=== PATIENT | male | born 1950 | race Caucasian/White ===

== ENCOUNTER 2020-11-26 08:07 | Emergency (ER) | payer MEDICARE ==
[2020-11-26 08:30] VITALS: BP 180/98; PULSE 86
--- NOTE | 2020-11-26 08:54 | EDM.PDOC ---
ED HPI GENERAL MEDICAL PROBLEM - General Chief Complaint: Lower Extremity Injury/Pain Stated Complaint: L CALF HURTING AND NUMB Time Seen by Provider: 11/26/20 08:35 Source of Information: Reports: Patient, Family History Limitations: Reports: No Limitations - History of Present Illness INITIAL COMMENTS - FREE TEXT/NARRATIVE: 70-year-old male arrives with left lower leg pain. He slipped in the bucket of his steer freezer unloader 5 days ago and injured his lower leg and pulled his back. 3 days ago he went to the chiropractor to have his back and hip work done but now is having more intense lower leg pain and having difficulty bearing weight. It never did bruise or really swell, there is no deformity. His back is still bothering him. He is having difficulty pinpointing where it hurts the most but it is below the knee on the left side. Onset: Sudden (His injury was sudden 5 days ago, the pain has slowly worsened especially over the past 48 hours) Location: Reports: Lower Extremity, Left Associated Symptoms: Reports: No Other Symptoms Left Lower Leg Pain Score (Numeric/FACES): 0 - Related Data Allergies Allergy/AdvReac Type Severity Reaction Status Date / Time No Known Allergies Allergy Verified 05/20/14 07:52 Home Meds: Home Meds NK [No Known Home Meds] 05/19/14 [History] Social & Family History - Tobacco Use Tobacco Use Status *Q: Never Tobacco User Review of Systems - Review of Systems Review Of Systems: See Below Constitutional: Denies: Fever Eyes: Denies: Tunnel Vision Ears: Denies: Dizziness Respiratory: Denies: Shortness of Breath, Cough Cardiovascular: Denies: Chest Pain, Palpitations Genitourinary: Reports: No Symptoms Musculoskeletal: Reports: Back Pain, Leg Pain Skin: Denies: Bruising Neurological: Denies: Headache ED EXAM, GENERAL - Physical Exam Exam: See Below Exam Limited By: No Limitations General Appearance: Alert, Moderate Distress Head: Atraumatic Neck: Non-Tender Respiratory/Chest: Lungs Clear Cardiovascular: Regular Rate, Rhythm GI/Abdominal: Soft, Non-Tender Back Exam: No: CVA Tenderness (R), CVA Tenderness (L), Vertebral Tenderness Extremities: Other (Patient reacts with tenderness to palpation of the arch of the left foot, and the anterior aspect of the fibula and tibia but there is no swelling or bruising. No pain with plantar flexion of the foot against resistance). No: Limited Range of Motion (Patient has full passive range of motion of both hips without pain, no tenderness with palpation of the lateral left hip) Neurological: Alert, Oriented, No Motor/Sensory Deficits Psychiatric: Normal Affect, Normal Mood Skin Exam: Warm, Dry Course - Vital Signs Last Recorded V/S: Last Vital Signs Temp 97.2 F 11/26/20 08:36 Pulse 86 11/26/20 08:36 Resp 20 11/26/20 08:36 BP 180/98 H 11/26/20 08:36 Pulse Ox 96 11/26/20 08:36 - Orders/Labs/Meds Orders: Active Orders 24 hr Category Date Time Status Foot Comp Min 3V Lt [CR] Stat Exams 11/26/20 08:43 Taken Tibia Fibula Lt [CR] Stat Exams 11/26/20 08:43 Taken - Re-Assessments/Exams Free Text/Narrative Re-Assessment/Exam: 11/26/20 09:03 Patient's blood pressure is noted to be elevated but he does not want to talk about this, does not want to see a doctor for regular problems. He is only concerned about his musculoskeletal symptoms. An x-ray of the left foot and left tib-fib were obtained. 11/26/20 09:32 X-rays of both tib-fib and foot were negative for fracture or acute findings. Patient was encouraged to continue with 600 mg of ibuprofen 3 times a day for the next 2 to 3 days and increase activity as tolerated. If not improving satisfactorily he will recheck on Saturday. Departure - Departure Time of Disposition: 09:50 Disposition: Home, Self-Care 01 Clinical Impression: High ankle sprain of left lower extremity Qualifiers: Encounter type: initial encounter Qualified Code(s): S93.492A - Sprain of other ligament of left ankle, initial encounter Contusion, lower leg Qualifiers: Encounter type: initial encounter Laterality: left Qualified Code(s): S80.12XA - Contusion of left lower leg, initial encounter - Discharge Information Instructions: Muscle Strain, [id number] Referrals: PCP,None [Primary Care Provider] - Forms: ED Department Discharge Care Plan Goals: Take 600 mg of ibuprofen 3 times a day for the next 3 days. Elevate leg when not active, and increase activity as tolerated. You may also use Tylenol at full doses, Tylenol and ibuprofen work well together. Consider rechecking next week if not improving satisfactorily. Sepsis Event Note (ED) - Evaluation Sepsis Screening Result: No Definite Risk - Focused Exam Vital Signs: Vital Signs Temp Pulse Resp BP Pulse Ox 11/26/20 08:36 97.2 F 86 20 180/98 H 96 11/26/20 08:29 97.2 F 86 20 180/98 H 96 - My Orders Last 24 Hours: My Active Orders 11/26/20 08:43 Foot Comp Min 3V Lt [CR] Stat Tibia Fibula Lt [CR] Stat - Assessment/Plan Last 24 Hours: My Active Orders 11/26/20 08:43 Foot Comp Min 3V Lt [CR] Stat Tibia Fibula Lt [CR] Stat
--- NOTE | 2020-11-28 09:12 | CR ---
Foot Comp Min 3V Lt, CLINICAL HISTORY: Injury FINDINGS: There is no acute fracture or dislocation within the foot. No destructive changes are present. There are some hammertoe deformities IMPRESSION: No acute bony process. Foot Comp Min 3V Lt, Tibia Fibula Lt CLINICAL HISTORY: Injury FINDINGS: Two views show no evidence of fracture or bone destruction. No soft tissue abnormality is seen. Impression: Negative
== END 2020-11-26 10:03 | disposition home or self-care (01) ==
LOC: JP.ED 08:07
DX: S93.492A Sprain of other ligament of left ankle, initial encounter (principal); S80.12XA Contusion of left lower leg, initial encounter; W22.09XA Striking against other stationary object, initial encounter
CPT/HCPCS: 73590-26-LT; 73590-LT; 73630-26-LT; 73630-LT; 99283-25

== ENCOUNTER 2020-11-30 19:35 | Inpatient (IN) | payer MEDICARE ==
[2020-11-30] MEDS ORDERED: Sodium Chloride 0.9% 1,000 ML IV SCH (19:45)
[2020-11-30] MEDS ORDERED: Sodium Chloride 0.9% 10 ML Syringe FLUSH PRN ×2 (19:45→21:57)
[2020-11-30] MEDS ORDERED: REMDESIVIR 200 MG in Sodium Chloride 0.9% 250 ML IV ONE (20:18)
[2020-11-30] MEDS ORDERED: Dexamethasone 4 MG/ML SDV IVPUSH SCH (20:30)
--- NOTE | 2020-11-30 21:10 | EDM.PDOC ---
ED HPI GENERAL MEDICAL PROBLEM - General Chief Complaint: Fever Stated Complaint: FEVER, FATIGUE, CONFUSION, FALL Time Seen by Provider: 11/30/20 19:37 Source of Information: Reports: Patient, Other (Neighbor who is a nurse at [facility]) History Limitations: Reports: No Limitations - History of Present Illness INITIAL COMMENTS - FREE TEXT/NARRATIVE: Kevin is a 70-year-old male presenting to the ED with increased fever, chills, vomiting, lethargy, generalized weakness and shortness of breath. Patient was in his usual state of health until about a week ago when he fell out of his skid furnace unloader causing injury to his left lower leg, left upper extremity, and low back. He was seen in the emergency room and evaluated where he also underwent x-rays on Saturday. The patient was seen in the clinic on Saturday by his primary doctor Dr. Mckenzie and was seen in physical therapy several times this week for evaluation and treatment of his injuries. The neighbors have been checking in on him every day but one of the neighbors noted today that he was not making much sense and was very weak and short of breath and called the other neighbor who is a nurse here at [facility] to come over and take a look at him. She felt that he looked like he was a little worse as well. He has been having some chills and fever. She brought him in for evaluation and upon arrival to the ED was found to have an SPO2 of 81% on room air. He is mildly tachypneic and tachycardic. He has not been able to keep any food or fluids down because of vomiting. He was placed on oxygen 4 L nasal cannula bringing his SPO2 up to 93% and placed in isolation with the concern that he may have COVID-19. The patient has not had previous exposure to Covid nor is he vaccinated for it. He has no real significant past medical history. When the patient was seen at his primary care provider's office on Saturday the nurse noted that his vitals were normal including his oxygenation. His fever did not start until yesterday. - Related Data Allergies Allergy/AdvReac Type Severity Reaction Status Date / Time No Known Allergies Allergy Verified 05/20/14 07:52 Home Meds: Home Meds Acetaminophen/HYDROcodone [HYDROcodone-Acetaminophen 5-325 MG *] 1 tab PO ASDIRECTED 08/18/21 [History] Past Medical History HEENT History: Reports: Impaired Vision Neurological History: Reports: CVA - Infectious Disease History Infectious Disease History: Reports: Chicken Pox, Measles, Mumps Social & Family History - Tobacco Use Tobacco Use Status *Q: Never Tobacco User ED ROS GENERAL - Review of Systems Review Of Systems: See Below Constitutional: Reports: Fever, Chills, Malaise, Weakness (Generalized), Decreased Appetite HEENT: Reports: No Symptoms Respiratory: Reports: Shortness of Breath Cardiovascular: Reports: No Symptoms Endocrine: Reports: Fatigue GI/Abdominal: Reports: Decreased Appetite, Vomiting : Reports: No Symptoms Musculoskeletal: Reports: Back Pain (From recent injury), Joint Swelling (Left leg pain below the knee and left upper extremity pain in the forearm.) Skin: Reports: No Symptoms Neurological: Reports: Confusion (Neighbors noted that at times the patient was not making sense) Psychiatric: Reports: No Symptoms Hematologic/Lymphatic: Reports: No Symptoms Immunologic: Reports: No Symptoms ED EXAM, GENERAL - Physical Exam Exam: See Below Exam Limited By: No Limitations General Appearance: Alert, No Apparent Distress Eye Exam: Bilateral Eye: EOMI, PERRL Throat/Mouth: Normal Inspection, Normal Lips, Normal Oropharynx, Normal Voice, No Airway Compromise Head: Atraumatic, Normocephalic Neck: Normal Inspection, Supple. No: Lymphadenopathy (R), Lymphadenopathy (L) Respiratory/Chest: No Respiratory Distress, No Accessory Muscle Use, Rhonchi (Bilateral basilar rhonchi) Cardiovascular: Normal Peripheral Pulses, Regular Rate, Rhythm, No Murmur, Tachycardia Peripheral Pulses: 2+: Radial (L), Radial (R), Posterior Tibial (L), Posterior Tibial (R) GI/Abdominal: Soft, Non-Tender, Abnormal Bowel Sounds (Increased bowel sounds) Extremities: Other (There is sizable swelling of the proximal left tibia. This is previously been evaluated and no fracture was found.) Neurological: Alert, Oriented, Normal Cognition, No Motor/Sensory Deficits Psychiatric: Normal Affect, Normal Mood Skin Exam: Warm, Dry, Intact, Normal Color Lymphatic: No Adenopathy Course - Vital Signs Last Recorded V/S: Last Vital Signs Temp 36.4 C 11/30/20 20:19 Pulse 77 11/30/20 20:42 Resp 20 11/30/20 20:42 BP 105/77 11/30/20 20:42 Pulse Ox 92 L 11/30/20 20:42 - Orders/Labs/Meds Orders: Active Orders 24 hr Category Date Time Status Chest 1V Frontal [CR] Stat Exams 11/30/20 19:37 Taken Acetaminophen [TylenoL] Med 11/30/20 20:18 Active 650 mg PO Q4H PRN Sodium Chloride 0.9% [Normal Saline] 1,000 ml Med 11/30/20 19:45 Active IV ASDIRECTED Sodium Chloride 0.9% [Saline Flush] Med 11/30/20 19:45 Active 10 ml FLUSH ASDIRECTED PRN dexAMETHasone [Decadron] Med 11/30/20 20:30 Active 6 mg IVPUSH DAILY Isolation [COMM] Stat Oth 11/30/20 20:18 Ordered Saline Lock Insert [OM.PC] Routine Oth 11/30/20 19:45 Ordered Medication Orders Acetaminophen (Acetaminophen 325 Mg Tab) 650 mg PO Q4H PRN PRN Reason: Fever Greater Than 101 Dexamethasone (Dexamethasone 4 Mg/Ml Sdv) 6 mg IVPUSH DAILY VEE Stop: 12/09/20 09:01 Sodium Chloride (Normal Saline) 1,000 mls @ 150 mls/hr IV ASDIRECTED VEE Last Admin: 11/30/20 19:58 Dose: 150 mls/hr Documented by: DAISY Sodium Chloride (Sodium Chloride 0.9% 10 Ml Syringe) 10 ml FLUSH ASDIRECTED PRN PRN Reason: Keep Vein Open Last Admin: 11/30/20 19:58 Dose: 10 ml Documented by: DAISY Labs: Laboratory Tests 11/30/20 11/30/20 11/30/20 Range/Units 19:45 20:04 20:04 WBC 4.7 (4.5-11.0) K/uL RBC 4.42 (4.30-5.90) M/uL Hgb 13.7 (12.0-15.0) g/dL Hct 40.2 (40.0-54.0) % MCV 91 (80-98) fL MCH 31 (27-31) pg MCHC 34 (32-36) % Plt Count 152 (150-400) K/uL Neut % (Auto) 66.1 H (36-66) % Lymph % (Auto) 23.9 L (24-44) % [place] % (Auto) 9.8 H (2-6) % Eos % (Auto) 0.0 L (2-4) % Baso % (Auto) 0.2 (0-1) % D-Dimer, Quantitative 1104.14 H (0.0-500.0) ng/mL Puncture Site ABG pH (7.350-7.450) ABG pCO2 (35.0-42.0) mmHg ABG pO2 (75.0-100.0) mmHg ABG HCO3 (22.0-26.0) mmol/L ABG Total CO2 (23.0-27.0) mmol/L ABG O2 Saturation (95.0-98.0) % ABG O2 Content (15.0-23.0) %vol ABG Base Excess mm/L ABG Hemoglobin (13.5-18.0) g/dL ABG Oxyhemoglobin % ABG Carboxyhemoglobin (0.0-1.6) % ABG Methemoglobin % Quinn Test O2 Delivery Device Oxygen Flow Rate L Sodium (140-148) mmol/L Potassium (3.6-5.2) mmol/L Chloride (100-108) mmol/L Carbon Dioxide (21-32) mmol/L Anion Gap (5.0-14.0) mmol/L BUN (7-18) mg/dL Creatinine (0.8-1.3) mg/dL Est Cr Clr Drug Dosing mL/min Estimated GFR (MDRD) (>60) Glucose (74-106) mg/dL Lactic Acid (0.4-2.0) mmol/L Calcium (8.5-10.1) mg/dL Ferritin (8-388) ng/ml Total Bilirubin (0.2-1.0) mg/dL AST (15-37) U/L ALT (12-78) U/L Alkaline Phosphatase (46-116) U/L Lactate Dehydrogenase (85-227) U/L C-Reactive Protein (0.0-0.3) mg/dL Total Protein (6.4-8.2) g/dL Albumin (3.4-5.0) g/dL Globulin (2.3-3.5) g/dL Albumin/Globulin Ratio (1.2-2.2) Procalcitonin ng/mL SARS CoV-2 RNA Rapid RYAN Positive H 0811/30/20 11/30/20 Range/Units 20:04 20:04 20:04 WBC (4.5-11.0) K/uL RBC (4.30-5.90) M/uL Hgb (12.0-15.0) g/dL Hct (40.0-54.0) % MCV (80-98) fL MCH (27-31) pg MCHC (32-36) % Plt Count (150-400) K/uL Neut % (Auto) (36-66) % Lymph % (Auto) (24-44) % [place] % (Auto) (2-6) % Eos % (Auto) (2-4) % Baso % (Auto) (0-1) % D-Dimer, Quantitative (0.0-500.0) ng/mL Puncture Site ABG pH (7.350-7.450) ABG pCO2 (35.0-42.0) mmHg ABG pO2 (75.0-100.0) mmHg ABG HCO3 (22.0-26.0) mmol/L ABG Total CO2 (23.0-27.0) mmol/L ABG O2 Saturation (95.0-98.0) % ABG O2 Content (15.0-23.0) %vol ABG Base Excess mm/L ABG Hemoglobin (13.5-18.0) g/dL ABG Oxyhemoglobin % ABG Carboxyhemoglobin (0.0-1.6) % ABG Methemoglobin % Quinn Test O2 Delivery Device Oxygen Flow Rate L Sodium 136 L (140-148) mmol/L Potassium 3.9 (3.6-5.2) mmol/L Chloride 100 (100-108) mmol/L Carbon Dioxide 26 (21-32) mmol/L Anion Gap 13.9 (5.0-14.0) mmol/L BUN 24 H (7-18) mg/dL Creatinine 1.2 (0.8-1.3) mg/dL Est Cr Clr Drug Dosing 57.45 mL/min Estimated GFR (MDRD) 60 (>60) Glucose 104 (74-106) mg/dL Lactic Acid 0.8 (0.4-2.0) mmol/L Calcium 8.2 L (8.5-10.1) mg/dL Ferritin 1500 H (8-388) ng/ml Total Bilirubin 0.3 (0.2-1.0) mg/dL AST 44 H (15-37) U/L ALT 22 (12-78) U/L Alkaline Phosphatase 60 (46-116) U/L Lactate Dehydrogenase (85-227) U/L C-Reactive Protein 8.86 H (0.0-0.3) mg/dL Total Protein 6.9 (6.4-8.2) g/dL Albumin 3.1 L (3.4-5.0) g/dL Globulin 3.8 H (2.3-3.5) g/dL Albumin/Globulin Ratio 0.8 L (1.2-2.2) Procalcitonin < 0.05 ng/mL SARS CoV-2 RNA Rapid RYAN 11/30/20 11/30/20 Range/Units 20:18 20:35 WBC (4.5-11.0) K/uL RBC (4.30-5.90) M/uL Hgb (12.0-15.0) g/dL Hct (40.0-54.0) % MCV (80-98) fL MCH (27-31) pg MCHC (32-36) % Plt Count (150-400) K/uL Neut % (Auto) (36-66) % Lymph % (Auto) (24-44) % [place] % (Auto) (2-6) % Eos % (Auto) (2-4) % Baso % (Auto) (0-1) % D-Dimer, Quantitative (0.0-500.0) ng/mL Puncture Site Lt radial ABG pH 7.412 (7.350-7.450) ABG pCO2 37.7 (35.0-42.0) mmHg ABG pO2 64.2 L (75.0-100.0) mmHg ABG HCO3 23.5 (22.0-26.0) mmol/L ABG Total CO2 20.7 L (23.0-27.0) mmol/L ABG O2 Saturation 92.3 L (95.0-98.0) % ABG O2 Content 17.9 (15.0-23.0) %vol ABG Base Excess -0.3 mm/L ABG Hemoglobin 14.1 (13.5-18.0) g/dL ABG Oxyhemoglobin 90.5 % ABG Carboxyhemoglobin 1.0 (0.0-1.6) % ABG Methemoglobin 0.9 % Quinn Test Pass O2 Delivery Device Nasal cannula Oxygen Flow Rate 4.0 L Sodium (140-148) mmol/L Potassium (3.6-5.2) mmol/L Chloride (100-108) mmol/L Carbon Dioxide (21-32) mmol/L Anion Gap (5.0-14.0) mmol/L BUN (7-18) mg/dL Creatinine (0.8-1.3) mg/dL Est Cr Clr Drug Dosing mL/min Estimated GFR (MDRD) (>60) Glucose (74-106) mg/dL Lactic Acid (0.4-2.0) mmol/L Calcium (8.5-10.1) mg/dL Ferritin (8-388) ng/ml Total Bilirubin (0.2-1.0) mg/dL AST (15-37) U/L ALT (12-78) U/L Alkaline Phosphatase (46-116) U/L Lactate Dehydrogenase 374 H (85-227) U/L C-Reactive Protein (0.0-0.3) mg/dL Total Protein (6.4-8.2) g/dL Albumin (3.4-5.0) g/dL Globulin (2.3-3.5) g/dL Albumin/Globulin Ratio (1.2-2.2) Procalcitonin ng/mL SARS CoV-2 RNA Rapid RYAN Meds: Medications Generic Name Dose Route Start Last Admin Trade Name Freq PRN Reason Stop Dose Admin Acetaminophen 650 mg 11/30/20 20:18 Acetaminophen 325 Mg Tab PO Q4H PRN Fever Greater Than 101 Dexamethasone 6 mg 11/30/20 20:30 Dexamethasone 4 Mg/Ml Sdv IVPUSH 12/09/20 09:01 DAILY VEE Sodium Chloride 1,000 mls @ 150 mls/hr 11/30/20 19:45 11/30/20 19:58 Normal Saline IV 150 mls/hr ASDIRECTED VEE Administration Sodium Chloride 10 ml 11/30/20 19:45 11/30/20 19:58 Sodium Chloride 0.9% 10 Ml Syringe FLUSH 10 ml ASDIRECTED PRN Administration Keep Vein Open Discontinued Medications Generic Name Dose Route Start Last Admin Trade Name Freq PRN Reason Stop Dose Admin Remdesivir 200 mg/ Sodium 250 mls @ 250 mls/hr 11/30/20 20:18 Chloride IV 11/30/20 20:19 ONETIME ONE - Radiology Interpretation Free Text/Narrative:: I reviewed the 1 view chest x-ray showing scattered infiltrates in both bases consistent with Covid lung. - Re-Assessments/Exams Free Text/Narrative Re-Assessment/Exam: 11/30/20 21:12 Kevin is a 70-year-old male with presenting symptoms of some confusion, difficulty breathing, generalized weakness, fever and chills, vomiting who upon work-up was found to have COVID-19. He has not previously had this or been vaccinated for it. His only significant past medical history is a stroke 5 years ago. He is on no medications and has no allergies. Labs were obtained showing a CBC with a leukocyte count of 4.7, hemoglobin of 13.7 with a hematocrit of 40.2 and a platelet count of 152,000. Comprehensive metabolic panel shows a sodium of 136, potassium 3.9, chloride of 100, bicarbonate of 26, BUN of 24 with a creatinine of 1.2 and a calculated GFR of 60. Arterial blood gas on 4 L nasal cannula shows a pH of 7.41, PCO2 of 37.3, PO2 of 64.2, and a bicarbonate of 23.5. The patient's calcium is 8.2 with an albumin of 3.1 with a corrected calcium of 8.5. Lactate dehydrogenase is 374, lactic acid is 0.8, pro calcitonin is less than 0.05, D-dimer is 1104, ferritin is 1500, and C- reactive protein is 8.86. Review of the patient's 1 view chest x-ray shows scattered infiltrates in both lungs predominantly in the bases consistent with Covid lung. Based on the presenting complaint, hypoxia on admission ER, and positive Covid test, we are recommending admission of the patient. We initiated therapy with dexamethasone 6 mg IV and remdesivir 200 mg IV. I discussed the case with Kerry Sauceda CNP who has agreed to arrange for admission of the patient. Departure - Departure Time of Disposition: 21:16 Disposition: Admitted As Inpatient 64 Clinical Impression: COVID-19, Hypoxia Altered mental status Qualifiers: Altered mental status type: disorientation Qualified Code(s): R41.0 - D isorientation, unspecified - Discharge Information Referrals: Mayito Mckenzie MD [Primary Care Provider] - Sepsis Event Note (ED) - Evaluation Sepsis Screening Result: No Definite Risk - Focused Exam Vital Signs: Vital Signs Temp Pulse Resp BP Pulse Ox 11/30/20 20:42 77 20 105/77 92 L 11/30/20 20:20 92 L 11/30/20 20:19 36.4 C 70 20 126/63 92 L - Problem List & Annotations (1) Altered mental status SNOMED Code(s): 795715327 Code(s): R41.82 - ALTERED MENTAL STATUS, UNSPECIFIED Status: Acute Priority: High Current Visit: Yes Qualifiers: Altered mental status type: disorientation Qualified Code(s): R41.0 - Disorientation, unspecified (2) COVID-19 SNOMED Code(s): 689822896 Code(s): U07.1 - COVID-19 Status: Acute Priority: High Current Visit: Yes (3) Hypoxia SNOMED Code(s): 832976837 Code(s): R09.02 - HYPOXEMIA Status: Acute Priority: High Current Visit: Yes - Problem List Review Problem List Initiated/Reviewed/Updated: Yes - My Orders Last 24 Hours: My Active Orders 11/30/20 19:37 Chest 1V Frontal [CR] Stat 11/30/20 19:45 Sodium Chloride 0.9% [Normal Saline] 1,000 ml IV ASDIRECTED Sodium Chloride 0.9% [Saline Flush] 10 ml FLUSH ASDIRECTED PRN Saline Lock Insert [OM.PC] Routine 11/30/20 20:18 Acetaminophen [TylenoL] 650 mg PO Q4H PRN Isolation [COMM] Stat 11/30/20 20:30 dexAMETHasone [Decadron] 6 mg IVPUSH DAILY - Assessment/Plan Last 24 Hours: My Active Orders 11/30/20 19:37 Chest 1V Frontal [CR] Stat 11/30/20 19:45 Sodium Chloride 0.9% [Normal Saline] 1,000 ml IV ASDIRECTED Sodium Chloride 0.9% [Saline Flush] 10 ml FLUSH ASDIRECTED PRN Saline Lock Insert [OM.PC] Routine 11/30/20 20:18 Acetaminophen [TylenoL] 650 mg PO Q4H PRN Isolation [COMM] Stat 11/30/20 20:30 dexAMETHasone [Decadron] 6 mg IVPUSH DAILY
--- NOTE | 2020-11-30 21:30 | PCM.HP.2 ---
H&P History of Present Illness - General Date of Service: 11/30/20 Admit Problem/Dx: Admission Diagnosis/Problem Admission Diagnosis/Problem Hypoxia Source of Information: Patient, Family (Family Friend who is Nurse with [facility]), Provider, RN History Limitations: Reports: No Limitations - History of Present Illness Initial Comments - Free Text/Narative: chief complaint: fever, chills, not feeling well for 2 days. This is a 70 year old male presents to the ER via POV with neighbor, who is also a Nurse at [facility]. She gives report of present illness. Mr. Blanco lives alone in [place], [place]. last week he fell from a Skidsteer (logging big equipment) and had injury to left buttocks, lower back and left knee- muscle soft tissue injury-no fractures. He was seen in ER at [facility] on Saturday, then Dr. Mckenzie, Primary Care on Saturday, then Physical Therapy . Yesterday he began to have fever, chills, body aches and decreased appetite. His Neighbor Jessica ARTIS, ACU at [facility], went to check on him, noted him to be short of breath, confused and weak. She brought him to the ER for evaluation. Upon arrival his oxygen saturation was 81% on room air and he tested positive for Covid-19. He is not vaccinated for Covid-19. Onset of Symptoms: Reports: Gradual Symptom Onset Date: 11/29/20 Duration of Symptoms: Reports: Day(s):, Getting Worse Location: Reports: Generalized Severity: Severe Improves with: Reports: Medication Worsens with: Reports: None Context: Reports: Sick Contact (multi contacts- [facility], Dr. Mckenzie, [facility], Physical Therapy ) Associated Symptoms: Reports: Fever/Chills, Loss of Appetite, Nausea/Vomiting, Shortness of Breath, Weakness - Related Data Allergies/Adverse Reactions: Allergies Allergy/AdvReac Type Severity Reaction Status Date / Time No Known Allergies Allergy Verified 05/20/14 07:52 Home Medications: Home Meds Acetaminophen/HYDROcodone [HYDROcodone-Acetaminophen 5-325 MG *] 1 tab PO ASDIRECTED 11/30/20 [History] Past Medical History HEENT History: Reports: Impaired Vision Neurological History: Reports: CVA - Infectious Disease History Infectious Disease History: Reports: Chicken Pox, Measles, Mumps Social & Family History - Tobacco Use Tobacco Use Status *Q: Never Tobacco User - Living Situation & Occupation Living situation: Reports: Single, Alone Occupation: Employed (lives alone in [place], [place]. Self-employed) H&P Review of Systems - Review of Systems: Review Of Systems: See Below General: Reports: Fever (temp >101 f.), Chills, Malaise, Weakness, Fatigue, Decreased Appetite HEENT: Reports: Glasses, Other (natural teeth) Pulmonary: Reports: Shortness of Breath Cardiovascular: Reports: No Symptoms Gastrointestinal: Reports: No Symptoms Genitourinary: Reports: No Symptoms Musculoskeletal: Reports: Back Pain (injuried on Saturday- low back, left buttocks, left knee), Muscle Pain (low back, left buttocks, left knee from Lo gging injury fall from equipment-11/26/2020), Muscle Stiffness (injury 11/26/2020- negative X-rays - low back, left buttocks and left knee) Skin: Reports: Bruising Psychiatric: Reports: Confusion Neurological: Reports: Confusion Hematologic/Lymphatic: Reports: No Symptoms Immunologic: Reports: No Symptoms Exam - Exam Exam: See Below - Vital Signs Vital Signs: Last Vital Signs Temp 97.6 F 11/30/20 20:19 Pulse 77 11/30/20 20:42 Resp 20 11/30/20 20:42 BP 105/77 11/30/20 20:42 Pulse Ox 92 L 11/30/20 20:42 Weight: 215 lb - Exam Quality Assessment: Supplemental Oxygen, DVT Prophylaxis General: Alert, Cooperative, Mild Distress HEENT: PERRLA, Conjunctiva Clear, EACs Clear, EOMI, Hearing Intact, Nares Patent, Glasses Neck: Supple, Trachea Midline, Full Range of Motion Lungs: Normal Respiratory Effort, Decreased Breath Sounds (bilateral) Cardiovascular: Regular Rate, Regular Rhythm, Normal S1, Normal S2 GI/Abdominal Exam: Normal Bowel Sounds, Soft, Non-Tender, No Organomegaly, No Distention (Male) Exam: Deferred Rectal (Males) Exam: Deferred Back Exam: Normal Inspection, Full Range of Motion, Muscle Spasm (low back pain, lidocaine patch noted to left buttocks) Extremities: Normal Inspection, Normal Range of Motion, Non-Tender, No Pedal Edema, Normal Capillary Refill Peripheral Pulses: 2+: Radial (L), Radial (R), Dorsalis Pedis (L), Dorsalis Pedis (R) Skin: Warm, Dry, Intact Neurological: Cranial Nerves Intact, Reflexes Equal Bilateral, Strength Equal Bilateral, Normal Speech, Normal Tone, Sensation Intact Neuro Extensive - Mental Status: Alert, Normal Mood/Affect Neuro Extensive - Motor, Sensory, Reflexes: CN II-XII Intact Psychiatric: Alert, Normal Affect, Normal Mood - Patient Data Lab Results Last 24 hrs: Laboratory Results - last 24 hr 11/30/20 11/30/20 11/30/20 Range/Units 19:45 20:04 20:04 WBC 4.7 (4.5-11.0) K/uL RBC 4.42 (4.30-5.90) M/uL Hgb 13.7 (12.0-15.0) g/dL Hct 40.2 (40.0-54.0) % MCV 91 (80-98) fL MCH 31 (27-31) pg MCHC 34 (32-36) % Plt Count 152 (150-400) K/uL Neut % (Auto) 66.1 H (36-66) % Lymph % (Auto) 23.9 L (24-44) % [place] % (Auto) 9.8 H (2-6) % Eos % (Auto) 0.0 L (2-4) % Baso % (Auto) 0.2 (0-1) % D-Dimer, Quantitative 1104.14 H (0.0-500.0) ng/mL Puncture Site ABG pH (7.350-7.450) ABG pCO2 (35.0-42.0) mmHg ABG pO2 (75.0-100.0) mmHg ABG HCO3 (22.0-26.0) mmol/L ABG Total CO2 (23.0-27.0) mmol/L ABG O2 Saturation (95.0-98.0) % ABG O2 Content (15.0-23.0) %vol ABG Base Excess mm/L ABG Hemoglobin (13.5-18.0) g/dL ABG Oxyhemoglobin % ABG Carboxyhemoglobin (0.0-1.6) % ABG Methemoglobin % Quinn Test O2 Delivery Device Oxygen Flow Rate L Sodium (140-148) mmol/L Potassium (3.6-5.2) mmol/L Chloride (100-108) mmol/L Carbon Dioxide (21-32) mmol/L Anion Gap (5.0-14.0) mmol/L BUN (7-18) mg/dL Creatinine (0.8-1.3) mg/dL Est Cr Clr Drug Dosing mL/min Estimated GFR (MDRD) (>60) Glucose (74-106) mg/dL Lactic Acid (0.4-2.0) mmol/L Calcium (8.5-10.1) mg/dL Ferritin (8-388) ng/ml Total Bilirubin (0.2-1.0) mg/dL AST (15-37) U/L ALT (12-78) U/L Alkaline Phosphatase (46-116) U/L Lactate Dehydrogenase (85-227) U/L C-Reactive Protein (0.0-0.3) mg/dL Total Protein (6.4-8.2) g/dL Albumin (3.4-5.0) g/dL Globulin (2.3-3.5) g/dL Albumin/Globulin Ratio (1.2-2.2) Procalcitonin ng/mL SARS CoV-2 RNA Rapid RYAN Positive H 11/30/20 11/30/20 11/30/20 Range/Units 20:04 20:04 20:04 WBC (4.5-11.0) K/uL RBC (4.30-5.90) M/uL Hgb (12.0-15.0) g/dL Hct (40.0-54.0) % MCV (80-98) fL MCH (27-31) pg MCHC (32-36) % Plt Count (150-400) K/uL Neut % (Auto) (36-66) % Lymph % (Auto) (24-44) % [place] % (Auto) (2-6) % Eos % (Auto) (2-4) % Baso % (Auto) (0-1) % D-Dimer, Quantitative (0.0-500.0) ng/mL Puncture Site ABG pH (7.350-7.450) ABG pCO2 (35.0-42.0) mmHg ABG pO2 (75.0-100.0) mmHg ABG HCO3 (22.0-26.0) mmol/L ABG Total CO2 (23.0-27.0) mmol/L ABG O2 Saturation (95.0-98.0) % ABG O2 Content (15.0-23.0) %vol ABG Base Excess mm/L ABG Hemoglobin (13.5-18.0) g/dL ABG Oxyhemoglobin % ABG Carboxyhemoglobin (0.0-1.6) % ABG Methemoglobin % Quinn Test O2 Delivery Device Oxygen Flow Rate L Sodium 136 L (140-148) mmol/L Potassium 3.9 (3.6-5.2) mmol/L Chloride 100 (100-108) mmol/L Carbon Dioxide 26 (21-32) mmol/L Anion Gap 13.9 (5.0-14.0) mmol/L BUN 24 H (7-18) mg/dL Creatinine 1.2 (0.8-1.3) mg/dL Est Cr Clr Drug Dosing 57.45 mL/min Estimated GFR (MDRD) 60 (>60) Glucose 104 (74-106) mg/dL Lactic Acid 0.8 (0.4-2.0) mmol/L Calcium 8.2 L (8.5-10.1) mg/dL Ferritin 1500 H (8-388) ng/ml Total Bilirubin 0.3 (0.2-1.0) mg/dL AST 44 H (15-37) U/L ALT 22 (12-78) U/L Alkaline Phosphatase 60 (46-116) U/L Lactate Dehydrogenase (85-227) U/L C-Reactive Protein 8.86 H (0.0-0.3) mg/dL Total Protein 6.9 (6.4-8.2) g/dL Albumin 3.1 L (3.4-5.0) g/dL Globulin 3.8 H (2.3-3.5) g/dL Albumin/Globulin Ratio 0.8 L (1.2-2.2) Procalcitonin < 0.05 ng/mL SARS CoV-2 RNA Rapid RYAN 11/30/20 11/30/20 Range/Units 20:18 20:35 WBC (4.5-11.0) K/uL RBC (4.30-5.90) M/uL Hgb (12.0-15.0) g/dL Hct (40.0-54.0) % MCV (80-98) fL MCH (27-31) pg MCHC (32-36) % Plt Count (150-400) K/uL Neut % (Auto) (36-66) % Lymph % (Auto) (24-44) % [place] % (Auto) (2-6) % Eos % (Auto) (2-4) % Baso % (Auto) (0-1) % D-Dimer, Quantitative (0.0-500.0) ng/mL Puncture Site Lt radial ABG pH 7.412 (7.350-7.450) ABG pCO2 37.7 (35.0-42.0) mmHg ABG pO2 64.2 L (75.0-100.0) mmHg ABG HCO3 23.5 (22.0-26.0) mmol/L ABG Total CO2 20.7 L (23.0-27.0) mmol/L ABG O2 Saturation 92.3 L (95.0-98.0) % ABG O2 Content 17.9 (15.0-23.0) %vol ABG Base Excess -0.3 mm/L ABG Hemoglobin 14.1 (13.5-18.0) g/dL ABG Oxyhemoglobin 90.5 % ABG Carboxyhemoglobin 1.0 (0.0-1.6) % ABG Methemoglobin 0.9 % Quinn Test Pass O2 Delivery Device Nasal cannula Oxygen Flow Rate 4.0 L Sodium (140-148) mmol/L Potassium (3.6-5.2) mmol/L Chloride (100-108) mmol/L Carbon Dioxide (21-32) mmol/L Anion Gap (5.0-14.0) mmol/L BUN (7-18) mg/dL Creatinine (0.8-1.3) mg/dL Est Cr Clr Drug Dosing mL/min Estimated GFR (MDRD) (>60) Glucose (74-106) mg/dL Lactic Acid (0.4-2.0) mmol/L Calcium (8.5-10.1) mg/dL Ferritin (8-388) ng/ml Total Bilirubin (0.2-1.0) mg/dL AST (15-37) U/L ALT (12-78) U/L Alkaline Phosphatase (46-116) U/L Lactate Dehydrogenase 374 H (85-227) U/L C-Reactive Protein (0.0-0.3) mg/dL Total Protein (6.4-8.2) g/dL Albumin (3.4-5.0) g/dL Globulin (2.3-3.5) g/dL Albumin/Globulin Ratio (1.2-2.2) Procalcitonin ng/mL SARS CoV-2 RNA Rapid RYAN Result Diagrams: 11/30/20 20:04 11/30/20 20:04 Sepsis Event Note - Evaluation Sepsis Screening Result: No Definite Risk - Focused Exam Vital Signs: Vital Signs Temp Pulse Resp BP Pulse Ox 11/30/20 20:42 77 20 105/77 92 L 11/30/20 20:20 92 L 11/30/20 20:19 97.6 F 70 20 126/63 92 L - Problem List (1) COVID-19 SNOMED Code(s): 540675234 ICD Code: U07.1 - COVID-19 Status: Acute Priority: High Current Visit: Yes (2) Hypoxia SNOMED Code(s): 433155174 ICD Code: R09.02 - HYPOXEMIA Status: Acute Priority: High Current Visit: Yes (3) Back pain due to injury SNOMED Code(s): 484064857, 994428933 ICD Code: M54.9 - DORSALGIA, UNSPECIFIED Status: Acute Priority: High Current Visit: Yes Problem List Initiated/Reviewed/Updated: Yes Orders Last 24hrs: Active Orders 24 hr Category Date Time Status Patient Status Manage Transfer [TRANSFER] Routine ADT 11/30/20 20:58 Ordered Chest 1V Frontal [CR] Stat Exams 11/30/20 19:37 Taken Acetaminophen [TylenoL] Med 11/30/20 20:18 Active 650 mg PO Q4H PRN Sodium Chloride 0.9% [Normal Saline] 1,000 ml Med 11/30/20 19:45 Active IV ASDIRECTED Sodium Chloride 0.9% [Saline Flush] Med 11/30/20 19:45 Active 10 ml FLUSH ASDIRECTED PRN dexAMETHasone [Decadron] Med 11/30/20 20:30 Active 6 mg IVPUSH DAILY Isolation [COMM] Stat Oth 11/30/20 20:18 Ordered Saline Lock Insert [OM.PC] Routine Oth 11/30/20 19:45 Ordered Resuscitation Status Routine Resus Stat 11/30/20 21:00 Ordered Medication Orders Acetaminophen (Acetaminophen 325 Mg Tab) 650 mg PO Q4H PRN PRN Reason: Fever Greater Than 101 Dexamethasone (Dexamethasone 4 Mg/Ml Sdv) 6 mg IVPUSH DAILY VEE Stop: 12/09/20 09:01 Sodium Chloride (Normal Saline) 1,000 mls @ 150 mls/hr IV ASDIRECTED VEE Last Admin: 11/30/20 19:58 Dose: 150 mls/hr Documented by: DAISY Sodium Chloride (Sodium Chloride 0.9% 10 Ml Syringe) 10 ml FLUSH ASDIRECTED PRN PRN Reason: Keep Vein Open Last Admin: 11/30/20 19:58 Dose: 10 ml Documented by: DAISY Assessment/Plan Comment:: Assessment/Plan Comment:: ASSESSMENT AND PLAN OF CARE This is a 70 year old male presents to the ER via POV with neighbor, who is also a Nurse at [facility]. She gives report of present illness. Mr. Blanco lives alone in [place], [place]. last week he fell from a Skidsteer (logging big equipment) and had injury to left buttocks, lower back and left knee- muscle soft tissue injury-no fractures. He was seen in ER at [facility] on Saturday, then Dr. Mckenzie, Primary Care on Saturday, then Physical Therapy . Yesterday he began to have fever, chills, body aches and decreased appetite. His Neighbor STEFF Lopez, ACU at [facility], went to check on him, noted him to be short of breath, confused and weak. She brought him to the ER for evaluation. Upon arrival his oxygen saturation was 81% on room air and he tested positive for Covid-19. He is not vaccinated for Covid-19. ER workup shows WBC 4.7, hgb 13.7, hct 40.2, platelets 152, Ferritin >1500, D Dimer >1104.14 Chemistry Na+ 136, K+ 3.9, cl 100, anion gap 13.9, BUN 24, Cr 1.2, glucose 104, CRP 8.86, positive Covid-19, Lactic acid 0.8, procalcitonin <0.05. ABGspH 7.41, pC02 37.7, pO2 64.2, HCO3 23.5, total Co2 20.7, O2 sat 92.3, X-ray chest Radiology report bilateral patchy infiltrates- consistent with covid lung. Medication given IV fluids, Tylenol in ER. Plan to hospital for further care and treatment. agree with plan of care. Covid-[address] Haq, Hospitalist. -Admit to [address] [place] [address] for further monitoring COVID-19 INFECTION WITH HYPOXIA-onset of symptoms one days ago. Hypoxic on initial presentation Oxygen sat 81% on room air, chest x-ray shows evidence of bilateral infiltrates. -Limit IV fluids- given one liter in ER due to dehydration -IV Remdesivir 200 mg IV given in the emergency department, 100 mg IV daily for 4 days starting tomorrow -Decadron 6 mg IV daily -Lovenox 40 mg subcut every 12 hours -oxygen to keep sats greater than 93%, currently nasal cannula at 4 liter with oxygen sat at 93% -Albuterol inhaler 2 puffs every 2 hours as needed for shortness of breath -Advise to notify nurses of any chest pain or other symptoms -And a.m. labs: CBC, BMP, D-dimer Back Pain- due to fall from Logging equipment, seen in ER on 11/26/2020- no fractures. -Hydrocodone 5-325 mg one to two every 4 hours as needed for pain -Lidocaine patch daily Maintenance issues -Orders home medications: no chronic medication -Nutrition: regular diet. -Broderick catheter -not indicated at this time -DVT: Lovenox 40 mg subcut every 12 hours -PPI; IV Protonix 40mg at bedtime CODE STATUS: FULL Admission status: Admit to [address] [place] [address] Admission justification. This patient will be admitted for inpatient services and is medically appropriate meeting medical necessity for inpatient admission as outlined in my documentation. I reasonably expect the patient will require inpatient services that span. Time over 2 midnights. I reasonably expect this patient to be discharged or transferred within 96 hours after admission to the critical access hospital. Disposition: home Primary care provider: Dr. Mckenzie, [facility] Hospitalist: Dr. Haq - Mortality Measure Prognosis:: Good
[2020-11-30] MEDS ORDERED: Morphine 2 MG/ML SYRINGE IVPUSH PRN (21:57)
[2020-11-30] MEDS ORDERED: Docusate Sodium 100 MG Cap PO PRN (21:57)
[2020-11-30] MEDS ORDERED: Lidocaine 5% 700 MG Patch TRDERM SCH (21:57)
[2020-11-30] MEDS ORDERED: Enoxaparin 40 MG/0.4 ML Syringe SUBCUT SCH (21:57)
[2020-11-30] MEDS ORDERED: Albuterol 8 GM Inhaler INH PRN (21:57)
[2020-11-30] MEDS ORDERED: Ondansetron 4 MG Tab.DIS PO PRN (21:57)
[2020-11-30] MEDS ORDERED: LORazepam 2 MG/ML SDV IV PRN (21:57)
[2020-11-30] MEDS ORDERED: Pantoprazole 40 MG Vial IV SCH (21:57)
--- NOTE | 2020-12-01 08:51 | CR ---
CHEST: Portable 11/30/2020 at 8:11 PM CLINICAL HISTORY:Covid Positive, lethargy, hypoxia COMPARISON:None FINDINGS: There is ill-defined infiltrate in the left mid and lower lung field and the right lower lung. No effusion is seen. Heart and pulmonary vascular are normal. Impression: Faint bilateral pulmonary infiltrates suggest pneumonitis
[2020-12-01] MEDS: Enoxaparin 40 MG/0.4 ML Syringe SUBCUT SCH ×2 (09:44→22:26)
[2020-12-01] MEDS: REMDESIVIR 100 MG in Sodium Chloride 0.9% 100 ML IV SCH (20:14)
--- NOTE | 2020-12-01 21:08 | PCM.PN ---
- General Info Date of Service: 12/01/20 Admission Dx/Problem (Free Text): Admission Diagnosis/Problem Admission Diagnosis/Problem Hypoxia secondary to COVID-19 Functional Status: Reports: Tolerating Diet, Incentive Spirometry - Review of Systems General: Reports: Appetite. Denies: Fever, Chills HEENT: Denies: Headaches, Visual Changes Pulmonary: Reports: Cough. Denies: Shortness of Breath, Pleuritic Chest Pain, Wheezing Cardiovascular: Denies: Chest Pain, Palpitations Gastrointestinal: Denies: Abdominal Pain, Constipation, Diarrhea, Nausea, Vomiting Genitourinary: Denies: Dysuria, Frequency, Urgency Musculoskeletal: Reports: No Symptoms Skin: Reports: No Symptoms Neurological: Reports: No Symptoms Psychiatric: Reports: No Symptoms - Patient Data Vitals - Most Recent: Last Vital Signs Temp 98.5 F 12/01/20 20:00 Pulse 71 12/01/20 20:00 Resp 18 12/01/20 20:00 BP 135/74 12/01/20 20:00 Pulse Ox 91 L 12/01/20 20:00 Weight - Most Recent: 209 lb I&O - Last 24 Hours: Intake & Output 12/01/20 12/01/20 12/01/20 06:59 14:59 22:59 Intake Total 200 220 100 Output Total 500 600 Balance -300 220 -500 Lab Results Last 24 Hours: Laboratory Results - last 24 hr 11/30/20 11/30/20 12/01/20 Range/Units 20:04 20:18 06:00 WBC (4.5-11.0) K/uL RBC (4.30-5.90) M/uL Hgb (12.0-15.0) g/dL Hct (40.0-54.0) % MCV (80-98) fL MCH (27-31) pg MCHC (32-36) % Plt Count (150-400) K/uL Neut % (Auto) (36-66) % Lymph % (Auto) (24-44) % [place] % (Auto) (2-6) % Eos % (Auto) (2-4) % Baso % (Auto) (0-1) % Sodium 136 L (140-148) mmol/L Potassium 3.9 (3.6-5.2) mmol/L Chloride 100 (100-108) mmol/L Carbon Dioxide 26 (21-32) mmol/L Anion Gap 13.9 (5.0-14.0) mmol/L BUN 24 H (7-18) mg/dL Creatinine 1.2 (0.8-1.3) mg/dL Est Cr Clr Drug Dosing 57.45 mL/min Estimated GFR (MDRD) 60 (>60) Glucose 104 (74-106) mg/dL Calcium 8.2 L (8.5-10.1) mg/dL Ferritin 1500 H (8-388) ng/ml Total Bilirubin 0.3 0.3 (0.2-1.0) mg/dL Direct Bilirubin 0.09 (0.0-0.2) mg/dL Indirect Bilirubin TNP AST 44 H 45 H (15-37) U/L ALT 22 21 (12-78) U/L Alkaline Phosphatase 60 57 (46-116) U/L Lactate Dehydrogenase 374 H (85-227) U/L C-Reactive Protein 8.86 H (0.0-0.3) mg/dL Total Protein 6.9 6.4 (6.4-8.2) g/dL Albumin 3.1 L 2.7 L (3.4-5.0) g/dL Globulin 3.8 H 3.7 H (2.3-3.5) g/dL Albumin/Globulin Ratio 0.8 L 0.7 L (1.2-2.2) 12/01/20 12/01/20 Range/Units 06:17 06:17 WBC 3.7 L (4.5-11.0) K/uL RBC 4.30 (4.30-5.90) M/uL Hgb 13.7 (12.0-15.0) g/dL Hct 39.2 L (40.0-54.0) % MCV 91 (80-98) fL MCH 32 H (27-31) pg MCHC 35 (32-36) % Plt Count 144 L (150-400) K/uL Neut % (Auto) 67.9 H (36-66) % Lymph % (Auto) 25.6 (24-44) % [place] % (Auto) 6.5 H (2-6) % Eos % (Auto) 0.0 L (2-4) % Baso % (Auto) 0.0 (0-1) % Sodium 137 L (140-148) mmol/L Potassium 4.2 (3.6-5.2) mmol/L Chloride 101 (100-108) mmol/L Carbon Dioxide 25 (21-32) mmol/L Anion Gap 15.2 H (5.0-14.0) mmol/L BUN 22 H (7-18) mg/dL Creatinine 1.0 (0.8-1.3) mg/dL Est Cr Clr Drug Dosing 68.94 mL/min Estimated GFR (MDRD) > 60 (>60) Glucose 123 H (74-106) mg/dL Calcium 8.2 L (8.5-10.1) mg/dL Ferritin (8-388) ng/ml Total Bilirubin (0.2-1.0) mg/dL Direct Bilirubin (0.0-0.2) mg/dL Indirect Bilirubin AST (15-37) U/L ALT (12-78) U/L Alkaline Phosphatase (46-116) U/L Lactate Dehydrogenase (85-227) U/L C-Reactive Protein (0.0-0.3) mg/dL Total Protein (6.4-8.2) g/dL Albumin (3.4-5.0) g/dL Globulin (2.3-3.5) g/dL Albumin/Globulin Ratio (1.2-2.2) Med Orders - Current: Current Medications Acetaminophen (Acetaminophen 325 Mg Tab) 650 mg PO Q4H PRN PRN Reason: Fever Greater Than 101 Hydrocodone Bitart/Acetaminophen (Acetaminophen/Hydrocodone 325-5 Mg Tab) 1 tab PO Q4H PRN PRN Reason: Pain (moderate 4-6) Albuterol (Albuterol 8 Gm Inhaler) 0 gm INH Q2H PRN PRN Reason: Shortness of Breath Dexamethasone (Dexamethasone 4 Mg/Ml Sdv) 6 mg IVPUSH BEDTIME [facility] Stop: 12/09/20 21:01 Docusate Sodium (Docusate Sodium 100 Mg Cap) 100 mg PO BID PRN PRN Reason: Constipation Enoxaparin Sodium (Enoxaparin 40 Mg/0.4 Ml Syringe) 40 mg SUBCUT BID [facility] Last Admin: 12/01/20 09:44 Dose: 40 mg Documented by: Remdesivir 100 mg/ Sodium (Chloride) 100 mls @ 100 mls/hr IV Q24H [facility] Stop: 12/04/20 18:59 Last Admin: 12/01/20 20:14 Dose: 100 mls/hr Documented by: Lidocaine (Lidocaine 5% 700 Mg Patch) 700 mg TRDERM Q24H [facility] Lorazepam (Lorazepam 2 Mg/Ml Sdv) 1 mg IV Q6H PRN PRN Reason: Nausea/Vomiting Miscellaneous Information (Remove Lidocaine Patch) 1 ea TRDERM DAILY [facility] Last Admin: 12/01/20 09:45 Dose: Not Given Documented by: Morphine Sulfate (Morphine 2 Mg/Ml Syringe) 2 mg IVPUSH Q2H PRN PRN Reason: Pain (severe 7-10) Ondansetron HCl (Ondansetron 4 Mg Tab.Dis) 4 mg PO Q6H PRN PRN Reason: Nausea able to take PO Pantoprazole Sodium (Pantoprazole 40 Mg Tab.Cr) 40 mg PO BEDTIME [facility] Sodium Chloride (Sodium Chloride 0.9% 10 Ml Syringe) 10 ml FLUSH ASDIRECTED PRN PRN Reason: Keep Vein Open Discontinued Medications Dexamethasone (Dexamethasone 4 Mg/Ml Sdv) 6 mg IVPUSH DAILY [facility] Stop: 12/09/20 09:01 Last Admin: 11/30/20 22:47 Dose: 6 mg Documented by: Enoxaparin Sodium (Enoxaparin 40 Mg/0.4 Ml Syringe) 40 mg SUBCUT Q12H [facility] Last Admin: 11/30/20 22:58 Dose: 40 mg Documented by: Sodium Chloride (Normal Saline) 1,000 mls @ 150 mls/hr IV ASDIRECTED [facility] Last Admin: 11/30/20 19:58 Dose: 150 mls/hr Documented by: Remdesivir 200 mg/ Sodium (Chloride) 250 mls @ 250 mls/hr IV ONETIME ONE Stop: 11/30/20 20:19 Last Admin: 11/30/20 22:53 Dose: 250 mls/hr Documented by: Lidocaine (Lidocaine 5% 700 Mg Patch) 700 mg TRDERM Q24H [facility] Last Admin: 11/30/20 22:58 Dose: 700 mg Documented by: Pantoprazole Sodium (Pantoprazole 40 Mg Vial) 40 mg IV BEDTIME [facility] Last Admin: 11/30/20 22:51 Dose: 40 mg Documented by: Sodium Chloride (Sodium Chloride 0.9% 10 Ml Syringe) 10 ml FLUSH ASDIRECTED PRN PRN Reason: Keep Vein Open Last Admin: 11/30/20 19:58 Dose: 10 ml Documented by: - Exam Quality Assessment: Supplemental Oxygen General: Alert, Oriented, No Acute Distress HEENT: Pupils Equal, EOMI, Mucous Membr. Moist/[place] Neck: Supple, Trachea Midline Lungs: Clear to Auscultation, Normal Respiratory Effort Cardiovascular: Regular Rate, Regular Rhythm GI/Abdominal Exam: Normal Bowel Sounds, Soft, Non-Tender Extremities: Normal Inspection, Non-Tender, No Pedal Edema Skin: Warm, Dry, Intact Neurological: No New Focal Deficit Psy/Mental Status: Alert, Normal Affect, Normal Mood - Patient Data Lab Results Last 24 hrs: Laboratory Results - last 24 hr 11/30/20 11/30/20 12/01/20 Range/Units 20:04 20:18 06:00 WBC (4.5-11.0) K/uL RBC (4.30-5.90) M/uL Hgb (12.0-15.0) g/dL Hct (40.0-54.0) % MCV (80-98) fL MCH (27-31) pg MCHC (32-36) % Plt Count (150-400) K/uL Neut % (Auto) (36-66) % Lymph % (Auto) (24-44) % [place] % (Auto) (2-6) % Eos % (Auto) (2-4) % Baso % (Auto) (0-1) % Sodium 136 L (140-148) mmol/L Potassium 3.9 (3.6-5.2) mmol/L Chloride 100 (100-108) mmol/L Carbon Dioxide 26 (21-32) mmol/L Anion Gap 13.9 (5.0-14.0) mmol/L BUN 24 H (7-18) mg/dL Creatinine 1.2 (0.8-1.3) mg/dL Est Cr Clr Drug Dosing 57.45 mL/min Estimated GFR (MDRD) 60 (>60) Glucose 104 (74-106) mg/dL Calcium 8.2 L (8.5-10.1) mg/dL Ferritin 1500 H (8-388) ng/ml Total Bilirubin 0.3 0.3 (0.2-1.0) mg/dL Direct Bilirubin 0.09 (0.0-0.2) mg/dL Indirect Bilirubin TNP AST 44 H 45 H (15-37) U/L ALT 22 21 (12-78) U/L Alkaline Phosphatase 60 57 (46-116) U/L Lactate Dehydrogenase 374 H (85-227) U/L C-Reactive Protein 8.86 H (0.0-0.3) mg/dL Total Protein 6.9 6.4 (6.4-8.2) g/dL Albumin 3.1 L 2.7 L (3.4-5.0) g/dL Globulin 3.8 H 3.7 H (2.3-3.5) g/dL Albumin/Globulin Ratio 0.8 L 0.7 L (1.2-2.2) 12/01/20 12/01/20 Range/Units 06:17 06:17 WBC 3.7 L (4.5-11.0) K/uL RBC 4.30 (4.30-5.90) M/uL Hgb 13.7 (12.0-15.0) g/dL Hct 39.2 L (40.0-54.0) % MCV 91 (80-98) fL MCH 32 H (27-31) pg MCHC 35 (32-36) % Plt Count 144 L (150-400) K/uL Neut % (Auto) 67.9 H (36-66) % Lymph % (Auto) 25.6 (24-44) % [place] % (Auto) 6.5 H (2-6) % Eos % (Auto) 0.0 L (2-4) % Baso % (Auto) 0.0 (0-1) % Sodium 137 L (140-148) mmol/L Potassium 4.2 (3.6-5.2) mmol/L Chloride 101 (100-108) mmol/L Carbon Dioxide 25 (21-32) mmol/L Anion Gap 15.2 H (5.0-14.0) mmol/L BUN 22 H (7-18) mg/dL Creatinine 1.0 (0.8-1.3) mg/dL Est Cr Clr Drug Dosing 68.94 mL/min Estimated GFR (MDRD) > 60 (>60) Glucose 123 H (74-106) mg/dL Calcium 8.2 L (8.5-10.1) mg/dL Ferritin (8-388) ng/ml Total Bilirubin (0.2-1.0) mg/dL Direct Bilirubin (0.0-0.2) mg/dL Indirect Bilirubin AST (15-37) U/L ALT (12-78) U/L Alkaline Phosphatase (46-116) U/L Lactate Dehydrogenase (85-227) U/L C-Reactive Protein (0.0-0.3) mg/dL Total Protein (6.4-8.2) g/dL Albumin (3.4-5.0) g/dL Globulin (2.3-3.5) g/dL Albumin/Globulin Ratio (1.2-2.2) Result Diagrams: 12/01/20 06:17 12/01/20 06:17 Sepsis Event Note - Evaluation Sepsis Screening Result: Possible Sepsis Risk - Focused Exam Vital Signs: Vital Signs Temp Pulse Resp BP Pulse Ox 12/01/20 20:00 98.5 F 71 18 135/74 91 L 12/01/20 16:45 96.8 F L 75 16 131/88 94 L 12/01/20 13:15 90 L 12/01/20 11:45 97.1 F 71 18 124/71 90 L - Problem List & Annotations (1) COVID-19 SNOMED Code(s): 185445018 Code(s): U07.1 - COVID-19 Status: Acute Priority: High Current Visit: Yes (2) Hypoxia SNOMED Code(s): 604232818 Code(s): R09.02 - HYPOXEMIA Status: Acute Priority: High Current Visit: Yes - Problem List Review Problem List Initiated/Reviewed/Updated: Yes - My Orders Last 24 Hours: My Active Orders 12/01/20 18:00 Remdesivir 100 mg Sodium Chloride 0.9% [Normal Saline] 100 ml IV Q24H 12/02/20 17:45 HEPATIC FUNCTION PANEL,HFP [CHEM] DAILY 12/03/20 17:45 HEPATIC FUNCTION PANEL,HFP [CHEM] DAILY 12/04/20 17:45 HEPATIC FUNCTION PANEL,HFP [CHEM] DAILY 12/05/20 17:45 HEPATIC FUNCTION PANEL,HFP [CHEM] DAILY - Plan Plan:: COVID-19 INFECTION WITH HYPOXIA-onset of symptoms one days ago. Hypoxic on initial presentation Oxygen sat 81% on room air, chest x-ray shows evidence of bilateral infiltrates. -Limit IV fluids- given one liter in ER due to dehydration -IV Remdesivir 200 mg IV given in the emergency department, 100 mg IV daily started -Decadron 6 mg IV daily -Lovenox 40 mg subcut every 12 hours -oxygen to keep sats greater than 88%, currently nasal cannula at 4 liter with oxygen sat at 88% -Albuterol inhaler 2 puffs every 2 hours as needed for shortness of breath -Advise to notify nurses of any chest pain or other symptoms -Was encouraged to use incentive spirometry and to prone as often as comfortable for him Back Pain- due to fall from Logging equipment, seen in ER on 11/26/2020- no fractures. -Hydrocodone 5-325 mg one to two every 4 hours as needed for pain -Lidocaine patch daily Maintenance issues -Orders home medications: no chronic medication -Nutrition: regular diet. -Broderick catheter -not indicated at this time -DVT: Lovenox 40 mg subcut every 12 hours -PPI; IV Protonix 40mg at bedtime CODE STATUS: FULL Plan: We will continue to monitor for his need for nasal cannula which he is currently using 10 L high flow with moisture. I did explain to him that we usually see within the first couple of days how well the patient is going to do. I explained to him I would not be able to let him go home unless he had an o xygen saturation above 90 and only requiring less than or equal to 5 L nasal cannula. Disposition: home Primary care provider: Dr. Mckenzie, [facility] Ann Marie Luque DO
[2020-12-01] MEDS: Dexamethasone 4 MG/ML SDV IVPUSH SCH (22:24)
[2020-12-01] MEDS: Pantoprazole 40 MG Tab.CR PO SCH (22:24)
[2020-12-01] MEDS: Lidocaine 5% 700 MG Patch TRDERM SCH (22:26)
[2020-12-02] MEDS: Enoxaparin 40 MG/0.4 ML Syringe SUBCUT SCH ×2 (07:59→21:47)
[2020-12-02] MEDS: REMDESIVIR 100 MG in Sodium Chloride 0.9% 100 ML IV SCH (17:19)
--- NOTE | 2020-12-02 20:08 | PCM.PN ---
- General Info Date of Service: 12/02/20 Admission Dx/Problem (Free Text): Admission Diagnosis/Problem Admission Diagnosis/Problem Hypoxia secondary to COVID-19 Subjective Update: Mr. Lopez is doing well today. He has no new complaints. He is feeling fine despite needing the oxygen. He states the oxygen does not bother him. He states that he has been proning as much as he can. Functional Status: Reports: Tolerating Diet, Incentive Spirometry - Review of Systems General: Reports: No Symptoms HEENT: Reports: No Symptoms Pulmonary: Reports: No Symptoms, Other (Requiring oxygen oxygen but not having increased work of breathing or cough) Cardiovascular: Reports: No Symptoms Gastrointestinal: Reports: No Symptoms Genitourinary: Reports: No Symptoms Musculoskeletal: Reports: No Symptoms Skin: Reports: No Symptoms Neurological: Reports: No Symptoms Psychiatric: Reports: No Symptoms - Patient Data Vitals - Most Recent: Last Vital Signs Temp 97.9 F 12/02/20 19:20 Pulse 74 12/02/20 19:20 Resp 24 H 12/02/20 19:20 BP 132/76 12/02/20 19:20 Pulse Ox 87 L 12/02/20 19:20 Weight - Most Recent: 209 lb I&O - Last 24 Hours: Intake & Output 12/02/20 12/02/20 12/02/20 06:59 14:59 22:59 Intake Total 700 Output Total 400 Balance -400 700 Lab Results Last 24 Hours: Laboratory Results - last 24 hr 12/02/20 12/02/20 12/02/20 Range/Units 06:29 06:29 06:29 WBC 7.6 (4.5-11.0) K/uL RBC 4.48 (4.30-5.90) M/uL Hgb 13.9 (12.0-15.0) g/dL Hct 40.4 (40.0-54.0) % MCV 90 (80-98) fL MCH 31 (27-31) pg MCHC 34 (32-36) % Plt Count 158 (150-400) K/uL D-Dimer, Quantitative 976.63 H (0.0-500.0) ng/mL Sodium (140-148) mmol/L Potassium (3.6-5.2) mmol/L Chloride (100-108) mmol/L Carbon Dioxide (21-32) mmol/L Anion Gap (5.0-14.0) mmol/L BUN (7-18) mg/dL Creatinine (0.8-1.3) mg/dL Est Cr Clr Drug Dosing mL/min Estimated GFR (MDRD) (>60) Glucose (74-106) mg/dL Calcium (8.5-10.1) mg/dL Total Bilirubin 0.3 (0.2-1.0) mg/dL Direct Bilirubin 0.10 (0.0-0.2) mg/dL Indirect Bilirubin 0.20 AST 44 H (15-37) U/L ALT 21 (12-78) U/L Alkaline Phosphatase 57 (46-116) U/L Total Protein 6.6 (6.4-8.2) g/dL Albumin 2.8 L (3.4-5.0) g/dL Globulin 3.8 H (2.3-3.5) g/dL Albumin/Globulin Ratio 0.7 L (1.2-2.2) 12/02/20 Range/Units 06:29 WBC (4.5-11.0) K/uL RBC (4.30-5.90) M/uL Hgb (12.0-15.0) g/dL Hct (40.0-54.0) % MCV (80-98) fL MCH (27-31) pg MCHC (32-36) % Plt Count (150-400) K/uL D-Dimer, Quantitative (0.0-500.0) ng/mL Sodium 138 L (140-148) mmol/L Potassium 4.4 (3.6-5.2) mmol/L Chloride 103 (100-108) mmol/L Carbon Dioxide 26 (21-32) mmol/L Anion Gap 13.4 (5.0-14.0) mmol/L BUN 28 H (7-18) mg/dL Creatinine 1.0 (0.8-1.3) mg/dL Est Cr Clr Drug Dosing 69.11 mL/min Estimated GFR (MDRD) > 60 (>60) Glucose 144 H (74-106) mg/dL Calcium 8.7 (8.5-10.1) mg/dL Total Bilirubin (0.2-1.0) mg/dL Direct Bilirubin (0.0-0.2) mg/dL Indirect Bilirubin AST (15-37) U/L ALT (12-78) U/L Alkaline Phosphatase (46-116) U/L Total Protein (6.4-8.2) g/dL Albumin (3.4-5.0) g/dL Globulin (2.3-3.5) g/dL Albumin/Globulin Ratio (1.2-2.2) Med Orders - Current: Current Medications Acetaminophen (Acetaminophen 325 Mg Tab) 650 mg PO Q4H PRN PRN Reason: Fever Greater Than 101 Hydrocodone Bitart/Acetaminophen (Acetaminophen/Hydrocodone 325-5 Mg Tab) 1 tab PO Q4H PRN PRN Reason: Pain (moderate 4-6) Albuterol (Albuterol 8 Gm Inhaler) 0 gm INH Q2H PRN PRN Reason: Shortness of Breath Dexamethasone (Dexamethasone 4 Mg/Ml Sdv) 6 mg IVPUSH BEDTIME [facility] Stop: 12/09/20 21:01 Last Admin: 12/01/20 22:24 Dose: 6 mg Documented by: Docusate Sodium (Docusate Sodium 100 Mg Cap) 100 mg PO BID PRN PRN Reason: Constipation Enoxaparin Sodium (Enoxaparin 40 Mg/0.4 Ml Syringe) 40 mg SUBCUT BID [facility] Last Admin: 12/02/20 07:59 Dose: 40 mg Documented by: Remdesivir 100 mg/ Sodium (Chloride) 100 mls @ 100 mls/hr IV Q24H [facility] Stop: 12/04/20 18:59 Last Admin: 12/02/20 17:19 Dose: 100 mls/hr Documented by: Lidocaine (Lidocaine 5% 700 Mg Patch) 700 mg TRDERM Q24H [facility] Last Admin: 12/01/20 22:26 Dose: 700 mg Documented by: Lorazepam (Lorazepam 2 Mg/Ml Sdv) 1 mg IV Q6H PRN PRN Reason: Nausea/Vomiting Miscellaneous Information (Remove Lidocaine Patch) 1 ea TRDERM DAILY [facility] Last Admin: 12/02/20 07:59 Dose: Not Given Documented by: Morphine Sulfate (Morphine 2 Mg/Ml Syringe) 2 mg IVPUSH Q2H PRN PRN Reason: Pain (severe 7-10) Ondansetron HCl (Ondansetron 4 Mg Tab.Dis) 4 mg PO Q6H PRN PRN Reason: Nausea able to take PO Pantoprazole Sodium (Pantoprazole 40 Mg Tab.Cr) 40 mg PO BEDTIME [facility] Last Admin: 12/01/20 22:24 Dose: 40 mg Documented by: Sodium Chloride (Sodium Chloride 0.9% 10 Ml Syringe) 10 ml FLUSH ASDIRECTED PRN PRN Reason: Keep Vein Open Discontinued Medications Dexamethasone (Dexamethasone 4 Mg/Ml Sdv) 6 mg IVPUSH DAILY [facility] Stop: 12/09/20 09:01 Last Admin: 11/30/20 22:47 Dose: 6 mg Documented by: Enoxaparin Sodium (Enoxaparin 40 Mg/0.4 Ml Syringe) 40 mg SUBCUT Q12H [facility] Last Admin: 11/30/20 22:58 Dose: 40 mg Documented by: Sodium Chloride (Normal Saline) 1,000 mls @ 150 mls/hr IV ASDIRECTED [facility] Last Admin: 11/30/20 19:58 Dose: 150 mls/hr Documented by: Remdesivir 200 mg/ Sodium (Chloride) 250 mls @ 250 mls/hr IV ONETIME ONE Stop: 11/30/20 20:19 Last Admin: 11/30/20 22:53 Dose: 250 mls/hr Documented by: Lidocaine (Lidocaine 5% 700 Mg Patch) 700 mg TRDERM Q24H [facility] Last Admin: 11/30/20 22:58 Dose: 700 mg Documented by: Pantoprazole Sodium (Pantoprazole 40 Mg Vial) 40 mg IV BEDTIME [facility] Last Admin: 11/30/20 22:51 Dose: 40 mg Documented by: Sodium Chloride (Sodium Chloride 0.9% 10 Ml Syringe) 10 ml FLUSH ASDIRECTED PRN PRN Reason: Keep Vein Open Last Admin: 11/30/20 19:58 Dose: 10 ml Documented by: - Exam Quality Assessment: Supplemental Oxygen General: Alert, Oriented, Cooperative, No Acute Distress HEENT: Pupils Equal, EOMI, Mucous Membr. Moist/[place] Neck: Supple, Trachea Midline Lungs: Clear to Auscultation, Normal Respiratory Effort Cardiovascular: Regular Rate, Regular Rhythm GI/Abdominal Exam: Normal Bowel Sounds, Soft, Non-Tender, No Distention Extremities: Normal Inspection, No Pedal Edema Skin: Warm, Dry, Intact Neurological: No New Focal Deficit Psy/Mental Status: Alert, Normal Affect, Normal Mood - Patient Data Lab Results Last 24 hrs: Laboratory Results - last 24 hr 12/02/20 12/02/20 12/02/20 Range/Units 06:29 06:29 06:29 WBC 7.6 (4.5-11.0) K/uL RBC 4.48 (4.30-5.90) M/uL Hgb 13.9 (12.0-15.0) g/dL Hct 40.4 (40.0-54.0) % MCV 90 (80-98) fL MCH 31 (27-31) pg MCHC 34 (32-36) % Plt Count 158 (150-400) K/uL D-Dimer, Quantitative 976.63 H (0.0-500.0) ng/mL Sodium (140-148) mmol/L Potassium (3.6-5.2) mmol/L Chloride (100-108) mmol/L Carbon Dioxide (21-32) mmol/L Anion Gap (5.0-14.0) mmol/L BUN (7-18) mg/dL Creatinine (0.8-1.3) mg/dL Est Cr Clr Drug Dosing mL/min Estimated GFR (MDRD) (>60) Glucose (74-106) mg/dL Calcium (8.5-10.1) mg/dL Total Bilirubin 0.3 (0.2-1.0) mg/dL Direct Bilirubin 0.10 (0.0-0.2) mg/dL Indirect Bilirubin 0.20 AST 44 H (15-37) U/L ALT 21 (12-78) U/L Alkaline Phosphatase 57 (46-116) U/L Total Protein 6.6 (6.4-8.2) g/dL Albumin 2.8 L (3.4-5.0) g/dL Globulin 3.8 H (2.3-3.5) g/dL Albumin/Globulin Ratio 0.7 L (1.2-2.2) 12/02/20 Range/Units 06:29 WBC (4.5-11.0) K/uL RBC (4.30-5.90) M/uL Hgb (12.0-15.0) g/dL Hct (40.0-54.0) % MCV (80-98) fL MCH (27-31) pg MCHC (32-36) % Plt Count (150-400) K/uL D-Dimer, Quantitative (0.0-500.0) ng/mL Sodium 138 L (140-148) mmol/L Potassium 4.4 (3.6-5.2) mmol/L Chloride 103 (100-108) mmol/L Carbon Dioxide 26 (21-32) mmol/L Anion Gap 13.4 (5.0-14.0) mmol/L BUN 28 H (7-18) mg/dL Creatinine 1.0 (0.8-1.3) mg/dL Est Cr Clr Drug Dosing 69.11 mL/min Estimated GFR (MDRD) > 60 (>60) Glucose 144 H (74-106) mg/dL Calcium 8.7 (8.5-10.1) mg/dL Total Bilirubin (0.2-1.0) mg/dL Direct Bilirubin (0.0-0.2) mg/dL Indirect Bilirubin AST (15-37) U/L ALT (12-78) U/L Alkaline Phosphatase (46-116) U/L Total Protein (6.4-8.2) g/dL Albumin (3.4-5.0) g/dL Globulin (2.3-3.5) g/dL Albumin/Globulin Ratio (1.2-2.2) Result Diagrams: 12/02/20 06:29 12/02/20 06:29 Sepsis Event Note - Evaluation Sepsis Screening Result: Possible Sepsis Risk - Focused Exam Vital Signs: Vital Signs Temp Pulse Resp BP Pulse Ox 12/02/20 19:20 97.9 F 74 24 H 132/76 87 L 12/02/20 19:12 90 L 12/02/20 14:22 96.4 F L 71 16 137/75 89 L 12/02/20 13:04 91 L 12/02/20 11:00 95.5 F L 71 16 125/80 87 L - Problem List & Annotations (1) COVID-19 SNOMED Code(s): 190680004 Code(s): U07.1 - COVID-19 Status: Acute Priority: High Current Visit: Yes (2) Hypoxia SNOMED Code(s): 135164114 Code(s): R09.02 - HYPOXEMIA Status: Acute Priority: High Current Visit: Yes - Problem List Review Problem List Initiated/Reviewed/Updated: Yes - My Orders Last 24 Hours: My Active Orders 12/03/20 17:45 HEPATIC FUNCTION PANEL,HFP [CHEM] DAILY 12/04/20 17:45 HEPATIC FUNCTION PANEL,HFP [CHEM] DAILY 12/05/20 17:45 HEPATIC FUNCTION PANEL,HFP [CHEM] DAILY - Plan Plan:: COVID-19 INFECTION WITH HYPOXIA-onset of symptoms one days ago. Hypoxic on initial presentation Oxygen sat 81% on room air, chest x-ray shows evidence of bilateral infiltrates. -Limit IV fluids- given one liter in ER due to dehydration -IV Remdesivir 200 mg IV given in the emergency department, 100 mg IV daily star claribel -Decadron 6 mg IV daily -Lovenox 40 mg subcut every 12 hours -oxygen to keep sats greater than 88%, currently nasal cannula at 4 liter with oxygen sat at 88% -Albuterol inhaler 2 puffs every 2 hours as needed for shortness of breath -Advise to notify nurses of any chest pain or other symptoms -Was encouraged to use incentive spirometry and to prone as often as comfortable for him Back Pain- due to fall from Logging equipment, seen in ER on 11/26/2020- no fractures. -Hydrocodone 5-325 mg one to two every 4 hours as needed for pain -Lidocaine patch daily Maintenance issues -Orders home medications: no chronic medication -Nutrition: regular diet. -Broderick catheter -not indicated at this time -DVT: Lovenox 40 mg subcut every 12 hours -PPI; IV Protonix 40mg at bedtime CODE STATUS: FULL Plan: He had some dips into the lower 80s today but overall has been doing fine. He has been tolerating nasal cannula 10 L. The goal is to get him down to 5 L or less before going home. Disposition: home Primary care provider: Dr. Mckenzie, [facility] Ann Marie Luque DO
[2020-12-02] MEDS: Lidocaine 5% 700 MG Patch TRDERM SCH (21:44)
[2020-12-02] MEDS: Pantoprazole 40 MG Tab.CR PO SCH (21:45)
[2020-12-02] MEDS: Dexamethasone 4 MG/ML SDV IVPUSH SCH (21:46)
[2020-12-03] MEDS: Enoxaparin 40 MG/0.4 ML Syringe SUBCUT SCH ×2 (09:34→20:13)
[2020-12-03] MEDS: Acetaminophen 325 MG Tab PO PRN ×2 (16:06→23:10)
[2020-12-03] MEDS: REMDESIVIR 100 MG in Sodium Chloride 0.9% 100 ML IV SCH (17:59)
[2020-12-03] MEDS: Dexamethasone 4 MG/ML SDV IVPUSH SCH (20:11)
[2020-12-03] MEDS: Pantoprazole 40 MG Tab.CR PO SCH (20:13)
[2020-12-03] MEDS: Lidocaine 5% 700 MG Patch TRDERM SCH (20:14)
--- NOTE | 2020-12-03 20:41 | PCM.PN ---
- General Info Date of Service: 12/03/20 Admission Dx/Problem (Free Text): Admission Diagnosis/Problem Admission Diagnosis/Problem Hypoxia secondary to COVID-19 Subjective Update: Mr. Blanco is doing well today. I did have a long conversation with his POA Johanna who is his niece about his treatment goals. All 3 of us agree that he needs to have his oxygenation with 5 L or less. He has no complaints today. Functional Status: Reports: Tolerating Diet, Incentive Spirometry. Denies: New Symptoms - Review of Systems General: Reports: No Symptoms HEENT: Reports: No Symptoms Pulmonary: Reports: Cough Cardiovascular: Reports: No Symptoms Gastrointestinal: Reports: No Symptoms Genitourinary: Reports: No Symptoms Musculoskeletal: Reports: No Symptoms Skin: Reports: No Symptoms Neurological: Reports: No Symptoms Psychiatric: Reports: No Symptoms - Patient Data Vitals - Most Recent: Last Vital Signs Temp 96.5 F L 12/03/20 20:09 Pulse 77 12/03/20 20:09 Resp 18 12/03/20 20:09 BP 148/76 H 12/03/20 20:09 Pulse Ox 88 L 12/03/20 20:25 Weight - Most Recent: 209 lb I&O - Last 24 Hours: Intake & Output 12/03/20 12/03/20 12/03/20 06:59 14:59 22:59 Intake Total 940 120 Output Total 600 600 Balance 340 -480 Lab Results Last 24 Hours: Laboratory Results - last 24 hr 12/03/20 12/03/20 12/03/20 Range/Units 06:04 06:04 06:04 WBC 10.8 (4.5-11.0) K/uL RBC 4.56 (4.30-5.90) M/uL Hgb 13.9 (12.0-15.0) g/dL Hct 41.5 (40.0-54.0) % MCV 91 (80-98) fL MCH 31 (27-31) pg MCHC 34 (32-36) % Plt Count 169 (150-400) K/uL Sodium 140 (140-148) mmol/L Potassium 4.5 (3.6-5.2) mmol/L Chloride 104 (100-108) mmol/L Carbon Dioxide 27 (21-32) mmol/L Anion Gap 8.9 (5.0-14.0) mmol/L BUN 30 H (7-18) mg/dL Creatinine 1.1 (0.8-1.3) mg/dL Est Cr Clr Drug Dosing 62.83 mL/min Estimated GFR (MDRD) > 60 (>60) Glucose 137 H (74-106) mg/dL Calcium 8.6 (8.5-10.1) mg/dL Total Bilirubin 0.4 (0.2-1.0) mg/dL Direct Bilirubin 0.12 (0.0-0.2) mg/dL Indirect Bilirubin 0.28 AST 41 H (15-37) U/L ALT 21 (12-78) U/L Alkaline Phosphatase 59 (46-116) U/L Total Protein 6.4 (6.4-8.2) g/dL Albumin 2.7 L (3.4-5.0) g/dL Globulin 3.7 H (2.3-3.5) g/dL Albumin/Globulin Ratio 0.7 L (1.2-2.2) Med Orders - Current: Current Medications Acetaminophen (Acetaminophen 325 Mg Tab) 650 mg PO Q4H PRN PRN Reason: Fever Greater Than 101 Last Admin: 12/03/20 16:06 Dose: 650 mg Documented by: Hydrocodone Bitart/Acetaminophen (Acetaminophen/Hydrocodone 325-5 Mg Tab) 1 tab PO Q4H PRN PRN Reason: Pain (moderate 4-6) Albuterol (Albuterol 8 Gm Inhaler) 0 gm INH Q2H PRN PRN Reason: Shortness of Breath Dexamethasone (Dexamethasone 4 Mg/Ml Sdv) 6 mg IVPUSH BEDTIME [facility] Stop: 12/09/20 21:01 Last Admin: 12/03/20 20:11 Dose: 6 mg Documented by: Docusate Sodium (Docusate Sodium 100 Mg Cap) 100 mg PO BID PRN PRN Reason: Constipation Enoxaparin Sodium (Enoxaparin 40 Mg/0.4 Ml Syringe) 40 mg SUBCUT BID [facility] Last Admin: 12/03/20 20:13 Dose: 40 mg Documented by: Remdesivir 100 mg/ Sodium (Chloride) 100 mls @ 100 mls/hr IV Q24H [facility] Stop: 12/04/20 18:59 Last Admin: 12/03/20 17:59 Dose: 100 mls/hr Documented by: Lidocaine (Lidocaine 5% 700 Mg Patch) 700 mg TRDERM Q24H [facility] Last Admin: 12/03/20 20:14 Dose: 700 mg Documented by: Lorazepam (Lorazepam 2 Mg/Ml Sdv) 1 mg IV Q6H PRN PRN Reason: Nausea/Vomiting Miscellaneous Information (Remove Lidocaine Patch) 1 ea TRDERM DAILY [facility] Last Admin: 12/03/20 09:35 Dose: 1 ea Documented by: Morphine Sulfate (Morphine 2 Mg/Ml Syringe) 2 mg IVPUSH Q2H PRN PRN Reason: Pain (severe 7-10) Ondansetron HCl (Ondansetron 4 Mg Tab.Dis) 4 mg PO Q6H PRN PRN Reason: Nausea able to take PO Pantoprazole Sodium (Pantoprazole 40 Mg Tab.Cr) 40 mg PO BEDTIME [facility] Last Admin: 12/03/20 20:13 Dose: 40 mg Documented by: Sodium Chloride (Sodium Chloride 0.9% 10 Ml Syringe) 10 ml FLUSH ASDIRECTED PRN PRN Reason: Keep Vein Open Discontinued Medications Dexamethasone (Dexamethasone 4 Mg/Ml Sdv) 6 mg IVPUSH DAILY [facility] Stop: 12/09/20 09:01 Last Admin: 11/30/20 22:47 Dose: 6 mg Documented by: Enoxaparin Sodium (Enoxaparin 40 Mg/0.4 Ml Syringe) 40 mg SUBCUT Q12H [facility] Last Admin: 11/30/20 22:58 Dose: 40 mg Documented by: Sodium Chloride (Normal Saline) 1,000 mls @ 150 mls/hr IV ASDIRECTED [facility] Last Admin: 11/30/20 19:58 Dose: 150 mls/hr Documented by: Remdesivir 200 mg/ Sodium (Chloride) 250 mls @ 250 mls/hr IV ONETIME ONE Stop: 11/30/20 20:19 Last Admin: 11/30/20 22:53 Dose: 250 mls/hr Documented by: Lidocaine (Lidocaine 5% 700 Mg Patch) 700 mg TRDERM Q24H [facility] Last Admin: 11/30/20 22:58 Dose: 700 mg Documented by: Pantoprazole Sodium (Pantoprazole 40 Mg Vial) 40 mg IV BEDTIME [facility] Last Admin: 11/30/20 22:51 Dose: 40 mg Documented by: Sodium Chloride (Sodium Chloride 0.9% 10 Ml Syringe) 10 ml FLUSH ASDIRECTED PRN PRN Reason: Keep Vein Open Last Admin: 11/30/20 19:58 Dose: 10 ml Documented by: - Exam Quality Assessment: Supplemental Oxygen General: Alert, Oriented, Cooperative, No Acute Distress HEENT: Pupils Equal, EOMI, Mucous Membr. Moist/[place] Neck: Supple, Trachea Midline Lungs: Clear to Auscultation, Normal Respiratory Effort Cardiovascular: Regular Rate, Regular Rhythm GI/Abdominal Exam: Normal Bowel Sounds, Soft, Non-Tender Extremities: Non-Tender, No Pedal Edema Skin: Warm, Dry, Intact Neurological: No New Focal Deficit Psy/Mental Status: Alert, Normal Affect, Normal Mood - Patient Data Lab Results Last 24 hrs: Laboratory Results - last 24 hr 12/03/20 12/03/20 12/03/20 Range/Units 06:04 06:04 06:04 WBC 10.8 (4.5-11.0) K/uL RBC 4.56 (4.30-5.90) M/uL Hgb 13.9 (12.0-15.0) g/dL Hct 41.5 (40.0-54.0) % MCV 91 (80-98) fL MCH 31 (27-31) pg MCHC 34 (32-36) % Plt Count 169 (150-400) K/uL Sodium 140 (140-148) mmol/L Potassium 4.5 (3.6-5.2) mmol/L Chloride 104 (100-108) mmol/L Carbon Dioxide 27 (21-32) mmol/L Anion Gap 8.9 (5.0-14.0) mmol/L BUN 30 H (7-18) mg/dL Creatinine 1.1 (0.8-1.3) mg/dL Est Cr Clr Drug Dosing 62.83 mL/min Estimated GFR (MDRD) > 60 (>60) Glucose 137 H (74-106) mg/dL Calcium 8.6 (8.5-10.1) mg/dL Total Bilirubin 0.4 (0.2-1.0) mg/dL Direct Bilirubin 0.12 (0.0-0.2) mg/dL Indirect Bilirubin 0.28 AST 41 H (15-37) U/L ALT 21 (12-78) U/L Alkaline Phosphatase 59 (46-116) U/L Total Protein 6.4 (6.4-8.2) g/dL Albumin 2.7 L (3.4-5.0) g/dL Globulin 3.7 H (2.3-3.5) g/dL Albumin/Globulin Ratio 0.7 L (1.2-2.2) Result Diagrams: 12/03/20 06:04 12/03/20 06:04 Sepsis Event Note - Evaluation Sepsis Screening Result: Possible Sepsis Risk - Focused Exam Vital Signs: Vital Signs Temp Pulse Resp BP Pulse Ox 12/03/20 20:25 88 L 12/03/20 20:20 85 L 12/03/20 20:09 96.5 F L 77 18 148/76 H 88 L 12/03/20 19:30 91 L 12/03/20 18:07 95.9 F L 75 18 132/69 89 L 12/03/20 16:00 97.6 F 78 18 129/70 89 L 12/03/20 12:32 92 L 12/03/20 11:57 95.9 F L 72 22 H 131/72 90 L - Problem List & Annotations (1) COVID-19 SNOMED Code(s): 286226970 Code(s): U07.1 - COVID-19 Status: Acute Priority: High Current Visit: Yes (2) Hypoxia SNOMED Code(s): 440458576 Code(s): R09.02 - HYPOXEMIA Status: Acute Priority: High Current Visit: Yes - Problem List Review Problem List Initiated/Reviewed/Updated: Yes - Plan Plan:: COVID-19 INFECTION WITH HYPOXIA -Limit IV fluids- given one liter in ER due to dehydration -IV Remdesivir 200 mg IV given in the emergency department, 100 mg IV daily started -Decadron 6 mg IV daily -Lovenox 40 mg subcut every 12 hours -oxygen to keep sats greater than 88% -Albuterol inhaler 2 puffs every 2 hours as needed for shortness of breath -Advise to notify nurses of any chest pain or other symptoms -Was encouraged to use incentive spirometry and to prone as often as comfortable for him Back Pain- due to fall from Logging equipment, seen in ER on 11/26/2020- no fractures. -Hydrocodone 5-325 mg one to two every 4 hours as needed for pain -Lidocaine patch daily Maintenance issues -Orders home medications: no chronic medication -Nutrition: regular diet. -Broderick catheter -not indicated at this time -DVT: Lovenox 40 mg subcut every 12 hours -PPI; IV Protonix 40mg at bedtime CODE STATUS: FULL Plan: He will complete his course of remdesivir tomorrow therefore after tomorrow he will be able to go home if his supplementary oxygen needs are less than 5 L. Disposition: home Primary care provider: Dr. Mckenzie, [facility] Ann Marie Luque DO
[2020-12-04] MEDS: Enoxaparin 40 MG/0.4 ML Syringe SUBCUT SCH ×2 (08:38→20:41)
[2020-12-04] MEDS: Acetaminophen/HYDROcodone 325-5 MG Tab PO PRN ×2 (10:53→14:01)
[2020-12-04] MEDS: Acetaminophen 325 MG Tab PO PRN (16:34)
[2020-12-04] MEDS: REMDESIVIR 100 MG in Sodium Chloride 0.9% 100 ML IV SCH (18:07)
[2020-12-04] MEDS: Pantoprazole 40 MG Tab.CR PO SCH (20:40)
[2020-12-04] MEDS: Dexamethasone 4 MG/ML SDV IVPUSH SCH (20:41)
[2020-12-04] MEDS: Lidocaine 5% 700 MG Patch TRDERM SCH (20:41)
--- NOTE | 2020-12-04 21:05 | PCM.PN ---
- General Info Date of Service: 12/04/20 Admission Dx/Problem (Free Text): Admission Diagnosis/Problem Admission Diagnosis/Problem Hypoxia secondary to COVID-19 Subjective Update: Mr. Blanco is doing well today and has no complaints. He does occasionally still have pain in the left buttock. 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 I did do a hip exam and he has surprising range of motion for a gentleman his age. He had no limitations in flexion, internal rotation, and external rotation. I was unable to test for extension as he was in bed at the time. I did order pelvic and left hip x-rays that are pending. Functional Status: Reports: Tolerating Diet, Ambulating, Urinating. Denies: New Symptoms - Review of Systems General: Reports: No Symptoms HEENT: Reports: No Symptoms Pulmonary: Reports: No Symptoms Cardiovascular: Reports: No Symptoms Gastrointestinal: Reports: No Symptoms Genitourinary: Reports: No Symptoms Musculoskeletal: Reports: Back Pain (Left buttock with radiation to the hip) Skin: Reports: No Symptoms Neurological: Reports: No Symptoms Psychiatric: Reports: No Symptoms - Patient Data Vitals - Most Recent: Last Vital Signs Temp 96 F L 12/04/20 18:12 Pulse 64 12/04/20 18:12 Resp 18 12/04/20 18:12 BP 137/76 12/04/20 18:12 Pulse Ox 94 L 12/04/20 19:14 Weight - Most Recent: 209 lb I&O - Last 24 Hours: Intake & Output 12/04/20 12/04/20 12/04/20 06:59 14:59 22:59 Intake Total 600 480 Output Total 650 Balance -50 480 Lab Results Last 24 Hours: Laboratory Results - last 24 hr 12/04/20 12/04/20 12/04/20 Range/Units 06:24 06:24 06:24 WBC 10.0 (4.5-11.0) K/uL RBC 4.46 (4.30-5.90) M/uL Hgb 14.0 (12.0-15.0) g/dL Hct 40.8 (40.0-54.0) % MCV 92 (80-98) fL MCH 31 (27-31) pg MCHC 34 (32-36) % Plt Count 169 (150-400) K/uL Sodium 141 (140-148) mmol/L Potassium 4.5 (3.6-5.2) mmol/L Chloride 104 (100-108) mmol/L Carbon Dioxide 29 (21-32) mmol/L Anion Gap 7.9 (5.0-14.0) mmol/L BUN 30 H (7-18) mg/dL Creatinine 1.0 (0.8-1.3) mg/dL Est Cr Clr Drug Dosing 69.11 mL/min Estimated GFR (MDRD) > 60 (>60) Glucose 140 H (74-106) mg/dL Calcium 8.6 (8.5-10.1) mg/dL Total Bilirubin 0.5 (0.2-1.0) mg/dL Direct Bilirubin 0.15 (0.0-0.2) mg/dL Indirect Bilirubin 0.35 AST 44 H (15-37) U/L ALT 33 (12-78) U/L Alkaline Phosphatase 61 (46-116) U/L Total Protein 6.4 (6.4-8.2) g/dL Albumin 2.7 L (3.4-5.0) g/dL Globulin 3.7 H (2.3-3.5) g/dL Albumin/Globulin Ratio 0.7 L (1.2-2.2) Med Orders - Current: Current Medications Acetaminophen (Acetaminophen 325 Mg Tab) 650 mg PO Q4H PRN PRN Reason: Fever Greater Than 101 Last Admin: 12/04/20 16:34 Dose: 650 mg Documented by: Hydrocodone Bitart/Acetaminophen (Acetaminophen/Hydrocodone 325-5 Mg Tab) 1 tab PO Q4H PRN PRN Reason: Pain (moderate 4-6) Last Admin: 12/04/20 14:01 Dose: 1 tab Documented by: Albuterol (Albuterol 8 Gm Inhaler) 0 gm INH Q2H PRN PRN Reason: Shortness of Breath Dexamethasone (Dexamethasone 4 Mg/Ml Sdv) 6 mg IVPUSH BEDTIME [facility] Stop: 12/09/20 21:01 Last Admin: 12/04/20 20:41 Dose: 6 mg Documented by: Docusate Sodium (Docusate Sodium 100 Mg Cap) 100 mg PO BID PRN PRN Reason: Constipation Enoxaparin Sodium (Enoxaparin 40 Mg/0.4 Ml Syringe) 40 mg SUBCUT BID [facility] Last Admin: 12/04/20 20:41 Dose: 40 mg Documented by: Lidocaine (Lidocaine 5% 700 Mg Patch) 700 mg TRDERM Q24H [facility] Last Admin: 12/04/20 20:41 Dose: Not Given Documented by: Lorazepam (Lorazepam 2 Mg/Ml Sdv) 1 mg IV Q6H PRN PRN Reason: Nausea/Vomiting Miscellaneous Information (Remove Lidocaine Patch) 1 ea TRDERM DAILY [facility] Last Admin: 12/04/20 08:38 Dose: 1 ea Documented by: Morphine Sulfate (Morphine 2 Mg/Ml Syringe) 2 mg IVPUSH Q2H PRN PRN Reason: Pain (severe 7-10) Ondansetron HCl (Ondansetron 4 Mg Tab.Dis) 4 mg PO Q6H PRN PRN Reason: Nausea able to take PO Pantoprazole Sodium (Pantoprazole 40 Mg Tab.Cr) 40 mg PO BEDTIME [facility] Last Admin: 12/04/20 20:40 Dose: 40 mg Documented by: Sodium Chloride (Sodium Chloride 0.9% 10 Ml Syringe) 10 ml FLUSH ASDIRECTED PRN PRN Reason: Keep Vein Open Discontinued Medications Dexamethasone (Dexamethasone 4 Mg/Ml Sdv) 6 mg IVPUSH DAILY [facility] Stop: 12/09/20 09:01 Last Admin: 11/30/20 22:47 Dose: 6 mg Documented by: Enoxaparin Sodium (Enoxaparin 40 Mg/0.4 Ml Syringe) 40 mg SUBCUT Q12H [facility] Last Admin: 11/30/20 22:58 Dose: 40 mg Documented by: Sodium Chloride (Normal Saline) 1,000 mls @ 150 mls/hr IV ASDIRECTED [facility] Last Admin: 11/30/20 19:58 Dose: 150 mls/hr Documented by: Remdesivir 200 mg/ Sodium (Chloride) 250 mls @ 250 mls/hr IV ONETIME ONE Stop: 11/30/20 20:19 Last Admin: 11/30/20 22:53 Dose: 250 mls/hr Documented by: Remdesivir 100 mg/ Sodium (Chloride) 100 mls @ 100 mls/hr IV Q24H [facility] Stop: 12/04/20 18:59 Last Admin: 12/04/20 18:07 Dose: 100 mls/hr Documented by: Lidocaine (Lidocaine 5% 700 Mg Patch) 700 mg TRDERM Q24H [facility] Last Admin: 11/30/20 22:58 Dose: 700 mg Documented by: Pantoprazole Sodium (Pantoprazole 40 Mg Vial) 40 mg IV BEDTIME [facility] Last Admin: 11/30/20 22:51 Dose: 40 mg Documented by: Sodium Chloride (Sodium Chloride 0.9% 10 Ml Syringe) 10 ml FLUSH ASDIRECTED PRN PRN Reason: Keep Vein Open Last Admin: 11/30/20 19:58 Dose: 10 ml Documented by: - Exam Quality Assessment: Supplemental Oxygen General: Alert, Oriented, Cooperative, No Acute Distress HEENT: Pupils Equal, EOMI, Mucous Membr. Moist/[place] Neck: Supple, Trachea Midline Lungs: Clear to Auscultation, Normal Respiratory Effort Cardiovascular: Regular Rate, Regular Rhythm GI/Abdominal Exam: Normal Bowel Sounds, Soft, Non-Tender, No Distention Extremities: Normal Inspection, Normal Range of Motion, Non-Tender, No Pedal Edema Skin: Warm, Dry, Intact Neurological: No New Focal Deficit Psy/Mental Status: Alert, Normal Affect, Normal Mood - Patient Data Lab Results Last 24 hrs: Laboratory Results - last 24 hr 12/04/20 12/04/20 12/04/20 Range/Units 06:24 06:24 06:24 WBC 10.0 (4.5-11.0) K/uL RBC 4.46 (4.30-5.90) M/uL Hgb 14.0 (12.0-15.0) g/dL Hct 40.8 (40.0-54.0) % MCV 92 (80-98) fL MCH 31 (27-31) pg MCHC 34 (32-36) % Plt Count 169 (150-400) K/uL Sodium 141 (140-148) mmol/L Potassium 4.5 (3.6-5.2) mmol/L Chloride 104 (100-108) mmol/L Carbon Dioxide 29 (21-32) mmol/L Anion Gap 7.9 (5.0-14.0) mmol/L BUN 30 H (7-18) mg/dL Creatinine 1.0 (0.8-1.3) mg/dL Est Cr Clr Drug Dosing 69.11 mL/min Estimated GFR (MDRD) > 60 (>60) Glucose 140 H (74-106) mg/dL Calcium 8.6 (8.5-10.1) mg/dL Total Bilirubin 0.5 (0.2-1.0) mg/dL Direct Bilirubin 0.15 (0.0-0.2) mg/dL Indirect Bilirubin 0.35 AST 44 H (15-37) U/L ALT 33 (12-78) U/L Alkaline Phosphatase 61 (46-116) U/L Total Protein 6.4 (6.4-8.2) g/dL Albumin 2.7 L (3.4-5.0) g/dL Globulin 3.7 H (2.3-3.5) g/dL Albumin/Globulin Ratio 0.7 L (1.2-2.2) Result Diagrams: 12/04/20 06:24 12/04/20 06:24 Sepsis Event Note - Evaluation Sepsis Screening Result: Possible Sepsis Risk - Focused Exam Vital Signs: Vital Signs Temp Pulse Resp BP Pulse Ox 12/04/20 19:14 94 L 12/04/20 18:12 96 F L 64 18 137/76 91 L 12/04/20 15:11 96.5 F L 68 16 132/80 94 L 12/04/20 12:32 96 12/04/20 10:55 97.8 F 71 22 H 128/78 92 L - Problem List & Annotations (1) COVID-19 SNOMED Code(s): 984114738 Code(s): U07.1 - COVID-19 Status: Acute Priority: High Current Visit: Yes (2) Hypoxia SNOMED Code(s): 065394213 Code(s): R09.02 - HYPOXEMIA Status: Acute Priority: High Current Visit: Yes - Problem List Review Problem List Initiated/Reviewed/Updated: Yes - My Orders Last 24 Hours: My Active Orders 12/04/20 15:00 Hip Min 2V or 3V w Pelvis Lt [CR] Routine - Plan Plan:: COVID-19 INFECTION WITH HYPOXIA -Limit IV fluids- given one liter in ER due to dehydration -IV Remdesivir 200 mg IV given in the emergency department, 100 mg IV daily started-completed regimen today -Decadron 6 mg IV daily -Lovenox 40 mg subcut every 12 hours -oxygen to keep sats greater than 88% -Was encouraged to use incentive spirometry and to prone as often as comfortable for him Back Pain- due to fall from Logging equipment, seen in ER on 11/26/2020- no fractures. -Hydrocodone 5-325 mg one to two every 4 hours as needed for pain -Lidocaine patch daily -Has been having pain in the buttock that, radiates to the left hip. His POA Johanna wanted us to get x-rays to confirm that there is no fracture of this. Those were ordered and are pending read. VTE prophylaxis: Lovenox 40 mg subcut every 12 hours GI prophylaxis: IV Protonix 40mg at bedtime Diet: Regular diet CODE STATUS: FULL Plan: Pending read of pelvic and left hip x-ray. Now that he has completed his remdesivir regimen he has agreed that our goal should be getting him to an oxygen saturation maintained with 5 L or less oxygen. Once he makes his goal he will be able to go home. Disposition: home Primary care provider: Dr. Mckenzie, [facility] Ann Marie Luuqe DO
[2020-12-05] MEDS: Enoxaparin 40 MG/0.4 ML Syringe SUBCUT SCH ×2 (10:37→21:04)
[2020-12-05] MEDS: Acetaminophen 325 MG Tab PO PRN (10:37)
--- NOTE | 2020-12-05 10:54 | CR ---
Hip Min 2V or 3V w Pelvis Lt CLINICAL HISTORY: Pain, recent fall FINDINGS: No fracture is seen. There is narrowing of the left hip joint space. There is acetabular spurring. 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
--- NOTE | 2020-12-05 15:21 | PCM.PN ---
- General Info Date of Service: 12/05/20 Subjective Update: No acute events overnight. Patient reports that he feels well. He does not report feeling short of breath. No chest pain. No significant cough. No abdominal pain or nausea. Appetite has been good. He does continue to require high flow oxygen and is currently at 15 L/min. He has completed his remdesivir. He is frustrated and bored and wants to go home. - Patient Data Vitals - Most Recent: Last Vital Signs Temp 35.7 C L 12/05/20 07:00 Pulse 78 12/05/20 10:38 Resp 18 12/05/20 10:38 BP 138/65 12/05/20 10:38 Pulse Ox 89 L 12/05/20 12:58 Weight - Most Recent: 94.801 kg I&O - Last 24 Hours: Intake & Output 12/05/20 12/05/20 12/05/20 06:59 14:59 22:59 Intake Total 240 Output Total 400 350 Balance -160 -350 Lab Results Last 24 Hours: Laboratory Results - last 24 hr 12/05/20 12/05/20 12/05/20 Range/Units 04:15 04:15 04:15 WBC 9.6 (4.5-11.0) K/uL RBC 4.45 (4.30-5.90) M/uL Hgb 13.8 (12.0-15.0) g/dL Hct 40.5 (40.0-54.0) % MCV 91 (80-98) fL MCH 31 (27-31) pg MCHC 34 (32-36) % Plt Count 183 (150-400) K/uL Sodium 140 (140-148) mmol/L Potassium 4.2 (3.6-5.2) mmol/L Chloride 104 (100-108) mmol/L Carbon Dioxide 28 (21-32) mmol/L Anion Gap 8.3 (5.0-14.0) mmol/L BUN 29 H (7-18) mg/dL Creatinine 0.9 (0.8-1.3) mg/dL Est Cr Clr Drug Dosing 76.79 mL/min Estimated GFR (MDRD) > 60 (>60) Glucose 144 H (74-106) mg/dL Calcium 8.5 (8.5-10.1) mg/dL Total Bilirubin 0.5 (0.2-1.0) mg/dL Direct Bilirubin 0.13 (0.0-0.2) mg/dL Indirect Bilirubin 0.37 AST 37 (15-37) U/L ALT 33 (12-78) U/L Alkaline Phosphatase 64 (46-116) U/L Total Protein 6.2 L (6.4-8.2) g/dL Albumin 2.6 L (3.4-5.0) g/dL Globulin 3.6 H (2.3-3.5) g/dL Albumin/Globulin Ratio 0.7 L (1.2-2.2) Med Orders - Current: Current Medications Acetaminophen (Acetaminophen 325 Mg Tab) 650 mg PO Q4H PRN PRN Reason: Fever Greater Than 101 Last Admin: 12/05/20 10:37 Dose: 650 mg Documented by: Hydrocodone Bitart/Acetaminophen (Acetaminophen/Hydrocodone 325-5 Mg Tab) 1 tab PO Q4H PRN PRN Reason: Pain (moderate 4-6) Last Admin: 12/04/20 14:01 Dose: 1 tab Documented by: Dexamethasone (Dexamethasone 4 Mg/Ml Sdv) 6 mg IVPUSH BEDTIME [facility] Stop: 12/09/20 21:01 Last Admin: 12/04/20 20:41 Dose: 6 mg Documented by: Docusate Sodium (Docusate Sodium 100 Mg Cap) 100 mg PO BID PRN PRN Reason: Constipation Enoxaparin Sodium (Enoxaparin 40 Mg/0.4 Ml Syringe) 40 mg SUBCUT BID [facility] Last Admin: 12/05/20 10:37 Dose: 40 mg Documented by: Lidocaine (Lidocaine 5% 700 Mg Patch) 700 mg TRDERM Q24H [facility] Last Admin: 12/04/20 20:41 Dose: Not Given Documented by: Lorazepam (Lorazepam 2 Mg/Ml Sdv) 1 mg IV Q6H PRN PRN Reason: Nausea/Vomiting Miscellaneous Information (Remove Lidocaine Patch) 1 ea TRDERM DAILY [facility] Last Admin: 12/05/20 10:37 Dose: Not Given Documented by: Morphine Sulfate (Morphine 2 Mg/Ml Syringe) 2 mg IVPUSH Q2H PRN PRN Reason: Pain (severe 7-10) Ondansetron HCl (Ondansetron 4 Mg Tab.Dis) 4 mg PO Q6H PRN PRN Reason: Nausea able to take PO Pantoprazole Sodium (Pantoprazole 40 Mg Tab.Cr) 40 mg PO BEDTIME [facility] Last Admin: 12/04/20 20:40 Dose: 40 mg Documented by: Sodium Chloride (Sodium Chloride 0.9% 10 Ml Syringe) 10 ml FLUSH ASDIRECTED PRN PRN Reason: Keep Vein Open Discontinued Medications Albuterol (Albuterol 8 Gm Inhaler) 0 gm INH Q2H PRN PRN Reason: Shortness of Breath Dexamethasone (Dexamethasone 4 Mg/Ml Sdv) 6 mg IVPUSH DAILY [facility] Stop: 12/09/20 09:01 Last Admin: 11/30/20 22:47 Dose: 6 mg Documented by: Enoxaparin Sodium (Enoxaparin 40 Mg/0.4 Ml Syringe) 40 mg SUBCUT Q12H [facility] Last Admin: 11/30/20 22:58 Dose: 40 mg Documented by: Sodium Chloride (Normal Saline) 1,000 mls @ 150 mls/hr IV ASDIRECTED [facility] Last Admin: 11/30/20 19:58 Dose: 150 mls/hr Documented by: Remdesivir 200 mg/ Sodium (Chloride) 250 mls @ 250 mls/hr IV ONETIME ONE Stop: 11/30/20 20:19 Last Admin: 11/30/20 22:53 Dose: 250 mls/hr Documented by: Remdesivir 100 mg/ Sodium (Chloride) 100 mls @ 100 mls/hr IV Q24H [facility] Stop: 12/04/20 18:59 Last Admin: 12/04/20 18:07 Dose: 100 mls/hr Documented by: Lidocaine (Lidocaine 5% 700 Mg Patch) 700 mg TRDERM Q24H [facility] Last Admin: 11/30/20 22:58 Dose: 700 mg Documented by: Pantoprazole Sodium (Pantoprazole 40 Mg Vial) 40 mg IV BEDTIME [facility] Last Admin: 11/30/20 22:51 Dose: 40 mg Documented by: Sodium Chloride (Sodium Chloride 0.9% 10 Ml Syringe) 10 ml FLUSH ASDIRECTED PRN PRN Reason: Keep Vein Open Last Admin: 11/30/20 19:58 Dose: 10 ml Documented by: - Exam Quality Assessment: Supplemental Oxygen General: Alert, Oriented, Cooperative, No Acute Distress Lungs: Normal Respiratory Effort, Crackles (Few left anterior chest) Cardiovascular: Regular Rate, Regular Rhythm GI/Abdominal Exam: Soft, No Distention Extremities: No Pedal Edema. No: Increased Warmth Skin: Warm, Dry Psy/Mental Status: Alert, Normal Affect - Patient Data Lab Results Last 24 hrs: Laboratory Results - last 24 hr 12/05/20 12/05/20 12/05/20 Range/Units 04:15 04:15 04:15 WBC 9.6 (4.5-11.0) K/uL RBC 4.45 (4.30-5.90) M/uL Hgb 13.8 (12.0-15.0) g/dL Hct 40.5 (40.0-54.0) % MCV 91 (80-98) fL MCH 31 (27-31) pg MCHC 34 (32-36) % Plt Count 183 (150-400) K/uL Sodium 140 (140-148) mmol/L Potassium 4.2 (3.6-5.2) mmol/L Chloride 104 (100-108) mmol/L Carbon Dioxide 28 (21-32) mmol/L Anion Gap 8.3 (5.0-14.0) mmol/L BUN 29 H (7-18) mg/dL Creatinine 0.9 (0.8-1.3) mg/dL Est Cr Clr Drug Dosing 76.79 mL/min Estimated GFR (MDRD) > 60 (>60) Glucose 144 H (74-106) mg/dL Calcium 8.5 (8.5-10.1) mg/dL Total Bilirubin 0.5 (0.2-1.0) mg/dL Direct Bilirubin 0.13 (0.0-0.2) mg/dL Indirect Bilirubin 0.37 AST 37 (15-37) U/L ALT 33 (12-78) U/L Alkaline Phosphatase 64 (46-116) U/L Total Protein 6.2 L (6.4-8.2) g/dL Albumin 2.6 L (3.4-5.0) g/dL Globulin 3.6 H (2.3-3.5) g/dL Albumin/Globulin Ratio 0.7 L (1.2-2.2) Result Diagrams: 12/05/20 04:15 12/05/20 04:15 Sepsis Event Note - Evaluation Sepsis Screening Result: Possible Sepsis Risk - Focused Exam Vital Signs: Vital Signs Temp Pulse Resp BP Pulse Ox 12/05/20 12:58 89 L 12/05/20 10:38 78 18 138/65 87 L 12/05/20 07:10 88 L 12/05/20 07:00 35.7 C L 18 140/95 H 86 L 12/05/20 03:56 87 L 12/05/20 03:45 36.5 C 66 18 141/74 H 93 L - Problem List Review Problem List Initiated/Reviewed/Updated: Yes - My Orders Last 24 Hours: My Active Orders 12/06/20 05:11 CRP [C-REACTIVE PROTEIN] [CHEM] AM D-DIMER QUANTITATIVE [COAG] AM - Plan Plan:: ASSESSMENT AND PLAN - COVID-19 PNEUMONIA-complicated by acute respiratory failure with hypoxia. Symptomatically doing well but still requiring high flow nasal cannula to supplement oxygen. -Limit IV fluids -5 days of remdesivir complete -Decadron 6 mg IV daily (day 6) -Lovenox 40 mg subcut every 12 hours -oxygen to keep sats greater than 88% -Was encouraged to use incentive spirometry and to prone as often as comfortable for him -Prone position if able Back Pain-stable. No evidence for fracture on the x-rays. -Hydrocodone 5-325 mg one to two every 4 hours as needed for pain -Lidocaine patch daily VTE prophylaxis: Lovenox 40 mg subcut every 12 hours GI prophylaxis: PPI Diet: Regular diet Disposition: Anticipate discharge home after the hospital stay aDvi Dockery MD
[2020-12-05] MEDS: Pantoprazole 40 MG Tab.CR PO SCH (21:02)
[2020-12-05] MEDS: Lidocaine 5% 700 MG Patch TRDERM SCH (21:03)
[2020-12-05] MEDS: Dexamethasone 4 MG/ML SDV IVPUSH SCH (21:04)
[2020-12-06] MEDS: Acetaminophen 325 MG Tab PO PRN ×3 (05:07→21:10)
[2020-12-06] MEDS: Enoxaparin 40 MG/0.4 ML Syringe SUBCUT SCH ×2 (08:32→21:03)
--- NOTE | 2020-12-06 14:07 | PCM.PN ---
- General Info Date of Service: 12/06/20 Subjective Update: No acute events overnight. Patient reports he slept well. He does not report any shortness of breath while he was at rest but does get dyspneic with activity. Still on 15 L of high flow nasal cannula and oxygenates well at rest. Less desaturation with activity today. Appetite not great but slowly improving. No fevers, myalgias or diarrhea. Inflammatory markers have improved. Functional Status: Reports: Pain Controlled, Tolerating Diet - Review of Systems General: Reports: Weakness Pulmonary: Denies: Shortness of Breath - Patient Data Vitals - Most Recent: Last Vital Signs Temp 35.8 C L 12/06/20 08:00 Pulse 84 12/06/20 11:02 Resp 16 12/06/20 11:02 BP 132/70 12/06/20 11:02 Pulse Ox 92 L 12/06/20 13:00 Weight - Most Recent: 94.801 kg I&O - Last 24 Hours: Intake & Output 12/05/20 12/06/20 12/06/20 22:59 06:59 14:59 Intake Total 540 400 240 Output Total 850 800 Balance -310 -400 240 Lab Results Last 24 Hours: Laboratory Results - last 24 hr 12/06/20 12/06/20 Range/Units 04:20 04:20 D-Dimer, Quantitative 721.25 H (0.0-500.0) ng/mL C-Reactive Protein 2.17 H (0.0-0.3) mg/dL Med Orders - Current: Current Medications Acetaminophen (Acetaminophen 325 Mg Tab) 650 mg PO Q4H PRN PRN Reason: Fever Greater Than 101 Last Admin: 12/06/20 05:07 Dose: 650 mg Documented by: Hydrocodone Bitart/Acetaminophen (Acetaminophen/Hydrocodone 325-5 Mg Tab) 1 tab PO Q4H PRN PRN Reason: Pain (moderate 4-6) Last Admin: 12/04/20 14:01 Dose: 1 tab Documented by: Dexamethasone (Dexamethasone 4 Mg/Ml Sdv) 6 mg IVPUSH BEDTIME [facility] Stop: 12/09/20 21:01 Last Admin: 12/05/20 21:04 Dose: 6 mg Documented by: Docusate Sodium (Docusate Sodium 100 Mg Cap) 100 mg PO BID PRN PRN Reason: Constipation Enoxaparin Sodium (Enoxaparin 40 Mg/0.4 Ml Syringe) 40 mg SUBCUT BID [facility] Last Admin: 12/06/20 08:32 Dose: 40 mg Documented by: Lidocaine (Lidocaine 5% 700 Mg Patch) 700 mg TRDERM Q24H [facility] Last Admin: 12/05/20 21:03 Dose: Not Given Documented by: Lorazepam (Lorazepam 2 Mg/Ml Sdv) 1 mg IV Q6H PRN PRN Reason: Nausea/Vomiting Miscellaneous Information (Remove Lidocaine Patch) 1 ea TRDERM DAILY [facility] Last Admin: 12/06/20 11:07 Dose: Not Given Documented by: Morphine Sulfate (Morphine 2 Mg/Ml Syringe) 2 mg IVPUSH Q2H PRN PRN Reason: Pain (severe 7-10) Ondansetron HCl (Ondansetron 4 Mg Tab.Dis) 4 mg PO Q6H PRN PRN Reason: Nausea able to take PO Pantoprazole Sodium (Pantoprazole 40 Mg Tab.Cr) 40 mg PO BEDTIME [facility] Last Admin: 12/05/20 21:02 Dose: 40 mg Documented by: Sodium Chloride (Sodium Chloride 0.9% 10 Ml Syringe) 10 ml FLUSH ASDIRECTED PRN PRN Reason: Keep Vein Open Discontinued Medications Albuterol (Albuterol 8 Gm Inhaler) 0 gm INH Q2H PRN PRN Reason: Shortness of Breath Dexamethasone (Dexamethasone 4 Mg/Ml Sdv) 6 mg IVPUSH DAILY [facility] Stop: 12/09/20 09:01 Last Admin: 11/30/20 22:47 Dose: 6 mg Documented by: Enoxaparin Sodium (Enoxaparin 40 Mg/0.4 Ml Syringe) 40 mg SUBCUT Q12H [facility] Last Admin: 11/30/20 22:58 Dose: 40 mg Documented by: Sodium Chloride (Normal Saline) 1,000 mls @ 150 mls/hr IV ASDIRECTED [facility] Last Admin: 11/30/20 19:58 Dose: 150 mls/hr Documented by: Remdesivir 200 mg/ Sodium (Chloride) 250 mls @ 250 mls/hr IV ONETIME ONE Stop: 11/30/20 20:19 Last Admin: 11/30/20 22:53 Dose: 250 mls/hr Documented by: Remdesivir 100 mg/ Sodium (Chloride) 100 mls @ 100 mls/hr IV Q24H [facility] Stop: 12/04/20 18:59 Last Admin: 12/04/20 18:07 Dose: 100 mls/hr Documented by: Lidocaine (Lidocaine 5% 700 Mg Patch) 700 mg TRDERM Q24H [facility] Last Admin: 11/30/20 22:58 Dose: 700 mg Documented by: Pantoprazole Sodium (Pantoprazole 40 Mg Vial) 40 mg IV BEDTIME [facility] Last Admin: 11/30/20 22:51 Dose: 40 mg Documented by: Sodium Chloride (Sodium Chloride 0.9% 10 Ml Syringe) 10 ml FLUSH ASDIRECTED PRN PRN Reason: Keep Vein Open Last Admin: 11/30/20 19:58 Dose: 10 ml Documented by: - Exam Quality Assessment: Supplemental Oxygen General: Alert, Oriented, Cooperative, No Acute Distress Lungs: Normal Respiratory Effort. No: Wheezing GI/Abdominal Exam: Soft, No Distention Extremities: No Pedal Edema. No: Increased Warmth Psy/Mental Status: Alert, Normal Affect - Patient Data Lab Results Last 24 hrs: Laboratory Results - last 24 hr 12/06/20 12/06/20 Range/Units 04:20 04:20 D-Dimer, Quantitative 721.25 H (0.0-500.0) ng/mL C-Reactive Protein 2.17 H (0.0-0.3) mg/dL Result Diagrams: 12/05/20 04:15 12/05/20 04:15 Sepsis Event Note - Evaluation Sepsis Screening Result: Possible Sepsis Risk - Focused Exam Vital Signs: Vital Signs Temp Pulse Resp BP Pulse Ox 12/06/20 13:00 92 L 12/06/20 12:56 83 L 12/06/20 11:02 84 16 132/70 86 L 12/06/20 08:00 35.8 C L 68 16 134/70 89 L 12/06/20 06:48 97 12/06/20 05:00 35.3 C L 70 18 128/68 90 L - Problem List Review Problem List Initiated/Reviewed/Updated: Yes - Plan Plan:: ASSESSMENT AND PLAN - COVID-19 PNEUMONIA-complicated by acute respiratory failure with hypoxia. Symptomatically doing well and vitals have been stable. Still on high flow nasal cannula at 15 L/min. Inflammatory markers improving. -Limit IV fluids -5 days of remdesivir complete -Decadron 6 mg IV daily (day 7) -Lovenox 40 mg subcut every 12 hours -oxygen to keep sats greater than 88% -Was encouraged to use incentive spirometry and to prone as often as comfortable for him -Prone position if able Back Pain-stable. No evidence for fracture on the x-rays. -Hydrocodone 5-325 mg one to two every 4 hours as needed for pain -Lidocaine patch daily VTE prophylaxis: Lovenox 40 mg subcut every 12 hours GI prophylaxis: PPI Diet: Regular diet Disposition: Anticipate discharge home after the hospital stay Davi Dockery MD
[2020-12-06] MEDS: Lidocaine 5% 700 MG Patch TRDERM SCH (20:58)
[2020-12-06] MEDS: Pantoprazole 40 MG Tab.CR PO SCH (21:02)
[2020-12-06] MEDS: Dexamethasone 4 MG/ML SDV IVPUSH SCH (21:03)
[2020-12-07] MEDS: Enoxaparin 40 MG/0.4 ML Syringe SUBCUT SCH ×2 (07:59→20:58)
[2020-12-07] MEDS: Acetaminophen 325 MG Tab PO PRN ×3 (08:01→16:17)
--- NOTE | 2020-12-07 11:01 | PCM.PN ---
- General Info Date of Service: 12/07/20 Subjective Update: No acute events overnight. Still on 15 L of high flow supplemental oxygen. Patient does not report any shortness of breath. No diarrhea. Appetite stable. No myalgias or arthralgias. Patient is bored. He does drop down to the 70s very quickly without his supplemental oxygen. Functional Status: Reports: Tolerating Diet - Review of Systems General: Reports: Weakness Pulmonary: Denies: Shortness of Breath - Patient Data Vitals - Most Recent: Last Vital Signs Temp 36.1 C 12/07/20 07:51 Pulse 86 12/07/20 07:51 Resp 18 12/07/20 07:51 BP 130/58 L 12/07/20 07:51 Pulse Ox 90 L 12/07/20 07:51 Weight - Most Recent: 94.801 kg I&O - Last 24 Hours: Intake & Output 12/06/20 12/07/20 12/07/20 22:59 06:59 14:59 Intake Total 480 550 Output Total 400 Balance 80 550 Med Orders - Current: Current Medications Acetaminophen (Acetaminophen 325 Mg Tab) 650 mg PO Q4H PRN PRN Reason: Fever Greater Than 101 Last Admin: 12/07/20 08:01 Dose: 650 mg Documented by: Hydrocodone Bitart/Acetaminophen (Acetaminophen/Hydrocodone 325-5 Mg Tab) 1 tab PO Q4H PRN PRN Reason: Pain (moderate 4-6) Last Admin: 12/04/20 14:01 Dose: 1 tab Documented by: Dexamethasone (Dexamethasone 4 Mg/Ml Sdv) 6 mg IVPUSH BEDTIME [facility] Stop: 12/09/20 21:01 Last Admin: 12/06/20 21:03 Dose: 6 mg Documented by: Docusate Sodium (Docusate Sodium 100 Mg Cap) 100 mg PO BID PRN PRN Reason: Constipation Enoxaparin Sodium (Enoxaparin 40 Mg/0.4 Ml Syringe) 40 mg SUBCUT BID [facility] Last Admin: 12/07/20 07:59 Dose: 40 mg Documented by: Lidocaine (Lidocaine 5% 700 Mg Patch) 700 mg TRDERM Q24H [facility] Last Admin: 12/06/20 20:58 Dose: Not Given Documented by: Lorazepam (Lorazepam 2 Mg/Ml Sdv) 1 mg IV Q6H PRN PRN Reason: Nausea/Vomiting Miscellaneous Information (Remove Lidocaine Patch) 1 ea TRDERM DAILY [facility] Last Admin: 12/07/20 07:59 Dose: Not Given Documented by: Morphine Sulfate (Morphine 2 Mg/Ml Syringe) 2 mg IVPUSH Q2H PRN PRN Reason: Pain (severe 7-10) Ondansetron HCl (Ondansetron 4 Mg Tab.Dis) 4 mg PO Q6H PRN PRN Reason: Nausea able to take PO Pantoprazole Sodium (Pantoprazole 40 Mg Tab.Cr) 40 mg PO BEDTIME [facility] Last Admin: 12/06/20 21:02 Dose: 40 mg Documented by: Sodium Chloride (Sodium Chloride 0.9% 10 Ml Syringe) 10 ml FLUSH ASDIRECTED PRN PRN Reason: Keep Vein Open Discontinued Medications Albuterol (Albuterol 8 Gm Inhaler) 0 gm INH Q2H PRN PRN Reason: Shortness of Breath Dexamethasone (Dexamethasone 4 Mg/Ml Sdv) 6 mg IVPUSH DAILY [facility] Stop: 12/09/20 09:01 Last Admin: 11/30/20 22:47 Dose: 6 mg Documented by: Enoxaparin Sodium (Enoxaparin 40 Mg/0.4 Ml Syringe) 40 mg SUBCUT Q12H [facility] Last Admin: 11/30/20 22:58 Dose: 40 mg Documented by: Sodium Chloride (Normal Saline) 1,000 mls @ 150 mls/hr IV ASDIRECTED [facility] Last Admin: 11/30/20 19:58 Dose: 150 mls/hr Documented by: Remdesivir 200 mg/ Sodium (Chloride) 250 mls @ 250 mls/hr IV ONETIME ONE Stop: 11/30/20 20:19 Last Admin: 11/30/20 22:53 Dose: 250 mls/hr Documented by: Remdesivir 100 mg/ Sodium (Chloride) 100 mls @ 100 mls/hr IV Q24H [facility] Stop: 12/04/20 18:59 Last Admin: 12/04/20 18:07 Dose: 100 mls/hr Documented by: Lidocaine (Lidocaine 5% 700 Mg Patch) 700 mg TRDERM Q24H [facility] Last Admin: 11/30/20 22:58 Dose: 700 mg Documented by: Pantoprazole Sodium (Pantoprazole 40 Mg Vial) 40 mg IV BEDTIME [facility] Last Admin: 11/30/20 22:51 Dose: 40 mg Documented by: Sodium Chloride (Sodium Chloride 0.9% 10 Ml Syringe) 10 ml FLUSH ASDIRECTED PRN PRN Reason: Keep Vein Open Last Admin: 11/30/20 19:58 Dose: 10 ml Documented by: - Exam Quality Assessment: Supplemental Oxygen General: Alert, Oriented, Cooperative, No Acute Distress Lungs: Normal Respiratory Effort, Crackles (few right anterior chest ) Cardiovascular: Regular Rate, Regular Rhythm GI/Abdominal Exam: Soft, No Distention Extremities: No Pedal Edema. No: Increased Warmth Skin: Warm, Dry Psy/Mental Status: Alert, Normal Affect - Patient Data Result Diagrams: 12/05/20 04:15 12/05/20 04:15 Sepsis Event Note - Evaluation Sepsis Screening Result: No Definite Risk - Focused Exam Vital Signs: Vital Signs Temp Pulse Resp BP Pulse Ox 12/07/20 07:51 36.1 C 86 18 130/58 L 90 L 12/07/20 07:23 91 L 12/07/20 07:04 87 L 12/07/20 02:49 35.6 C L 86 18 129/70 86 L 12/07/20 00:51 88 L - Problem List Review Problem List Initiated/Reviewed/Updated: Yes - Plan Plan:: ASSESSMENT AND PLAN - COVID-19 PNEUMONIA-complicated by acute respiratory failure with hypoxia. Date of sx on set 11/29. Symptomatically doing well and vitals have been stable. Stable but still requiring large quantities of supplemental oxygen. -Limit IV fluids -5 days of remdesivir complete -Decadron 6 mg IV daily (day 8) -Lovenox 40 mg subcut every 12 hours -oxygen to keep sats greater than 88% -Prone position if able Back Pain-stable. No evidence for fracture on the x-rays. -Hydrocodone 5-325 mg one to two every 4 hours as needed for pain -Lidocaine patch daily VTE prophylaxis: Lovenox 40 mg subcut every 12 hours GI prophylaxis: PPI Diet: Regular diet Disposition: Anticipate discharge home after the hospital stay Davi Dockery MD
[2020-12-07] MEDS: Acetaminophen/HYDROcodone 325-5 MG Tab PO PRN ×2 (12:12→16:17)
[2020-12-07] MEDS: Pantoprazole 40 MG Tab.CR PO SCH (20:58)
[2020-12-07] MEDS: Lidocaine 5% 700 MG Patch TRDERM SCH (20:59)
[2020-12-07] MEDS: Dexamethasone 4 MG/ML SDV IVPUSH SCH (20:59)
[2020-12-07] MEDS ORDERED: Furosemide 20 MG/2 ML VIAL IVPUSH ONE (22:45)
--- NOTE | 2020-12-08 03:46 | PCM.SN.2 ---
- Free Text/Narrative Note: time 033 call from 2 [facility]- Mr. Blanco for the past hour oxygen sats have been from 70% to 74% on high flow nasal cannula 15l & face mask 15 liter. vital signs are p 77 rr 18 B/P 104/61 O2 sat 70% to 74%. no complaints of shortness of breath, is talking with Nursing staff, laying on left side to prone position. A: Covid with hypoxia P: consult with Medical Doctor for further direction orders-imaging Chest X-ray, Labs-CBC, BMP, TROPONIN, CRP, ABG, D-DIMER, PROCALCITONIN call RT to set up high flow oxygen management continue placement in current room if Mr. Blanco does not response may need to consider Bi-pap or intubation.
[2020-12-08] MEDS: Acetaminophen 325 MG Tab PO PRN (04:01)
[2020-12-08] MEDS: Azithromycin 500 MG in Sodium Chloride 0.9% 250 ML IV SCH (05:17)
[2020-12-08] MEDS: cefTRIAXone 2 GM in Sodium Chloride 0.9% 50 ML IV SCH (05:24)
[2020-12-08] MEDS: Albuterol 8 GM Inhaler INH SCH ×5 (05:45→20:41)
[2020-12-08] MEDS: Enoxaparin 40 MG/0.4 ML Syringe SUBCUT SCH ×2 (09:07→20:40)
[2020-12-08] MEDS ORDERED: Codeine/guaiFENesin 10-100 MG/5 ML Syrup 5 ML Cup PO PRN (10:42)
--- NOTE | 2020-12-08 10:45 | PCM.PN ---
- General Info Date of Service: 12/08/20 Subjective Update: Kevin unfortunately had a decline in his respiratory status overnight. He was hypoxic despite 15 L and even 25 L of high flow nasal cannula plus a mask. He was started on he did and humidified high flow oxygen and did have improvement in his oxygen saturations. Chest x-ray last night showed some peripheral infiltrates with potentially a pneumonia developing on the left side. White count was normal. Procalcitonin was in the range that could raise suspicion for respiratory infection so antibiotics were initiated. He reports that he feels fine this morning and is not sure what all the fuss is about. He does not feel short of breath but does desaturate with any activity even in bed. He has not had any fevers. He is coughing some without much sputum production. Functional Status: Reports: Pain Controlled, Tolerating Diet - Review of Systems General: Reports: Weakness Pulmonary: Reports: Cough. Denies: Shortness of Breath - Patient Data Vitals - Most Recent: Last Vital Signs Temp 35.9 C L 12/08/20 08:00 Pulse 80 12/08/20 08:00 Resp 22 H 12/08/20 08:00 BP 121/72 12/08/20 08:00 Pulse Ox 86 L 12/08/20 08:00 Weight - Most Recent: 94.801 kg I&O - Last 24 Hours: Intake & Output 12/07/20 12/08/20 12/08/20 22:59 06:59 14:59 Intake Total 240 300 Output Total 400 550 600 Balance -160 -250 -600 Lab Results Last 24 Hours: Laboratory Results - last 24 hr 12/08/20 12/08/20 12/08/20 Range/Units 03:50 03:50 03:50 WBC 5.8 (4.5-11.0) K/uL RBC 4.47 (4.30-5.90) M/uL Hgb 14.1 (12.0-15.0) g/dL Hct 41.7 (40.0-54.0) % MCV 93 (80-98) fL MCH 32 H (27-31) pg MCHC 34 (32-36) % Plt Count 203 (150-400) K/uL Neut % (Auto) 87.8 H (36-66) % Lymph % (Auto) 9.1 L (24-44) % Ralls % (Auto) 2.9 (2-6) % Eos % (Auto) 0.0 L (2-4) % Baso % (Auto) 0.2 (0-1) % D-Dimer, Quantitative 1550.46 H (0.0-500.0) ng/mL Puncture Site ABG pH (7.350-7.450) ABG pCO2 (35.0-42.0) mmHg ABG pO2 (75.0-100.0) mmHg ABG HCO3 (22.0-26.0) mmol/L ABG Total CO2 (23.0-27.0) mmol/L ABG O2 Saturation (95.0-98.0) % ABG O2 Content (15.0-23.0) %vol ABG Base Excess mm/L ABG Hemoglobin (13.5-18.0) g/dL ABG Oxyhemoglobin % ABG Carboxyhemoglobin (0.0-1.6) % ABG Methemoglobin % Quinn Test O2 Delivery Device Oxygen Flow Rate L Sodium 135 L (140-148) mmol/L Potassium 4.6 (3.6-5.2) mmol/L Chloride 97 L (100-108) mmol/L Carbon Dioxide 30 (21-32) mmol/L Anion Gap 12.6 (5.0-14.0) mmol/L BUN 24 H (7-18) mg/dL Creatinine 1.1 (0.8-1.3) mg/dL Est Cr Clr Drug Dosing 62.83 mL/min Estimated GFR (MDRD) > 60 (>60) Glucose 144 H (74-106) mg/dL Calcium 8.5 (8.5-10.1) mg/dL Troponin I < 0.017 (0.000-0.056) ng/mL C-Reactive Protein (0.0-0.3) mg/dL Procalcitonin ng/mL 12/08/20 12/08/20 12/08/20 Range/Units 03:50 03:50 03:53 WBC (4.5-11.0) K/uL RBC (4.30-5.90) M/uL Hgb (12.0-15.0) g/dL Hct (40.0-54.0) % MCV (80-98) fL MCH (27-31) pg MCHC (32-36) % Plt Count (150-400) K/uL Neut % (Auto) (36-66) % Lymph % (Auto) (24-44) % Ralls % (Auto) (2-6) % Eos % (Auto) (2-4) % Baso % (Auto) (0-1) % D-Dimer, Quantitative (0.0-500.0) ng/mL Puncture Site Lt radial ABG pH 7.461 H (7.350-7.450) ABG pCO2 40.5 (35.0-42.0) mmHg ABG pO2 37.4 L* (75.0-100.0) mmHg ABG HCO3 28.5 H (22.0-26.0) mmol/L ABG Total CO2 24.8 (23.0-27.0) mmol/L ABG O2 Saturation 70.9 L (95.0-98.0) % ABG O2 Content 14.2 L (15.0-23.0) %vol ABG Base Excess 4.7 mm/L ABG Hemoglobin 14.6 (13.5-18.0) g/dL ABG Oxyhemoglobin 69.6 % ABG Carboxyhemoglobin 0.7 (0.0-1.6) % ABG Methemoglobin 1.1 % Quinn Test Pass O2 Delivery Device Hi flow nasal cannu Oxygen Flow Rate 15.0 L Sodium (140-148) mmol/L Potassium (3.6-5.2) mmol/L Chloride (100-108) mmol/L Carbon Dioxide (21-32) mmol/L Anion Gap (5.0-14.0) mmol/L BUN (7-18) mg/dL Creatinine (0.8-1.3) mg/dL Est Cr Clr Drug Dosing mL/min Estimated GFR (MDRD) (>60) Glucose (74-106) mg/dL Calcium (8.5-10.1) mg/dL Troponin I (0.000-0.056) ng/mL C-Reactive Protein 24.18 H (0.0-0.3) mg/dL Procalcitonin 0.36 ng/mL Med Orders - Current: Current Medications Acetaminophen (Acetaminophen 325 Mg Tab) 650 mg PO Q4H PRN PRN Reason: Fever Greater Than 101 Last Admin: 12/08/20 04:01 Dose: 650 mg Documented by: Hydrocodone Bitart/Acetaminophen (Acetaminophen/Hydrocodone 325-5 Mg Tab) 1 tab PO Q4H PRN PRN Reason: Pain (moderate 4-6) Last Admin: 12/07/20 16:17 Dose: 1 tab Documented by: Albuterol (Albuterol 8 Gm Inhaler) 0 gm INH Q4H [facility] Last Admin: 12/08/20 09:01 Dose: 2 puff Documented by: Dexamethasone (Dexamethasone 4 Mg/Ml Sdv) 6 mg IVPUSH BEDTIME [facility] Stop: 12/09/20 21:01 Last Admin: 12/07/20 20:59 Dose: 6 mg Documented by: Docusate Sodium (Docusate Sodium 100 Mg Cap) 100 mg PO BID PRN PRN Reason: Constipation Enoxaparin Sodium (Enoxaparin 40 Mg/0.4 Ml Syringe) 40 mg SUBCUT BID [facility] Last Admin: 12/08/20 09:07 Dose: 40 mg Documented by: Azithromycin 500 mg/ Sodium (Chloride) 250 mls @ 250 mls/hr IV Q24H [facility] Last Admin: 12/08/20 05:17 Dose: 250 mls/hr Documented by: Ceftriaxone Sodium 2 gm/ (Sodium Chloride) 50 mls @ 100 mls/hr IV Q24H [facility] Last Admin: 12/08/20 05:24 Dose: 100 mls/hr Documented by: Lidocaine (Lidocaine 5% 700 Mg Patch) 700 mg TRDERM Q24H [facility] Last Admin: 12/07/20 20:59 Dose: Not Given Documented by: Lorazepam (Lorazepam 2 Mg/Ml Sdv) 1 mg IV Q6H PRN PRN Reason: Nausea/Vomiting Miscellaneous Information (Remove Lidocaine Patch) 1 ea TRDERM DAILY [facility] Last Admin: 12/08/20 09:09 Dose: Not Given Documented by: Morphine Sulfate (Morphine 2 Mg/Ml Syringe) 2 mg IVPUSH Q2H PRN PRN Reason: Pain (severe 7-10) Ondansetron HCl (Ondansetron 4 Mg Tab.Dis) 4 mg PO Q6H PRN PRN Reason: Nausea able to take PO Pantoprazole Sodium (Pantoprazole 40 Mg Tab.Cr) 40 mg PO BEDTIME [facility] Last Admin: 12/07/20 20:58 Dose: 40 mg Documented by: Sodium Chloride (Sodium Chloride 0.9% 10 Ml Syringe) 10 ml FLUSH ASDIRECTED PRN PRN Reason: Keep Vein Open Discontinued Medications Albuterol (Albuterol 8 Gm Inhaler) 0 gm INH Q2H PRN PRN Reason: Shortness of Breath Dexamethasone (Dexamethasone 4 Mg/Ml Sdv) 6 mg IVPUSH DAILY [facility] Stop: 12/09/20 09:01 Last Admin: 11/30/20 22:47 Dose: 6 mg Documented by: Enoxaparin Sodium (Enoxaparin 40 Mg/0.4 Ml Syringe) 40 mg SUBCUT Q12H [facility] Last Admin: 11/30/20 22:58 Dose: 40 mg Documented by: Furosemide (Furosemide 20 Mg/2 Ml Vial) 20 mg IVPUSH NOW ONE Stop: 12/07/20 22:46 Last Admin: 12/07/20 22:42 Dose: 20 mg Documented by: Sodium Chloride (Normal Saline) 1,000 mls @ 150 mls/hr IV ASDIRECTED [facility] Last Admin: 11/30/20 19:58 Dose: 150 mls/hr Documented by: Remdesivir 200 mg/ Sodium (Chloride) 250 mls @ 250 mls/hr IV ONETIME ONE Stop: 11/30/20 20:19 Last Admin: 11/30/20 22:53 Dose: 250 mls/hr Documented by: Remdesivir 100 mg/ Sodium (Chloride) 100 mls @ 100 mls/hr IV Q24H [facility] Stop: 12/04/20 18:59 Last Admin: 12/04/20 18:07 Dose: 100 mls/hr Documented by: Lidocaine (Lidocaine 5% 700 Mg Patch) 700 mg TRDERM Q24H [facility] Last Admin: 11/30/20 22:58 Dose: 700 mg Documented by: Pantoprazole Sodium (Pantoprazole 40 Mg Vial) 40 mg IV BEDTIME [facility] Last Admin: 11/30/20 22:51 Dose: 40 mg Documented by: Sodium Chloride (Sodium Chloride 0.9% 10 Ml Syringe) 10 ml FLUSH ASDIRECTED PRN PRN Reason: Keep Vein Open Last Admin: 11/30/20 19:58 Dose: 10 ml Documented by: - Exam Quality Assessment: Supplemental Oxygen General: Alert, Oriented, Cooperative, No Acute Distress Lungs: Normal Respiratory Effort, Crackles (few both upper lungs ). No: Wheezing Cardiovascular: Regular Rate, Regular Rhythm GI/Abdominal Exam: Soft, No Distention Extremities: No Pedal Edema. No: Increased Warmth Skin: Warm, Dry Psy/Mental Status: Alert, Normal Affect - Patient Data Lab Results Last 24 hrs: Laboratory Results - last 24 hr 12/08/20 12/08/20 12/08/20 Range/Units 03:50 03:50 03:50 WBC 5.8 (4.5-11.0) K/uL RBC 4.47 (4.30-5.90) M/uL Hgb 14.1 (12.0-15.0) g/dL Hct 41.7 (40.0-54.0) % MCV 93 (80-98) fL MCH 32 H (27-31) pg MCHC 34 (32-36) % Plt Count 203 (150-400) K/uL Neut % (Auto) 87.8 H (36-66) % Lymph % (Auto) 9.1 L (24-44) % Ralls % (Auto) 2.9 (2-6) % Eos % (Auto) 0.0 L (2-4) % Baso % (Auto) 0.2 (0-1) % D-Dimer, Quantitative 1550.46 H (0.0-500.0) ng/mL Puncture Site ABG pH (7.350-7.450) ABG pCO2 (35.0-42.0) mmHg ABG pO2 (75.0-100.0) mmHg ABG HCO3 (22.0-26.0) mmol/L ABG Total CO2 (23.0-27.0) mmol/L ABG O2 Saturation (95.0-98.0) % ABG O2 Content (15.0-23.0) %vol ABG Base Excess mm/L ABG Hemoglobin (13.5-18.0) g/dL ABG Oxyhemoglobin % ABG Carboxyhemoglobin (0.0-1.6) % ABG Methemoglobin % Quinn Test O2 Delivery Device Oxygen Flow Rate L Sodium 135 L (140-148) mmol/L Potassium 4.6 (3.6-5.2) mmol/L Chloride 97 L (100-108) mmol/L Carbon Dioxide 30 (21-32) mmol/L Anion Gap 12.6 (5.0-14.0) mmol/L BUN 24 H (7-18) mg/dL Creatinine 1.1 (0.8-1.3) mg/dL Est Cr Clr Drug Dosing 62.83 mL/min Estimated GFR (MDRD) > 60 (>60) Glucose 144 H (74-106) mg/dL Calcium 8.5 (8.5-10.1) mg/dL Troponin I < 0.017 (0.000-0.056) ng/mL C-Reactive Protein (0.0-0.3) mg/dL Procalcitonin ng/mL 12/08/20 12/08/20 12/08/20 Range/Units 03:50 03:50 03:53 WBC (4.5-11.0) K/uL RBC (4.30-5.90) M/uL Hgb (12.0-15.0) g/dL Hct (40.0-54.0) % MCV (80-98) fL MCH (27-31) pg MCHC (32-36) % Plt Count (150-400) K/uL Neut % (Auto) (36-66) % Lymph % (Auto) (24-44) % Ralls % (Auto) (2-6) % Eos % (Auto) (2-4) % Baso % (Auto) (0-1) % D-Dimer, Quantitative (0.0-500.0) ng/mL Puncture Site Lt radial ABG pH 7.461 H (7.350-7.450) ABG pCO2 40.5 (35.0-42.0) mmHg ABG pO2 37.4 L* (75.0-100.0) mmHg ABG HCO3 28.5 H (22.0-26.0) mmol/L ABG Total CO2 24.8 (23.0-27.0) mmol/L ABG O2 Saturation 70.9 L (95.0-98.0) % ABG O2 Content 14.2 L (15.0-23.0) %vol ABG Base Excess 4.7 mm/L ABG Hemoglobin 14.6 (13.5-18.0) g/dL ABG Oxyhemoglobin 69.6 % ABG Carboxyhemoglobin 0.7 (0.0-1.6) % ABG Methemoglobin 1.1 % Quinn Test Pass O2 Delivery Device Hi flow nasal cannu Oxygen Flow Rate 15.0 L Sodium (140-148) mmol/L Potassium (3.6-5.2) mmol/L Chloride (100-108) mmol/L Carbon Dioxide (21-32) mmol/L Anion Gap (5.0-14.0) mmol/L BUN (7-18) mg/dL Creatinine (0.8-1.3) mg/dL Est Cr Clr Drug Dosing mL/min Estimated GFR (MDRD) (>60) Glucose (74-106) mg/dL Calcium (8.5-10.1) mg/dL Troponin I (0.000-0.056) ng/mL C-Reactive Protein 24.18 H (0.0-0.3) mg/dL Procalcitonin 0.36 ng/mL Result Diagrams: 12/08/20 03:50 12/08/20 03:50 Sepsis Event Note - Evaluation Sepsis Screening Result: No Definite Risk - Focused Exam Vital Signs: Vital Signs Temp Temp Pulse Resp BP Pulse Ox Pulse Ox 12/08/20 08:00 35.9 C L 80 22 H 121/72 86 L 12/08/20 04:40 36.7 C 81 76 H 121/63 93 L 12/08/20 04:35 90 L 12/08/20 02:00 36.1 C 77 18 104/61 87 L 12/08/20 00:35 90 L 12/07/20 22:46 36.5 C 86 18 128/72 91 L - Problem List Review Problem List Initiated/Reviewed/Updated: Yes - My Orders Last 24 Hours: My Active Orders 12/08/20 10:42 Codeine/guaiFENesin [Robitussin AC] 10 ml PO Q6H PRN 12/08/20 10:43 Ang Chest [CT] Routine 12/09/20 05:00 BASIC METABOLIC PANEL,BMP [CHEM] Timed CBC W/O DIFF,HEMOGRAM [HEME] Timed (1) - Plan Plan:: ASSESSMENT AND PLAN - COVID-19 PNEUMONIA-complicated by acute respiratory failure with hypoxia. Date of sx on set 11/29. Clinically he says he feels fine but objectively he has declined in the past 24 hours. Now requiring high flow nasal cannula at 50 L/min with 92 to 93% oxygen. There is possibly a bacterial superinfection. I think given the significant decline after a period of stability he would benefit from imaging. Volume status is appropriate. Inflammatory markers have jumped since yesterday. -CT of the chest looking for PE or pneumonia -Empiric antibiotic coverage -Limit IV fluids -5 days of remdesivir complete -Decadron 6 mg IV daily (day 9) -Lovenox 40 mg subcut every 12 hours -oxygen to keep sats greater than 88% -Prone position if able Back Pain-stable. No evidence for fracture on the x-rays. -Hydrocodone 5-325 mg one to two every 4 hours as needed for pain -Lidocaine patch daily Maintenance issues- VTE prophylaxis: Lovenox 40 mg subcut every 12 hours GI prophylaxis: PPI Diet: Regular diet Disposition: Anticipate discharge home after the hospital stay if he survives the hospital stay, patient may require transfer to higher level of care Davi Dockery MD
[2020-12-08] MEDS ORDERED: Sodium Chloride 0.9% 10 ML Syringe FLUSH ONE (12:53)
[2020-12-08] MEDS ORDERED: Iopamidol 755 Mg/ML 100 ML Bottle IV SCH (13:00)
[2020-12-08] MEDS ORDERED: Sodium Chloride 0.9% 100 ML IV SCH (13:00)
--- NOTE | 2020-12-08 13:43 | CRLCR ---
For Patients: As a result of the Century Cures Act, medical imaging exams and procedure reports are released immediately into your electronic medical record. You may view this report before your referring provider. If you have questions, please contact your health care provider. INDICATION: Hypoxia, COVID-19 TECHNIQUE: Chest radiograph 1 view COMPARISON: 11/30/2020 FINDINGS: Mediastinum: The mediastinum is normal in appearance. The heart silhouette is normal in size and morphology. Lung: Increasing moderate subpleural ground-glass opacities are present in the upper mid lung zones bilaterally, consistent with COVID-19 progression. No sign of pleural effusion seen. No pneumothorax is identified. Bone and Soft tissue: Unremarkable for age. IMPRESSION: 1. Increasing moderate subpleural ground-glass opacities are present in the upper mid lung zones bilaterally, consistent with COVID-19 progression. Dictated by Tobi Moses MD @ 12/08/2020 1:41:36 PM Dictated by: Tobi Moses MD @ 12/08/2020 13:41:42 (Electronically Signed)
--- NOTE | 2020-12-08 13:55 | CRLCT ---
For Patients: As a result of the Century Cures Act, medical imaging exams and procedure reports are released immediately into your electronic medical record. You may view this report before your referring provider. If you have questions, please contact your health care provider. INDICATION: COVID-19 pneumonia. Worsening hypoxia. TECHNIQUE: CT chest PE was acquired with 100 cc Isovue 370 IV contrast. COMPARISON: Chest x-ray December 08, 2020. FINDINGS: Heart and vasculature: Contrast opacification of the pulmonary arterial tree is adequate. No sign of pulmonary embolism. Heart size is normal. Thoracic aorta and pulmonary artery are normal in caliber.Coronary artery atherosclerosis is present. Lungs and pleural: There are diffuse bilateral severe ground-glass infiltrates with small areas of consolidation in the upper lobes. No pleural effusions, pleural thickening, or pneumothorax. Lymph nodes/mediastinum: No mediastinal, hilar, or axillary adenopathy. Chest wall: No masses. Upper abdomen: Normal. Bones: Unremarkable for age. IMPRESSION: 1. No pulmonary embolism. 2. Severe COVID-19 pneumonitis. Please note that all CT scans at this facility use dose modulation, iterative reconstruction, and/or weight-based dosing when appropriate to reduce radiation dose to as low as reasonably achievable. Dictated by Monty Noble MD @ 12/08/2020 1:54:[address] Monty Noble @ Dec 08 2020 1:54PM
[2020-12-08] MEDS: Pantoprazole 40 MG Tab.CR PO SCH (20:37)
[2020-12-08] MEDS: Acetaminophen/HYDROcodone 325-5 MG Tab PO PRN (20:37)
[2020-12-08] MEDS: Dexamethasone 4 MG/ML SDV IVPUSH SCH (20:39)
[2020-12-08] MEDS: Lidocaine 5% 700 MG Patch TRDERM SCH (20:40)
[2020-12-09] MEDS: Acetaminophen/HYDROcodone 325-5 MG Tab PO PRN ×2 (01:03→06:42)
[2020-12-09] MEDS: Albuterol 8 GM Inhaler INH SCH ×6 (01:04→21:22)
[2020-12-09] MEDS: Azithromycin 500 MG in Sodium Chloride 0.9% 250 ML IV SCH (04:17)
[2020-12-09] MEDS: cefTRIAXone 2 GM in Sodium Chloride 0.9% 50 ML IV SCH (05:51)
[2020-12-09] MEDS: Enoxaparin 40 MG/0.4 ML Syringe SUBCUT SCH ×2 (08:37→21:19)
--- NOTE | 2020-12-09 09:28 | PCM.PN ---
- General Info Date of Service: 12/09/20 Subjective Update: There were no acute events overnight. Patient reports that he feels better today. He does not report any shortness of breath. Cough is better today. He does remain on the heated and humidified high flow at 50 L with 80% FiO2. Laboratory studies are unremarkable today. Heart rate has been stable. No fevers. Appetite acceptable. Functional Status: Reports: Tolerating Diet - Review of Systems General: Denies: Fever Pulmonary: Denies: Shortness of Breath - Patient Data Vitals - Most Recent: Last Vital Signs Temp 36.6 C 12/09/20 08:00 Pulse 60 12/09/20 08:00 Resp 16 12/09/20 08:00 BP 118/57 L 12/09/20 08:00 Pulse Ox 92 L 12/09/20 08:00 Weight - Most Recent: 94.801 kg I&O - Last 24 Hours: Intake & Output 12/08/20 12/09/20 12/09/20 22:59 06:59 14:59 Intake Total 1100 340 Output Total 1100 350 Balance 0 -10 Lab Results Last 24 Hours: Laboratory Results - last 24 hr 12/09/20 12/09/20 Range/Units 05:15 05:15 WBC 4.1 L (4.5-11.0) K/uL RBC 4.16 L (4.30-5.90) M/uL Hgb 12.7 (12.0-15.0) g/dL Hct 38.4 L (40.0-54.0) % MCV 92 (80-98) fL MCH 31 (27-31) pg MCHC 33 (32-36) % Plt Count 188 (150-400) K/uL Sodium 136 L (140-148) mmol/L Potassium 4.7 (3.6-5.2) mmol/L Chloride 101 (100-108) mmol/L Carbon Dioxide 28 (21-32) mmol/L Anion Gap 11.7 (5.0-14.0) mmol/L BUN 26 H (7-18) mg/dL Creatinine 1.1 (0.8-1.3) mg/dL Est Cr Clr Drug Dosing 62.83 mL/min Estimated GFR (MDRD) > 60 (>60) Glucose 241 H (74-106) mg/dL Calcium 8.3 L (8.5-10.1) mg/dL Med Orders - Current: Current Medications Acetaminophen (Acetaminophen 325 Mg Tab) 650 mg PO Q4H PRN PRN Reason: Fever Greater Than 101 Last Admin: 12/08/20 04:01 Dose: 650 mg Documented by: Hydrocodone Bitart/Acetaminophen (Acetaminophen/Hydrocodone 325-5 Mg Tab) 1 tab PO Q4H PRN PRN Reason: Pain (moderate 4-6) Last Admin: 12/09/20 06:42 Dose: 1 tab Documented by: Albuterol (Albuterol 8 Gm Inhaler) 0 gm INH Q4H [facility] Last Admin: 12/09/20 08:37 Dose: 2 puff Documented by: Dexamethasone (Dexamethasone 4 Mg/Ml Sdv) 6 mg IVPUSH BEDTIME [facility] Stop: 12/09/20 21:01 Last Admin: 12/08/20 20:39 Dose: 6 mg Documented by: Docusate Sodium (Docusate Sodium 100 Mg Cap) 100 mg PO BID PRN PRN Reason: Constipation Enoxaparin Sodium (Enoxaparin 40 Mg/0.4 Ml Syringe) 40 mg SUBCUT BID [facility] Last Admin: 12/09/20 08:37 Dose: 40 mg Documented by: Guaifenesin/Codeine Phosphate (Codeine/Guaifenesin 10-100 Mg/5 Ml Syrup 5 Ml Cup) 10 ml PO Q6H PRN PRN Reason: Cough Azithromycin 500 mg/ Sodium (Chloride) 250 mls @ 250 mls/hr IV Q24H [facility] Last Admin: 12/09/20 04:17 Dose: 250 mls/hr Documented by: Ceftriaxone Sodium 2 gm/ (Sodium Chloride) 50 mls @ 100 mls/hr IV Q24H [facility] Last Admin: 12/09/20 05:51 Dose: 100 mls/hr Documented by: Lidocaine (Lidocaine 5% 700 Mg Patch) 700 mg TRDERM Q24H [facility] Last Admin: 12/08/20 20:40 Dose: Not Given Documented by: Lorazepam (Lorazepam 2 Mg/Ml Sdv) 1 mg IV Q6H PRN PRN Reason: Nausea/Vomiting Miscellaneous Information (Remove Lidocaine Patch) 1 ea TRDERM DAILY [facility] Last Admin: 12/09/20 08:41 Dose: Not Given Documented by: Morphine Sulfate (Morphine 2 Mg/Ml Syringe) 2 mg IVPUSH Q2H PRN PRN Reason: Pain (severe 7-10) Ondansetron HCl (Ondansetron 4 Mg Tab.Dis) 4 mg PO Q6H PRN PRN Reason: Nausea able to take PO Pantoprazole Sodium (Pantoprazole 40 Mg Tab.Cr) 40 mg PO BEDTIME [facility] Last Admin: 12/08/20 20:37 Dose: 40 mg Documented by: Sodium Chloride (Sodium Chloride 0.9% 10 Ml Syringe) 10 ml FLUSH ASDIRECTED PRN PRN Reason: Keep Vein Open Discontinued Medications Albuterol (Albuterol 8 Gm Inhaler) 0 gm INH Q2H PRN PRN Reason: Shortness of Breath Dexamethasone (Dexamethasone 4 Mg/Ml Sdv) 6 mg IVPUSH DAILY [facility] Stop: 12/09/20 09:01 Last Admin: 11/30/20 22:47 Dose: 6 mg Documented by: Enoxaparin Sodium (Enoxaparin 40 Mg/0.4 Ml Syringe) 40 mg SUBCUT Q12H [facility] Last Admin: 11/30/20 22:58 Dose: 40 mg Documented by: Furosemide (Furosemide 20 Mg/2 Ml Vial) 20 mg IVPUSH NOW ONE Stop: 12/07/20 22:46 Last Admin: 12/07/20 22:42 Dose: 20 mg Documented by: Sodium Chloride (Normal Saline) 1,000 mls @ 150 mls/hr IV ASDIRECTED [facility] Last Admin: 11/30/20 19:58 Dose: 150 mls/hr Documented by: Remdesivir 200 mg/ Sodium (Chloride) 250 mls @ 250 mls/hr IV ONETIME ONE Stop: 11/30/20 20:19 Last Admin: 11/30/20 22:53 Dose: 250 mls/hr Documented by: Remdesivir 100 mg/ Sodium (Chloride) 100 mls @ 100 mls/hr IV Q24H [facility] Stop: 12/04/20 18:59 Last Admin: 12/04/20 18:07 Dose: 100 mls/hr Documented by: Sodium Chloride (Normal Saline) 100 mls @ 3.5 mls/sec IV ASDIRECTED [facility] Stop: 12/08/20 15:00 Last Admin: 12/08/20 14:53 Dose: 4 mls/sec Documented by: Iopamidol (Iopamidol 755 Mg/Ml 100 Ml Bottle) 100 ml IV . DIRECTED [facility] Stop: 12/08/20 18:00 Last Admin: 12/08/20 14:53 Dose: 100 ml Documented by: Lidocaine (Lidocaine 5% 700 Mg Patch) 700 mg TRDERM Q24H [facility] Last Admin: 11/30/20 22:58 Dose: 700 mg Documented by: Pantoprazole Sodium (Pantoprazole 40 Mg Vial) 40 mg IV BEDTIME [facility] Last Admin: 11/30/20 22:51 Dose: 40 mg Documented by: Sodium Chloride (Sodium Chloride 0.9% 10 Ml Syringe) 10 ml FLUSH ASDIRECTED PRN PRN Reason: Keep Vein Open Last Admin: 11/30/20 19:58 Dose: 10 ml Documented by: Sodium Chloride (Sodium Chloride 0.9% 10 Ml Syringe) 10 ml FLUSH ONETIME ONE Stop: 12/08/20 12:54 Last Admin: 12/08/20 14:53 Dose: 10 ml Documented by: - Exam Quality Assessment: Supplemental Oxygen General: Alert, Oriented, Cooperative, No Acute Distress Lungs: Normal Respiratory Effort, Crackles (few both bases) Cardiovascular: Regular Rate, Regular Rhythm GI/Abdominal Exam: Soft, No Distention Extremities: No Pedal Edema. No: Increased Warmth Skin: Warm, Dry Psy/Mental Status: Alert, Normal Affect - Patient Data Lab Results Last 24 hrs: Laboratory Results - last 24 hr 12/09/20 12/09/20 Range/Units 05:15 05:15 WBC 4.1 L (4.5-11.0) K/uL RBC 4.16 L (4.30-5.90) M/uL Hgb 12.7 (12.0-15.0) g/dL Hct 38.4 L (40.0-54.0) % MCV 92 (80-98) fL MCH 31 (27-31) pg MCHC 33 (32-36) % Plt Count 188 (150-400) K/uL Sodium 136 L (140-148) mmol/L Potassium 4.7 (3.6-5.2) mmol/L Chloride 101 (100-108) mmol/L Carbon Dioxide 28 (21-32) mmol/L Anion Gap 11.7 (5.0-14.0) mmol/L BUN 26 H (7-18) mg/dL Creatinine 1.1 (0.8-1.3) mg/dL Est Cr Clr Drug Dosing 62.83 mL/min Estimated GFR (MDRD) > 60 (>60) Glucose 241 H (74-106) mg/dL Calcium 8.3 L (8.5-10.1) mg/dL Result Diagrams: 12/09/20 05:15 12/09/20 05:15 Sepsis Event Note - Evaluation Sepsis Screening Result: No Definite Risk - Focused Exam Vital Signs: Vital Signs Temp Pulse Resp BP Pulse Ox 12/09/20 08:00 36.6 C 60 16 118/57 L 92 L 12/09/20 07:55 92 L 12/09/20 04:00 36.2 C 58 L 18 116/67 95 12/09/20 00:40 36.7 C 73 20 136/73 93 L 12/09/20 00:00 96 - Problem List Review Problem List Initiated/Reviewed/Updated: Yes - My Orders Last 24 Hours: My Active Orders 12/08/20 10:42 Codeine/guaiFENesin [Robitussin AC] 10 ml PO Q6H PRN - Plan Plan:: ASSESSMENT AND PLAN - COVID-19 PNEUMONIA-complicated by acute respiratory failure with hypoxia. Date of sx on set 11/29. Now on heated and humidified high flow. Weaning FiO2 as able but still not ready to go back to regular high flow nasal cannula. CT yesterday did not show evidence for PE but did show significant Covid pneumonia. Possible component of bacterial pneumonia given rising procalcitonin and clinical worsening. -Continue empiric antibiotic coverage -Limit IV fluids -5 days of remdesivir complete -Decadron 6 mg IV daily (day 10), transition to oral and start taper tomorrow -Lovenox 40 mg subcut every 12 hours -oxygen to keep sats greater than 88% -Prone position as able Back Pain-stable. No evidence for fracture on the x-rays. Minimal pain. -Hydrocodone 5-325 mg one to two every 4 hours as needed for pain -Lidocaine patch daily Maintenance issues- VTE prophylaxis: Lovenox 40 mg subcut every 12 hours GI prophylaxis: PPI Diet: Regular diet Disposition: Anticipate discharge home after the hospital stay if he survives the hospital stay, patient may require transfer to higher level of care if respiratory status declines further Davi Dockery MD
[2020-12-09] MEDS: Pantoprazole 40 MG Tab.CR PO SCH (21:18)
[2020-12-09] MEDS: Lidocaine 5% 700 MG Patch TRDERM SCH (21:19)
[2020-12-09] MEDS: Dexamethasone 4 MG/ML SDV IVPUSH SCH (21:20)
[2020-12-10] MEDS: Albuterol 8 GM Inhaler INH SCH ×6 (01:20→20:30)
[2020-12-10] MEDS: Azithromycin 500 MG in Sodium Chloride 0.9% 250 ML IV SCH (05:18)
[2020-12-10] MEDS: cefTRIAXone 2 GM in Sodium Chloride 0.9% 50 ML IV SCH (05:18)
[2020-12-10] MEDS: Enoxaparin 40 MG/0.4 ML Syringe SUBCUT SCH ×2 (08:25→20:30)
--- NOTE | 2020-12-10 10:43 | PCM.PN ---
- General Info Date of Service: 12/10/20 Subjective Update: There were no acute events overnight. Patient continues to report that he does not feel short of breath. Occasional cough with minimal sputum. No chest pain. No diarrhea. Appetite has been good. He continues to require the heated high flow at about 80% FiO2. Oxygenation has been stable to slightly improved. Functional Status: Reports: Pain Controlled, Tolerating Diet - Review of Systems General: Denies: Fever Pulmonary: Denies: Shortness of Breath - Patient Data Vitals - Most Recent: Last Vital Signs Temp 36.6 C 12/10/20 05:00 Pulse 63 12/10/20 07:00 Resp 15 12/10/20 07:00 BP 114/62 12/10/20 07:00 Pulse Ox 90 L 12/10/20 07:21 Weight - Most Recent: 94.801 kg I&O - Last 24 Hours: Intake & Output 12/09/20 12/10/20 12/10/20 22:59 06:59 14:59 Intake Total 500 Output Total 325 Balance 175 Med Orders - Current: Current Medications Acetaminophen (Acetaminophen 325 Mg Tab) 650 mg PO Q4H PRN PRN Reason: Fever Greater Than 101 Last Admin: 12/08/20 04:01 Dose: 650 mg Documented by: Hydrocodone Bitart/Acetaminophen (Acetaminophen/Hydrocodone 325-5 Mg Tab) 1 tab PO Q4H PRN PRN Reason: Pain (moderate 4-6) Last Admin: 12/09/20 06:42 Dose: 1 tab Documented by: Albuterol (Albuterol 8 Gm Inhaler) 0 gm INH Q4H [facility] Last Admin: 12/10/20 08:52 Dose: 2 puff Documented by: Dexamethasone (Dexamethasone 2 Mg Tab) 4 mg PO QPM [facility] Docusate Sodium (Docusate Sodium 100 Mg Cap) 100 mg PO BID PRN PRN Reason: Constipation Enoxaparin Sodium (Enoxaparin 40 Mg/0.4 Ml Syringe) 40 mg SUBCUT BID [facility] Last Admin: 12/10/20 08:25 Dose: 40 mg Documented by: Guaifenesin/Codeine Phosphate (Codeine/Guaifenesin 10-100 Mg/5 Ml Syrup 5 Ml Cup) 10 ml PO Q6H PRN PRN Reason: Cough Azithromycin 500 mg/ Sodium (Chloride) 250 mls @ 250 mls/hr IV Q24H [facility] Last Admin: 12/10/20 05:18 Dose: 250 mls/hr Documented by: Ceftriaxone Sodium 2 gm/ (Sodium Chloride) 50 mls @ 100 mls/hr IV Q24H [facility] Last Admin: 12/10/20 05:18 Dose: 100 mls/hr Documented by: Lidocaine (Lidocaine 5% 700 Mg Patch) 700 mg TRDERM Q24H [facility] Last Admin: 12/09/20 21:19 Dose: Not Given Documented by: Lorazepam (Lorazepam 2 Mg/Ml Sdv) 1 mg IV Q6H PRN PRN Reason: Nausea/Vomiting Miscellaneous Information (Remove Lidocaine Patch) 1 ea TRDERM DAILY [facility] Last Admin: 12/10/20 08:25 Dose: Not Given Documented by: Morphine Sulfate (Morphine 2 Mg/Ml Syringe) 2 mg IVPUSH Q2H PRN PRN Reason: Pain (severe 7-10) Ondansetron HCl (Ondansetron 4 Mg Tab.Dis) 4 mg PO Q6H PRN PRN Reason: Nausea able to take PO Pantoprazole Sodium (Pantoprazole 40 Mg Tab.Cr) 40 mg PO BEDTIME [facility] Last Admin: 12/09/20 21:18 Dose: 40 mg Documented by: Sodium Chloride (Sodium Chloride 0.9% 10 Ml Syringe) 10 ml FLUSH ASDIRECTED PRN PRN Reason: Keep Vein Open Discontinued Medications Albuterol (Albuterol 8 Gm Inhaler) 0 gm INH Q2H PRN PRN Reason: Shortness of Breath Dexamethasone (Dexamethasone 4 Mg/Ml Sdv) 6 mg IVPUSH DAILY [facility] Stop: 12/09/20 09:01 Last Admin: 11/30/20 22:47 Dose: 6 mg Documented by: Dexamethasone (Dexamethasone 4 Mg/Ml Sdv) 6 mg IVPUSH BEDTIME [facility] Stop: 12/09/20 21:01 Last Admin: 12/09/20 21:20 Dose: 6 mg Documented by: Enoxaparin Sodium (Enoxaparin 40 Mg/0.4 Ml Syringe) 40 mg SUBCUT Q12H [facility] Last Admin: 11/30/20 22:58 Dose: 40 mg Documented by: Furosemide (Furosemide 20 Mg/2 Ml Vial) 20 mg IVPUSH NOW ONE Stop: 12/07/20 22:46 Last Admin: 12/07/20 22:42 Dose: 20 mg Documented by: Sodium Chloride (Normal Saline) 1,000 mls @ 150 mls/hr IV ASDIRECTED [facility] Last Admin: 11/30/20 19:58 Dose: 150 mls/hr Documented by: Remdesivir 200 mg/ Sodium (Chloride) 250 mls @ 250 mls/hr IV ONETIME ONE Stop: 11/30/20 20:19 Last Admin: 11/30/20 22:53 Dose: 250 mls/hr Documented by: Remdesivir 100 mg/ Sodium (Chloride) 100 mls @ 100 mls/hr IV Q24H [facility] Stop: 12/04/20 18:59 Last Admin: 12/04/20 18:07 Dose: 100 mls/hr Documented by: Sodium Chloride (Normal Saline) 100 mls @ 3.5 mls/sec IV ASDIRECTED [facility] Stop: 12/08/20 15:00 Last Admin: 12/08/20 14:53 Dose: 4 mls/sec Documented by: Iopamidol (Iopamidol 755 Mg/Ml 100 Ml Bottle) 100 ml IV . DIRECTED [facility] Stop: 12/08/20 18:00 Last Admin: 12/08/20 14:53 Dose: 100 ml Documented by: Lidocaine (Lidocaine 5% 700 Mg Patch) 700 mg TRDERM Q24H [facility] Last Admin: 11/30/20 22:58 Dose: 700 mg Documented by: Pantoprazole Sodium (Pantoprazole 40 Mg Vial) 40 mg IV BEDTIME [facility] Last Admin: 11/30/20 22:51 Dose: 40 mg Documented by: Sodium Chloride (Sodium Chloride 0.9% 10 Ml Syringe) 10 ml FLUSH ASDIRECTED PRN PRN Reason: Keep Vein Open Last Admin: 11/30/20 19:58 Dose: 10 ml Documented by: Sodium Chloride (Sodium Chloride 0.9% 10 Ml Syringe) 10 ml FLUSH ONETIME ONE Stop: 12/08/20 12:54 Last Admin: 12/08/20 14:53 Dose: 10 ml Documented by: - Exam Quality Assessment: Supplemental Oxygen General: Alert, Oriented, Cooperative, No Acute Distress Lungs: Normal Respiratory Effort. No: Wheezing GI/Abdominal Exam: Soft, No Distention Extremities: No Pedal Edema. No: Increased Warmth Psy/Mental Status: Alert, Normal Affect - Patient Data Result Diagrams: 12/09/20 05:15 08/27/21 05:15 Sepsis Event Note - Evaluation Sepsis Screening Result: No Definite Risk - Focused Exam Vital Signs: Vital Signs Temp Pulse Resp BP Pulse Ox 12/10/20 07:21 90 L 12/10/20 07:00 63 15 114/62 91 L 12/10/20 05:00 36.6 C 55 L 20 121/66 94 L 12/10/20 03:00 36.5 C 60 18 117/56 L 94 L 12/10/20 01:00 54 L 20 143/74 H 92 L 12/09/20 23:00 36.7 C 62 19 143/81 H 94 L - Problem List Review Problem List Initiated/Reviewed/Updated: Yes - My Orders Last 24 Hours: My Active Orders 12/09/20 16:44 Transfer Patient (Change bed) [ADT] Routine 12/10/20 17:00 dexAMETHasone 4 mg PO QPM 12/11/20 05:00 BASIC METABOLIC PANEL,BMP [CHEM] Timed CBC W/O DIFF,HEMOGRAM [HEME] Timed (1) 12/11/20 05:11 C-REACTIVE PROTEIN [CHEM] AM D-DIMER QUANTITATIVE [COAG] AM PROCALCITONIN [CHEM] AM - Plan Plan:: ASSESSMENT AND PLAN - COVID-19 PNEUMONIA-complicated by acute respiratory failure with hypoxia. Date of sx on set 11/29. Now on heated and humidified high flow. Stable to slightly improved. Subjectively patient feels well but still requiring a large amount of oxygen. -Continue empiric antibiotic coverage -Repeat labs in the morning -Limit IV fluids -5 days of remdesivir complete -Dexamethasone 4 mg daily (taper day 1) -Lovenox 40 mg subcut every 12 hours -oxygen to keep sats greater than 88% -Prone position as able Back Pain-stable. No evidence for fracture on the x-rays. Minimal pain. -Hydrocodone 5-325 mg one to two every 4 hours as needed for pain -Lidocaine patch daily Maintenance issues- VTE prophylaxis: Lovenox 40 mg subcut every 12 hours GI prophylaxis: PPI Diet: Regular diet Disposition: Anticipate discharge home after the hospital stay if he survives the hospital stay, patient may require transfer to higher level of care if respiratory status declines further Davi Dockery MD
[2020-12-10] MEDS: Dexamethasone 2 MG Tab PO SCH (17:31)
[2020-12-10] MEDS: Pantoprazole 40 MG Tab.CR PO SCH (20:30)
[2020-12-10] MEDS: Lidocaine 5% 700 MG Patch TRDERM SCH (22:14)
[2020-12-11] MEDS: Albuterol 8 GM Inhaler INH SCH ×6 (01:10→21:32)
[2020-12-11] MEDS: cefTRIAXone 2 GM in Sodium Chloride 0.9% 50 ML IV SCH (04:45)
[2020-12-11] MEDS: Azithromycin 500 MG in Sodium Chloride 0.9% 250 ML IV SCH (05:10)
[2020-12-11] MEDS: Enoxaparin 40 MG/0.4 ML Syringe SUBCUT SCH ×2 (08:31→21:32)
--- NOTE | 2020-12-11 11:13 | PCM.PN ---
- General Info Date of Service: 12/11/20 Subjective Update: No acute events overnight. Oxygenation is stable to slightly improved. Patient continues to report that he feels fine. No shortness of breath, chest pain or n ausea. He had a bowel movement this morning. He is a little bit weak but otherwise doing well. Hoping to wean his FiO2 a little bit today. I think he is stable for transfer out of the intensive care unit. - Patient Data Vitals - Most Recent: Last Vital Signs Temp 36.0 C L 12/11/20 07:39 Pulse 60 12/11/20 07:39 Resp 21 H 12/11/20 07:39 BP 121/70 12/11/20 07:39 Pulse Ox 90 L 12/11/20 10:00 Weight - Most Recent: 94.801 kg I&O - Last 24 Hours: Intake & Output 12/10/20 12/11/20 12/11/20 22:59 06:59 14:59 Intake Total 1100 400 Output Total 500 650 700 Balance 600 -250 -700 Lab Results Last 24 Hours: Laboratory Results - last 24 hr 12/11/20 12/11/20 12/11/20 Range/Units 04:30 04:30 04:30 WBC 6.3 (4.5-11.0) K/uL RBC 4.17 L (4.30-5.90) M/uL Hgb 12.8 (12.0-15.0) g/dL Hct 38.9 L (40.0-54.0) % MCV 93 (80-98) fL MCH 31 (27-31) pg MCHC 33 (32-36) % Plt Count 188 (150-400) K/uL D-Dimer, Quantitative 1566.60 H (0.0-500.0) ng/mL Sodium 136 L (140-148) mmol/L Potassium 4.5 (3.6-5.2) mmol/L Chloride 102 (100-108) mmol/L Carbon Dioxide 26 (21-32) mmol/L Anion Gap 12.5 (5.0-14.0) mmol/L BUN 24 H (7-18) mg/dL Creatinine 1.0 (0.8-1.3) mg/dL Est Cr Clr Drug Dosing 69.11 mL/min Estimated GFR (MDRD) > 60 (>60) Glucose 139 H (74-106) mg/dL Calcium 8.3 L (8.5-10.1) mg/dL C-Reactive Protein (0.0-0.3) mg/dL Procalcitonin ng/mL 12/11/20 12/11/20 Range/Units 04:30 04:30 WBC (4.5-11.0) K/uL RBC (4.30-5.90) M/uL Hgb (12.0-15.0) g/dL Hct (40.0-54.0) % MCV (80-98) fL MCH (27-31) pg MCHC (32-36) % Plt Count (150-400) K/uL D-Dimer, Quantitative (0.0-500.0) ng/mL Sodium (140-148) mmol/L Potassium (3.6-5.2) mmol/L Chloride (100-108) mmol/L Carbon Dioxide (21-32) mmol/L Anion Gap (5.0-14.0) mmol/L BUN (7-18) mg/dL Creatinine (0.8-1.3) mg/dL Est Cr Clr Drug Dosing mL/min Estimated GFR (MDRD) (>60) Glucose (74-106) mg/dL Calcium (8.5-10.1) mg/dL C-Reactive Protein 2.98 H (0.0-0.3) mg/dL Procalcitonin < 0.05 ng/mL Med Orders - Current: Current Medications Acetaminophen (Acetaminophen 325 Mg Tab) 650 mg PO Q4H PRN PRN Reason: Fever Greater Than 101 Last Admin: 12/08/20 04:01 Dose: 650 mg Documented by: Hydrocodone Bitart/Acetaminophen (Acetaminophen/Hydrocodone 325-5 Mg Tab) 1 tab PO Q4H PRN PRN Reason: Pain (moderate 4-6) Last Admin: 12/09/20 06:42 Dose: 1 tab Documented by: Albuterol (Albuterol 8 Gm Inhaler) 0 gm INH Q4H [facility] Last Admin: 12/11/20 08:31 Dose: 2 puff Documented by: Dexamethasone (Dexamethasone 2 Mg Tab) 4 mg PO QPM [facility] Last Admin: 12/10/20 17:31 Dose: 4 mg Documented by: Docusate Sodium (Docusate Sodium 100 Mg Cap) 100 mg PO BID PRN PRN Reason: Constipation Enoxaparin Sodium (Enoxaparin 40 Mg/0.4 Ml Syringe) 40 mg SUBCUT BID [facility] Last Admin: 12/11/20 08:31 Dose: 40 mg Documented by: Guaifenesin/Codeine Phosphate (Codeine/Guaifenesin 10-100 Mg/5 Ml Syrup 5 Ml Cup) 10 ml PO Q6H PRN PRN Reason: Cough Azithromycin 500 mg/ Sodium (Chloride) 250 mls @ 250 mls/hr IV Q24H [facility] Last Admin: 12/11/20 05:10 Dose: 250 mls/hr Documented by: Ceftriaxone Sodium 2 gm/ (Sodium Chloride) 50 mls @ 100 mls/hr IV Q24H [facility] Last Admin: 12/11/20 04:45 Dose: 100 mls/hr Documented by: Lidocaine (Lidocaine 5% 700 Mg Patch) 700 mg TRDERM Q24H [facility] Last Admin: 12/10/20 22:14 Dose: Not Given Documented by: Lorazepam (Lorazepam 2 Mg/Ml Sdv) 1 mg IV Q6H PRN PRN Reason: Nausea/Vomiting Miscellaneous Information (Remove Lidocaine Patch) 1 ea TRDERM DAILY [facility] Last Admin: 12/11/20 08:31 Dose: Not Given Documented by: Morphine Sulfate (Morphine 2 Mg/Ml Syringe) 2 mg IVPUSH Q2H PRN PRN Reason: Pain (severe 7-10) Ondansetron HCl (Ondansetron 4 Mg Tab.Dis) 4 mg PO Q6H PRN PRN Reason: Nausea able to take PO Pantoprazole Sodium (Pantoprazole 40 Mg Tab.Cr) 40 mg PO BEDTIME [facility] Last Admin: 12/10/20 20:30 Dose: 40 mg Documented by: Sodium Chloride (Sodium Chloride 0.9% 10 Ml Syringe) 10 ml FLUSH ASDIRECTED PRN PRN Reason: Keep Vein Open Discontinued Medications Albuterol (Albuterol 8 Gm Inhaler) 0 gm INH Q2H PRN PRN Reason: Shortness of Breath Dexamethasone (Dexamethasone 4 Mg/Ml Sdv) 6 mg IVPUSH DAILY [facility] Stop: 12/09/20 09:01 Last Admin: 11/30/20 22:47 Dose: 6 mg Documented by: Dexamethasone (Dexamethasone 4 Mg/Ml Sdv) 6 mg IVPUSH BEDTIME [facility] Stop: 12/09/20 21:01 Last Admin: 12/09/20 21:20 Dose: 6 mg Documented by: Enoxaparin Sodium (Enoxaparin 40 Mg/0.4 Ml Syringe) 40 mg SUBCUT Q12H [facility] Last Admin: 11/30/20 22:58 Dose: 40 mg Documented by: Furosemide (Furosemide 20 Mg/2 Ml Vial) 20 mg IVPUSH NOW ONE Stop: 12/07/20 22:46 Last Admin: 12/07/20 22:42 Dose: 20 mg Documented by: Sodium Chloride (Normal Saline) 1,000 mls @ 150 mls/hr IV ASDIRECTED [facility] Last Admin: 11/30/20 19:58 Dose: 150 mls/hr Documented by: Remdesivir 200 mg/ Sodium (Chloride) 250 mls @ 250 mls/hr IV ONETIME ONE Stop: 11/30/20 20:19 Last Admin: 11/30/20 22:53 Dose: 250 mls/hr Documented by: Remdesivir 100 mg/ Sodium (Chloride) 100 mls @ 100 mls/hr IV Q24H [facility] Stop: 12/04/20 18:59 Last Admin: 12/04/20 18:07 Dose: 100 mls/hr Documented by: Sodium Chloride (Normal Saline) 100 mls @ 3.5 mls/sec IV ASDIRECTED [facility] Stop: 12/08/20 15:00 Last Admin: 12/08/20 14:53 Dose: 4 mls/sec Documented by: Iopamidol (Iopamidol 755 Mg/Ml 100 Ml Bottle) 100 ml IV . DIRECTED [facility] Stop: 12/08/20 18:00 Last Admin: 12/08/20 14:53 Dose: 100 ml Documented by: Lidocaine (Lidocaine 5% 700 Mg Patch) 700 mg TRDERM Q24H [facility] Last Admin: 11/30/20 22:58 Dose: 700 mg Documented by: Pantoprazole Sodium (Pantoprazole 40 Mg Vial) 40 mg IV BEDTIME [facility] Last Admin: 11/30/20 22:51 Dose: 40 mg Documented by: Sodium Chloride (Sodium Chloride 0.9% 10 Ml Syringe) 10 ml FLUSH ASDIRECTED PRN PRN Reason: Keep Vein Open Last Admin: 11/30/20 19:58 Dose: 10 ml Documented by: Sodium Chloride (Sodium Chloride 0.9% 10 Ml Syringe) 10 ml FLUSH ONETIME ONE Stop: 12/08/20 12:54 Last Admin: 12/08/20 14:53 Dose: 10 ml Documented by: - Exam Quality Assessment: Supplemental Oxygen General: Alert, Oriented, Cooperative, No Acute Distress Lungs: Normal Respiratory Effort. No: Wheezing Cardiovascular: Regular Rate, Regular Rhythm GI/Abdominal Exam: Soft, No Distention Extremities: No Pedal Edema. No: Increased Warmth Skin: Warm, Dry Psy/Mental Status: Alert, Normal Affect - Patient Data Lab Results Last 24 hrs: Laboratory Results - last 24 hr 12/11/20 12/11/20 12/11/20 Range/Units 04:30 04:30 04:30 WBC 6.3 (4.5-11.0) K/uL RBC 4.17 L (4.30-5.90) M/uL Hgb 12.8 (12.0-15.0) g/dL Hct 38.9 L (40.0-54.0) % MCV 93 (80-98) fL MCH 31 (27-31) pg MCHC 33 (32-36) % Plt Count 188 (150-400) K/uL D-Dimer, Quantitative 1566.60 H (0.0-500.0) ng/mL Sodium 136 L (140-148) mmol/L Potassium 4.5 (3.6-5.2) mmol/L Chloride 102 (100-108) mmol/L Carbon Dioxide 26 (21-32) mmol/L Anion Gap 12.5 (5.0-14.0) mmol/L BUN 24 H (7-18) mg/dL Creatinine 1.0 (0.8-1.3) mg/dL Est Cr Clr Drug Dosing 69.11 mL/min Estimated GFR (MDRD) > 60 (>60) Glucose 139 H (74-106) mg/dL Calcium 8.3 L (8.5-10.1) mg/dL C-Reactive Protein (0.0-0.3) mg/dL Procalcitonin ng/mL 12/11/20 12/11/20 Range/Units 04:30 04:30 WBC (4.5-11.0) K/uL RBC (4.30-5.90) M/uL Hgb (12.0-15.0) g/dL Hct (40.0-54.0) % MCV (80-98) fL MCH (27-31) pg MCHC (32-36) % Plt Count (150-400) K/uL D-Dimer, Quantitative (0.0-500.0) ng/mL Sodium (140-148) mmol/L Potassium (3.6-5.2) mmol/L Chloride (100-108) mmol/L Carbon Dioxide (21-32) mmol/L Anion Gap (5.0-14.0) mmol/L BUN (7-18) mg/dL Creatinine (0.8-1.3) mg/dL Est Cr Clr Drug Dosing mL/min Estimated GFR (MDRD) (>60) Glucose (74-106) mg/dL Calcium (8.5-10.1) mg/dL C-Reactive Protein 2.98 H (0.0-0.3) mg/dL Procalcitonin < 0.05 ng/mL Result Diagrams: 12/11/20 04:30 12/11/20 04:30 Sepsis Event Note - Evaluation Sepsis Screening Result: No Definite Risk - Focused Exam Vital Signs: Vital Signs Temp Pulse Resp BP Pulse Ox 12/11/20 10:00 90 L 12/11/20 07:39 36.0 C L 60 21 H 121/70 94 L 12/11/20 06:00 22 H 121/70 94 L 12/11/20 04:00 36.4 C 21 H 121/55 L 93 L 12/11/20 02:00 17 109/55 L 93 L 12/11/20 00:00 36.7 C 19 142/74 H 20 L - Problem List Review Problem List Initiated/Reviewed/Updated: Yes - My Orders Last 24 Hours: My Active Orders 12/10/20 17:00 dexAMETHasone 4 mg PO QPM - Plan Plan:: ASSESSMENT AND PLAN - COVID-19 PNEUMONIA-complicated by acute respiratory failure with hypoxia. Date of sx on set 11/29. Still on heated and humidified high flow. Stable to slightly improved each of the past couple of days. Hoping to wean FiO2 today. D-dimer stable but CRP has improved. -Continue empiric antibiotic coverage x5 to 7 days (12/12-12/15) -Repeat labs every 2 or 3 days -Limit IV fluids -5 days of remdesivir complete -Dexamethasone 4 mg daily (taper day 2) -Lovenox 40 mg subcut every 12 hours -oxygen to keep sats greater than 88% -Prone position as able Back Pain-stable. No evidence for fracture on the x-rays. Minimal pain. -Hydrocodone 5-325 mg one to two every 4 hours as needed for pain -Lidocaine patch daily Maintenance issues- VTE prophylaxis: Lovenox 40 mg subcut every 12 hours GI prophylaxis: PPI Diet: Regular diet Disposition: Anticipate discharge home after the hospital stay if he survives e hospital stay, he is still quite compromised by the severity of his respiratory infection. Davi Dockery MD
[2020-12-11] MEDS: Dexamethasone 2 MG Tab PO SCH (16:28)
[2020-12-11] MEDS: Lidocaine 5% 700 MG Patch TRDERM SCH (21:28)
[2020-12-11] MEDS: Pantoprazole 40 MG Tab.CR PO SCH (21:32)
[2020-12-12] MEDS: Albuterol 8 GM Inhaler INH SCH ×6 (01:16→20:19)
[2020-12-12] MEDS: Azithromycin 500 MG in Sodium Chloride 0.9% 250 ML IV SCH (04:00)
[2020-12-12] MEDS: cefTRIAXone 2 GM in Sodium Chloride 0.9% 50 ML IV SCH (05:05)
[2020-12-12] MEDS: Enoxaparin 40 MG/0.4 ML Syringe SUBCUT SCH ×2 (09:25→20:19)
--- NOTE | 2020-12-12 12:21 | PCM.PN ---
- General Info Date of Service: 12/12/20 Subjective Update: Mr. Blanco has remained stable since yesterday. Continues to experience improvement in symptoms on a daily basis, but does continue to require high level of supplemental oxygen. Overall his saturations have improved since last week on current oxygen flow. Functional Status: Reports: Tolerating Diet, Ambulating, Urinating - Review of Systems General: Reports: Weakness, Fatigue. Denies: Fever, Chills Pulmonary: Reports: Shortness of Breath. Denies: Pleuritic Chest Pain, Cough, Sputum, Hemoptysis, Wheezing Cardiovascular: Reports: Dyspnea on Exertion. Denies: Chest Pain, Palpitations, Orthopnea, PND, Edema, Lightheadedness Gastrointestinal: Reports: No Symptoms Genitourinary: Reports: No Symptoms - Patient Data Vitals - Most Recent: Last Vital Signs Temp 96.4 F L 12/12/20 09:13 Pulse 71 12/12/20 09:13 Resp 20 12/12/20 09:13 BP 112/60 12/12/20 09:13 Pulse Ox 95 12/12/20 11:10 Weight - Most Recent: 209 lb I&O - Last 24 Hours: Intake & Output 12/11/20 12/12/20 12/12/20 22:59 06:59 14:59 Intake Total 240 300 600 Output Total 400 750 400 Balance -160 -450 200 Med Orders - Current: Current Medications Acetaminophen (Acetaminophen 325 Mg Tab) 650 mg PO Q4H PRN PRN Reason: Fever Greater Than 101 Last Admin: 12/08/20 04:01 Dose: 650 mg Documented by: Hydrocodone Bitart/Acetaminophen (Acetaminophen/Hydrocodone 325-5 Mg Tab) 1 tab PO Q4H PRN PRN Reason: Pain (moderate 4-6) Last Admin: 12/09/20 06:42 Dose: 1 tab Documented by: Albuterol (Albuterol 8 Gm Inhaler) 0 gm INH Q4H [facility] Last Admin: 12/12/20 09:02 Dose: 2 puff Documented by: Dexamethasone (Dexamethasone 2 Mg Tab) 4 mg PO QPM [facility] Last Admin: 12/11/20 16:28 Dose: 4 mg Documented by: Docusate Sodium (Docusate Sodium 100 Mg Cap) 100 mg PO BID PRN PRN Reason: Constipation Enoxaparin Sodium (Enoxaparin 40 Mg/0.4 Ml Syringe) 40 mg SUBCUT BID [facility] Last Admin: 12/12/20 09:25 Dose: 40 mg Documented by: Guaifenesin/Codeine Phosphate (Codeine/Guaifenesin 10-100 Mg/5 Ml Syrup 5 Ml Cup) 10 ml PO Q6H PRN PRN Reason: Cough Azithromycin 500 mg/ Sodium (Chloride) 250 mls @ 250 mls/hr IV Q24H [facility] Last Admin: 12/12/20 04:00 Dose: 250 mls/hr Documented by: Ceftriaxone Sodium 2 gm/ (Sodium Chloride) 50 mls @ 100 mls/hr IV Q24H [facility] Last Admin: 12/12/20 05:05 Dose: 100 mls/hr Documented by: Lidocaine (Lidocaine 5% 700 Mg Patch) 700 mg TRDERM Q24H [facility] Last Admin: 12/11/20 21:28 Dose: Not Given Documented by: Lorazepam (Lorazepam 2 Mg/Ml Sdv) 1 mg IV Q6H PRN PRN Reason: Nausea/Vomiting Miscellaneous Information (Remove Lidocaine Patch) 1 ea TRDERM DAILY [facility] Last Admin: 12/12/20 09:25 Dose: Not Given Documented by: Morphine Sulfate (Morphine 2 Mg/Ml Syringe) 2 mg IVPUSH Q2H PRN PRN Reason: Pain (severe 7-10) Ondansetron HCl (Ondansetron 4 Mg Tab.Dis) 4 mg PO Q6H PRN PRN Reason: Nausea able to take PO Pantoprazole Sodium (Pantoprazole 40 Mg Tab.Cr) 40 mg PO BEDTIME [facility] Last Admin: 12/11/20 21:32 Dose: 40 mg Documented by: Sodium Chloride (Sodium Chloride 0.9% 10 Ml Syringe) 10 ml FLUSH ASDIRECTED PRN PRN Reason: Keep Vein Open Discontinued Medications Albuterol (Albuterol 8 Gm Inhaler) 0 gm INH Q2H PRN PRN Reason: Shortness of Breath Dexamethasone (Dexamethasone 4 Mg/Ml Sdv) 6 mg IVPUSH DAILY [facility] Stop: 12/09/20 09:01 Last Admin: 11/30/20 22:47 Dose: 6 mg Documented by: Dexamethasone (Dexamethasone 4 Mg/Ml Sdv) 6 mg IVPUSH BEDTIME [facility] Stop: 12/09/20 21:01 Last Admin: 12/09/20 21:20 Dose: 6 mg Documented by: Enoxaparin Sodium (Enoxaparin 40 Mg/0.4 Ml Syringe) 40 mg SUBCUT Q12H [facility] Last Admin: 11/30/20 22:58 Dose: 40 mg Documented by: Furosemide (Furosemide 20 Mg/2 Ml Vial) 20 mg IVPUSH NOW ONE Stop: 12/07/20 22:46 Last Admin: 12/07/20 22:42 Dose: 20 mg Documented by: Sodium Chloride (Normal Saline) 1,000 mls @ 150 mls/hr IV ASDIRECTED [facility] Last Admin: 11/30/20 19:58 Dose: 150 mls/hr Documented by: Remdesivir 200 mg/ Sodium (Chloride) 250 mls @ 250 mls/hr IV ONETIME ONE Stop: 11/30/20 20:19 Last Admin: 11/30/20 22:53 Dose: 250 mls/hr Documented by: Remdesivir 100 mg/ Sodium (Chloride) 100 mls @ 100 mls/hr IV Q24H [facility] Stop: 12/04/20 18:59 Last Admin: 12/04/20 18:07 Dose: 100 mls/hr Documented by: Sodium Chloride (Normal Saline) 100 mls @ 3.5 mls/sec IV ASDIRECTED [facility] Stop: 12/08/20 15:00 Last Admin: 12/08/20 14:53 Dose: 4 mls/sec Documented by: Iopamidol (Iopamidol 755 Mg/Ml 100 Ml Bottle) 100 ml IV . DIRECTED [facility] Stop: 12/08/20 18:00 Last Admin: 12/08/20 14:53 Dose: 100 ml Documented by: Lidocaine (Lidocaine 5% 700 Mg Patch) 700 mg TRDERM Q24H [facility] Last Admin: 11/30/20 22:58 Dose: 700 mg Documented by: Pantoprazole Sodium (Pantoprazole 40 Mg Vial) 40 mg IV BEDTIME [facility] Last Admin: 11/30/20 22:51 Dose: 40 mg Documented by: Sodium Chloride (Sodium Chloride 0.9% 10 Ml Syringe) 10 ml FLUSH ASDIRECTED PRN PRN Reason: Keep Vein Open Last Admin: 11/30/20 19:58 Dose: 10 ml Documented by: Sodium Chloride (Sodium Chloride 0.9% 10 Ml Syringe) 10 ml FLUSH ONETIME ONE Stop: 12/08/20 12:54 Last Admin: 12/08/20 14:53 Dose: 10 ml Documented by: - Exam Quality Assessment: Supplemental Oxygen, DVT Prophylaxis General: Alert, Oriented, Cooperative, Mild Distress Lungs: Clear to Auscultation, Normal Respiratory Effort Cardiovascular: Regular Rate, Regular Rhythm, No Murmurs GI/Abdominal Exam: Soft, Non-Tender, No Organomegaly, No Distention Extremities: Non-Tender, No Pedal Edema - Patient Data Result Diagrams: 12/11/20 04:30 12/11/20 04:30 Sepsis Event Note - Evaluation Sepsis Screening Result: Possible Sepsis Risk - Focused Exam Vital Signs: Vital Signs Temp Pulse Resp BP Pulse Ox 12/12/20 11:10 95 12/12/20 09:13 96.4 F L 71 20 112/60 93 L 12/12/20 06:55 98 12/12/20 03:00 96.2 F L 71 18 130/79 97 12/12/20 01:00 93 L - Problem List Review Problem List Initiated/Reviewed/Updated: Yes - My Orders Last 24 Hours: My Active Orders 12/13/20 05:00 CBC WITH AUTO DIFF [HEME] Timed COMPREHENSIVE METABOLIC PN,CMP [CHEM] Timed 12/13/20 05:11 CRP [C-REACTIVE PROTEIN] [CHEM] AM D Dimer [D-DIMER QUANTITATIVE] [COAG] AM - Plan Plan:: ASSESSMENT AND PLAN - COVID-19 PNEUMONIA-complicated by acute respiratory failure with hypoxia. Date of sx on set 11/29. Still on heated and humidified high flow. Continues to experience slow improvement in symptoms -Continue empiric antibiotic coverage x5 to 7 days (12/12-12/15) -Repeat labs every 2 or 3 days -Limit IV fluids -5 days of remdesivir complete -Dexamethasone 4 mg daily (taper day 3) -Lovenox 40 mg subcut every 12 hours -oxygen to keep sats greater than 88% -Prone position as able Back Pain-stable. No evidence for fracture on the x-rays. Minimal pain. -Hydrocodone 5-325 mg one to two every 4 hours as needed for pain Maintenance issues- VTE prophylaxis: Lovenox 40 mg subcut every 12 hours GI prophylaxis: PPI Diet: Regular diet Disposition: Anticipate discharge home after the hospital stay if he survives the hospital stay, he is still quite compromised by the severity of his respiratory infection.
[2020-12-12] MEDS: Dexamethasone 2 MG Tab PO SCH (16:10)
[2020-12-12] MEDS: Pantoprazole 40 MG Tab.CR PO SCH (20:19)
[2020-12-13] MEDS: Albuterol 8 GM Inhaler INH SCH ×6 (00:58→21:32)
[2020-12-13] MEDS: cefTRIAXone 2 GM in Sodium Chloride 0.9% 50 ML IV SCH (04:27)
[2020-12-13] MEDS: Azithromycin 500 MG in Sodium Chloride 0.9% 250 ML IV SCH (05:10)
[2020-12-13] MEDS: Enoxaparin 40 MG/0.4 ML Syringe SUBCUT SCH ×2 (09:15→21:32)
--- NOTE | 2020-12-13 12:10 | PCM.PN ---
- General Info Date of Service: 12/13/20 Subjective Update: Mr. Blanco has been stable over the last 24 hours, still remains on high flow humidified oxygen but percentage of FiO2 has been decreased significantly since yesterday. Functional Status: Reports: Tolerating Diet, Urinating - Review of Systems General: Reports: Weakness, Fatigue. Denies: Fever, Chills Pulmonary: Reports: Shortness of Breath, Cough. Denies: Pleuritic Chest Pain, Sputum, Hemoptysis, Wheezing Cardiovascular: Reports: Dyspnea on Exertion. Denies: Chest Pain, Palpitations, Orthopnea, PND, Edema, Lightheadedness Gastrointestinal: Reports: No Symptoms Genitourinary: Reports: No Symptoms - Patient Data Vitals - Most Recent: Last Vital Signs Temp 96.8 F L 12/13/20 10:44 Pulse 86 12/13/20 10:44 Resp 20 12/13/20 10:44 BP 128/76 12/13/20 10:44 Pulse Ox 90 L 12/13/20 10:44 Weight - Most Recent: 209 lb I&O - Last 24 Hours: Intake & Output 12/12/20 12/13/20 12/13/20 22:59 06:59 14:59 Intake Total 640 300 620 Output Total 650 800 300 Balance -10 -500 320 Lab Results Last 24 Hours: Laboratory Results - last 24 hr 12/13/20 12/13/20 12/13/20 Range/Units 04:20 04:20 04:20 WBC 6.4 (4.5-11.0) K/uL RBC 4.03 L (4.30-5.90) M/uL Hgb 12.5 (12.0-15.0) g/dL Hct 37.3 L (40.0-54.0) % MCV 93 (80-98) fL MCH 31 (27-31) pg MCHC 34 (32-36) % Plt Count 192 (150-400) K/uL Neut % (Auto) 80.0 H (36-66) % Lymph % (Auto) 13.0 L (24-44) % [place] % (Auto) 6.0 (2-6) % Eos % (Auto) 0.0 L (2-4) % Baso % (Auto) 0.0 (0-1) % D-Dimer, Quantitative 2276.64 H (0.0-500.0) ng/mL Sodium 135 L (140-148) mmol/L Potassium 4.1 (3.6-5.2) mmol/L Chloride 100 (100-108) mmol/L Carbon Dioxide 26 (21-32) mmol/L Anion Gap 13.1 (5.0-14.0) mmol/L BUN 22 H (7-18) mg/dL Creatinine 0.9 (0.8-1.3) mg/dL Est Cr Clr Drug Dosing 76.79 mL/min Estimated GFR (MDRD) > 60 (>60) Glucose 166 H (74-106) mg/dL Calcium 8.3 L (8.5-10.1) mg/dL Total Bilirubin 0.3 (0.2-1.0) mg/dL AST 20 (15-37) U/L ALT 35 (12-78) U/L Alkaline Phosphatase 92 (46-116) U/L C-Reactive Protein (0.0-0.3) mg/dL Total Protein 5.9 L (6.4-8.2) g/dL Albumin 2.1 L (3.4-5.0) g/dL Globulin 3.8 H (2.3-3.5) g/dL Albumin/Globulin Ratio 0.6 L (1.2-2.2) 12/13/20 Range/Units 04:20 WBC (4.5-11.0) K/uL RBC (4.30-5.90) M/uL Hgb (12.0-15.0) g/dL Hct (40.0-54.0) % MCV (80-98) fL MCH (27-31) pg MCHC (32-36) % Plt Count (150-400) K/uL Neut % (Auto) (36-66) % Lymph % (Auto) (24-44) % [place] % (Auto) (2-6) % Eos % (Auto) (2-4) % Baso % (Auto) (0-1) % D-Dimer, Quantitative (0.0-500.0) ng/mL Sodium (140-148) mmol/L Potassium (3.6-5.2) mmol/L Chloride (100-108) mmol/L Carbon Dioxide (21-32) mmol/L Anion Gap (5.0-14.0) mmol/L BUN (7-18) mg/dL Creatinine (0.8-1.3) mg/dL Est Cr Clr Drug Dosing mL/min Estimated GFR (MDRD) (>60) Glucose (74-106) mg/dL Calcium (8.5-10.1) mg/dL Total Bilirubin (0.2-1.0) mg/dL AST (15-37) U/L ALT (12-78) U/L Alkaline Phosphatase (46-116) U/L C-Reactive Protein 1.68 H (0.0-0.3) mg/dL Total Protein (6.4-8.2) g/dL Albumin (3.4-5.0) g/dL Globulin (2.3-3.5) g/dL Albumin/Globulin Ratio (1.2-2.2) Med Orders - Current: Current Medications Acetaminophen (Acetaminophen 325 Mg Tab) 650 mg PO Q4H PRN PRN Reason: Fever Greater Than 101 Last Admin: 12/08/20 04:01 Dose: 650 mg Documented by: Hydrocodone Bitart/Acetaminophen (Acetaminophen/Hydrocodone 325-5 Mg Tab) 1 tab PO Q4H PRN PRN Reason: Pain (moderate 4-6) Last Admin: 12/09/20 06:42 Dose: 1 tab Documented by: Albuterol (Albuterol 8 Gm Inhaler) 0 gm INH Q4H [facility] Last Admin: 12/13/20 08:36 Dose: 2 puff Documented by: Dexamethasone (Dexamethasone 2 Mg Tab) 4 mg PO QPM [facility] Last Admin: 12/12/20 16:10 Dose: 4 mg Documented by: Docusate Sodium (Docusate Sodium 100 Mg Cap) 100 mg PO BID PRN PRN Reason: Constipation Enoxaparin Sodium (Enoxaparin 40 Mg/0.4 Ml Syringe) 40 mg SUBCUT BID [facility] Last Admin: 12/13/20 09:15 Dose: 40 mg Documented by: Guaifenesin/Codeine Phosphate (Codeine/Guaifenesin 10-100 Mg/5 Ml Syrup 5 Ml Cup) 10 ml PO Q6H PRN PRN Reason: Cough Azithromycin 500 mg/ Sodium (Chloride) 250 mls @ 250 mls/hr IV Q24H [facility] Last Admin: 12/13/20 05:10 Dose: 250 mls/hr Documented by: Ceftriaxone Sodium 2 gm/ (Sodium Chloride) 50 mls @ 100 mls/hr IV Q24H [facility] Last Admin: 12/13/20 04:27 Dose: 100 mls/hr Documented by: Lorazepam (Lorazepam 2 Mg/Ml Sdv) 1 mg IV Q6H PRN PRN Reason: Nausea/Vomiting Morphine Sulfate (Morphine 2 Mg/Ml Syringe) 2 mg IVPUSH Q2H PRN PRN Reason: Pain (severe 7-10) Ondansetron HCl (Ondansetron 4 Mg Tab.Dis) 4 mg PO Q6H PRN PRN Reason: Nausea able to take PO Pantoprazole Sodium (Pantoprazole 40 Mg Tab.Cr) 40 mg PO BEDTIME [facility] Last Admin: 12/12/20 20:19 Dose: 40 mg Documented by: Sodium Chloride (Sodium Chloride 0.9% 10 Ml Syringe) 10 ml FLUSH ASDIRECTED PRN PRN Reason: Keep Vein Open Discontinued Medications Albuterol (Albuterol 8 Gm Inhaler) 0 gm INH Q2H PRN PRN Reason: Shortness of Breath Dexamethasone (Dexamethasone 4 Mg/Ml Sdv) 6 mg IVPUSH DAILY [facility] Stop: 12/09/20 09:01 Last Admin: 11/30/20 22:47 Dose: 6 mg Documented by: Dexamethasone (Dexamethasone 4 Mg/Ml Sdv) 6 mg IVPUSH BEDTIME [facility] Stop: 12/09/20 21:01 Last Admin: 12/09/20 21:20 Dose: 6 mg Documented by: Enoxaparin Sodium (Enoxaparin 40 Mg/0.4 Ml Syringe) 40 mg SUBCUT Q12H [facility] Last Admin: 11/30/20 22:58 Dose: 40 mg Documented by: Furosemide (Furosemide 20 Mg/2 Ml Vial) 20 mg IVPUSH NOW ONE Stop: 12/07/20 22:46 Last Admin: 12/07/20 22:42 Dose: 20 mg Documented by: Sodium Chloride (Normal Saline) 1,000 mls @ 150 mls/hr IV ASDIRECTED [facility] Last Admin: 11/30/20 19:58 Dose: 150 mls/hr Documented by: Remdesivir 200 mg/ Sodium (Chloride) 250 mls @ 250 mls/hr IV ONETIME ONE Stop: 11/30/20 20:19 Last Admin: 11/30/20 22:53 Dose: 250 mls/hr Documented by: Remdesivir 100 mg/ Sodium (Chloride) 100 mls @ 100 mls/hr IV Q24H [facility] Stop: 12/04/20 18:59 Last Admin: 12/04/20 18:07 Dose: 100 mls/hr Documented by: Sodium Chloride (Normal Saline) 100 mls @ 3.5 mls/sec IV ASDIRECTED [facility] Stop: 12/08/20 15:00 Last Admin: 12/08/20 14:53 Dose: 4 mls/sec Documented by: Iopamidol (Iopamidol 755 Mg/Ml 100 Ml Bottle) 100 ml IV . DIRECTED [facility] Stop: 12/08/20 18:00 Last Admin: 12/08/20 14:53 Dose: 100 ml Documented by: Lidocaine (Lidocaine 5% 700 Mg Patch) 700 mg TRDERM Q24H [facility] Last Admin: 11/30/20 22:58 Dose: 700 mg Documented by: Lidocaine (Lidocaine 5% 700 Mg Patch) 700 mg TRDERM Q24H [facility] Last Admin: 12/11/20 21:28 Dose: Not Given Documented by: Miscellaneous Information (Remove Lidocaine Patch) 1 ea TRDERM DAILY [facility] Last Admin: 12/12/20 09:25 Dose: Not Given Documented by: Pantoprazole Sodium (Pantoprazole 40 Mg Vial) 40 mg IV BEDTIME [facility] Last Admin: 11/30/20 22:51 Dose: 40 mg Documented by: Sodium Chloride (Sodium Chloride 0.9% 10 Ml Syringe) 10 ml FLUSH ASDIRECTED PRN PRN Reason: Keep Vein Open Last Admin: 11/30/20 19:58 Dose: 10 ml Documented by: Sodium Chloride (Sodium Chloride 0.9% 10 Ml Syringe) 10 ml FLUSH ONETIME ONE Stop: 12/08/20 12:54 Last Admin: 12/08/20 14:53 Dose: 10 ml Documented by: - Exam Quality Assessment: Supplemental Oxygen, DVT Prophylaxis General: Alert, Oriented, Cooperative, Mild Distress Lungs: Clear to Auscultation, Normal Respiratory Effort, Decreased Breath Sounds. No: Crackles, Rales, Rhonchi, Wheezing Cardiovascular: Regular Rate, Regular Rhythm, No Murmurs GI/Abdominal Exam: Soft, Non-Tender, No Organomegaly, No Distention Extremities: Non-Tender, No Pedal Edema - Patient Data Lab Results Last 24 hrs: Laboratory Results - last 24 hr 12/13/20 12/13/20 12/13/20 Range/Units 04:20 04:20 04:20 WBC 6.4 (4.5-11.0) K/uL RBC 4.03 L (4.30-5.90) M/uL Hgb 12.5 (12.0-15.0) g/dL Hct 37.3 L (40.0-54.0) % MCV 93 (80-98) fL MCH 31 (27-31) pg MCHC 34 (32-36) % Plt Count 192 (150-400) K/uL Neut % (Auto) 80.0 H (36-66) % Lymph % (Auto) 13.0 L (24-44) % [place] % (Auto) 6.0 (2-6) % Eos % (Auto) 0.0 L (2-4) % Baso % (Auto) 0.0 (0-1) % D-Dimer, Quantitative 2276.64 H (0.0-500.0) ng/mL Sodium 135 L (140-148) mmol/L Potassium 4.1 (3.6-5.2) mmol/L Chloride 100 (100-108) mmol/L Carbon Dioxide 26 (21-32) mmol/L Anion Gap 13.1 (5.0-14.0) mmol/L BUN 22 H (7-18) mg/dL Creatinine 0.9 (0.8-1.3) mg/dL Est Cr Clr Drug Dosing 76.79 mL/min Estimated GFR (MDRD) > 60 (>60) Glucose 166 H (74-106) mg/dL Calcium 8.3 L (8.5-10.1) mg/dL Total Bilirubin 0.3 (0.2-1.0) mg/dL AST 20 (15-37) U/L ALT 35 (12-78) U/L Alkaline Phosphatase 92 (46-116) U/L C-Reactive Protein (0.0-0.3) mg/dL Total Protein 5.9 L (6.4-8.2) g/dL Albumin 2.1 L (3.4-5.0) g/dL Globulin 3.8 H (2.3-3.5) g/dL Albumin/Globulin Ratio 0.6 L (1.2-2.2) 12/13/20 Range/Units 04:20 WBC (4.5-11.0) K/uL RBC (4.30-5.90) M/uL Hgb (12.0-15.0) g/dL Hct (40.0-54.0) % MCV (80-98) fL MCH (27-31) pg MCHC (32-36) % Plt Count (150-400) K/uL Neut % (Auto) (36-66) % Lymph % (Auto) (24-44) % [place] % (Auto) (2-6) % Eos % (Auto) (2-4) % Baso % (Auto) (0-1) % D-Dimer, Quantitative (0.0-500.0) ng/mL Sodium (140-148) mmol/L Potassium (3.6-5.2) mmol/L Chloride (100-108) mmol/L Carbon Dioxide (21-32) mmol/L Anion Gap (5.0-14.0) mmol/L BUN (7-18) mg/dL Creatinine (0.8-1.3) mg/dL Est Cr Clr Drug Dosing mL/min Estimated GFR (MDRD) (>60) Glucose (74-106) mg/dL Calcium (8.5-10.1) mg/dL Total Bilirubin (0.2-1.0) mg/dL AST (15-37) U/L ALT (12-78) U/L Alkaline Phosphatase (46-116) U/L C-Reactive Protein 1.68 H (0.0-0.3) mg/dL Total Protein (6.4-8.2) g/dL Albumin (3.4-5.0) g/dL Globulin (2.3-3.5) g/dL Albumin/Globulin Ratio (1.2-2.2) Result Diagrams: 12/13/20 04:20 12/13/20 04:20 Sepsis Event Note - Evaluation Sepsis Screening Result: Possible Sepsis Risk - Focused Exam Vital Signs: Vital Signs Temp Pulse Resp BP Pulse Ox Pulse Ox 12/13/20 10:44 96.8 F L 86 20 128/76 90 L 12/13/20 08:36 89 L 12/13/20 08:01 95.9 F L 71 20 121/82 92 L 12/13/20 03:06 96.1 F L 80 18 113/63 91 L 12/13/20 00:33 94 L - Problem List Review Problem List Initiated/Reviewed/Updated: Yes - Plan Plan:: ASSESSMENT AND PLAN - COVID-19 PNEUMONIA-complicated by acute respiratory failure with hypoxia. Date of sx on set 11/29. Still on heated and humidified high flow. Continues to experience slow improvement in symptoms and decreased level of FiO2. -Continue empiric antibiotic coverage 7 days (12/15) -Repeat labs every 2 or 3 days -Limit IV fluids -5 days of remdesivir complete -Dexamethasone 4 mg daily (taper day 3) -Lovenox 40 mg subcut every 12 hours -oxygen to keep sats greater than 88% -Prone position as able Back Pain-stable. No evidence for fracture on the x-rays. Minimal pain. -Hydrocodone 5-325 mg one to two every 4 hours as needed for pain Maintenance issues- VTE prophylaxis: Lovenox 40 mg subcut every 12 hours GI prophylaxis: PPI Diet: Regular diet Disposition: Anticipate discharge home after the hospital stay if he survives the hospital stay, he is still quite compromised by the severity of his respiratory infection.
[2020-12-13] MEDS: Dexamethasone 2 MG Tab PO SCH (16:04)
[2020-12-13] MEDS: Acetaminophen/HYDROcodone 325-5 MG Tab PO PRN (17:51)
[2020-12-13] MEDS: Pantoprazole 40 MG Tab.CR PO SCH (21:32)
[2020-12-14] MEDS: Albuterol 8 GM Inhaler INH SCH ×6 (00:16→21:23)
[2020-12-14] MEDS: cefTRIAXone 2 GM in Sodium Chloride 0.9% 50 ML IV SCH (04:34)
[2020-12-14] MEDS: Azithromycin 500 MG in Sodium Chloride 0.9% 250 ML IV SCH (05:41)
[2020-12-14] MEDS: Enoxaparin 40 MG/0.4 ML Syringe SUBCUT SCH ×2 (09:24→21:23)
--- NOTE | 2020-12-14 11:06 | PCM.PN ---
- General Info Date of Service: 12/14/20 Subjective Update: Mr. Blanco has been stable over the past 24 hours, continues to require high level of supplemental oxygen via high flow oxygen machine. Oxygenation has not significantly improved over the past 24 hours. He is otherwise very stable and appetite is improving with good oral intake. Functional Status: Reports: Tolerating Diet, Urinating - Review of Systems General: Reports: Weakness, Fatigue. Denies: Fever, Chills Pulmonary: Reports: Shortness of Breath. Denies: Pleuritic Chest Pain, Cough, Sputum, Hemoptysis, Wheezing Cardiovascular: Reports: Dyspnea on Exertion. Denies: Chest Pain, Palpitations, Orthopnea, PND, Edema, Lightheadedness Gastrointestinal: Reports: No Symptoms Genitourinary: Reports: No Symptoms - Patient Data Vitals - Most Recent: Last Vital Signs Temp 95 F L 12/14/20 07:29 Pulse 60 12/14/20 07:29 Resp 18 12/14/20 07:29 BP 117/77 12/14/20 04:31 Pulse Ox 90 L 12/14/20 07:29 Weight - Most Recent: 209 lb I&O - Last 24 Hours: Intake & Output 12/13/20 12/14/20 12/14/20 22:59 06:59 14:59 Intake Total 720 540 Output Total 500 1300 Balance 220 -760 Med Orders - Current: Current Medications Acetaminophen (Acetaminophen 325 Mg Tab) 650 mg PO Q4H PRN PRN Reason: Fever Greater Than 101 Last Admin: 12/08/20 04:01 Dose: 650 mg Documented by: Hydrocodone Bitart/Acetaminophen (Acetaminophen/Hydrocodone 325-5 Mg Tab) 1 tab PO Q4H PRN PRN Reason: Pain (moderate 4-6) Last Admin: 12/13/20 17:51 Dose: 1 tab Documented by: Albuterol (Albuterol 8 Gm Inhaler) 0 gm INH Q4H [facility] Last Admin: 12/14/20 09:24 Dose: 2 puff Documented by: Dexamethasone (Dexamethasone 2 Mg Tab) 4 mg PO QPM [facility] Last Admin: 12/13/20 16:04 Dose: 4 mg Documented by: Docusate Sodium (Docusate Sodium 100 Mg Cap) 100 mg PO BID PRN PRN Reason: Constipation Enoxaparin Sodium (Enoxaparin 40 Mg/0.4 Ml Syringe) 40 mg SUBCUT BID [facility] Last Admin: 12/14/20 09:24 Dose: 40 mg Documented by: Guaifenesin/Codeine Phosphate (Codeine/Guaifenesin 10-100 Mg/5 Ml Syrup 5 Ml Cup) 10 ml PO Q6H PRN PRN Reason: Cough Azithromycin 500 mg/ Sodium (Chloride) 250 mls @ 250 mls/hr IV Q24H [facility] Last Admin: 12/14/20 05:41 Dose: 250 mls/hr Documented by: Ceftriaxone Sodium 2 gm/ (Sodium Chloride) 50 mls @ 100 mls/hr IV Q24H [facility] Last Admin: 12/14/20 04:34 Dose: 100 mls/hr Documented by: Lorazepam (Lorazepam 2 Mg/Ml Sdv) 1 mg IV Q6H PRN PRN Reason: Nausea/Vomiting Morphine Sulfate (Morphine 2 Mg/Ml Syringe) 2 mg IVPUSH Q2H PRN PRN Reason: Pain (severe 7-10) Ondansetron HCl (Ondansetron 4 Mg Tab.Dis) 4 mg PO Q6H PRN PRN Reason: Nausea able to take PO Pantoprazole Sodium (Pantoprazole 40 Mg Tab.Cr) 40 mg PO BEDTIME [facility] Last Admin: 12/13/20 21:32 Dose: 40 mg Documented by: Sodium Chloride (Sodium Chloride 0.9% 10 Ml Syringe) 10 ml FLUSH ASDIRECTED PRN PRN Reason: Keep Vein Open Discontinued Medications Albuterol (Albuterol 8 Gm Inhaler) 0 gm INH Q2H PRN PRN Reason: Shortness of Breath Dexamethasone (Dexamethasone 4 Mg/Ml Sdv) 6 mg IVPUSH DAILY [facility] Stop: 12/09/20 09:01 Last Admin: 11/30/20 22:47 Dose: 6 mg Documented by: Dexamethasone (Dexamethasone 4 Mg/Ml Sdv) 6 mg IVPUSH BEDTIME [facility] Stop: 12/09/20 21:01 Last Admin: 12/09/20 21:20 Dose: 6 mg Documented by: Enoxaparin Sodium (Enoxaparin 40 Mg/0.4 Ml Syringe) 40 mg SUBCUT Q12H [facility] Last Admin: 11/30/20 22:58 Dose: 40 mg Documented by: Furosemide (Furosemide 20 Mg/2 Ml Vial) 20 mg IVPUSH NOW ONE Stop: 12/07/20 22:46 Last Admin: 12/07/20 22:42 Dose: 20 mg Documented by: Sodium Chloride (Normal Saline) 1,000 mls @ 150 mls/hr IV ASDIRECTED [facility] Last Admin: 11/30/20 19:58 Dose: 150 mls/hr Documented by: Remdesivir 200 mg/ Sodium (Chloride) 250 mls @ 250 mls/hr IV ONETIME ONE Stop: 11/30/20 20:19 Last Admin: 11/30/20 22:53 Dose: 250 mls/hr Documented by: Remdesivir 100 mg/ Sodium (Chloride) 100 mls @ 100 mls/hr IV Q24H [facility] Stop: 12/04/20 18:59 Last Admin: 12/04/20 18:07 Dose: 100 mls/hr Documented by: Sodium Chloride (Normal Saline) 100 mls @ 3.5 mls/sec IV ASDIRECTED [facility] Stop: 12/08/20 15:00 Last Admin: 12/08/20 14:53 Dose: 4 mls/sec Documented by: Iopamidol (Iopamidol 755 Mg/Ml 100 Ml Bottle) 100 ml IV . DIRECTED [facility] Stop: 12/08/20 18:00 Last Admin: 12/08/20 14:53 Dose: 100 ml Documented by: Lidocaine (Lidocaine 5% 700 Mg Patch) 700 mg TRDERM Q24H [facility] Last Admin: 11/30/20 22:58 Dose: 700 mg Documented by: Lidocaine (Lidocaine 5% 700 Mg Patch) 700 mg TRDERM Q24H [facility] Last Admin: 12/11/20 21:28 Dose: Not Given Documented by: Miscellaneous Information (Remove Lidocaine Patch) 1 ea TRDERM DAILY [facility] Last Admin: 12/12/20 09:25 Dose: Not Given Documented by: Pantoprazole Sodium (Pantoprazole 40 Mg Vial) 40 mg IV BEDTIME [facility] Last Admin: 11/30/20 22:51 Dose: 40 mg Documented by: Sodium Chloride (Sodium Chloride 0.9% 10 Ml Syringe) 10 ml FLUSH ASDIRECTED PRN PRN Reason: Keep Vein Open Last Admin: 11/30/20 19:58 Dose: 10 ml Documented by: Sodium Chloride (Sodium Chloride 0.9% 10 Ml Syringe) 10 ml FLUSH ONETIME ONE Stop: 12/08/20 12:54 Last Admin: 12/08/20 14:53 Dose: 10 ml Documented by: - Exam Quality Assessment: Supplemental Oxygen, DVT Prophylaxis General: Alert, Oriented, Cooperative, Mild Distress Lungs: Clear to Auscultation, Normal Respiratory Effort Cardiovascular: Regular Rate, Regular Rhythm, No Murmurs GI/Abdominal Exam: Soft, Non-Tender, No Organomegaly, No Distention Extremities: Non-Tender, No Pedal Edema - Patient Data Result Diagrams: 12/13/20 04:20 12/13/20 04:20 Sepsis Event Note - Evaluation Sepsis Screening Result: No Definite Risk - Focused Exam Vital Signs: Vital Signs Temp Pulse Resp BP Pulse Ox 12/14/20 07:29 95 F L 60 18 90 L 12/14/20 07:00 95 12/14/20 04:31 96.3 F L 79 18 117/77 90 L 12/14/20 00:16 95.5 F L 86 18 113/59 L 92 L - Problem List Review Problem List Initiated/Reviewed/Updated: Yes - My Orders Last 24 Hours: My Active Orders 12/15/20 05:00 CBC WITH AUTO DIFF [HEME] Timed COMPREHENSIVE METABOLIC PN,CMP [CHEM] Timed 12/15/20 05:11 CRP [C-REACTIVE PROTEIN] [CHEM] AM D Dimer [D-DIMER QUANTITATIVE] [COAG] AM - Plan Plan:: ASSESSMENT AND PLAN - COVID-19 PNEUMONIA-complicated by acute respiratory failure with hypoxia. Date of sx on set 11/29. Still on heated and humidified high flow. Continues to experience slow improvement in symptoms. -Continue empiric antibiotic coverage 7 days (12/15) -Repeat labs every 2 or 3 days -Limit IV fluids -5 days of remdesivir complete -Dexamethasone 4 mg daily (taper day 4) -Lovenox 40 mg subcut every 12 hours -oxygen to keep sats greater than 88% -Prone position as able Back Pain-stable. No evidence for fracture on the x-rays. Minimal pain. -Hydrocodone 5-325 mg one to two every 4 hours as needed for pain Maintenance issues- VTE prophylaxis: Lovenox 40 mg subcut every 12 hours GI prophylaxis: PPI Diet: Regular diet Disposition: Anticipate discharge home after the hospital stay if he survives the hospital stay, he is still quite compromised by the severity of his respiratory infection.
[2020-12-14] MEDS: Dexamethasone 2 MG Tab PO SCH (17:54)
[2020-12-14] MEDS: Pantoprazole 40 MG Tab.CR PO SCH (21:23)
[2020-12-15] MEDS: Albuterol 8 GM Inhaler INH SCH ×6 (02:15→21:24)
[2020-12-15] MEDS: cefTRIAXone 2 GM in Sodium Chloride 0.9% 50 ML IV SCH (04:20)
[2020-12-15] MEDS: Azithromycin 500 MG in Sodium Chloride 0.9% 250 ML IV SCH (05:13)
[2020-12-15] MEDS: Enoxaparin 40 MG/0.4 ML Syringe SUBCUT SCH ×2 (09:37→21:23)
--- NOTE | 2020-12-15 10:54 | PCM.PN ---
- General Info Date of Service: 12/15/20 Subjective Update: Mr. Blanco continues to experience slow improvement in recovering from his COVID-19 infection and ARDS. He has been tapered down slightly on oxygen today and seems to be tolerating that well. He does continue to require high flow oxygen. Functional Status: Reports: Tolerating Diet, Urinating - Review of Systems General: Reports: Weakness, Fatigue. Denies: Fever, Chills Pulmonary: Reports: Shortness of Breath. Denies: Pleuritic Chest Pain, Cough, Sputum, Hemoptysis, Wheezing Cardiovascular: Reports: Dyspnea on Exertion. Denies: Chest Pain, Palpitations, Orthopnea, PND, Edema, Lightheadedness Gastrointestinal: Reports: No Symptoms Genitourinary: Reports: No Symptoms - Patient Data Vitals - Most Recent: Last Vital Signs Temp 96.4 F L 12/15/20 02:17 Pulse 71 12/15/20 07:00 Resp 16 12/15/20 07:00 BP 108/56 L 12/15/20 07:00 Pulse Ox 91 L 12/15/20 07:00 Weight - Most Recent: 209 lb I&O - Last 24 Hours: Intake & Output 12/14/20 12/15/20 12/15/20 22:59 06:59 14:59 Intake Total 240 620 480 Output Total 1000 1000 Balance -760 -380 480 Lab Results Last 24 Hours: Laboratory Results - last 24 hr 12/15/20 12/15/20 12/15/20 Range/Units 05:11 05:11 05:11 WBC 7.3 (4.5-11.0) K/uL RBC 4.10 L (4.30-5.90) M/uL Hgb 12.7 (12.0-15.0) g/dL Hct 38.0 L (40.0-54.0) % MCV 93 (80-98) fL MCH 31 (27-31) pg MCHC 33 (32-36) % Plt Count 179 (150-400) K/uL Neut % (Auto) 83.8 H (36-66) % Lymph % (Auto) 11.2 L (24-44) % Kaufman % (Auto) 5.0 (2-6) % Eos % (Auto) 0.0 L (2-4) % Baso % (Auto) 0.0 (0-1) % D-Dimer, Quantitative 1962.78 H (0.0-500.0) ng/mL Sodium 137 L (140-148) mmol/L Potassium 4.3 (3.6-5.2) mmol/L Chloride 101 (100-108) mmol/L Carbon Dioxide 25 (21-32) mmol/L Anion Gap 15.3 H (5.0-14.0) mmol/L BUN 19 H (7-18) mg/dL Creatinine 0.8 (0.8-1.3) mg/dL Est Cr Clr Drug Dosing 86.39 mL/min Estimated GFR (MDRD) > 60 (>60) Glucose 121 H (74-106) mg/dL Calcium 8.5 (8.5-10.1) mg/dL Total Bilirubin 0.4 (0.2-1.0) mg/dL AST 17 (15-37) U/L ALT 37 (12-78) U/L Alkaline Phosphatase 81 (46-116) U/L C-Reactive Protein (0.0-0.3) mg/dL Total Protein 6.0 L (6.4-8.2) g/dL Albumin 2.2 L (3.4-5.0) g/dL Globulin 3.8 H (2.3-3.5) g/dL Albumin/Globulin Ratio 0.6 L (1.2-2.2) 12/15/20 Range/Units 05:11 WBC (4.5-11.0) K/uL RBC (4.30-5.90) M/uL Hgb (12.0-15.0) g/dL Hct (40.0-54.0) % MCV (80-98) fL MCH (27-31) pg MCHC (32-36) % Plt Count (150-400) K/uL Neut % (Auto) (36-66) % Lymph % (Auto) (24-44) % Kaufman % (Auto) (2-6) % Eos % (Auto) (2-4) % Baso % (Auto) (0-1) % D-Dimer, Quantitative (0.0-500.0) ng/mL Sodium (140-148) mmol/L Potassium (3.6-5.2) mmol/L Chloride (100-108) mmol/L Carbon Dioxide (21-32) mmol/L Anion Gap (5.0-14.0) mmol/L BUN (7-18) mg/dL Creatinine (0.8-1.3) mg/dL Est Cr Clr Drug Dosing mL/min Estimated GFR (MDRD) (>60) Glucose (74-106) mg/dL Calcium (8.5-10.1) mg/dL Total Bilirubin (0.2-1.0) mg/dL AST (15-37) U/L ALT (12-78) U/L Alkaline Phosphatase (46-116) U/L C-Reactive Protein 0.84 H (0.0-0.3) mg/dL Total Protein (6.4-8.2) g/dL Albumin (3.4-5.0) g/dL Globulin (2.3-3.5) g/dL Albumin/Globulin Ratio (1.2-2.2) Med Orders - Current: Current Medications Acetaminophen (Acetaminophen 325 Mg Tab) 650 mg PO Q4H PRN PRN Reason: Fever Greater Than 101 Last Admin: 12/08/20 04:01 Dose: 650 mg Documented by: Hydrocodone Bitart/Acetaminophen (Acetaminophen/Hydrocodone 325-5 Mg Tab) 1 tab PO Q4H PRN PRN Reason: Pain (moderate 4-6) Last Admin: 12/13/20 17:51 Dose: 1 tab Documented by: Albuterol (Albuterol 8 Gm Inhaler) 0 gm INH Q4H [facility] Last Admin: 12/15/20 08:45 Dose: 2 puff Documented by: Dexamethasone (Dexamethasone 2 Mg Tab) 2 mg PO QPM [facility] Docusate Sodium (Docusate Sodium 100 Mg Cap) 100 mg PO BID PRN PRN Reason: Constipation Enoxaparin Sodium (Enoxaparin 40 Mg/0.4 Ml Syringe) 40 mg SUBCUT BID [facility] Last Admin: 12/15/20 09:37 Dose: 40 mg Documented by: Guaifenesin/Codeine Phosphate (Codeine/Guaifenesin 10-100 Mg/5 Ml Syrup 5 Ml Cup) 10 ml PO Q6H PRN PRN Reason: Cough Lorazepam (Lorazepam 2 Mg/Ml Sdv) 1 mg IV Q6H PRN PRN Reason: Nausea/Vomiting Morphine Sulfate (Morphine 2 Mg/Ml Syringe) 2 mg IVPUSH Q2H PRN PRN Reason: Pain (severe 7-10) Ondansetron HCl (Ondansetron 4 Mg Tab.Dis) 4 mg PO Q6H PRN PRN Reason: Nausea able to take PO Pantoprazole Sodium (Pantoprazole 40 Mg Tab.Cr) 40 mg PO BEDTIME [facility] Last Admin: 12/14/20 21:23 Dose: 40 mg Documented by: Sodium Chloride (Sodium Chloride 0.9% 10 Ml Syringe) 10 ml FLUSH ASDIRECTED PRN PRN Reason: Keep Vein Open Discontinued Medications Albuterol (Albuterol 8 Gm Inhaler) 0 gm INH Q2H PRN PRN Reason: Shortness of Breath Dexamethasone (Dexamethasone 4 Mg/Ml Sdv) 6 mg IVPUSH DAILY [facility] Stop: 12/09/20 09:01 Last Admin: 11/30/20 22:47 Dose: 6 mg Documented by: Dexamethasone (Dexamethasone 4 Mg/Ml Sdv) 6 mg IVPUSH BEDTIME [facility] Stop: 12/09/20 21:01 Last Admin: 12/09/20 21:20 Dose: 6 mg Documented by: Dexamethasone (Dexamethasone 2 Mg Tab) 4 mg PO QPM [facility] Last Admin: 12/14/20 17:54 Dose: 4 mg Documented by: Enoxaparin Sodium (Enoxaparin 40 Mg/0.4 Ml Syringe) 40 mg SUBCUT Q12H [facility] Last Admin: 11/30/20 22:58 Dose: 40 mg Documented by: Furosemide (Furosemide 20 Mg/2 Ml Vial) 20 mg IVPUSH NOW ONE Stop: 12/07/20 22:46 Last Admin: 12/07/20 22:42 Dose: 20 mg Documented by: Sodium Chloride (Normal Saline) 1,000 mls @ 150 mls/hr IV ASDIRECTED [facility] Last Admin: 11/30/20 19:58 Dose: 150 mls/hr Documented by: Remdesivir 200 mg/ Sodium (Chloride) 250 mls @ 250 mls/hr IV ONETIME ONE Stop: 11/30/20 20:19 Last Admin: 11/30/20 22:53 Dose: 250 mls/hr Documented by: Remdesivir 100 mg/ Sodium (Chloride) 100 mls @ 100 mls/hr IV Q24H [facility] Stop: 12/04/20 18:59 Last Admin: 12/04/20 18:07 Dose: 100 mls/hr Documented by: Azithromycin 500 mg/ Sodium (Chloride) 250 mls @ 250 mls/hr IV Q24H [facility] Last Admin: 12/15/20 05:13 Dose: 250 mls/hr Documented by: Ceftriaxone Sodium 2 gm/ (Sodium Chloride) 50 mls @ 100 mls/hr IV Q24H [facility] Last Admin: 12/15/20 04:20 Dose: 100 mls/hr Documented by: Sodium Chloride (Normal Saline) 100 mls @ 3.5 mls/sec IV ASDIRECTED [facility] Stop: 12/08/20 15:00 Last Admin: 12/08/20 14:53 Dose: 4 mls/sec Documented by: Iopamidol (Iopamidol 755 Mg/Ml 100 Ml Bottle) 100 ml IV . DIRECTED [facility] Stop: 12/08/20 18:00 Last Admin: 12/08/20 14:53 Dose: 100 ml Documented by: Lidocaine (Lidocaine 5% 700 Mg Patch) 700 mg TRDERM Q24H [facility] Last Admin: 11/30/20 22:58 Dose: 700 mg Documented by: Lidocaine (Lidocaine 5% 700 Mg Patch) 700 mg TRDERM Q24H [facility] Last Admin: 12/11/20 21:28 Dose: Not Given Documented by: Miscellaneous Information (Remove Lidocaine Patch) 1 ea TRDERM DAILY [facility] Last Admin: 12/12/20 09:25 Dose: Not Given Documented by: Pantoprazole Sodium (Pantoprazole 40 Mg Vial) 40 mg IV BEDTIME [facility] Last Admin: 11/30/20 22:51 Dose: 40 mg Documented by: Sodium Chloride (Sodium Chloride 0.9% 10 Ml Syringe) 10 ml FLUSH ASDIRECTED PRN PRN Reason: Keep Vein Open Last Admin: 11/30/20 19:58 Dose: 10 ml Documented by: Sodium Chloride (Sodium Chloride 0.9% 10 Ml Syringe) 10 ml FLUSH ONETIME ONE Stop: 12/08/20 12:54 Last Admin: 12/08/20 14:53 Dose: 10 ml Documented by: - Exam Quality Assessment: Supplemental Oxygen, DVT Prophylaxis General: Alert, Oriented, Cooperative, Mild Distress Lungs: Clear to Auscultation, Normal Respiratory Effort Cardiovascular: Regular Rate, Regular Rhythm, No Murmurs GI/Abdominal Exam: Soft, Non-Tender, No Organomegaly, No Distention Extremities: Non-Tender, No Pedal Edema - Patient Data Lab Results Last 24 hrs: Laboratory Results - last 24 hr 12/15/20 12/15/20 12/15/20 Range/Units 05:11 05:11 05:11 WBC 7.3 (4.5-11.0) K/uL RBC 4.10 L (4.30-5.90) M/uL Hgb 12.7 (12.0-15.0) g/dL Hct 38.0 L (40.0-54.0) % MCV 93 (80-98) fL MCH 31 (27-31) pg MCHC 33 (32-36) % Plt Count 179 (150-400) K/uL Neut % (Auto) 83.8 H (36-66) % Lymph % (Auto) 11.2 L (24-44) % Kaufman % (Auto) 5.0 (2-6) % Eos % (Auto) 0.0 L (2-4) % Baso % (Auto) 0.0 (0-1) % D-Dimer, Quantitative 1962.78 H (0.0-500.0) ng/mL Sodium 137 L (140-148) mmol/L Potassium 4.3 (3.6-5.2) mmol/L Chloride 101 (100-108) mmol/L Carbon Dioxide 25 (21-32) mmol/L Anion Gap 15.3 H (5.0-14.0) mmol/L BUN 19 H (7-18) mg/dL Creatinine 0.8 (0.8-1.3) mg/dL Est Cr Clr Drug Dosing 86.39 mL/min Estimated GFR (MDRD) > 60 (>60) Glucose 121 H (74-106) mg/dL Calcium 8.5 (8.5-10.1) mg/dL Total Bilirubin 0.4 (0.2-1.0) mg/dL AST 17 (15-37) U/L ALT 37 (12-78) U/L Alkaline Phosphatase 81 (46-116) U/L C-Reactive Protein (0.0-0.3) mg/dL Total Protein 6.0 L (6.4-8.2) g/dL Albumin 2.2 L (3.4-5.0) g/dL Globulin 3.8 H (2.3-3.5) g/dL Albumin/Globulin Ratio 0.6 L (1.2-2.2) 12/15/20 Range/Units 05:11 WBC (4.5-11.0) K/uL RBC (4.30-5.90) M/uL Hgb (12.0-15.0) g/dL Hct (40.0-54.0) % MCV (80-98) fL MCH (27-31) pg MCHC (32-36) % Plt Count (150-400) K/uL Neut % (Auto) (36-66) % Lymph % (Auto) (24-44) % Kaufman % (Auto) (2-6) % Eos % (Auto) (2-4) % Baso % (Auto) (0-1) % D-Dimer, Quantitative (0.0-500.0) ng/mL Sodium (140-148) mmol/L Potassium (3.6-5.2) mmol/L Chloride (100-108) mmol/L Carbon Dioxide (21-32) mmol/L Anion Gap (5.0-14.0) mmol/L BUN (7-18) mg/dL Creatinine (0.8-1.3) mg/dL Est Cr Clr Drug Dosing mL/min Estimated GFR (MDRD) (>60) Glucose (74-106) mg/dL Calcium (8.5-10.1) mg/dL Total Bilirubin (0.2-1.0) mg/dL AST (15-37) U/L ALT (12-78) U/L Alkaline Phosphatase (46-116) U/L C-Reactive Protein 0.84 H (0.0-0.3) mg/dL Total Protein (6.4-8.2) g/dL Albumin (3.4-5.0) g/dL Globulin (2.3-3.5) g/dL Albumin/Globulin Ratio (1.2-2.2) Result Diagrams: 12/15/20 05:11 12/15/20 05:11 Sepsis Event Note - Evaluation Sepsis Screening Result: No Definite Risk - Focused Exam Vital Signs: Vital Signs Temp Pulse Resp BP Pulse Ox 12/15/20 07:00 71 16 108/56 L 91 L 12/15/20 06:49 96 12/15/20 02:17 96.4 F L 76 16 125/71 92 L 12/15/20 00:46 94 L 12/14/20 23:00 69 93 L - Problem List Review Problem List Initiated/Reviewed/Updated: Yes - My Orders Last 24 Hours: My Active Orders 12/14/20 16:52 PT Evaluation and Treatment [CONS] Routine 12/15/20 17:00 dexAMETHasone 2 mg PO QPM - Plan Plan:: ASSESSMENT AND PLAN - COVID-19 PNEUMONIA-complicated by acute respiratory failure with hypoxia. Date of sx on set 11/29. Still on heated and humidified high flow. Continues to experience slow improvement in symptoms and oxygenation. -Discontinue antibiotic therapy -Limit IV fluids -5 days of remdesivir complete -Dexamethasone 4 mg daily (taper day 5) -Lovenox 40 mg subcut every 12 hours -oxygen to keep sats greater than 88% Back Pain-stable. No evidence for fracture on the x-rays. Minimal pain. -Hydrocodone 5-325 mg one to two every 4 hours as needed for pain Maintenance issues- VTE prophylaxis: Lovenox 40 mg subcut every 12 hours GI prophylaxis: PPI Diet: Regular diet Disposition: Anticipate discharge home after the hospital stay
[2020-12-15] MEDS: Dexamethasone 2 MG Tab PO SCH (17:15)
[2020-12-15] MEDS: Pantoprazole 40 MG Tab.CR PO SCH (21:25)
[2020-12-16] MEDS: Albuterol 8 GM Inhaler INH SCH ×6 (01:53→21:07)
[2020-12-16] MEDS: Enoxaparin 40 MG/0.4 ML Syringe SUBCUT SCH ×2 (08:04→21:05)
--- NOTE | 2020-12-16 10:43 | PCM.PN ---
- General Info Date of Service: 12/16/20 Subjective Update: Mr. Blanco has remained stable since yesterday, no further improvement in oxygenation over the past 24 hours. Continues to require high flow oxygen to maintain adequate saturations. He is otherwise comfortable and has experienced improvement in appetite as well as overall energy level. Functional Status: Reports: Tolerating Diet, Urinating - Review of Systems General: Reports: Weakness, Fatigue. Denies: Fever, Chills Pulmonary: Reports: Shortness of Breath. Denies: Pleuritic Chest Pain, Cough, Sputum, Hemoptysis, Wheezing Cardiovascular: Reports: Dyspnea on Exertion. Denies: Chest Pain, Palpitations, Orthopnea, PND, Edema, Lightheadedness Gastrointestinal: Reports: No Symptoms Genitourinary: Reports: No Symptoms - Patient Data Vitals - Most Recent: Last Vital Signs Temp 96.1 F L 12/16/20 08:11 Pulse 71 12/16/20 08:11 Resp 18 12/16/20 08:11 BP 94/74 12/16/20 08:11 Pulse Ox 92 L 12/16/20 08:11 Weight - Most Recent: 209 lb I&O - Last 24 Hours: Intake & Output 12/15/20 12/16/20 12/16/20 22:59 06:59 14:59 Intake Total 1400 640 Output Total 500 800 400 Balance 900 -160 -400 Med Orders - Current: Current Medications Acetaminophen (Acetaminophen 325 Mg Tab) 650 mg PO Q4H PRN PRN Reason: Fever Greater Than 101 Last Admin: 12/08/20 04:01 Dose: 650 mg Documented by: Hydrocodone Bitart/Acetaminophen (Acetaminophen/Hydrocodone 325-5 Mg Tab) 1 tab PO Q4H PRN PRN Reason: Pain (moderate 4-6) Last Admin: 12/13/20 17:51 Dose: 1 tab Documented by: Albuterol (Albuterol 8 Gm Inhaler) 0 gm INH Q4H [facility] Last Admin: 12/16/20 08:04 Dose: 2 puff Documented by: Dexamethasone (Dexamethasone 2 Mg Tab) 2 mg PO QPM [facility] Last Admin: 12/15/20 17:15 Dose: 2 mg Documented by: Docusate Sodium (Docusate Sodium 100 Mg Cap) 100 mg PO BID PRN PRN Reason: Constipation Enoxaparin Sodium (Enoxaparin 40 Mg/0.4 Ml Syringe) 40 mg SUBCUT BID [facility] Last Admin: 12/16/20 08:04 Dose: 40 mg Documented by: Guaifenesin/Codeine Phosphate (Codeine/Guaifenesin 10-100 Mg/5 Ml Syrup 5 Ml Cup) 10 ml PO Q6H PRN PRN Reason: Cough Lorazepam (Lorazepam 2 Mg/Ml Sdv) 1 mg IV Q6H PRN PRN Reason: Nausea/Vomiting Morphine Sulfate (Morphine 2 Mg/Ml Syringe) 2 mg IVPUSH Q2H PRN PRN Reason: Pain (severe 7-10) Ondansetron HCl (Ondansetron 4 Mg Tab.Dis) 4 mg PO Q6H PRN PRN Reason: Nausea able to take PO Pantoprazole Sodium (Pantoprazole 40 Mg Tab.Cr) 40 mg PO BEDTIME [facility] Last Admin: 12/15/20 21:25 Dose: 40 mg Documented by: Sodium Chloride (Sodium Chloride 0.9% 10 Ml Syringe) 10 ml FLUSH ASDIRECTED PRN PRN Reason: Keep Vein Open Discontinued Medications Albuterol (Albuterol 8 Gm Inhaler) 0 gm INH Q2H PRN PRN Reason: Shortness of Breath Dexamethasone (Dexamethasone 4 Mg/Ml Sdv) 6 mg IVPUSH DAILY [facility] Stop: 12/09/20 09:01 Last Admin: 11/30/20 22:47 Dose: 6 mg Documented by: Dexamethasone (Dexamethasone 4 Mg/Ml Sdv) 6 mg IVPUSH BEDTIME [facility] Stop: 12/09/20 21:01 Last Admin: 12/09/20 21:20 Dose: 6 mg Documented by: Dexamethasone (Dexamethasone 2 Mg Tab) 4 mg PO QPM [facility] Last Admin: 12/14/20 17:54 Dose: 4 mg Documented by: Enoxaparin Sodium (Enoxaparin 40 Mg/0.4 Ml Syringe) 40 mg SUBCUT Q12H [facility] Last Admin: 11/30/20 22:58 Dose: 40 mg Documented by: Furosemide (Furosemide 20 Mg/2 Ml Vial) 20 mg IVPUSH NOW ONE Stop: 12/07/20 22:46 Last Admin: 12/07/20 22:42 Dose: 20 mg Documented by: Sodium Chloride (Normal Saline) 1,000 mls @ 150 mls/hr IV ASDIRECTED [facility] Last Admin: 11/30/20 19:58 Dose: 150 mls/hr Documented by: Remdesivir 200 mg/ Sodium (Chloride) 250 mls @ 250 mls/hr IV ONETIME ONE Stop: 11/30/20 20:19 Last Admin: 11/30/20 22:53 Dose: 250 mls/hr Documented by: Remdesivir 100 mg/ Sodium (Chloride) 100 mls @ 100 mls/hr IV Q24H [facility] Stop: 12/04/20 18:59 Last Admin: 12/04/20 18:07 Dose: 100 mls/hr Documented by: Azithromycin 500 mg/ Sodium (Chloride) 250 mls @ 250 mls/hr IV Q24H [facility] Last Admin: 12/15/20 05:13 Dose: 250 mls/hr Documented by: Ceftriaxone Sodium 2 gm/ (Sodium Chloride) 50 mls @ 100 mls/hr IV Q24H [facility] Last Admin: 12/15/20 04:20 Dose: 100 mls/hr Documented by: Sodium Chloride (Normal Saline) 100 mls @ 3.5 mls/sec IV ASDIRECTED [facility] Stop: 12/08/20 15:00 Last Admin: 12/08/20 14:53 Dose: 4 mls/sec Documented by: Iopamidol (Iopamidol 755 Mg/Ml 100 Ml Bottle) 100 ml IV . DIRECTED [facility] Stop: 12/08/20 18:00 Last Admin: 12/08/20 14:53 Dose: 100 ml Documented by: Lidocaine (Lidocaine 5% 700 Mg Patch) 700 mg TRDERM Q24H [facility] Last Admin: 11/30/20 22:58 Dose: 700 mg Documented by: Lidocaine (Lidocaine 5% 700 Mg Patch) 700 mg TRDERM Q24H [facility] Last Admin: 12/11/20 21:28 Dose: Not Given Documented by: Miscellaneous Information (Remove Lidocaine Patch) 1 ea TRDERM DAILY [facility] Last Admin: 12/12/20 09:25 Dose: Not Given Documented by: Pantoprazole Sodium (Pantoprazole 40 Mg Vial) 40 mg IV BEDTIME [facility] Last Admin: 11/30/20 22:51 Dose: 40 mg Documented by: Sodium Chloride (Sodium Chloride 0.9% 10 Ml Syringe) 10 ml FLUSH ASDIRECTED PRN PRN Reason: Keep Vein Open Last Admin: 11/30/20 19:58 Dose: 10 ml Documented by: Sodium Chloride (Sodium Chloride 0.9% 10 Ml Syringe) 10 ml FLUSH ONETIME ONE Stop: 12/08/20 12:54 Last Admin: 12/08/20 14:53 Dose: 10 ml Documented by: - Exam Quality Assessment: Supplemental Oxygen, DVT Prophylaxis General: Alert, Oriented, Cooperative, Mild Distress Lungs: Clear to Auscultation, Normal Respiratory Effort Cardiovascular: Regular Rate, Regular Rhythm, No Murmurs GI/Abdominal Exam: Soft, Non-Tender, No Organomegaly, No Distention Extremities: Non-Tender, No Pedal Edema - Patient Data Result Diagrams: 12/15/20 05:11 12/15/20 05:11 Sepsis Event Note - Evaluation Sepsis Screening Result: Possible Sepsis Risk - Focused Exam Vital Signs: Vital Signs Temp Pulse Resp BP Pulse Ox 12/16/20 08:11 96.1 F L 71 18 94/74 92 L 12/16/20 07:00 95 12/16/20 02:02 95.0 F L 69 18 122/65 92 L 12/16/20 01:40 92 L 12/15/20 23:01 95.6 F L 80 18 120/62 90 L - Problem List Review Problem List Initiated/Reviewed/Updated: Yes - My Orders Last 24 Hours: My Active Orders 12/15/20 17:00 dexAMETHasone 2 mg PO QPM 12/17/20 05:00 CBC WITH AUTO DIFF [HEME] Timed COMPREHENSIVE METABOLIC PN,CMP [CHEM] Timed 12/17/20 05:11 CRP [C-REACTIVE PROTEIN] [CHEM] AM D Dimer [D-DIMER QUANTITATIVE] [COAG] AM - Plan Plan:: ASSESSMENT AND PLAN - COVID-19 PNEUMONIA-complicated by acute respiratory failure with hypoxia. Date of sx on set 11/29. Still on heated and humidified high flow. Continues to experience slow improvement in symptoms and oxygenation. -Limit IV fluids -5 days of remdesivir complete -Dexamethasone 4 mg daily (taper day 6) -Lovenox 40 mg subcut every 12 hours -oxygen to keep sats greater than 88% Back Pain-stable. No evidence for fracture on the x-rays. Minimal pain. -Hydrocodone 5-325 mg one to two every 4 hours as needed for pain Maintenance issues- VTE prophylaxis: Lovenox 40 mg subcut every 12 hours GI prophylaxis: PPI Diet: Regular diet Disposition: Anticipate discharge home after the hospital stay
[2020-12-16] MEDS: Dexamethasone 2 MG Tab PO SCH (17:00)
[2020-12-16] MEDS: Pantoprazole 40 MG Tab.CR PO SCH (21:06)
[2020-12-17] MEDS: Albuterol 8 GM Inhaler INH SCH ×6 (01:15→22:32)
[2020-12-17] MEDS: Enoxaparin 40 MG/0.4 ML Syringe SUBCUT SCH ×2 (08:42→22:32)
--- NOTE | 2020-12-17 09:53 | PCM.PN ---
- General Info Date of Service: 12/17/20 Subjective Update: Mr. Blanco has been stable over the last 24 hours, continues to require use of high flow oxygen with no significant improvement in oxygenation over the last day. He is more comfortable and has been able to be more active. Appetite has recovered and is excellent. Functional Status: Reports: Tolerating Diet, Ambulating, Urinating - Review of Systems General: Reports: Weakness, Fatigue. Denies: Fever, Chills Pulmonary: Reports: Shortness of Breath. Denies: Pleuritic Chest Pain, Cough, Sputum, Hemoptysis, Wheezing Cardiovascular: Reports: Dyspnea on Exertion. Denies: Chest Pain, Palpitations, Orthopnea, PND, Edema, Lightheadedness Gastrointestinal: Reports: No Symptoms Genitourinary: Reports: No Symptoms - Patient Data Vitals - Most Recent: Last Vital Signs Temp 95.0 F L 12/17/20 04:31 Pulse 84 12/17/20 04:31 Resp 18 12/17/20 04:31 BP 106/74 12/17/20 04:31 Pulse Ox 94 L 12/17/20 07:00 Weight - Most Recent: 209 lb I&O - Last 24 Hours: Intake & Output 12/16/20 12/17/20 12/17/20 22:59 06:59 14:59 Intake Total 1100 900 Output Total 675 1000 Balance 425 -100 Lab Results Last 24 Hours: Laboratory Results - last 24 hr 12/17/20 12/17/20 12/17/20 Range/Units 04:40 04:40 04:40 WBC 7.3 (4.5-11.0) K/uL RBC 4.16 L (4.30-5.90) M/uL Hgb 13.0 (12.0-15.0) g/dL Hct 38.6 L (40.0-54.0) % MCV 93 (80-98) fL MCH 31 (27-31) pg MCHC 34 (32-36) % Plt Count 139 L (150-400) K/uL Neut % (Auto) 74.6 H (36-66) % Lymph % (Auto) 16.0 L (24-44) % Brule % (Auto) 8.9 H (2-6) % Eos % (Auto) 0.4 L (2-4) % Baso % (Auto) 0.1 (0-1) % D-Dimer, Quantitative 1288.34 H (0.0-500.0) ng/mL Sodium 135 L (140-148) mmol/L Potassium 4.3 (3.6-5.2) mmol/L Chloride 101 (100-108) mmol/L Carbon Dioxide 28 (21-32) mmol/L Anion Gap 10.3 (5.0-14.0) mmol/L BUN 21 H (7-18) mg/dL Creatinine 0.9 (0.8-1.3) mg/dL Est Cr Clr Drug Dosing 76.79 mL/min Estimated GFR (MDRD) > 60 (>60) Glucose 110 H (74-106) mg/dL Calcium 8.4 L (8.5-10.1) mg/dL Total Bilirubin 0.3 (0.2-1.0) mg/dL AST 17 (15-37) U/L ALT 40 (12-78) U/L Alkaline Phosphatase 82 (46-116) U/L C-Reactive Protein (0.0-0.3) mg/dL Total Protein 6.1 L (6.4-8.2) g/dL Albumin 2.2 L (3.4-5.0) g/dL Globulin 3.9 H (2.3-3.5) g/dL Albumin/Globulin Ratio 0.6 L (1.2-2.2) 12/17/20 Range/Units 04:40 WBC (4.5-11.0) K/uL RBC (4.30-5.90) M/uL Hgb (12.0-15.0) g/dL Hct (40.0-54.0) % MCV (80-98) fL MCH (27-31) pg MCHC (32-36) % Plt Count (150-400) K/uL Neut % (Auto) (36-66) % Lymph % (Auto) (24-44) % Brule % (Auto) (2-6) % Eos % (Auto) (2-4) % Baso % (Auto) (0-1) % D-Dimer, Quantitative (0.0-500.0) ng/mL Sodium (140-148) mmol/L Potassium (3.6-5.2) mmol/L Chloride (100-108) mmol/L Carbon Dioxide (21-32) mmol/L Anion Gap (5.0-14.0) mmol/L BUN (7-18) mg/dL Creatinine (0.8-1.3) mg/dL Est Cr Clr Drug Dosing mL/min Estimated GFR (MDRD) (>60) Glucose (74-106) mg/dL Calcium (8.5-10.1) mg/dL Total Bilirubin (0.2-1.0) mg/dL AST (15-37) U/L ALT (12-78) U/L Alkaline Phosphatase (46-116) U/L C-Reactive Protein 0.25 (0.0-0.3) mg/dL Total Protein (6.4-8.2) g/dL Albumin (3.4-5.0) g/dL Globulin (2.3-3.5) g/dL Albumin/Globulin Ratio (1.2-2.2) Med Orders - Current: Current Medications Acetaminophen (Acetaminophen 325 Mg Tab) 650 mg PO Q4H PRN PRN Reason: Fever Greater Than 101 Last Admin: 12/08/20 04:01 Dose: 650 mg Documented by: Hydrocodone Bitart/Acetaminophen (Acetaminophen/Hydrocodone 325-5 Mg Tab) 1 tab PO Q4H PRN PRN Reason: Pain (moderate 4-6) Last Admin: 12/13/20 17:51 Dose: 1 tab Documented by: Albuterol (Albuterol 8 Gm Inhaler) [address] [facility] Last Admin: 12/17/20 08:42 Dose: 2 puff Documented by: Dexamethasone (Dexamethasone 2 Mg Tab) [address] [facility] Last Admin: 12/16/20 17:00 Dose: 2 mg Documented by: Docusate Sodium (Docusate Sodium 100 Mg Cap) 100 mg PO BID PRN PRN Reason: Constipation Enoxaparin Sodium (Enoxaparin 40 Mg/0.4 Ml Syringe) [address] [facility] Last Admin: 12/17/20 08:42 Dose: 40 mg Documented by: Guaifenesin/Codeine Phosphate (Codeine/Guaifenesin 10-100 Mg/5 Ml Syrup 5 Ml Cup) 10 ml PO Q6H PRN PRN Reason: Cough Lorazepam (Lorazepam 2 Mg/Ml Sdv) 1 mg IV Q6H PRN PRN Reason: Nausea/Vomiting Morphine Sulfate (Morphine 2 Mg/Ml Syringe) 2 mg IVPUSH Q2H PRN PRN Reason: Pain (severe 7-10) Ondansetron HCl (Ondansetron 4 Mg Tab.Dis) 4 mg PO Q6H PRN PRN Reason: Nausea able to take PO Pantoprazole Sodium (Pantoprazole 40 Mg Tab.Cr) [address] [facility] Last Admin: 12/16/20 21:06 Dose: 40 mg Documented by: Sodium Chloride (Sodium Chloride 0.9% 10 Ml Syringe) 10 ml FLUSH ASDIRECTED PRN PRN Reason: Keep Vein Open Discontinued Medications Albuterol (Albuterol 8 Gm Inhaler) 0 gm INH Q2H PRN PRN Reason: Shortness of Breath Dexamethasone (Dexamethasone 4 Mg/Ml Sdv) [address] [facility] Stop: 12/09/20 09:01 Last Admin: 11/30/20 22:47 Dose: 6 mg Documented by: Dexamethasone (Dexamethasone 4 Mg/Ml Sdv) 6 mg IVPUSH BEDTIME [facility] Stop: 12/09/20 21:01 Last Admin: 12/09/20 21:20 Dose: 6 mg Documented by: Dexamethasone (Dexamethasone 2 Mg Tab) [address] [facility] Last Admin: 12/14/20 17:54 Dose: 4 mg Documented by: Enoxaparin Sodium (Enoxaparin 40 Mg/0.4 Ml Syringe) [address] [facility] Last Admin: 11/30/20 22:58 Dose: 40 mg Documented by: Furosemide (Furosemide 20 Mg/2 Ml Vial) 20 mg IVPUSH NOW ONE Stop: 12/07/20 22:46 Last Admin: 12/07/20 22:42 Dose: 20 mg Documented by: Sodium Chloride (Normal Saline) 1,000 mls @ 150 mls/hr IV ASDIRECTED [facility] Last Admin: 11/30/20 19:58 Dose: 150 mls/hr Documented by: Remdesivir 200 mg/ Sodium (Chloride) 250 mls @ 250 mls/hr IV ONETIME ONE Stop: 11/30/20 20:19 Last Admin: 11/30/20 22:53 Dose: 250 mls/hr Documented by: Remdesivir 100 mg/ Sodium (Chloride) 100 mls @ 100 mls/hr IV Q24H [facility] Stop: 12/04/20 18:59 Last Admin: 12/04/20 18:07 Dose: 100 mls/hr Documented by: Azithromycin 500 mg/ Sodium (Chloride) 250 mls @ 250 mls/hr IV Q24H [facility] Last Admin: 12/15/20 05:13 Dose: 250 mls/hr Documented by: Ceftriaxone Sodium 2 gm/ (Sodium Chloride) 50 mls @ 100 mls/hr IV Q24H [facility] Last Admin: 12/15/20 04:20 Dose: 100 mls/hr Documented by: Sodium Chloride (Normal Saline) 100 mls @ 3.5 mls/sec IV ASDIRECTED [facility] Stop: 12/08/20 15:00 Last Admin: 12/08/20 14:53 Dose: 4 mls/sec Documented by: Iopamidol (Iopamidol 755 Mg/Ml 100 Ml Bottle) [address] [facility] Stop: 12/08/20 18:00 Last Admin: 12/08/20 14:53 Dose: 100 ml Documented by: Lidocaine (Lidocaine 5% 700 Mg Patch) [address] [facility] Last Admin: 11/30/20 22:58 Dose: 700 mg Documented by: Lidocaine (Lidocaine 5% 700 Mg Patch) [address] [facility] Last Admin: 12/11/20 21:28 Dose: Not Given Documented by: Miscellaneous Information (Remove Lidocaine Patch) [address] [facility] Last Admin: 12/12/20 09:25 Dose: Not Given Documented by: Pantoprazole Sodium (Pantoprazole 40 Mg Vial) [address] [facility] Last Admin: 11/30/20 22:51 Dose: 40 mg Documented by: Sodium Chloride (Sodium Chloride 0.9% 10 Ml Syringe) 10 ml FLUSH ASDIRECTED PRN PRN Reason: Keep Vein Open Last Admin: 11/30/20 19:58 Dose: 10 ml Documented by: Sodium Chloride (Sodium Chloride 0.9% 10 Ml Syringe) 10 ml FLUSH ONETIME ONE Stop: 12/08/20 12:54 Last Admin: 12/08/20 14:53 Dose: 10 ml Documented by: - Exam Quality Assessment: Supplemental Oxygen, DVT Prophylaxis General: Alert, Oriented, Cooperative, Mild Distress Lungs: Clear to Auscultation, Normal Respiratory Effort, Decreased Breath Sounds. No: Rales, Rhonchi, Wheezing Cardiovascular: Regular Rate, Regular Rhythm, No Murmurs GI/Abdominal Exam: Soft, Non-Tender, No Organomegaly, No Distention Extremities: Non-Tender, No Pedal Edema - Patient Data Lab Results Last 24 hrs: Laboratory Results - last 24 hr 12/17/20 12/17/20 12/17/20 Range/Units 04:40 04:40 04:40 WBC 7.3 (4.5-11.0) K/uL RBC 4.16 L (4.30-5.90) M/uL Hgb 13.0 (12.0-15.0) g/dL Hct 38.6 L (40.0-54.0) % MCV 93 (80-98) fL MCH 31 (27-31) pg MCHC 34 (32-36) % Plt Count 139 L (150-400) K/uL Neut % (Auto) 74.6 H (36-66) % Lymph % (Auto) 16.0 L (24-44) % Brule % (Auto) 8.9 H (2-6) % Eos % (Auto) 0.4 L (2-4) % Baso % (Auto) 0.1 (0-1) % D-Dimer, Quantitative 1288.34 H (0.0-500.0) ng/mL Sodium 135 L (140-148) mmol/L Potassium 4.3 (3.6-5.2) mmol/L Chloride 101 (100-108) mmol/L Carbon Dioxide 28 (21-32) mmol/L Anion Gap 10.3 (5.0-14.0) mmol/L BUN 21 H (7-18) mg/dL Creatinine 0.9 (0.8-1.3) mg/dL Est Cr Clr Drug Dosing 76.79 mL/min Estimated GFR (MDRD) > 60 (>60) Glucose 110 H (74-106) mg/dL Calcium 8.4 L (8.5-10.1) mg/dL Total Bilirubin 0.3 (0.2-1.0) mg/dL AST 17 (15-37) U/L ALT 40 (12-78) U/L Alkaline Phosphatase 82 (46-116) U/L C-Reactive Protein (0.0-0.3) mg/dL Total Protein 6.1 L (6.4-8.2) g/dL Albumin 2.2 L (3.4-5.0) g/dL Globulin 3.9 H (2.3-3.5) g/dL Albumin/Globulin Ratio 0.6 L (1.2-2.2) 12/17/20 Range/Units 04:40 WBC (4.5-11.0) K/uL RBC (4.30-5.90) M/uL Hgb (12.0-15.0) g/dL Hct (40.0-54.0) % MCV (80-98) fL MCH (27-31) pg MCHC (32-36) % Plt Count (150-400) K/uL Neut % (Auto) (36-66) % Lymph % (Auto) (24-44) % Brule % (Auto) (2-6) % Eos % (Auto) (2-4) % Baso % (Auto) (0-1) % D-Dimer, Quantitative (0.0-500.0) ng/mL Sodium (140-148) mmol/L Potassium (3.6-5.2) mmol/L Chloride (100-108) mmol/L Carbon Dioxide (21-32) mmol/L Anion Gap (5.0-14.0) mmol/L BUN (7-18) mg/dL Creatinine (0.8-1.3) mg/dL Est Cr Clr Drug Dosing mL/min Estimated GFR (MDRD) (>60) Glucose (74-106) mg/dL Calcium (8.5-10.1) mg/dL Total Bilirubin (0.2-1.0) mg/dL AST (15-37) U/L ALT (12-78) U/L Alkaline Phosphatase (46-116) U/L C-Reactive Protein 0.25 (0.0-0.3) mg/dL Total Protein (6.4-8.2) g/dL Albumin (3.4-5.0) g/dL Globulin (2.3-3.5) g/dL Albumin/Globulin Ratio (1.2-2.2) Result Diagrams: 12/17/20 04:40 12/17/20 04:40 Sepsis Event Note - Evaluation Sepsis Screening Result: Possible Sepsis Risk - Focused Exam Vital Signs: Vital Signs Temp Pulse Resp BP Pulse Ox 12/17/20 07:00 94 L 12/17/20 04:31 95.0 F L 84 18 106/74 91 L 12/17/20 01:55 94 L 12/17/20 01:00 94.0 F L 64 18 112/70 91 L - Problem List Review Problem List Initiated/Reviewed/Updated: Yes - Plan Plan:: ASSESSMENT AND PLAN - COVID-19 PNEUMONIA-complicated by acute respiratory failure with hypoxia. Date of sx on set 11/29. Still on heated and humidified high flow. Continues to experience slow improvement in symptoms and oxygenation. -Limit IV fluids -5 days of remdesivir complete -Dexamethasone 4 mg daily (taper day 7) -Lovenox 40 mg subcut every 12 hours -oxygen to keep sats greater than 88% Back Pain-stable. No evidence for fracture on the x-rays. Minimal pain. -Hydrocodone 5-325 mg one to two every 4 hours as needed for pain Maintenance issues- VTE prophylaxis: Lovenox 40 mg subcut every 12 hours GI prophylaxis: PPI Diet: Regular diet Disposition: Anticipate discharge home after the hospital stay
[2020-12-17] MEDS: Dexamethasone 2 MG Tab PO SCH (16:37)
[2020-12-17] MEDS: Pantoprazole 40 MG Tab.CR PO SCH (22:33)
[2020-12-18] MEDS: Albuterol 8 GM Inhaler INH SCH ×6 (01:57→20:20)
[2020-12-18] MEDS: Enoxaparin 40 MG/0.4 ML Syringe SUBCUT SCH ×2 (10:20→20:20)
--- NOTE | 2020-12-18 10:57 | PCM.PN ---
- General Info Date of Service: 12/18/20 Subjective Update: Mr. Blanco has shown further improvement over the last 24 hours. He is now off of the high flow oxygen and back on a nasal cannula, which he seems to be tolera ting well this morning. Functional Status: Reports: Pain Controlled, Tolerating Diet, Ambulating, Urinating - Review of Systems General: Reports: Weakness, Fatigue. Denies: Fever, Chills Pulmonary: Reports: Shortness of Breath. Denies: Pleuritic Chest Pain, Cough, Sputum, Hemoptysis, Wheezing Cardiovascular: Reports: Dyspnea on Exertion. Denies: Chest Pain, Palpitations, Orthopnea, PND, Edema, Lightheadedness Gastrointestinal: Reports: No Symptoms Genitourinary: Reports: No Symptoms - Patient Data Vitals - Most Recent: Last Vital Signs Temp 96.1 F L 12/18/20 10:00 Pulse 82 12/18/20 10:00 Resp 18 12/18/20 10:00 BP 115/72 12/18/20 10:00 Pulse Ox 93 L 12/18/20 10:00 Weight - Most Recent: 209 lb I&O - Last 24 Hours: Intake & Output 12/17/20 12/18/20 12/18/20 22:59 06:59 14:59 Intake Total 1040 350 Output Total 950 500 Balance 90 -150 Med Orders - Current: Current Medications Acetaminophen (Acetaminophen 325 Mg Tab) 650 mg PO Q4H PRN PRN Reason: Fever Greater Than 101 Last Admin: 12/08/20 04:01 Dose: 650 mg Documented by: Hydrocodone Bitart/Acetaminophen (Acetaminophen/Hydrocodone 325-5 Mg Tab) 1 tab PO Q4H PRN PRN Reason: Pain (moderate 4-6) Last Admin: 12/13/20 17:51 Dose: 1 tab Documented by: Albuterol (Albuterol 8 Gm Inhaler) 0 gm INH Q4H [facility] Last Admin: 12/18/20 10:20 Dose: 2 puff Documented by: Dexamethasone (Dexamethasone 2 Mg Tab) 2 mg PO QPM [facility] Last Admin: 12/17/20 16:37 Dose: 2 mg Documented by: Docusate Sodium (Docusate Sodium 100 Mg Cap) 100 mg PO BID PRN PRN Reason: Constipation Enoxaparin Sodium (Enoxaparin 40 Mg/0.4 Ml Syringe) 40 mg SUBCUT BID [facility] Last Admin: 12/18/20 10:20 Dose: 40 mg Documented by: Guaifenesin/Codeine Phosphate (Codeine/Guaifenesin 10-100 Mg/5 Ml Syrup 5 Ml Cup) 10 ml PO Q6H PRN PRN Reason: Cough Lorazepam (Lorazepam 2 Mg/Ml Sdv) 1 mg IV Q6H PRN PRN Reason: Nausea/Vomiting Morphine Sulfate (Morphine 2 Mg/Ml Syringe) 2 mg IVPUSH Q2H PRN PRN Reason: Pain (severe 7-10) Ondansetron HCl (Ondansetron 4 Mg Tab.Dis) 4 mg PO Q6H PRN PRN Reason: Nausea able to take PO Pantoprazole Sodium (Pantoprazole 40 Mg Tab.Cr) 40 mg PO BEDTIME [facility] Last Admin: 12/17/20 22:33 Dose: 40 mg Documented by: Sodium Chloride (Sodium Chloride 0.9% 10 Ml Syringe) 10 ml FLUSH ASDIRECTED PRN PRN Reason: Keep Vein Open Discontinued Medications Albuterol (Albuterol 8 Gm Inhaler) 0 gm INH Q2H PRN PRN Reason: Shortness of Breath Dexamethasone (Dexamethasone 4 Mg/Ml Sdv) 6 mg IVPUSH DAILY [facility] Stop: 12/09/20 09:01 Last Admin: 11/30/20 22:47 Dose: 6 mg Documented by: Dexamethasone (Dexamethasone 4 Mg/Ml Sdv) 6 mg IVPUSH BEDTIME [facility] Stop: 12/09/20 21:01 Last Admin: 12/09/20 21:20 Dose: 6 mg Documented by: Dexamethasone (Dexamethasone 2 Mg Tab) 4 mg PO QPM [facility] Last Admin: 12/14/20 17:54 Dose: 4 mg Documented by: Enoxaparin Sodium (Enoxaparin 40 Mg/0.4 Ml Syringe) 40 mg SUBCUT Q12H [facility] Last Admin: 11/30/20 22:58 Dose: 40 mg Documented by: Furosemide (Furosemide 20 Mg/2 Ml Vial) 20 mg IVPUSH NOW ONE Stop: 12/07/20 22:46 Last Admin: 12/07/20 22:42 Dose: 20 mg Documented by: Sodium Chloride (Normal Saline) 1,000 mls @ 150 mls/hr IV ASDIRECTED [facility] Last Admin: 11/30/20 19:58 Dose: 150 mls/hr Documented by: Remdesivir 200 mg/ Sodium (Chloride) 250 mls @ 250 mls/hr IV ONETIME ONE Stop: 11/30/20 20:19 Last Admin: 11/30/20 22:53 Dose: 250 mls/hr Documented by: Remdesivir 100 mg/ Sodium (Chloride) 100 mls @ 100 mls/hr IV Q24H [facility] Stop: 12/04/20 18:59 Last Admin: 12/04/20 18:07 Dose: 100 mls/hr Documented by: Azithromycin 500 mg/ Sodium (Chloride) 250 mls @ 250 mls/hr IV Q24H [facility] Last Admin: 12/15/20 05:13 Dose: 250 mls/hr Documented by: Ceftriaxone Sodium 2 gm/ (Sodium Chloride) 50 mls @ 100 mls/hr IV Q24H [facility] Last Admin: 12/15/20 04:20 Dose: 100 mls/hr Documented by: Sodium Chloride (Normal Saline) 100 mls @ 3.5 mls/sec IV ASDIRECTED [facility] Stop: 12/08/20 15:00 Last Admin: 12/08/20 14:53 Dose: 4 mls/sec Documented by: Iopamidol (Iopamidol 755 Mg/Ml 100 Ml Bottle) 100 ml IV . DIRECTED [facility] Stop: 12/08/20 18:00 Last Admin: 12/08/20 14:53 Dose: 100 ml Documented by: Lidocaine (Lidocaine 5% 700 Mg Patch) 700 mg TRDERM Q24H [facility] Last Admin: 11/30/20 22:58 Dose: 700 mg Documented by: Lidocaine (Lidocaine 5% 700 Mg Patch) 700 mg TRDERM Q24H [facility] Last Admin: 12/11/20 21:28 Dose: Not Given Documented by: Miscellaneous Information (Remove Lidocaine Patch) 1 ea TRDERM DAILY [facility] Last Admin: 12/12/20 09:25 Dose: Not Given Documented by: Pantoprazole Sodium (Pantoprazole 40 Mg Vial) 40 mg IV BEDTIME [facility] Last Admin: 11/30/20 22:51 Dose: 40 mg Documented by: Sodium Chloride (Sodium Chloride 0.9% 10 Ml Syringe) 10 ml FLUSH ASDIRECTED PRN PRN Reason: Keep Vein Open Last Admin: 11/30/20 19:58 Dose: 10 ml Documented by: Sodium Chloride (Sodium Chloride 0.9% 10 Ml Syringe) 10 ml FLUSH ONETIME ONE Stop: 12/08/20 12:54 Last Admin: 12/08/20 14:53 Dose: 10 ml Documented by: - Exam Quality Assessment: Supplemental Oxygen, DVT Prophylaxis General: Alert, Oriented, Cooperative, Mild Distress Lungs: Clear to Auscultation, Normal Respiratory Effort, Decreased Breath Sounds Cardiovascular: Regular Rate, Regular Rhythm, No Murmurs GI/Abdominal Exam: Soft, Non-Tender, No Organomegaly, No Distention Extremities: Non-Tender, No Pedal Edema - Patient Data Result Diagrams: 12/17/20 04:40 12/17/20 04:40 Sepsis Event Note - Evaluation Sepsis Screening Result: Possible Sepsis Risk - Focused Exam Vital Signs: Vital Signs Temp Pulse Resp BP Pulse Ox 12/18/20 10:00 96.1 F L 82 18 115/72 93 L 12/18/20 02:00 96.1 F L 88 18 116/50 L 90 L 12/18/20 01:45 95 - Problem List Review Problem List Initiated/Reviewed/Updated: Yes - Plan Plan:: ASSESSMENT AND PLAN - COVID-19 PNEUMONIA-complicated by acute respiratory failure with hypoxia. Date of sx on set 11/29. Off of high flow oxygen and back on nasal cannula which he has tolerated to this point. -Limit IV fluids -5 days of remdesivir complete -Dexamethasone 4 mg daily (taper day 8) -Lovenox 40 mg subcut every 12 hours -oxygen to keep sats greater than 88% Back Pain-stable. No evidence for fracture on the x-rays. Minimal pain. -Hydrocodone 5-325 mg one to two every 4 hours as needed for pain Maintenance issues- VTE prophylaxis: Lovenox 40 mg subcut every 12 hours GI prophylaxis: PPI Diet: Regular diet Disposition: Anticipate discharge home after the hospital stay
[2020-12-18] MEDS ORDERED: Dexamethasone 2 MG Tab PO SCH (17:00)
[2020-12-18] MEDS: Pantoprazole 40 MG Tab.CR PO SCH (20:19)
[2020-12-19] MEDS: Albuterol 8 GM Inhaler INH SCH ×6 (00:34→20:37)
[2020-12-19] MEDS: Enoxaparin 40 MG/0.4 ML Syringe SUBCUT SCH ×2 (09:47→20:36)
--- NOTE | 2020-12-19 14:41 | PCM.PN ---
- General Info Date of Service: 12/19/20 Subjective Update: No acute events overnight. No shortness of breath. Energy and appetite are both good. We have been able to wean his supplemental oxygen down to 8 L via high flow nasal cannula. Patient feels well and is hoping to go home soon. - Patient Data Vitals - Most Recent: Last Vital Signs Temp 36.1 C 12/19/20 10:11 Pulse 69 12/19/20 10:11 Resp 16 12/19/20 10:11 BP 108/63 12/19/20 10:11 Pulse Ox 93 L 12/19/20 12:00 Weight - Most Recent: 94.801 kg I&O - Last 24 Hours: Intake & Output 12/18/20 12/19/20 12/19/20 22:59 06:59 14:59 Intake Total 1250 850 960 Output Total 1375 850 Balance 1250 -525 110 Med Orders - Current: Current Medications Acetaminophen (Acetaminophen 325 Mg Tab) 650 mg PO Q4H PRN PRN Reason: Fever Greater Than 101 Last Admin: 12/08/20 04:01 Dose: 650 mg Documented by: Hydrocodone Bitart/Acetaminophen (Acetaminophen/Hydrocodone 325-5 Mg Tab) 1 tab PO Q4H PRN PRN Reason: Pain (moderate 4-6) Last Admin: 12/13/20 17:51 Dose: 1 tab Documented by: Albuterol (Albuterol 8 Gm Inhaler) 0 gm INH Q4H [facility] Last Admin: 12/19/20 09:47 Dose: 2 puff Documented by: Dexamethasone (Dexamethasone 2 Mg Tab) 1 mg PO QPM [facility] Docusate Sodium (Docusate Sodium 100 Mg Cap) 100 mg PO BID PRN PRN Reason: Constipation Enoxaparin Sodium (Enoxaparin 40 Mg/0.4 Ml Syringe) 40 mg SUBCUT BID [facility] Last Admin: 12/19/20 09:47 Dose: 40 mg Documented by: Guaifenesin/Codeine Phosphate (Codeine/Guaifenesin 10-100 Mg/5 Ml Syrup 5 Ml Cup) 10 ml PO Q6H PRN PRN Reason: Cough Lorazepam (Lorazepam 2 Mg/Ml Sdv) 1 mg IV Q6H PRN PRN Reason: Nausea/Vomiting Morphine Sulfate (Morphine 2 Mg/Ml Syringe) 2 mg IVPUSH Q2H PRN PRN Reason: Pain (severe 7-10) Ondansetron HCl (Ondansetron 4 Mg Tab.Dis) 4 mg PO Q6H PRN PRN Reason: Nausea able to take PO Pantoprazole Sodium (Pantoprazole 40 Mg Tab.Cr) 40 mg PO BEDTIME [facility] Last Admin: 12/18/20 20:19 Dose: 40 mg Documented by: Sodium Chloride (Sodium Chloride 0.9% 10 Ml Syringe) 10 ml FLUSH ASDIRECTED PRN PRN Reason: Keep Vein Open Discontinued Medications Albuterol (Albuterol 8 Gm Inhaler) 0 gm INH Q2H PRN PRN Reason: Shortness of Breath Dexamethasone (Dexamethasone 4 Mg/Ml Sdv) 6 mg IVPUSH DAILY [facility] Stop: 12/09/20 09:01 Last Admin: 11/30/20 22:47 Dose: 6 mg Documented by: Dexamethasone (Dexamethasone 4 Mg/Ml Sdv) 6 mg IVPUSH BEDTIME [facility] Stop: 12/09/20 21:01 Last Admin: 12/09/20 21:20 Dose: 6 mg Documented by: Dexamethasone (Dexamethasone 2 Mg Tab) 4 mg PO QPM [facility] Last Admin: 12/14/20 17:54 Dose: 4 mg Documented by: Dexamethasone (Dexamethasone 2 Mg Tab) 2 mg PO QPM [facility] Last Admin: 12/17/20 16:37 Dose: 2 mg Documented by: Dexamethasone (Dexamethasone 2 Mg Tab) 2 mg PO QPM [facility] Stop: 12/18/20 17:01 Last Admin: 12/18/20 16:41 Dose: 2 mg Documented by: Enoxaparin Sodium (Enoxaparin 40 Mg/0.4 Ml Syringe) 40 mg SUBCUT Q12H [facility] Last Admin: 11/30/20 22:58 Dose: 40 mg Documented by: Furosemide (Furosemide 20 Mg/2 Ml Vial) 20 mg IVPUSH NOW ONE Stop: 12/07/20 22:46 Last Admin: 12/07/20 22:42 Dose: 20 mg Documented by: Sodium Chloride (Normal Saline) 1,000 mls @ 150 mls/hr IV ASDIRECTED [facility] Last Admin: 11/30/20 19:58 Dose: 150 mls/hr Documented by: Remdesivir 200 mg/ Sodium (Chloride) 250 mls @ 250 mls/hr IV ONETIME ONE Stop: 11/30/20 20:19 Last Admin: 11/30/20 22:53 Dose: 250 mls/hr Documented by: Remdesivir 100 mg/ Sodium (Chloride) 100 mls @ 100 mls/hr IV Q24H [facility] Stop: 12/04/20 18:59 Last Admin: 12/04/20 18:07 Dose: 100 mls/hr Documented by: Azithromycin 500 mg/ Sodium (Chloride) 250 mls @ 250 mls/hr IV Q24H [facility] Last Admin: 12/15/20 05:13 Dose: 250 mls/hr Documented by: Ceftriaxone Sodium 2 gm/ (Sodium Chloride) 50 mls @ 100 mls/hr IV Q24H [facility] Last Admin: 12/15/20 04:20 Dose: 100 mls/hr Documented by: Sodium Chloride (Normal Saline) 100 mls @ 3.5 mls/sec IV ASDIRECTED [facility] Stop: 12/08/20 15:00 Last Admin: 12/08/20 14:53 Dose: 4 mls/sec Documented by: Iopamidol (Iopamidol 755 Mg/Ml 100 Ml Bottle) 100 ml IV . DIRECTED [facility] Stop: 12/08/20 18:00 Last Admin: 12/08/20 14:53 Dose: 100 ml Documented by: Lidocaine (Lidocaine 5% 700 Mg Patch) 700 mg TRDERM Q24H [facility] Last Admin: 11/30/20 22:58 Dose: 700 mg Documented by: Lidocaine (Lidocaine 5% 700 Mg Patch) 700 mg TRDERM Q24H [facility] Last Admin: 12/11/20 21:28 Dose: Not Given Documented by: Miscellaneous Information (Remove Lidocaine Patch) 1 ea TRDERM DAILY [facility] Last Admin: 12/12/20 09:25 Dose: Not Given Documented by: Pantoprazole Sodium (Pantoprazole 40 Mg Vial) 40 mg IV BEDTIME [facility] Last Admin: 11/30/20 22:51 Dose: 40 mg Documented by: Sodium Chloride (Sodium Chloride 0.9% 10 Ml Syringe) 10 ml FLUSH ASDIRECTED PRN PRN Reason: Keep Vein Open Last Admin: 11/30/20 19:58 Dose: 10 ml Documented by: Sodium Chloride (Sodium Chloride 0.9% 10 Ml Syringe) 10 ml FLUSH ONETIME ONE Stop: 12/08/20 12:54 Last Admin: 12/08/20 14:53 Dose: 10 ml Documented by: - Exam Quality Assessment: Supplemental Oxygen General: Alert, Oriented, Cooperative, No Acute Distress Lungs: Normal Respiratory Effort GI/Abdominal Exam: Soft, No Distention Extremities: No Pedal Edema Skin: Warm, Dry Psy/Mental Status: Alert, Normal Affect - Patient Data Result Diagrams: 12/17/20 04:40 12/17/20 04:40 Sepsis Event Note - Evaluation Sepsis Screening Result: No Definite Risk - Focused Exam Vital Signs: Vital Signs Temp Pulse Resp BP Pulse Ox 12/19/20 12:00 93 L 12/19/20 10:51 94 L 12/19/20 10:11 36.1 C 69 16 108/63 93 L 12/19/20 07:42 35.4 C L 86 16 130/85 91 L 12/19/20 07:31 90 L 12/19/20 04:00 35.6 C L 71 18 124/83 94 L - Problem List Review Problem List Initiated/Reviewed/Updated: Yes - Plan Plan:: ASSESSMENT AND PLAN - COVID-19 PNEUMONIA-complicated by acute respiratory failure with hypoxia. Date of sx on set 11/29. Currently requiring high flow nasal cannula but supplemental oxygen requirements are decreasing. -Limit IV fluids -5 days of remdesivir complete -Dexamethasone 4 mg daily (taper day 9) -Lovenox 40 mg subcut every 12 hours -oxygen to keep sats greater than 88% Back Pain-stable. No evidence for fracture on the x-rays. Minimal pain. -Hydrocodone 5-325 mg one to two every 4 hours as needed for pain Maintenance issues- VTE prophylaxis: Lovenox 40 mg subcut every 12 hours GI prophylaxis: PPI Diet: Regular diet Disposition: Anticipate discharge home after the hospital stay, hopefully in the next couple of days. He will likely need home oxygen. Davi Dockery MD
[2020-12-19] MEDS ORDERED: Dexamethasone 2 MG Tab PO SCH (17:00)
[2020-12-19] MEDS: Pantoprazole 40 MG Tab.CR PO SCH (20:36)
[2020-12-20] MEDS: Albuterol 8 GM Inhaler INH SCH ×4 (01:45→12:48)
[2020-12-20] MEDS: Enoxaparin 40 MG/0.4 ML Syringe SUBCUT SCH (08:11)
[2020-12-20 11:20] VITALS: BP 116/71; PULSE 90
--- NOTE | 2020-12-20 13:05 | PCM.DCSUM1 ---
Discharge Summary - Hospital Course Brief History: 70-year-old male who has otherwise been healthy who presented with weakness, confusion and shortness of breath. He was admitted for management of COVID-19 pneumonia with acute respiratory failure with hypoxia. Diagnosis: Stroke: No - Discharge Data Discharge Date: 12/20/20 Discharge Disposition: Home, Self-Care 01 Condition: Good - Referral to Home Health Primary Care Physician: Mayito Mckenzie MD - Discharge Diagnosis/Problem(s) (1) Pneumonia due to COVID-19 virus SNOMED Code(s): 699166263337867689 ICD Code: U07.1 - COVID-19; J12.82 - PNEUMONIA DUE TO CORONAVIRUS DISEASE 2018 Status: Acute (2) Acute respiratory failure with hypoxia SNOMED Code(s): 78257848, 218886371 ICD Code: J96.01 - ACUTE RESPIRATORY FAILURE WITH HYPOXIA Status: Acute (3) Back pain due to injury SNOMED Code(s): 187930805, 438434313 ICD Code: M54.9 - DORSALGIA, UNSPECIFIED Status: Acute Priority: High - Patient Summary/Data Consults: Consultations 12/14/20 16:52 PT Evaluation and Treatment [CONS] Routine Please Evaluate and Treat. PT Reason for Consult: weakness Discharge Disposition: Home Special Instructions: pt requesting strengthening therapies to tolerance This query below is only for informational purposes and is not editable. Admission Diagnosis/Problem: Hypoxia Hospital Course: Kevin presented to the emergency room with weakness, shortness of breath and confusion. Work-up in the emergency room revealed evidence for bilateral Covid pneumonia with acute respiratory failure with hypoxia. Initially he did not require large quantities of supplemental oxygen. He was started on remdesivir, dexamethasone and enoxaparin and admitted to the hospital for further management. Shortly after admission he did have increasing oxygen requirements and progressed to the point that he required 15 L via high flow nasal cannula. He did stabilize here for a period of about 8 days. He completed his remdesivir without difficulty. Tolerated his IV steroids. Unfortunately on about day 8 he did have worsening of his respiratory status with increasing supplemental oxygen requirements. He was transferred to the intensive care unit and started on heated high flow supplemental oxygen at 50 L/min and 93% FiO2. We did a CT scan of the chest looking for bacterial pneumonia and pulmonary emboli but fortunately did not find strong evidence to support these. We did see an increase in a procalcitonin and C-reactive protein so we did start him empirically on antibiotics at this point. He completed 7 days of antibiotics and over that time did have a slow but steady improvement in his respiratory status. Over the last few days prior to discharge he had a more rapid improvement in his respiratory status. We have been able to wean him off of the heated high flow down to a regular high flow nasal cannula and eventually today down to a regular nasal cannula at 4 L/min. He does continue to be hypoxic wi thout the supplemental oxygen but does saturate in the low 90s with 4 L. I suspect given his improvement that we will be able to wean him down further over the next few days or a few weeks. He has completed adequate steroid taper at this point and does not need any additional medications at the time of discharge. He has completed 20 days of isolation/quarantine and no longer needs to quarantine. He has not had fever since early in the hospital stay and is feeling well. He will be set up for home oxygen as discussed below and following up in about a week. Date of [id number] encounter for home oxygen -12/20/2020 On December 20 I evaluated Kevin regarding necessity for home oxygen. His oxygen was 85% on room air. He does improved to 90% with 4 L of supplemental oxygen via nasal cannula. He would benefit from home oxygen to help maintain adequate oxygen saturations and reduce his risk of harm from hypoxia after hospital discharge. I would anticipate that he will need the oxygen for the foreseeable future. Without the home oxygen he is at risk for significant morbidity and potentially mortality if he is exposed to hypoxia. Davi Dockery MD - Patient Instructions Diet: Regular Diet as Tolerated Activity: As Tolerated Showering/Bathing: May Shower Notify Provider of: Fever Other/Special Instructions: 1. You were in the hospital for management of severe COVID-19 pneumonia causing acute respiratory failure with hypoxia. Your condition has improved with medications and additional treatments provided in the hospital. You do continue to require supplemental oxygen. I would recommend that you continue to use this after discharge home. Hopefully this will not be a long-term need and we can wean you off of the oxygen over the next several days to maybe a couple of weeks. You may increase your activity as tolerated but you should take a break if you become short of breath or fatigue. No additional medication treatment is needed after your discharge home. I would recommend that you follow-up with your regular doctor in about 1 week. You have completed your quarantine period and no longer need to isolate. - Discharge Plan *PRESCRIPTION DRUG MONITORING PROGRAM REVIEWED*: Not Applicable *COPY OF PRESCRIPTION DRUG MONITORING REPORT IN PATIENT SANTI: Not Applicable Home Medications: Home Meds Acetaminophen/HYDROcodone [HYDROcodone-Acetaminophen 5-325 MG *] 1 tab PO ASDIRECTED 11/30/20 [History] Oxygen Therapy Mode: Nasal Cannula (4) Patient Handouts: COVID-19 Referrals: Mayito Mckenzie MD [Primary Care Provider] - 12/29/20 1:40 pm (Please arrive 15 minutes early to register for your appointment.) - Discharge Summary/Plan Comment DC Time >30 min.: Yes Total # of Minutes for Discharge Time: 40-covid discussions, set up home O2 - Patient Data Vitals - Most Recent: Last Vital Signs Temp 36.2 C 12/20/20 11:17 Pulse 90 12/20/20 11:17 Resp 1 L 12/20/20 11:17 BP 116/71 12/20/20 11:17 Pulse Ox 91 L 12/20/20 12:06 Weight - Most Recent: 94.801 kg I&O - Last 24 hours: Intake & Output 12/19/20 12/20/20 12/20/20 22:59 06:59 14:59 Intake Total 720 240 620 Output Total 300 900 700 Balance 420 -660 -80 Med Orders - Current: Current Medications Acetaminophen (Acetaminophen 325 Mg Tab) 650 mg PO Q4H PRN PRN Reason: Fever Greater Than 101 Last Admin: 12/08/20 04:01 Dose: 650 mg Documented by: Hydrocodone Bitart/Acetaminophen (Acetaminophen/Hydrocodone 325-5 Mg Tab) 1 tab PO Q4H PRN PRN Reason: Pain (moderate 4-6) Last Admin: 12/13/20 17:51 Dose: 1 tab Documented by: Albuterol (Albuterol 8 Gm Inhaler) 0 gm INH Q4H VEE Last Admin: 12/20/20 12:48 Dose: 2 puff Documented by: Dexamethasone (Dexamethasone 2 Mg Tab) 1 mg PO QPM VEE Last Admin: 12/19/20 17:16 Dose: 1 mg Documented by: Docusate Sodium (Docusate Sodium 100 Mg Cap) 100 mg PO BID PRN PRN Reason: Constipation Enoxaparin Sodium (Enoxaparin 40 Mg/0.4 Ml Syringe) 40 mg SUBCUT BID [facility] Last Admin: 12/20/20 08:11 Dose: 40 mg Documented by: Guaifenesin/Codeine Phosphate (Codeine/Guaifenesin 10-100 Mg/5 Ml Syrup 5 Ml Cup) 10 ml PO Q6H PRN PRN Reason: Cough Lorazepam (Lorazepam 2 Mg/Ml Sdv) 1 mg IV Q6H PRN PRN Reason: Nausea/Vomiting Morphine Sulfate (Morphine 2 Mg/Ml Syringe) 2 mg IVPUSH Q2H PRN PRN Reason: Pain (severe 7-10) Ondansetron HCl (Ondansetron 4 Mg Tab.Dis) 4 mg PO Q6H PRN PRN Reason: Nausea able to take PO Pantoprazole Sodium (Pantoprazole 40 Mg Tab.Cr) 40 mg PO BEDTIME [facility] Last Admin: 12/19/20 20:36 Dose: 40 mg Documented by: Sodium Chloride (Sodium Chloride 0.9% 10 Ml Syringe) 10 ml FLUSH ASDIRECTED PRN PRN Reason: Keep Vein Open Discontinued Medications Albuterol (Albuterol 8 Gm Inhaler) 0 gm INH Q2H PRN PRN Reason: Shortness of Breath Dexamethasone (Dexamethasone 4 Mg/Ml Sdv) 6 mg IVPUSH DAILY [facility] Stop: 12/09/20 09:01 Last Admin: 11/30/20 22:47 Dose: 6 mg Documented by: Dexamethasone (Dexamethasone 4 Mg/Ml Sdv) 6 mg IVPUSH BEDTIME [facility] Stop: 12/09/20 21:01 Last Admin: 12/09/20 21:20 Dose: 6 mg Documented by: Dexamethasone (Dexamethasone 2 Mg Tab) 4 mg PO QPM [facility] Last Admin: 12/14/20 17:54 Dose: 4 mg Documented by: Dexamethasone (Dexamethasone 2 Mg Tab) 2 mg PO QPM [facility] Last Admin: 12/17/20 16:37 Dose: 2 mg Documented by: Dexamethasone (Dexamethasone 2 Mg Tab) 2 mg PO QPM [facility] Stop: 12/18/20 17:01 Last Admin: 12/18/20 16:41 Dose: 2 mg Documented by: Enoxaparin Sodium (Enoxaparin 40 Mg/0.4 Ml Syringe) 40 mg SUBCUT Q12H [facility] Last Admin: 11/30/20 22:58 Dose: 40 mg Documented by: Furosemide (Furosemide 20 Mg/2 Ml Vial) 20 mg IVPUSH NOW ONE Stop: 12/07/20 22:46 Last Admin: 12/07/20 22:42 Dose: 20 mg Documented by: Sodium Chloride (Normal Saline) 1,000 mls @ 150 mls/hr IV ASDIRECTED [facility] Last Admin: 11/30/20 19:58 Dose: 150 mls/hr Documented by: Remdesivir 200 mg/ Sodium (Chloride) 250 mls @ 250 mls/hr IV ONETIME ONE Stop: 11/30/20 20:19 Last Admin: 11/30/20 22:53 Dose: 250 mls/hr Documented by: Remdesivir 100 mg/ Sodium (Chloride) 100 mls @ 100 mls/hr IV Q24H [facility] Stop: 12/04/20 18:59 Last Admin: 12/04/20 18:07 Dose: 100 mls/hr Documented by: Azithromycin 500 mg/ Sodium (Chloride) 250 mls @ 250 mls/hr IV Q24H [facility] Last Admin: 12/15/20 05:13 Dose: 250 mls/hr Documented by: Ceftriaxone Sodium 2 gm/ (Sodium Chloride) 50 mls @ 100 mls/hr IV Q24H [facility] Last Admin: 12/15/20 04:20 Dose: 100 mls/hr Documented by: Sodium Chloride (Normal Saline) 100 mls @ 3.5 mls/sec IV ASDIRECTED [facility] Stop: 12/08/20 15:00 Last Admin: 12/08/20 14:53 Dose: 4 mls/sec Documented by: Iopamidol (Iopamidol 755 Mg/Ml 100 Ml Bottle) 100 ml IV . DIRECTED [facility] Stop: 12/08/20 18:00 Last Admin: 12/08/20 14:53 Dose: 100 ml Documented by: Lidocaine (Lidocaine 5% 700 Mg Patch) 700 mg TRDERM Q24H [facility] Last Admin: 11/30/20 22:58 Dose: 700 mg Documented by: Lidocaine (Lidocaine 5% 700 Mg Patch) 700 mg TRDERM Q24H [facility] Last Admin: 12/11/20 21:28 Dose: Not Given Documented by: Miscellaneous Information (Remove Lidocaine Patch) 1 ea TRDERM DAILY [facility] Last Admin: 12/12/20 09:25 Dose: Not Given Documented by: Pantoprazole Sodium (Pantoprazole 40 Mg Vial) 40 mg IV BEDTIME [facility] Last Admin: 11/30/20 22:51 Dose: 40 mg Documented by: Sodium Chloride (Sodium Chloride 0.9% 10 Ml Syringe) 10 ml FLUSH ASDIRECTED PRN PRN Reason: Keep Vein Open Last Admin: 11/30/20 19:58 Dose: 10 ml Documented by: Sodium Chloride (Sodium Chloride 0.9% 10 Ml Syringe) 10 ml FLUSH ONETIME ONE Stop: 12/08/20 12:54 Last Admin: 12/08/20 14:53 Dose: 10 ml Documented by:
== END 2020-12-20 14:37 | disposition home or self-care (01) | DRG 177 ==
LOC: JP.ED 19:35 → JP.2SS 20:58 → JP.ICU 12-08 04:15 → JP.2SS 12-11 09:31
PROVIDERS: ADMIT Hospitalist; ATTEND Internal Medicine
PROC: XW033E5 Introduction of Remdesivir Anti-infective into Peripheral Vein, Percutaneous Approach, New Technology Group 5 (ICD-10-PCS; principal; 2020-11-30)
PROC: 5A0955A Assistance with Respiratory Ventilation, Greater than 96 Consecutive Hours, High Flow/Velocity Cannula (ICD-10-PCS; 2020-11-30)
PROC: 3E0DX3Z Introduction of Anti-inflammatory into Mouth and Pharynx, External Approach (ICD-10-PCS; 2020-11-30)
DX: U07.1 COVID-19 (principal); R41.0 Disorientation, unspecified; R09.02 Hypoxemia; J12.82 Pneumonia due to coronavirus disease 2019; J96.01 Acute respiratory failure with hypoxia; H54.7 Unspecified visual loss; Z86.73 Personal history of transient ischemic attack (TIA), and cerebral infarction without residual deficits; Z86.19 Personal history of other infectious and parasitic diseases; M54.9 Dorsalgia, unspecified
CPT/HCPCS: 36415; 36600; 71045; 71045-26; 71275; 73502-26-LT; 73502-LT; 80048; 80053; 80076; 82728; 82803; 83605; 83615; 84145; 84484; 85025; 85027; 85379; 86140; 94640; 94762; 97110-GP; 97162-GP; 97530-GP; 99285-25; A9270-GY; C9113; J0456; J0696; J1100; J1650; J1940; J7030; J7050; J8540; Q9967; U0002

== ENCOUNTER 2020-12-27 08:21 | Inpatient (IN) | payer MEDICARE ==
--- NOTE | 2020-12-27 08:26 | EDM.PDOC ---
ED HPI GENERAL MEDICAL PROBLEM - General Chief Complaint: Respiratory Problem Stated Complaint: [facility] Time Seen by Provider: 12/27/20 08:21 Source of Information: Reports: Patient, EMS History Limitations: Reports: Respiratory Distress - History of Present Illness INITIAL COMMENTS - FREE TEXT/NARRATIVE: 70-year-old male who was discharged from the hospital 1 week ago after a 3-week treatment for COVID-19. He had not received his vaccines. He had a fairly good week but over the past 24 to 48 hours has had a sudden increase in shortness of breath again. Ambulance was called this morning because he could not breathe, first responders apparently found him with saturations in the high 60s to low 70s and in distress. He denies any fever or chest pain. He arrives with high flow O2 and CPAP, O2 saturations are now in the upper 80s and he speaking in sentences but still looks ill. Onset: Sudden (According the patient symptoms worsened fairly suddenly over the past 2 days) Associated Symptoms: Reports: Cough, Shortness of Breath, Weakness. Denies: Fever/Chills, Headaches - Related Data Allergies Allergy/AdvReac Type Severity Reaction Status Date / Time No Known Allergies Allergy Verified 12/27/20 08:28 Home Meds: Home Meds Acetaminophen/HYDROcodone [HYDROcodone-Acetaminophen 5-325 MG *] 1 tab PO ASDIRECTED 11/30/20 [History] Past Medical History HEENT History: Reports: Impaired Vision Neurological History: Reports: CVA - Infectious Disease History Infectious Disease History: Reports: Chicken Pox, Measles, Mumps Social & Family History - Caffeine Use Caffeine Use: Reports: Coffee - Living Situation & Occupation Living situation: Reports: Single, Alone Occupation: Employed (lives alone in [place], [place]. Self-employed) ED ROS GENERAL - Review of Systems Review Of Systems: See Below Constitutional: Reports: Malaise. Denies: Fever, Chills HEENT: Denies: Throat Pain Respiratory: Reports: Shortness of Breath, Cough. Denies: Sputum Cardiovascular: Denies: Chest Pain, Palpitations GI/Abdominal: Denies: Abdominal Pain, Nausea, Vomiting : Reports: No Symptoms Skin: Reports: No Symptoms Neurological: Denies: Headache Psychiatric: Reports: No Symptoms ED EXAM, GENERAL - Physical Exam Exam: See Below Exam Limited By: Respiratory Distress General Appearance: Moderate Distress Head: Atraumatic Neck: Non-Tender Respiratory/Chest: Wheezing (Scattered expiratory wheezes and rhonchi but underlying good air movement to the bases) Cardiovascular: Regular Rate, Rhythm, Tachycardia (Mild tachycardia) GI/Abdominal: Soft, Non-Tender Extremities: No: Pedal Edema Neurological: Alert, Oriented Psychiatric: Normal Affect, Normal Mood Skin Exam: Warm, Dry Course - Vital Signs Last Recorded V/S: Last Vital Signs Temp 95 F L 12/27/20 14:28 Pulse 79 12/27/20 14:28 Resp 30 H 12/27/20 14:28 BP 128/59 L 12/27/20 14:28 Pulse Ox 93 L 12/27/20 14:28 - Orders/Labs/Meds Orders: Active Orders 24 hr Category Date Time Status Patient Status [ADT] Routine ADT 12/27/20 13:37 Active Ambulate [RC] QID Care 12/27/20 13:37 Active Cardiac Monitoring [RC] .As Directed Care 12/27/20 13:37 Active Height and Weight [RC] DAILY Care 12/27/20 13:37 Active Intake and Output [RC] QSHIFT Care 12/27/20 13:37 Active Notify Provider Vital Signs [RC] ASDIRECTED Care 12/27/20 13:37 Active Oxygen Therapy [RC] PRN Care 12/27/20 13:37 Active Peripheral IV Care [RC] . DIRECTED Care 12/27/20 13:37 Active Pulse Oximetry [RC] CONTINUOUS Care 12/27/20 13:37 Active RT Aerosol Therapy [RC] ASDIRECTED Care 12/27/20 13:37 Active RT BiPAP/CPAP [RC] ASDIRECTED Care 12/27/20 13:37 Active Up With Assistance [RC] ASDIRECTED Care 12/27/20 13:37 Active Up to Chair [RC] QID Care 12/27/20 13:37 Active VTE/DVT Education [RC] Per Unit Routine Care 12/27/20 13:37 Active Vital Signs [RC] Q4H Care 12/27/20 13:37 Active Regular Diet [DIET] Diet 12/27/20 Lunch Active CBC WITH AUTO DIFF [HEME] AM Lab 12/28/20 05:11 Ordered COMPREHENSIVE METABOLIC PN,CMP [CHEM] AM Lab 12/28/20 05:11 Ordered CULTURE BLOOD [BC] Urgent Lab 12/27/20 09:12 Received CULTURE BLOOD [BC] Urgent Lab 12/27/20 09:21 Received MAGNESIUM [CHEM] AM Lab 12/28/20 05:11 Ordered Acetaminophen [TylenoL] Med 12/27/20 13:37 Active 650 mg PO Q4H PRN Acetaminophen/HYDROcodone [Jensen 325-5 MG] Med 12/27/20 13:37 Active 1 tab PO Q4H PRN Albuterol [Proventil Neb Soln] Med 12/27/20 13:37 Active 2.5 mg NEB Q4H PRN Albuterol/Ipratropium [DuoNeb 3.0-0.5 MG/3 ML] Med 12/27/20 15:00 Active 3 ml NEB QIDRT Levofloxacin/Dextrose 5%-Water [Levaquin in D5W 750 MG/ Med 12/27/20 14:30 Active 150 ML] 750 mg Premix Bag 1 bag IV Q24H Meropenem [Merrem] 1 gm Med 12/27/20 16:30 Active Sodium Chloride 0.9% [Normal Saline] 100 ml IV Q8H Ondansetron [Zofran] Med 12/27/20 13:37 Ordered 4 mg IV Q4H PRN Sodium Chloride 0.9% [Normal Saline] 1,000 ml Med 12/27/20 13:37 Active IV ASDIRECTED Sodium Chloride 0.9% [Saline Flush] Med 12/27/20 13:37 Active 10 ml FLUSH ASDIRECTED PRN Vancomycin Med 12/27/20 14:00 Active 1 gm IV .PHARMACY TO DOSE methylPREDNISolone Sod Succ [Solu-MEDROL] Med 12/28/20 09:00 Active 40 mg IVPUSH DAILY polyethylene glycoL 3350 [MiraLAX] Med 12/27/20 13:37 Active 17 gm PO DAILY PRN Blood Culture x2 Reflex Set [OM.PC] Urgent Oth 12/27/20 08:55 Ordered Peripheral IV Insertion Adult [OM.PC] Routine Oth 12/27/20 13:37 Ordered VTE Pharmacological Contraindications [AST] Per Unit Oth 12/27/20 13:37 Ordered Routine Resuscitation Status Routine Resus Stat 12/27/20 13:18 Ordered Medication Orders Acetaminophen (Acetaminophen 325 Mg Tab) 650 mg PO Q4H PRN PRN Reason: Pain (Mild 1-3)/fever Hydrocodone Bitart/Acetaminophen (Acetaminophen/Hydrocodone 325-5 Mg Tab) 1 tab PO Q4H PRN PRN Reason: Pain (moderate 4-6) Albuterol (Albuterol 0.083% 2.5 Mg/3 Ml Neb Soln) 2.5 mg NEB Q4H PRN PRN Reason: Shortness Of Breath/wheezing Albuterol/Ipratropium (Albuterol/Ipratropium 3.0-0.5 Mg/3 Ml Neb Soln) 3 ml NEB QIDRT VEE Enoxaparin Sodium (Enoxaparin 100 Mg/1 Ml Syringe) 100 mg SUBCUT Q12H VEE Sodium Chloride (Normal Saline) 1,000 mls @ 125 mls/hr IV ASDIRECTED VEE Meropenem 1 gm/ Sodium (Chloride) 100 mls @ 200 mls/hr IV Q8H VEE Levofloxacin/Dextrose 750 mg/ (Premix) 150 mls @ 100 mls/hr IV Q24H [facility] Vancomycin HCl 1.8 gm/ Sodium (Chloride) 250 mls @ 166.667 mls/hr IV ONETIME ONE Stop: 12/27/20 17:59 Methylprednisolone Sodium Succinate (Methylprednisolone Sodium Succinate 40 Mg/1 Ml Sdv) 40 mg IVPUSH DAILY [facility] Ondansetron HCl (Ondansetron 4 Mg/2 Ml Sdv) 4 mg IV Q4H PRN PRN Reason: Nausea/Vomiting Polyethylene Glycol (Polyethylene Glycol 3350 Powder 17 Gm Packet) 17 gm PO DAILY PRN PRN Reason: Constipation Sodium Chloride (Sodium Chloride 0.9% 10 Ml Syringe) 10 ml FLUSH ASDIRECTED PRN PRN Reason: Keep Vein Open Vancomycin HCl (Vancomycin 1 Gm Sdv) 1 gm IV .PHARMACY TO DOSE VEE Stop: 12/27/20 18:00 Labs: Laboratory Tests 12/27/20 12/27/20 12/27/20 Range/Units 08:40 08:40 09:16 WBC 8.2 (4.5-11.0) K/uL RBC 3.99 L (4.30-5.90) M/uL Hgb 12.7 (12.0-15.0) g/dL Hct 37.5 L (40.0-54.0) % MCV 94 (80-98) fL MCH 32 H (27-31) pg MCHC 34 (32-36) % Plt Count 185 (150-400) K/uL Neut % (Auto) 68.1 H (36-66) % Lymph % (Auto) 15.7 L (24-44) % Stephens % (Auto) 14.0 H (2-6) % Eos % (Auto) 2.1 (2-4) % Baso % (Auto) 0.1 (0-1) % D-Dimer, Quantitative 58678.78 H (0.0-500.0) ng/mL Sodium 133 L (140-148) mmol/L Potassium 4.2 (3.6-5.2) mmol/L Chloride 99 L (100-108) mmol/L Carbon Dioxide 29 (21-32) mmol/L Anion Gap 9.2 (5.0-14.0) mmol/L BUN 14 (7-18) mg/dL Creatinine 1.1 (0.8-1.3) mg/dL Est Cr Clr Drug Dosing 62.68 mL/min Estimated GFR (MDRD) > 60 (>60) Glucose 117 H (74-106) mg/dL Calcium 8.8 (8.5-10.1) mg/dL Total Bilirubin 0.6 D (0.2-1.0) mg/dL AST 27 (15-37) U/L ALT 45 (12-78) U/L Alkaline Phosphatase 103 (46-116) U/L Troponin I 0.043 (0.000-0.056) ng/mL C-Reactive Protein (0.0-0.3) mg/dL Total Protein 7.5 (6.4-8.2) g/dL Albumin 2.1 L (3.4-5.0) g/dL Globulin 5.4 H (2.3-3.5) g/dL Albumin/Globulin Ratio 0.4 L (1.2-2.2) Procalcitonin ng/mL 12/27/20 12/27/20 Range/Units 09:16 12:32 WBC (4.5-11.0) K/uL RBC (4.30-5.90) M/uL Hgb (12.0-15.0) g/dL Hct (40.0-54.0) % MCV (80-98) fL MCH (27-31) pg MCHC (32-36) % Plt Count (150-400) K/uL Neut % (Auto) (36-66) % Lymph % (Auto) (24-44) % Stephens % (Auto) (2-6) % Eos % (Auto) (2-4) % Baso % (Auto) (0-1) % D-Dimer, Quantitative (0.0-500.0) ng/mL Sodium (140-148) mmol/L Potassium (3.6-5.2) mmol/L Chloride (100-108) mmol/L Carbon Dioxide (21-32) mmol/L Anion Gap (5.0-14.0) mmol/L BUN (7-18) mg/dL Creatinine (0.8-1.3) mg/dL Est Cr Clr Drug Dosing mL/min Estimated GFR (MDRD) (>60) Glucose (74-106) mg/dL Calcium (8.5-10.1) mg/dL Total Bilirubin (0.2-1.0) mg/dL AST (15-37) U/L ALT (12-78) U/L Alkaline Phosphatase (46-116) U/L Troponin I (0.000-0.056) ng/mL C-Reactive Protein 21.47 H (0.0-0.3) mg/dL Total Protein (6.4-8.2) g/dL Albumin (3.4-5.0) g/dL Globulin (2.3-3.5) g/dL Albumin/Globulin Ratio (1.2-2.2) Procalcitonin 0.10 ng/mL Meds: Medications Generic Name Dose Route Start Last Admin Trade Name Freq PRN Reason Stop Dose Admin Acetaminophen 650 mg 12/27/20 13:37 Acetaminophen 325 Mg Tab PO Q4H PRN Pain (Mild 1-3)/fever Hydrocodone Bitart/Acetaminophen 1 tab 12/27/20 13:37 Acetaminophen/Hydrocodone 325-5 Mg Tab PO Q4H PRN Pain (moderate 4-6) Albuterol 2.5 mg 12/27/20 13:37 Albuterol 0.083% 2.5 Mg/3 Ml Neb Soln NEB Q4H PRN Shortness Of Breath/wheezing Albuterol/Ipratropium 3 ml 12/27/20 15:00 Albuterol/Ipratropium 3.0-0.5 Mg/3 Ml Neb Soln NEB QIDRT VEE Enoxaparin Sodium 100 mg 12/27/20 14:30 Enoxaparin 100 Mg/1 Ml Syringe SUBCUT Q12H [facility] Sodium Chloride 1,000 mls @ 125 mls/hr 12/27/20 13:37 Normal Saline IV ASDIRECTED VEE Meropenem 1 gm/ Sodium 100 mls @ 200 mls/hr 12/27/20 16:30 Chloride IV Q8H VEE Levofloxacin/Dextrose 750 mg/ 150 mls @ 100 mls/hr 12/27/20 14:30 Premix IV Q24H VEE Vancomycin HCl 1.8 gm/ Sodium 250 mls @ 166.667 mls/hr 12/27/20 16:30 Chloride IV 12/27/20 17:59 ONETIME ONE Methylprednisolone Sodium Succinate 40 mg 12/28/20 09:00 Methylprednisolone Sodium Succinate 40 Mg/1 Ml Sdv IVPUSH DAILY [facility] Ondansetron HCl 4 mg 12/27/20 13:37 Ondansetron 4 Mg/2 Ml Sdv IV Q4H PRN Nausea/Vomiting Polyethylene Glycol 17 gm 12/27/20 13:37 Polyethylene Glycol 3350 Powder 17 Gm Packet PO DAILY PRN Constipation Sodium Chloride 10 ml 12/27/20 13:37 Sodium Chloride 0.9% 10 Ml Syringe FLUSH ASDIRECTED PRN Keep Vein Open Vancomycin HCl 1 gm 12/27/20 14:00 Vancomycin 1 Gm Sdv IV 12/27/20 18:00 .PHARMACY TO DOSE VEE Discontinued Medications Generic Name Dose Route Start Last Admin Trade Name Freq PRN Reason Stop Dose Admin Enoxaparin Sodium 100 mg 12/27/20 13:37 Enoxaparin 100 Mg/1 Ml Syringe SUBCUT DAILY [facility] Ceftriaxone Sodium 2 gm/ 50 mls @ 100 mls/hr 12/27/20 08:43 12/27/20 09:25 Sodium Chloride IV 12/27/20 09:12 100 mls/hr ONETIME ONE Administration Sodium Chloride 90 mls @ 3 mls/sec 12/27/20 10:29 12/27/20 10:45 Normal Saline IV 12/27/20 10:30 4 mls/sec ONETIME ONE Administration Iopamidol 85 ml 12/27/20 10:30 12/27/20 10:45 Iopamidol 755 Mg/Ml 100 Ml Bottle IV 85 ml . DIRECTED VEE Administration Methylprednisolone Sodium Succinate 125 mg 12/27/20 08:43 12/27/20 09:21 Methylprednisolone Sodium Succinate 125 Mg/2 Ml Sdv IVPUSH 12/27/20 08:44 125 mg ONETIME ONE Administration Sodium Chloride 10 ml 12/27/20 10:29 12/27/20 10:45 Sodium Chloride 0.9% 10 Ml Syringe FLUSH 10 ml ONETIME PRN Administration PER RADIOLOGY PROTOCOL - Re-Assessments/Exams Free Text/Narrative Re-Assessment/Exam: 12/27/20 09:02 Patient's O2 saturations are 85 to 89% on high flow O2 with CPAP. Portable est x-ray was done which shows diffuse infiltrates, increase from his previous x-ray while in the hospital. CBC, CMP, troponin were obtained as well as blood cultures, and after the blood draw the patient was given 125 mg of IV Solu- Medrol and 2 g of IV Rocephin. 12/27/20 14:33 D-dimer is very elevated at 19,000, CRP over 21. White count however is normal as well has a procalcitonin. Because of the apparent worsening over the past 48 hours, a CT angiogram was obtained which showed likely scattered microembolization of the lungs but no large central pulmonary embolus. CMP including electrolytes were remarkably normal. Patient continued to be positive pressure ventilation to help her maintain oxygen saturations in the 80s. He refused any advanced care such as intubation. This was discussed with Dr. Haq, he kindly agreed to admit the patient to the floor for Covid treatment and oxygen supplementation and support. Departure - Departure Time of Disposition: 13:12 Disposition: Admitted As Inpatient 64 Clinical Impression: Hypoxemia, Pneumonia due to COVID-19 virus, Acute respiratory failure with hypoxia - Discharge Information Sepsis Event Note (ED) - Focused Exam Vital Signs: Vital Signs Temp Pulse Resp BP Pulse Ox 12/27/20 12:41 90 33 H 110/63 92 L 12/27/20 09:42 107 H 26 H 115/64 84 L 12/27/20 09:16 114 H 32 H 118/65 86 L 12/27/20 08:40 97.2 F 109 H 30 H 115/73 86 L 12/27/20 08:23 97.2 F 109 H 30 H 115/73 86 L - My Orders Last 24 Hours: My Active Orders 12/27/20 08:55 Blood Culture x2 Reflex Set [OM.PC] Urgent 12/27/20 09:12 CULTURE BLOOD [BC] Urgent 12/27/20 09:21 CULTURE BLOOD [BC] Urgent - Assessment/Plan Last 24 Hours: My Active Orders 12/27/20 08:55 Blood Culture x2 Reflex Set [OM.PC] Urgent 12/27/20 09:12 CULTURE BLOOD [BC] Urgent 12/27/20 09:21 CULTURE BLOOD [BC] Urgent
[2020-12-27] MEDS ORDERED: methylPREDNISolone Sodium Succinate 125 MG/2 ML SDV IVPUSH ONE (08:43)
[2020-12-27] MEDS ORDERED: cefTRIAXone 2 GM in Sodium Chloride 0.9% 50 ML IV ONE (08:43)
--- NOTE | 2020-12-27 09:07 | CR ---
CHEST: Portable 12/27/2020 at 8:41 AM CLINICAL HISTORY:SOB COMPARISON:CT chest 12/08/2020 FINDINGS: Patient has persistent diffuse bilateral pulmonary infiltrates. These have diminished slightly since the CT in November. There are no effusions.. Impression: Slight improvement in diffuse bilateral pulmonary infiltrates
[2020-12-27] MEDS ORDERED: Sodium Chloride 0.9% 10 ML Syringe FLUSH PRN ×2 (10:29→13:37)
[2020-12-27] MEDS ORDERED: Sodium Chloride 0.9% 90 ML IV ONE (10:29)
[2020-12-27] MEDS ORDERED: Iopamidol 755 Mg/ML 100 ML Bottle IV SCH (10:30)
--- NOTE | 2020-12-27 11:05 | CT ---
Ang Chest CLINICAL HISTORY: Covid, worsening symptoms TECHNIQUE: Thin section axial contiguous tomographic sections were taken through the chest after bolus IV iodinated contrast administration. Coronal and sagittal images were reconstructed. Auto dosage reduction and iterative reconstruction techniques employed. FINDINGS: Patient has persistent diffuse bilateral pulmonary infiltrates. There is a slight decrease in groundglass opacity but there is some increase in scattered areas of consolidation. There is minimal left effusion. There are a few scattered the mildly prominent lymph nodes in the mediastinum most of these are present prior study. Some abnormal may have increased in size slightly. They are likely reactive lymph nodes. There are some tiny irregular defects in the left lower lobe branching arteries distally. This may be artifactual. A few tiny emboli are not excluded. IMPRESSION: There are a few tiny irregular filling defects in the left lower lobe subsegmental pulmonary arteries. These are suspect for tiny pulmonary emboli. Some of these may be artifactual. There is some decrease in groundglass opacities in both lung roy but there is some increase in patchy areas of consolidation
--- NOTE | 2020-12-27 13:31 | PCM.HP.2 ---
H&P History of Present Illness - General Date of Service: 12/27/20 Admit Problem/Dx: Admission Diagnosis/Problem Admission Diagnosis/Problem Pneumonia Source of Information: Patient, Family, Old Records, Provider, RN Notes Reviewed History Limitations: Reports: Respiratory Distress - History of Present Illness Initial Comments - Free Text/Narative: Mr. Blanco is a 70-year-old gentleman who was admitted through the emergency department with increased shortness of breath and hypoxia. He was recently hospitalized at this facility for several weeks with COVID-19 infection including bilateral pneumonia, ARDS, and hypoxic respiratory failure. While here he was treated for DVT prophylaxis with enoxaparin twice daily. He received supplemental oxygen as needed. Also treated with a full course of remdesivir and Decadron. He improved to the point last week where he was on 4 to 5 L of oxygen via nasal cannula and was discharged home. While at home he would get short of breath and desaturate with activity. Over the past 2 to 3 days he has become progressively more weak and short of breath. Today he was found to be hypoxic with oxygen saturations in the 70s. He was brought into the emergency department for further evaluation. He has been placed on BiPAP, this has resulted with improved oxygenation. Respiratory rate remains moderately elevated. CT scan of the chest with contrast does show evidence of subsegmental pulmonary emboli as well as increased consolidation in some of his infiltrates. - Related Data Allergies/Adverse Reactions: Allergies Allergy/AdvReac Type Severity Reaction Status Date / Time No Known Allergies Allergy Verified 12/27/20 08:28 Home Medications: Home Meds Acetaminophen/HYDROcodone [HYDROcodone-Acetaminophen 5-325 MG *] 1 tab PO ASDIRECTED 11/30/20 [History] Past Medical History HEENT History: Reports: Impaired Vision Neurological History: Reports: CVA - Infectious Disease History Infectious Disease History: Reports: Chicken Pox, Measles, Mumps Social & Family History - Tobacco Use Tobacco Use Status *Q: Former Tobacco User Used Tobacco, but Quit: Yes Month/Year Tobacco Last Used: 2015 - Caffeine Use Caffeine Use: Reports: Coffee - Living Situation & Occupation Living situation: Reports: Single, Alone Occupation: Employed (lives alone in [place], [place]. Self-employed) H&P Review of Systems - Review of Systems: Review Of Systems: See Below General: Reports: Weakness, Fatigue, Decreased Appetite. Denies: Fever, Chills HEENT: Reports: No Symptoms Pulmonary: Reports: Shortness of Breath, Cough. Denies: Wheezing, Pleuritic Chest Pain, Sputum, Hemoptysis Cardiovascular: Reports: Dyspnea on Exertion. Denies: Chest Pain, Palpitations, Orthopnea, PND, Edema, Lightheadedness Gastrointestinal: Reports: No Symptoms Genitourinary: Reports: No Symptoms Musculoskeletal: Reports: Back Pain Skin: Reports: No Symptoms Psychiatric: Reports: No Symptoms Neurological: Reports: No Symptoms Hematologic/Lymphatic: Reports: No Symptoms Immunologic: Reports: No Symptoms Exam - Exam Exam: See Below - Vital Signs Vital Signs: Last Vital Signs Temp 97.2 F 12/27/20 08:40 Pulse 90 12/27/20 12:41 Resp 33 H 12/27/20 12:41 BP 110/63 12/27/20 12:41 Pulse Ox 92 L 12/27/20 12:41 Weight: 209 lb - Exam Quality Assessment: Supplemental Oxygen, DVT Prophylaxis General: Alert, Oriented, Cooperative, Moderate Distress HEENT: Conjunctiva Clear, Hearing Intact, Mucosa Moist & [place], Normal Nasal Septum, Posterior Pharynx Clear, Pupils Equal Neck: Supple, Trachea Midline, +2 Carotid Pulse wo Bruit Lungs: Clear to Auscultation, Decreased Breath Sounds. No: Crackles, Rales, Rhonchi, Wheezing Cardiovascular: Regular Rate, Regular Rhythm, Normal S1, Normal S2. No: Systolic Murmur, Diastolic Murmur GI/Abdominal Exam: Soft, Non-Tender, No Organomegaly, No Distention Back Exam: Decreased Range of Motion, Vertebral Tenderness. No: CVA Tenderness (R), CVA Tenderness (L) Extremities: Non-Tender, No Pedal Edema Skin: Warm, Dry, Intact Neurological: Cranial Nerves Intact, Strength Equal Bilateral, Normal Speech, Normal Tone, Sensation Intact. No: Focal Deficit Neuro Extensive - Mental Status: Alert, Oriented x3, Normal Mood/Affect, Normal Cognition, Memory Intact - Patient Data Lab Results Last 24 hrs: Laboratory Results - last 24 hr 12/27/20 12/27/20 12/27/20 Range/Units 08:40 08:40 09:16 WBC 8.2 (4.5-11.0) K/uL RBC 3.99 L (4.30-5.90) M/uL Hgb 12.7 (12.0-15.0) g/dL Hct 37.5 L (40.0-54.0) % MCV 94 (80-98) fL MCH 32 H (27-31) pg MCHC 34 (32-36) % Plt Count 185 (150-400) K/uL Neut % (Auto) 68.1 H (36-66) % Lymph % (Auto) 15.7 L (24-44) % [place] % (Auto) 14.0 H (2-6) % Eos % (Auto) 2.1 (2-4) % Baso % (Auto) 0.1 (0-1) % D-Dimer, Quantitative 41010.78 H (0.0-500.0) ng/mL Sodium 133 L (140-148) mmol/L Potassium 4.2 (3.6-5.2) mmol/L Chloride 99 L (100-108) mmol/L Carbon Dioxide 29 (21-32) mmol/L Anion Gap 9.2 (5.0-14.0) mmol/L BUN 14 (7-18) mg/dL Creatinine 1.1 (0.8-1.3) mg/dL Est Cr Clr Drug Dosing 62.68 mL/min Estimated GFR (MDRD) > 60 (>60) Glucose 117 H (74-106) mg/dL Calcium 8.8 (8.5-10.1) mg/dL Total Bilirubin 0.6 D (0.2-1.0) mg/dL AST 27 (15-37) U/L ALT 45 (12-78) U/L Alkaline Phosphatase 103 (46-116) U/L Troponin I 0.043 (0.000-0.056) ng/mL C-Reactive Protein (0.0-0.3) mg/dL Total Protein 7.5 (6.4-8.2) g/dL Albumin 2.1 L (3.4-5.0) g/dL Globulin 5.4 H (2.3-3.5) g/dL Albumin/Globulin Ratio 0.4 L (1.2-2.2) Procalcitonin ng/mL 12/27/20 12/27/20 Range/Units 09:16 12:32 WBC (4.5-11.0) K/uL RBC (4.30-5.90) M/uL Hgb (12.0-15.0) g/dL Hct (40.0-54.0) % MCV (80-98) fL MCH (27-31) pg MCHC (32-36) % Plt Count (150-400) K/uL Neut % (Auto) (36-66) % Lymph % (Auto) (24-44) % [place] % (Auto) (2-6) % Eos % (Auto) (2-4) % Baso % (Auto) (0-1) % D-Dimer, Quantitative (0.0-500.0) ng/mL Sodium (140-148) mmol/L Potassium (3.6-5.2) mmol/L Chloride (100-108) mmol/L Carbon Dioxide (21-32) mmol/L Anion Gap (5.0-14.0) mmol/L BUN (7-18) mg/dL Creatinine (0.8-1.3) mg/dL Est Cr Clr Drug Dosing mL/min Estimated GFR (MDRD) (>60) Glucose (74-106) mg/dL Calcium (8.5-10.1) mg/dL Total Bilirubin (0.2-1.0) mg/dL AST (15-37) U/L ALT (12-78) U/L Alkaline Phosphatase (46-116) U/L Troponin I (0.000-0.056) ng/mL C-Reactive Protein 21.47 H (0.0-0.3) mg/dL Total Protein (6.4-8.2) g/dL Albumin (3.4-5.0) g/dL Globulin (2.3-3.5) g/dL Albumin/Globulin Ratio (1.2-2.2) Procalcitonin 0.10 ng/mL Result Diagrams: 12/27/20 08:40 12/27/20 08:40 Sepsis Event Note - Evaluation Sepsis Screening Result: Possible Sepsis Risk - Focused Exam Vital Signs: Vital Signs Temp Pulse Resp BP Pulse Ox 12/27/20 12:41 90 33 H 110/63 92 L 12/27/20 09:42 107 H 26 H 115/64 84 L 12/27/20 09:16 114 H 32 H 118/65 86 L 12/27/20 08:40 97.2 F 109 H 30 H 115/73 86 L 09/14/21 08:23 97.2 F 109 H 30 H 115/73 86 L *Q Meaningful Use (ADM) - VTE Risk Assess *Q Each Risk Factor Represents 1 Point: Obesity ( BMI > 25 kg/m2), Serious lung disease including pneumonia Total Score 1 Point Risk Factors: 2 Each Risk Factor Represents 2 Points: Age 60 - 74 Years Total Score 2 Point Risk Factors: 2 Each Risk Factor Represents 3 Points: None Total Score 3 Point Risk Factors: 0 Each Risk Factor Represents 5 Points: None Total Score 5 Point Risk Factors: 0 Venous Thromboembolism Risk Factor Score *Q: 4 Problem List Initiated/Reviewed/Updated: Yes Orders Last 24hrs: Active Orders 24 hr Category Date Time Status Patient Status Manage Transfer [TRANSFER] Routine ADT 12/27/20 13:16 Ordered CULTURE BLOOD [BC] Urgent Lab 12/27/20 09:12 Received CULTURE BLOOD [BC] Urgent Lab 12/27/20 09:21 Received Iopamidol [Isovue-370 (76%)] Med 12/27/20 10:30 Active 85 ml IV . DIRECTED Sodium Chloride 0.9% [Saline Flush] Med 12/27/20 10:29 Active 10 ml FLUSH ONETIME PRN Blood Culture x2 Reflex Set [OM.PC] Urgent Oth 12/27/20 08:55 Ordered Resuscitation Status Routine Resus Stat 12/27/20 13:18 Ordered Medication Orders Iopamidol (Iopamidol 755 Mg/Ml 100 Ml Bottle) 85 ml IV . DIRECTED [facility] Last Admin: 12/27/20 10:45 Dose: 85 ml Documented by: DECRMIC Sodium Chloride (Sodium Chloride 0.9% 10 Ml Syringe) 10 ml FLUSH ONETIME PRN PRN Reason: PER RADIOLOGY PROTOCOL Last Admin: 12/27/20 10:45 Dose: 10 ml Documented by: DECRMIC Assessment/Plan Comment:: ASSESSMENT AND PLAN PNEUMONIA-suspect bacterial pneumonia complicating recent COVID-19 infection. Chest x-ray and CT scan show ongoing infiltrates related to recent COVID-[address] scan does document areas of increased consolidation, suspicious for new infection. -Blood cultures pending -Broad-spectrum IV antibiotic therapy; vancomycin, meropenem, and levofloxacin, pending culture results PULMONARY EMBOLI-CT scan also shows evidence of subsegmental pulmonary emboli likely contributing to current hypoxia -Lovenox 100 mg subcu every 12 hours for 2 days -Begin Eliquis in 2 days HYPOXIC RESPIRATORY FAILURE-likely multifactorial related to recent COVID-19 infection with residual inflammation, bacterial pneumonia, and pulmonary emboli -Supplemental oxygen as needed including use of BiPAP -Nebulizer therapy with albuterol and DuoNebs ADRENAL INSUFFICIENCY-recent therapy with Decadron for COVID-19 infection. He did receive a tapering dose of Decadron but is still likely experiencing some renal insufficiency especially under the distress of increased hypoxia. -Solu-Medrol 40 mg IV daily MAINTENANCE ISSUES -DVT prophylaxis; Lovenox as above -GI prophylaxis; not indicated -Broderick catheter; not indicated -Nutrition; regular diet -Nicotine dependence; not required CODE STATUS-DNR/DNI ADMISSION STATUS-patient will be admitted to inpatient status, expect at least a 2 night hospital stay for evaluation and management of problems as outlined above. At the time of this admission I do not reasonably expected evaluation and management of this problem will require more than a 96 hour hospital stay. DISPOSITION-anticipate discharge to home after the hospital stay. PRIMARY CARE PROVIDER-Dr. Mckenzie - Mortality Measure Prognosis:: Poor
[2020-12-27] MEDS ORDERED: Enoxaparin 100 MG/1 ML Syringe SUBCUT SCH (13:37)
[2020-12-27] MEDS ORDERED: Acetaminophen/HYDROcodone 325-5 MG Tab PO PRN (13:37)
[2020-12-27] MEDS ORDERED: Albuterol 0.083% 2.5 MG/3 ML Neb Soln NEB PRN (13:37)
[2020-12-27] MEDS ORDERED: Acetaminophen 325 MG Tab PO PRN (13:37)
[2020-12-27] MEDS ORDERED: Polyethylene Glycol 3350 Powder 17 GM Packet PO PRN (13:37)
[2020-12-27] MEDS ORDERED: Ondansetron 4 MG/2 ML SDV IV PRN (13:37)
[2020-12-27] MEDS ORDERED: Vancomycin 1 GM SDV IV SCH (14:00)
[2020-12-27] MEDS: Albuterol/Ipratropium 3.0-0.5 MG/3 ML Neb Soln NEB SCH ×2 (14:46→20:34)
[2020-12-27] MEDS: Enoxaparin 100 MG/1 ML Syringe SUBCUT SCH (15:03)
[2020-12-27] MEDS: Levofloxacin/Dextrose 5%-Water 750 MG in Premix Bag 1 BAG IV SCH (15:04)
[2020-12-27] MEDS ORDERED: Vancomycin 1.8 GM in Sodium Chloride 0.9% 250 ML IV ONE (16:30)
[2020-12-27] MEDS ORDERED: Meropenem 1 GM in Sodium Chloride 0.9% 100 ML IV SCH (16:30)
[2020-12-27] MEDS: Sodium Chloride 0.9% 1,000 ML IV SCH (16:59)
[2020-12-27] MEDS: Meropenem 1 GM in Sodium Chloride 0.9% 100 ML IV SCH (18:35)
[2020-12-28] MEDS: Sodium Chloride 0.9% 1,000 ML IV SCH (02:15)
[2020-12-28] MEDS: Meropenem 1 GM in Sodium Chloride 0.9% 100 ML IV SCH ×3 (02:16→18:31)
[2020-12-28] MEDS: Enoxaparin 100 MG/1 ML Syringe SUBCUT SCH ×2 (03:16→13:42)
[2020-12-28] MEDS: Vancomycin 1.4 GM in Sodium Chloride 0.9% 250 ML IV SCH ×2 (04:16→15:58)
[2020-12-28] MEDS: Albuterol/Ipratropium 3.0-0.5 MG/3 ML Neb Soln NEB SCH ×4 (07:08→21:45)
[2020-12-28] MEDS: methylPREDNISolone Sodium Succinate 40 MG/1 ML SDV IVPUSH SCH (09:05)
--- NOTE | 2020-12-28 11:47 | PCM.PN ---
- General Info Date of Service: 12/28/20 Subjective Update: Mr. Blanco is improved since admission yesterday with less shortness of breath. Continues to require use of BiPAP or high flow oxygen via nasal cannula. Vital signs have been stable and he has remained afebrile. Functional Status: Reports: Tolerating Diet, Urinating - Review of Systems General: Reports: Weakness, Fatigue. Denies: Fever, Chills Pulmonary: Reports: Shortness of Breath. Denies: Pleuritic Chest Pain, Cough, Sputum, Hemoptysis, Wheezing Cardiovascular: Reports: Dyspnea on Exertion. Denies: Chest Pain, Palpitations, Orthopnea, PND, Edema, Lightheadedness Gastrointestinal: Reports: No Symptoms Genitourinary: Reports: No Symptoms - Patient Data Vitals - Most Recent: Last Vital Signs Temp 96.6 F L 12/28/20 11:21 Pulse 103 H 12/28/20 11:21 Resp 26 H 12/28/20 11:21 BP 140/70 12/28/20 11:21 Pulse Ox 87 L 12/28/20 11:21 Weight - Most Recent: 196 lb 9.6 oz I&O - Last 24 Hours: Intake & Output 12/27/20 12/28/20 12/28/20 22:59 06:59 14:59 Intake Total 830 1506 980 Output Total 600 700 Balance 230 1506 280 Lab Results Last 24 Hours: Laboratory Results - last 24 hr 12/27/20 12/28/20 12/28/20 Range/Units 12:32 05:26 05:26 WBC 8.0 (4.5-11.0) K/uL RBC 3.41 L (4.30-5.90) M/uL Hgb 10.8 L (12.0-15.0) g/dL Hct 32.2 L (40.0-54.0) % MCV 94 (80-98) fL MCH 32 H (27-31) pg MCHC 34 (32-36) % Plt Count 161 (150-400) K/uL Neut % (Auto) 79.8 H (36-66) % Lymph % (Auto) 11.8 L (24-44) % [place] % (Auto) 8.4 H (2-6) % Eos % (Auto) 0.0 L (2-4) % Baso % (Auto) 0.0 (0-1) % Sodium 138 L (140-148) mmol/L Potassium 4.4 (3.6-5.2) mmol/L Chloride 105 (100-108) mmol/L Carbon Dioxide 27 (21-32) mmol/L Anion Gap 10.4 (5.0-14.0) mmol/L BUN 15 (7-18) mg/dL Creatinine 0.8 (0.8-1.3) mg/dL Est Cr Clr Drug Dosing 86.18 mL/min Estimated GFR (MDRD) > 60 (>60) Glucose 138 H (74-106) mg/dL Calcium 8.2 L (8.5-10.1) mg/dL Magnesium 2.1 (1.8-2.4) mg/dL Total Bilirubin 0.3 (0.2-1.0) mg/dL AST 26 (15-37) U/L ALT 37 (12-78) U/L Alkaline Phosphatase 103 (46-116) U/L Total Protein 5.9 L (6.4-8.2) g/dL Albumin 1.8 L (3.4-5.0) g/dL Globulin 4.1 H (2.3-3.5) g/dL Albumin/Globulin Ratio 0.4 L (1.2-2.2) Procalcitonin 0.10 ng/mL Paul Results Last 24 Hours: Microbiology 12/27/20 09:12 Aerobic Blood Culture - Preliminary Blood - Arm, Left NO GROWTH AFTER 1 DAY Anaerobic Blood Culture - Preliminary NO GROWTH AFTER 1 DAY 12/27/20 09:21 Aerobic Blood Culture - Preliminary Blood - Arm, Right NO GROWTH AFTER 1 DAY Anaerobic Blood Culture - Preliminary NO GROWTH AFTER 1 DAY Med Orders - Current: Current Medications Acetaminophen (Acetaminophen 325 Mg Tab) 650 mg PO Q4H PRN PRN Reason: Pain (Mild 1-3)/fever Hydrocodone Bitart/Acetaminophen (Acetaminophen/Hydrocodone 325-5 Mg Tab) 1 tab PO Q4H PRN PRN Reason: Pain (moderate 4-6) Albuterol (Albuterol 0.083% 2.5 Mg/3 Ml Neb Soln) 2.5 mg NEB Q4H PRN PRN Reason: Shortness Of Breath/wheezing Albuterol/Ipratropium (Albuterol/Ipratropium 3.0-0.5 Mg/3 Ml Neb Soln) 3 ml NEB QIDRT [facility] Last Admin: 12/28/20 10:46 Dose: 3 ml Documented by: Enoxaparin Sodium (Enoxaparin 100 Mg/1 Ml Syringe) 100 mg SUBCUT Q12H [facility] Last Admin: 12/28/20 03:16 Dose: 100 mg Documented by: Levofloxacin/Dextrose 750 mg/ (Premix) 150 mls @ 100 mls/hr IV Q24H [facility] Last Admin: 12/27/20 15:04 Dose: 100 mls/hr Documented by: Vancomycin HCl 1.4 gm/ Sodium (Chloride) 250 mls @ 166.667 mls/hr IV Q12H [facility] Last Admin: 12/28/20 04:16 Dose: 166.667 mls/hr Documented by: Meropenem 1 gm/ Sodium (Chloride) 100 mls @ 200 mls/hr IV Q8H [facility] Last Admin: 12/28/20 10:32 Dose: 200 mls/hr Documented by: Methylprednisolone Sodium Succinate (Methylprednisolone Sodium Succinate 40 Mg/1 Ml Sdv) 40 mg IVPUSH DAILY [facility] Last Admin: 12/28/20 09:05 Dose: 40 mg Documented by: Ondansetron HCl (Ondansetron 4 Mg/2 Ml Sdv) 4 mg IV Q4H PRN PRN Reason: Nausea/Vomiting Polyethylene Glycol (Polyethylene Glycol 3350 Powder 17 Gm Packet) 17 gm PO DAILY PRN PRN Reason: Constipation Sodium Chloride (Sodium Chloride 0.9% 10 Ml Syringe) 10 ml FLUSH ASDIRECTED PRN PRN Reason: Keep Vein Open Discontinued Medications Enoxaparin Sodium (Enoxaparin 100 Mg/1 Ml Syringe) 100 mg SUBCUT DAILY [facility] Last Admin: 12/27/20 15:02 Dose: Not Given Documented by: Ceftriaxone Sodium 2 gm/ (Sodium Chloride) 50 mls @ 100 mls/hr IV ONETIME ONE Stop: 12/27/20 09:12 Last Admin: 12/27/20 09:25 Dose: 100 mls/hr Documented by: Sodium Chloride (Normal Saline) 90 mls @ 3 mls/sec IV ONETIME ONE Stop: 12/27/20 10:30 Last Admin: 12/27/20 10:45 Dose: 4 mls/sec Documented by: Sodium Chloride (Normal Saline) 1,000 mls @ 125 mls/hr IV ASDIRECTED [facility] Last Admin: 12/28/20 02:15 Dose: 125 mls/hr Documented by: Vancomycin HCl 1.8 gm/ Sodium (Chloride) 250 mls @ 166.667 mls/hr IV ONETIME ONE Stop: 12/27/20 17:59 Last Admin: 12/27/20 16:56 Dose: 166.667 mls/hr Documented by: Iopamidol (Iopamidol 755 Mg/Ml 100 Ml Bottle) 85 ml IV . DIRECTED [facility] Last Admin: 12/27/20 10:45 Dose: 85 ml Documented by: Methylprednisolone Sodium Succinate (Methylprednisolone Sodium Succinate 125 Mg/2 Ml Sdv) 125 mg IVPUSH ONETIME ONE Stop: 12/27/20 08:44 Last Admin: 12/27/20 09:21 Dose: 125 mg Documented by: Sodium Chloride (Sodium Chloride 0.9% 10 Ml Syringe) 10 ml FLUSH ONETIME PRN PRN Reason: PER RADIOLOGY PROTOCOL Last Admin: 12/27/20 10:45 Dose: 10 ml Documented by: Vancomycin HCl (Vancomycin 1 Gm Sdv) 1 gm IV .PHARMACY TO DOSE [facility] Stop: 12/27/20 18:00 - Exam Quality Assessment: Supplemental Oxygen, DVT Prophylaxis General: Alert, Oriented, Cooperative, Moderate Distress Lungs: Clear to Auscultation, Normal Respiratory Effort, Decreased Breath Sounds. No: Rales, Rhonchi, Wheezing Cardiovascular: Regular Rate, Regular Rhythm, No Murmurs GI/Abdominal Exam: Soft, Non-Tender, No Organomegaly, No Distention Extremities: Non-Tender, No Pedal Edema - Patient Data Lab Results Last 24 hrs: Laboratory Results - last 24 hr 12/27/20 12/28/20 12/28/20 Range/Units 12:32 05:26 05:26 WBC 8.0 (4.5-11.0) K/uL RBC 3.41 L (4.30-5.90) M/uL Hgb 10.8 L (12.0-15.0) g/dL Hct 32.2 L (40.0-54.0) % MCV 94 (80-98) fL MCH 32 H (27-31) pg MCHC 34 (32-36) % Plt Count 161 (150-400) K/uL Neut % (Auto) 79.8 H (36-66) % Lymph % (Auto) 11.8 L (24-44) % [place] % (Auto) 8.4 H (2-6) % Eos % (Auto) 0.0 L (2-4) % Baso % (Auto) 0.0 (0-1) % Sodium 138 L (140-148) mmol/L Potassium 4.4 (3.6-5.2) mmol/L Chloride 105 (100-108) mmol/L Carbon Dioxide 27 (21-32) mmol/L Anion Gap 10.4 (5.0-14.0) mmol/L BUN 15 (7-18) mg/dL Creatinine 0.8 (0.8-1.3) mg/dL Est Cr Clr Drug Dosing 86.18 mL/min Estimated GFR (MDRD) > 60 (>60) Glucose 138 H (74-106) mg/dL Calcium 8.2 L (8.5-10.1) mg/dL Magnesium 2.1 (1.8-2.4) mg/dL Total Bilirubin 0.3 (0.2-1.0) mg/dL AST 26 (15-37) U/L ALT 37 (12-78) U/L Alkaline Phosphatase 103 (46-116) U/L Total Protein 5.9 L (6.4-8.2) g/dL Albumin 1.8 L (3.4-5.0) g/dL Globulin 4.1 H (2.3-3.5) g/dL Albumin/Globulin Ratio 0.4 L (1.2-2.2) Procalcitonin 0.10 ng/mL Result Diagrams: 12/28/20 05:26 12/28/20 05:26 Paul Results Last 24 hrs: Microbiology 12/27/20 09:12 Aerobic Blood Culture - Preliminary Blood - Arm, Left NO GROWTH AFTER 1 DAY Anaerobic Blood Culture - Preliminary NO GROWTH AFTER 1 DAY 12/27/20 09:21 Aerobic Blood Culture - Preliminary Blood - Arm, Right NO GROWTH AFTER 1 DAY Anaerobic Blood Culture - Preliminary NO GROWTH AFTER 1 DAY Sepsis Event Note - Evaluation Sepsis Screening Result: No Definite Risk - Focused Exam Vital Signs: Vital Signs Temp Pulse Resp BP Pulse Ox 12/28/20 11:21 96.6 F L 103 H 26 H 140/70 87 L 12/28/20 08:18 95.6 F L 83 26 H 118/66 92 L 12/28/20 07:15 93 L 12/28/20 03:00 95 F L 75 28 H 111/65 93 L 12/28/20 00:36 93 L - Problem List Review Problem List Initiated/Reviewed/Updated: Yes - My Orders Last 24 Hours: My Active Orders 12/27/20 Lunch Regular Diet [DIET] 12/27/20 13:18 Resuscitation Status Routine 12/27/20 13:37 Acetaminophen [TylenoL] 650 mg PO Q4H PRN Acetaminophen/HYDROcodone [[place] 325-5 MG] 1 tab PO Q4H PRN Albuterol [Proventil Neb Soln] 2.5 mg NEB Q4H PRN Ondansetron [Zofran] 4 mg IV Q4H PRN Sodium Chloride 0.9% [Saline Flush] 10 ml FLUSH ASDIRECTED PRN polyethylene glycoL 3350 [MiraLAX] 17 gm PO DAILY PRN 12/27/20 13:37 Patient Status [ADT] Routine Ambulate [RC] QID Cardiac Monitoring [RC] .As Directed Height and Weight [RC] DAILY Intake and Output [RC] QSHIFT Notify Provider Vital Signs [RC] ASDIRECTED Oxygen Therapy [RC] PRN Peripheral IV Care [RC] Q12H Pulse Oximetry [RC] CONTINUOUS RT Aerosol Therapy [RC] ASDIRECTED RT BiPAP/CPAP [RC] ASDIRECTED Up With Assistance [RC] ASDIRECTED Up to Chair [RC] QID VTE/DVT Education [RC] Per Unit Routine Vital Signs [RC] Q4H Peripheral IV Insertion Adult [OM.PC] Routine VTE Pharmacological Contraindications [AST] Per Unit Routine 12/27/20 14:30 Enoxaparin [Lovenox] 100 mg SUBCUT Q12H Levofloxacin/Dextrose 5%-Water [Levaquin in D5W 750 MG/150 ML] 750 mg Premix Bag 1 bag IV Q24H 12/27/20 15:00 Albuterol/Ipratropium [DuoNeb 3.0-0.5 MG/3 ML] 3 ml NEB QIDRT 12/27/20 18:00 Meropenem [Merrem] 1 gm Sodium Chloride 0.9% [Normal Saline] 100 ml IV Q8H 12/28/20 04:30 Vancomycin 1.4 gm Sodium Chloride 0.9% [Normal Saline] 250 ml IV Q12H 12/28/20 09:00 methylPREDNISolone Sod Succ [Solu-MEDROL] 40 mg IVPUSH DAILY 12/28/20 11:43 Convert IV to Saline Lock [OM.PC] Routine - Plan Plan:: ASSESSMENT AND PLAN PNEUMONIA-suspect bacterial pneumonia complicating recent COVID-19 infection. Chest x-ray and CT scan show ongoing infiltrates related to recent COVID-[address] scan does document areas of increased consolidation, suspicious for new infection. -Blood cultures pending -Broad-spectrum IV antibiotic therapy; vancomycin, meropenem, and levofloxacin, pending culture results PULMONARY EMBOLI-CT scan also shows evidence of subsegmental pulmonary emboli likely contributing to current hypoxia -Lovenox 100 mg subcu every 12 hours for 2 days -Begin Eliquis in 2 days HYPOXIC RESPIRATORY FAILURE-likely multifactorial related to recent COVID-19 infection with residual inflammation, bacterial pneumonia, and pulmonary emboli. Respiratory status has mildly improved from admission, still requires high flow oxygen or use of BiPAP -Supplemental oxygen as needed including use of BiPAP -Nebulizer therapy with albuterol and DuoNebs ADRENAL INSUFFICIENCY-recent therapy with Decadron for COVID-19 infection. He did receive a tapering dose of Decadron but is still likely experiencing some renal insufficiency especially under the distress of increased hypoxia. -Solu-Medrol 40 mg IV daily MAINTENANCE ISSUES -DVT prophylaxis; Lovenox as above -GI prophylaxis; not indicated -Broderick catheter; not indicated -Nutrition; regular diet -Nicotine dependence; not required CODE STATUS-DNR/DNI ADMISSION STATUS-patient will be admitted to inpatient status, expect at least a 2 night hospital stay for evaluation and management of problems as outlined above. At the time of this admission I do not reasonably expected evaluation and management of this problem will require more than a 96 hour hospital stay. DISPOSITION-anticipate discharge to home after the hospital stay. PRIMARY CARE PROVIDER-Dr. Mckenzie
[2020-12-28] MEDS: Levofloxacin/Dextrose 5%-Water 750 MG in Premix Bag 1 BAG IV SCH (13:43)
[2020-12-29] MEDS: Meropenem 1 GM in Sodium Chloride 0.9% 100 ML IV SCH ×3 (02:45→18:24)
[2020-12-29] MEDS: Enoxaparin 100 MG/1 ML Syringe SUBCUT SCH (02:46)
[2020-12-29] MEDS: Vancomycin 1.4 GM in Sodium Chloride 0.9% 250 ML IV SCH (03:40)
[2020-12-29] MEDS: Albuterol/Ipratropium 3.0-0.5 MG/3 ML Neb Soln NEB SCH ×4 (07:13→20:43)
[2020-12-29] MEDS: methylPREDNISolone Sodium Succinate 40 MG/1 ML SDV IVPUSH SCH (08:03)
--- NOTE | 2020-12-29 12:08 | PCM.PN ---
- General Info Date of Service: 12/29/20 Subjective Update: Mr. Blanco experienced decreased oxygen saturations earlier this morning and is now on high flow oxygen with adequate saturations. He has remained afebrile and is hemodynamically stable. Functional Status: Reports: Tolerating Diet, Urinating - Review of Systems General: Reports: Weakness, Fatigue. Denies: Fever, Chills Pulmonary: Reports: Shortness of Breath. Denies: Pleuritic Chest Pain, Cough, Sputum, Hemoptysis, Wheezing Cardiovascular: Reports: Dyspnea on Exertion. Denies: Chest Pain, Palpitations, Orthopnea, PND, Edema, Lightheadedness Gastrointestinal: Reports: No Symptoms Genitourinary: Reports: No Symptoms - Patient Data Vitals - Most Recent: Last Vital Signs Temp 97.2 F 12/29/20 08:24 Pulse 86 12/29/20 08:24 Resp 26 H 12/29/20 08:24 BP 122/58 L 12/29/20 08:24 Pulse Ox 90 L 12/29/20 08:35 Weight - Most Recent: 196 lb 9.591 oz I&O - Last 24 Hours: Intake & Output 12/28/20 12/29/20 12/29/20 22:59 06:59 14:59 Intake Total 250 700 580 Output Total 800 625 400 Balance -550 75 180 Paul Results Last 24 Hours: Microbiology 12/27/20 09:12 Aerobic Blood Culture - Preliminary Blood - Arm, Left NO GROWTH AFTER 2 DAYS Anaerobic Blood Culture - Preliminary NO GROWTH AFTER 2 DAYS 12/27/20 09:21 Aerobic Blood Culture - Preliminary Blood - Arm, Right NO GROWTH AFTER 2 DAYS Anaerobic Blood Culture - Preliminary NO GROWTH AFTER 2 DAYS Med Orders - Current: Current Medications Acetaminophen (Acetaminophen 325 Mg Tab) 650 mg PO Q4H PRN PRN Reason: Pain (Mild 1-3)/fever Hydrocodone Bitart/Acetaminophen (Acetaminophen/Hydrocodone 325-5 Mg Tab) 1 tab PO Q4H PRN PRN Reason: Pain (moderate 4-6) Albuterol (Albuterol 0.083% 2.5 Mg/3 Ml Neb Soln) 2.5 mg NEB Q4H PRN PRN Reason: Shortness Of Breath/wheezing Albuterol/Ipratropium (Albuterol/Ipratropium 3.0-0.5 Mg/3 Ml Neb Soln) 3 ml NEB QIDRT [facility] Last Admin: 12/29/20 10:53 Dose: 3 ml Documented by: Enoxaparin Sodium (Enoxaparin 100 Mg/1 Ml Syringe) 100 mg SUBCUT Q12H [facility] Last Admin: 12/29/20 02:46 Dose: 100 mg Documented by: Levofloxacin/Dextrose 750 mg/ (Premix) 150 mls @ 100 mls/hr IV Q24H [facility] Last Admin: 12/28/20 13:43 Dose: 100 mls/hr Documented by: Vancomycin HCl 1.4 gm/ Sodium (Chloride) 250 mls @ 166.667 mls/hr IV Q12H [facility] Last Admin: 12/29/20 03:40 Dose: 166.667 mls/hr Documented by: Meropenem 1 gm/ Sodium (Chloride) 100 mls @ 200 mls/hr IV Q8H [facility] Last Admin: 12/29/20 10:46 Dose: 200 mls/hr Documented by: Methylprednisolone Sodium Succinate (Methylprednisolone Sodium Succinate 40 Mg/1 Ml Sdv) 40 mg IVPUSH DAILY [facility] Last Admin: 12/29/20 08:03 Dose: 40 mg Documented by: Ondansetron HCl (Ondansetron 4 Mg/2 Ml Sdv) 4 mg IV Q4H PRN PRN Reason: Nausea/Vomiting Polyethylene Glycol (Polyethylene Glycol 3350 Powder 17 Gm Packet) 17 gm PO DAILY PRN PRN Reason: Constipation Sodium Chloride (Sodium Chloride 0.9% 10 Ml Syringe) 10 ml FLUSH ASDIRECTED PRN PRN Reason: Keep Vein Open Discontinued Medications Enoxaparin Sodium (Enoxaparin 100 Mg/1 Ml Syringe) 100 mg SUBCUT DAILY [facility] Last Admin: 12/27/20 15:02 Dose: Not Given Documented by: Ceftriaxone Sodium 2 gm/ (Sodium Chloride) 50 mls @ 100 mls/hr IV ONETIME ONE Stop: 12/27/20 09:12 Last Admin: 12/27/20 09:25 Dose: 100 mls/hr Documented by: Sodium Chloride (Normal Saline) 90 mls @ 3 mls/sec IV ONETIME ONE Stop: 12/27/20 10:30 Last Admin: 12/27/20 10:45 Dose: 4 mls/sec Documented by: Sodium Chloride (Normal Saline) 1,000 mls @ 125 mls/hr IV ASDIRECTED [facility] Last Admin: 12/28/20 02:15 Dose: 125 mls/hr Documented by: Vancomycin HCl 1.8 gm/ Sodium (Chloride) 250 mls @ 166.667 mls/hr IV ONETIME ONE Stop: 12/27/20 17:59 Last Admin: 12/27/20 16:56 Dose: 166.667 mls/hr Documented by: Iopamidol (Iopamidol 755 Mg/Ml 100 Ml Bottle) 85 ml IV . DIRECTED [facility] Last Admin: 12/27/20 10:45 Dose: 85 ml Documented by: Methylprednisolone Sodium Succinate (Methylprednisolone Sodium Succinate 125 Mg/2 Ml Sdv) 125 mg IVPUSH ONETIME ONE Stop: 12/27/20 08:44 Last Admin: 12/27/20 09:21 Dose: 125 mg Documented by: Sodium Chloride (Sodium Chloride 0.9% 10 Ml Syringe) 10 ml FLUSH ONETIME PRN PRN Reason: PER RADIOLOGY PROTOCOL Last Admin: 12/27/20 10:45 Dose: 10 ml Documented by: Vancomycin HCl (Vancomycin 1 Gm Sdv) 1 gm IV .PHARMACY TO DOSE [facility] Stop: 12/27/20 18:00 - Exam Quality Assessment: Supplemental Oxygen, DVT Prophylaxis General: Alert, Oriented, Cooperative, Mild Distress Lungs: Clear to Auscultation, Normal Respiratory Effort, Decreased Breath Sounds Cardiovascular: Regular Rate, Regular Rhythm, No Murmurs GI/Abdominal Exam: Soft, Non-Tender, No Organomegaly, No Distention Back Exam: Normal Inspection, Full Range of Motion Extremities: Non-Tender, No Pedal Edema - Patient Data Result Diagrams: 12/28/20 05:26 12/28/20 05:26 Paul Results Last 24 hrs: Microbiology 12/27/20 09:12 Aerobic Blood Culture - Preliminary Blood - Arm, Left NO GROWTH AFTER 2 DAYS Anaerobic Blood Culture - Preliminary NO GROWTH AFTER 2 DAYS 12/27/20 09:21 Aerobic Blood Culture - Preliminary Blood - Arm, Right NO GROWTH AFTER 2 DAYS Anaerobic Blood Culture - Preliminary NO GROWTH AFTER 2 DAYS Sepsis Event Note - Evaluation Sepsis Screening Result: No Definite Risk - Focused Exam Vital Signs: Vital Signs Temp Pulse Resp BP Pulse Ox Pulse Ox 12/29/20 08:35 90 L 12/29/20 08:24 97.2 F 86 26 H 122/58 L 90 L 12/29/20 07:47 92 L 12/29/20 02:41 95.4 F L 86 22 H 125/71 90 L 12/29/20 00:58 98 - Problem List Review Problem List Initiated/Reviewed/Updated: Yes - My Orders Last 24 Hours: My Active Orders 12/28/20 11:43 Convert IV to Saline Lock [OM.PC] Routine 12/29/20 16:00 CREATININE W/GFR [CHEM] Routine VANCOMYCIN TROUGH [CHEM] Routine 12/30/20 05:00 BASIC METABOLIC PANEL,BMP [CHEM] Timed CBC WITH AUTO DIFF [HEME] Timed - Plan Plan:: ASSESSMENT AND PLAN PNEUMONIA-suspect bacterial pneumonia complicating recent COVID-19 infection. Chest x-ray and CT scan show ongoing infiltrates related to recent COVID-[address] scan does document areas of increased consolidation, suspicious for new infection. Blood cultures have been negative -Discontinue IV vancomycin -Broad-spectrum IV antibiotic therapy; meropenem, and levofloxacin, pending further culture results PULMONARY EMBOLI-CT scan also shows evidence of subsegmental pulmonary emboli likely contributing to current hypoxia -Discontinue Lovenox -Begin Eliquis today HYPOXIC RESPIRATORY FAILURE-likely multifactorial related to recent COVID-19 infection with residual inflammation, bacterial pneumonia, and pulmonary emboli. Respiratory status has mildly improved from admission, still requires high flow oxygen -Supplemental oxygen as needed -Nebulizer therapy with albuterol and DuoNebs ADRENAL INSUFFICIENCY-recent therapy with Decadron for COVID-19 infection. He did receive a tapering dose of Decadron but is still likely experiencing some renal insufficiency especially under the distress of increased hypoxia. -Solu-Medrol 40 mg IV daily MAINTENANCE ISSUES -DVT prophylaxis; Lovenox as above -GI prophylaxis; not indicated -Broderick catheter; not indicated -Nutrition; regular diet -Nicotine dependence; not required CODE STATUS-DNR/DNI ADMISSION STATUS-patient will be admitted to inpatient status, expect at least a 2 night hospital stay for evaluation and management of problems as outlined above. At the time of this admission I do not reasonably expected evaluation and management of this problem will require more than a 96 hour hospital stay. DISPOSITION-anticipate discharge to home after the hospital stay. PRIMARY CARE PROVIDER-Dr. Mckenzie
[2020-12-29] MEDS: Levofloxacin/Dextrose 5%-Water 750 MG in Premix Bag 1 BAG IV SCH (14:51)
[2020-12-29] MEDS: Apixaban 5 MG Tab PO SCH (20:43)
[2020-12-30] MEDS: Meropenem 1 GM in Sodium Chloride 0.9% 100 ML IV SCH ×3 (01:17→17:29)
[2020-12-30] MEDS: Albuterol/Ipratropium 3.0-0.5 MG/3 ML Neb Soln NEB SCH ×4 (06:57→20:36)
[2020-12-30] MEDS: Apixaban 5 MG Tab PO SCH ×2 (09:30→20:36)
--- NOTE | 2020-12-30 10:17 | PCM.PN ---
- General Info Date of Service: 12/30/20 Subjective Update: Mr. Blanco has unfortunately experienced further deterioration in respiratory status with increased shortness of breath and hypoxia. Vital signs have otherwise remained stable and he has been afebrile. Denies symptoms of chest pain or pressure. No evidence of significant fluid overload or congestive heart failure. Functional Status: Reports: Tolerating Diet, Urinating. Denies: Ambulating - Review of Systems General: Reports: Weakness, Fatigue, Malaise. Denies: Fever, Chills Pulmonary: Reports: Shortness of Breath. Denies: Pleuritic Chest Pain, Cough, Sputum, Hemoptysis, Wheezing Cardiovascular: Reports: Dyspnea on Exertion. Denies: Chest Pain, Palpitations, Orthopnea, PND, Edema, Lightheadedness Gastrointestinal: Reports: No Symptoms Genitourinary: Reports: No Symptoms - Patient Data Vitals - Most Recent: Last Vital Signs Temp 95.8 F L 12/30/20 07:00 Pulse 87 12/30/20 07:00 Resp 20 12/30/20 07:00 BP 128/70 12/30/20 07:00 Pulse Ox 88 L 12/30/20 07:35 Weight - Most Recent: 198 lb 13.711 oz I&O - Last 24 Hours: Intake & Output 12/29/20 12/30/20 12/30/20 22:59 06:59 14:59 Intake Total 400 100 Output Total 1450 500 825 Balance -1050 400 825 Lab Results Last 24 Hours: Laboratory Results - last 24 hr 12/29/20 12/30/20 12/30/20 Range/Units 16:15 05:00 05:02 WBC 9.7 (4.5-11.0) K/uL RBC 3.49 L (4.30-5.90) M/uL Hgb 11.1 L (12.0-15.0) g/dL Hct 33.1 L (40.0-54.0) % MCV 95 (80-98) fL MCH 32 H (27-31) pg MCHC 34 (32-36) % Plt Count 196 (150-400) K/uL Neut % (Auto) 73.2 H (36-66) % Lymph % (Auto) 17.5 L (24-44) % [place] % (Auto) 9.1 H (2-6) % Eos % (Auto) 0.0 L (2-4) % Baso % (Auto) 0.2 (0-1) % Sodium 139 L (140-148) mmol/L Potassium 4.6 (3.6-5.2) mmol/L Chloride 103 (100-108) mmol/L Carbon Dioxide 31 (21-32) mmol/L Anion Gap 9.6 (5.0-14.0) mmol/L BUN 20 H (7-18) mg/dL Creatinine 0.9 0.8 (0.8-1.3) mg/dL Est Cr Clr Drug Dosing 76.79 86.39 mL/min Estimated GFR (MDRD) > 60 > 60 (>60) Glucose 108 H (74-106) mg/dL Calcium 8.3 L (8.5-10.1) mg/dL Vancomycin Trough 11.6 (10.0-20.0) ug/mL Paul Results Last 24 Hours: Microbiology 12/27/20 09:12 Aerobic Blood Culture - Preliminary Blood - Arm, Left NO GROWTH AFTER 3 DAYS Anaerobic Blood Culture - Preliminary NO GROWTH AFTER 3 DAYS 12/27/20 09:21 Aerobic Blood Culture - Preliminary Blood - Arm, Right NO GROWTH AFTER 3 DAYS Anaerobic Blood Culture - Preliminary NO GROWTH AFTER 3 DAYS Med Orders - Current: Current Medications Acetaminophen (Acetaminophen 325 Mg Tab) 650 mg PO Q4H PRN PRN Reason: Pain (Mild 1-3)/fever Hydrocodone Bitart/Acetaminophen (Acetaminophen/Hydrocodone 325-5 Mg Tab) 1 tab PO Q4H PRN PRN Reason: Pain (moderate 4-6) Albuterol (Albuterol 0.083% 2.5 Mg/3 Ml Neb Soln) 2.5 mg NEB Q4H PRN PRN Reason: Shortness Of Breath/wheezing Albuterol/Ipratropium (Albuterol/Ipratropium 3.0-0.5 Mg/3 Ml Neb Soln) 3 ml NEB QIDRT [facility] Last Admin: 12/30/20 06:57 Dose: 3 ml Documented by: Apixaban (Apixaban 5 Mg Tab) 10 mg PO Q12H [facility] Last Admin: 12/29/20 20:43 Dose: 10 mg Documented by: Levofloxacin/Dextrose 750 mg/ (Premix) 150 mls @ 100 mls/hr IV Q24H [facility] Last Admin: 12/29/20 14:51 Dose: 100 mls/hr Documented by: Meropenem 1 gm/ Sodium (Chloride) 100 mls @ 200 mls/hr IV Q8H [facility] Last Admin: 12/30/20 01:17 Dose: 200 mls/hr Documented by: Methylprednisolone Sodium Succinate (Methylprednisolone Sodium Succinate 40 Mg/1 Ml Sdv) 40 mg IVPUSH DAILY [facility] Last Admin: 12/29/20 08:03 Dose: 40 mg Documented by: Ondansetron HCl (Ondansetron 4 Mg/2 Ml Sdv) 4 mg IV Q4H PRN PRN Reason: Nausea/Vomiting Polyethylene Glycol (Polyethylene Glycol 3350 Powder 17 Gm Packet) 17 gm PO DAILY PRN PRN Reason: Constipation Sodium Chloride (Sodium Chloride 0.9% 10 Ml Syringe) 10 ml FLUSH ASDIRECTED PRN PRN Reason: Keep Vein Open Discontinued Medications Enoxaparin Sodium (Enoxaparin 100 Mg/1 Ml Syringe) 100 mg SUBCUT DAILY [facility] Last Admin: 12/27/20 15:02 Dose: Not Given Documented by: Enoxaparin Sodium (Enoxaparin 100 Mg/1 Ml Syringe) 100 mg SUBCUT Q12H [facility] Last Admin: 12/29/20 02:46 Dose: 100 mg Documented by: Ceftriaxone Sodium 2 gm/ (Sodium Chloride) 50 mls @ 100 mls/hr IV ONETIME ONE Stop: 12/27/20 09:12 Last Admin: 12/27/20 09:25 Dose: 100 mls/hr Documented by: Sodium Chloride (Normal Saline) 90 mls @ 3 mls/sec IV ONETIME ONE Stop: 12/27/20 10:30 Last Admin: 12/27/20 10:45 Dose: 4 mls/sec Documented by: Sodium Chloride (Normal Saline) 1,000 mls @ 125 mls/hr IV ASDIRECTED [facility] Last Admin: 12/28/20 02:15 Dose: 125 mls/hr Documented by: Vancomycin HCl 1.8 gm/ Sodium (Chloride) 250 mls @ 166.667 mls/hr IV ONETIME ONE Stop: 12/27/20 17:59 Last Admin: 12/27/20 16:56 Dose: 166.667 mls/hr Documented by: Vancomycin HCl 1.4 gm/ Sodium (Chloride) 250 mls @ 166.667 mls/hr IV Q12H [facility] Last Admin: 12/29/20 03:40 Dose: 166.667 mls/hr Documented by: Iopamidol (Iopamidol 755 Mg/Ml 100 Ml Bottle) 85 ml IV . DIRECTED [facility] Last Admin: 12/27/20 10:45 Dose: 85 ml Documented by: Methylprednisolone Sodium Succinate (Methylprednisolone Sodium Succinate 125 Mg/2 Ml Sdv) 125 mg IVPUSH ONETIME ONE Stop: 12/27/20 08:44 Last Admin: 12/27/20 09:21 Dose: 125 mg Documented by: Sodium Chloride (Sodium Chloride 0.9% 10 Ml Syringe) 10 ml FLUSH ONETIME PRN PRN Reason: PER RADIOLOGY PROTOCOL Last Admin: 12/27/20 10:45 Dose: 10 ml Documented by: Vancomycin HCl (Vancomycin 1 Gm Sdv) 1 gm IV .PHARMACY TO DOSE VEE Stop: 12/27/20 18:00 - Exam Quality Assessment: Supplemental Oxygen, DVT Prophylaxis General: Alert, Oriented, Cooperative, Moderate Distress Lungs: Normal Respiratory Effort, Decreased Breath Sounds. No: Crackles, Rales, Rhonchi, Wheezing Cardiovascular: Regular Rate, Regular Rhythm, No Murmurs GI/Abdominal Exam: Soft, Non-Tender, No Organomegaly, No Distention Extremities: Non-Tender, No Pedal Edema - Patient Data Lab Results Last 24 hrs: Laboratory Results - last 24 hr 12/29/20 12/30/20 12/30/20 Range/Units 16:15 05:00 05:02 WBC 9.7 (4.5-11.0) K/uL RBC 3.49 L (4.30-5.90) M/uL Hgb 11.1 L (12.0-15.0) g/dL Hct 33.1 L (40.0-54.0) % MCV 95 (80-98) fL MCH 32 H (27-31) pg MCHC 34 (32-36) % Plt Count 196 (150-400) K/uL Neut % (Auto) 73.2 H (36-66) % Lymph % (Auto) 17.5 L (24-44) % [place] % (Auto) 9.1 H (2-6) % Eos % (Auto) 0.0 L (2-4) % Baso % (Auto) 0.2 (0-1) % Sodium 139 L (140-148) mmol/L Potassium 4.6 (3.6-5.2) mmol/L Chloride 103 (100-108) mmol/L Carbon Dioxide 31 (21-32) mmol/L Anion Gap 9.6 (5.0-14.0) mmol/L BUN 20 H (7-18) mg/dL Creatinine 0.9 0.8 (0.8-1.3) mg/dL Est Cr Clr Drug Dosing 76.79 86.39 mL/min Estimated GFR (MDRD) > 60 > 60 (>60) Glucose 108 H (74-106) mg/dL Calcium 8.3 L (8.5-10.1) mg/dL Vancomycin Trough 11.6 (10.0-20.0) ug/mL Result Diagrams: 12/30/20 05:02 12/30/20 05:00 Paul Results Last 24 hrs: Microbiology 12/27/20 09:12 Aerobic Blood Culture - Preliminary Blood - Arm, Left NO GROWTH AFTER 3 DAYS Anaerobic Blood Culture - Preliminary NO GROWTH AFTER 3 DAYS 12/27/20 09:21 Aerobic Blood Culture - Preliminary Blood - Arm, Right NO GROWTH AFTER 3 DAYS Anaerobic Blood Culture - Preliminary NO GROWTH AFTER 3 DAYS Sepsis Event Note - Evaluation Sepsis Screening Result: No Definite Risk - Focused Exam Vital Signs: Vital Signs Temp Temp Pulse Resp BP Pulse Ox 12/30/20 07:35 88 L 12/30/20 07:00 95.8 F L 87 20 128/70 86 L 12/30/20 06:57 79 12/30/20 03:46 97.0 F 88 18 145/79 H 94 L 12/30/20 02:00 84 18 95 12/30/20 01:17 97 12/29/20 22:44 97.6 F 88 18 143/93 H 92 L - Problem List Review Problem List Initiated/Reviewed/Updated: Yes - My Orders Last 24 Hours: My Active Orders 12/29/20 21:00 Apixaban [Eliquis] 10 mg PO Q12H 12/30/20 09:45 Chest 1V Frontal [CR] Stat 12/30/20 10:09 PRO B-TYPE NATRIUR PEPT,BNPPRO [CHEM] Stat TROPONIN I [CHEM] Stat 12/30/20 10:10 BLOOD GAS ARTERIAL [BG] Stat 12/31/20 05:00 CBC WITH AUTO DIFF [HEME] Timed COMPREHENSIVE METABOLIC PN,CMP [CHEM] Timed 12/31/20 05:11 CRP [C-REACTIVE PROTEIN] [CHEM] AM D Dimer [D-DIMER QUANTITATIVE] [COAG] AM - Plan Plan:: ASSESSMENT AND PLAN PNEUMONIA-suspect bacterial pneumonia complicating recent COVID-19 infection. Chest x-ray and CT scan show ongoing infiltrates related to recent COVID-[address] scan does document areas of increased consolidation, suspicious for new infection. Blood cultures have been negative -Broad-spectrum IV antibiotic therapy; meropenem, and levofloxacin, pending further culture results PULMONARY EMBOLI-CT scan also shows evidence of subsegmental pulmonary emboli likely contributing to current hypoxia -Discontinue Lovenox -Begin Eliquis today HYPOXIC RESPIRATORY FAILURE-likely multifactorial related to recent COVID-19 infection with residual inflammation, bacterial pneumonia, and pulmonary emboli. Increased shortness of breath and hypoxia over the last 24 hours -Follow-up chest x-ray -Troponin, BNP, ABGs -Echocardiogram when available on Saturday, January 02 -Supplemental oxygen as needed -Nebulizer therapy with albuterol and DuoNebs ADRENAL INSUFFICIENCY-recent therapy with Decadron for COVID-19 infection. He did receive a tapering dose of Decadron but is still likely experiencing some renal insufficiency especially under the distress of increased hypoxia. -Solu-Medrol 40 mg IV daily MAINTENANCE ISSUES -DVT prophylaxis; Lovenox as above -GI prophylaxis; not indicated -Broderick catheter; not indicated -Nutrition; regular diet -Nicotine dependence; not required CODE STATUS-DNR/DNI ADMISSION STATUS-patient will be admitted to inpatient status, expect at least a 2 night hospital stay for evaluation and management of problems as outlined above. At the time of this admission I do not reasonably expected evaluation and management of this problem will require more than a 96 hour hospital stay. DISPOSITION-anticipate discharge to home after the hospital stay. PRIMARY CARE PROVIDER-Dr. Mckenzie
[2020-12-30] MEDS ORDERED: Furosemide 20 MG/2 ML VIAL IVPUSH ONE (10:30)
[2020-12-30] MEDS: methylPREDNISolone Sodium Succinate 40 MG/1 ML SDV IVPUSH SCH (11:27)
--- NOTE | 2020-12-30 11:30 | CR ---
CHEST: Portable 12/30/2020 and 1016 A CLINICAL HISTORY:Increasing dyspnea and hypoxia COMPARISON:12/27/2020 FINDINGS: Patient has diffuse bilateral pulmonary infiltrates. Configuration is similar to the prior study.. Heart size and pulmonary vascularity are normal. There are atherosclerotic changes in the aorta. Impression: Persistent diffuse bilateral pulmonary infiltrates similar to prior study
[2020-12-30] MEDS: Levofloxacin/Dextrose 5%-Water 750 MG in Premix Bag 1 BAG IV SCH (13:33)
[2020-12-31] MEDS: Meropenem 1 GM in Sodium Chloride 0.9% 100 ML IV SCH ×3 (02:26→17:10)
[2020-12-31] MEDS: Albuterol/Ipratropium 3.0-0.5 MG/3 ML Neb Soln NEB SCH ×4 (07:00→20:07)
[2020-12-31] MEDS: Apixaban 5 MG Tab PO SCH ×2 (08:36→20:07)
[2020-12-31] MEDS: methylPREDNISolone Sodium Succinate 40 MG/1 ML SDV IVPUSH SCH (08:37)
[2020-12-31] MEDS: Levofloxacin/Dextrose 5%-Water 750 MG in Premix Bag 1 BAG IV SCH (13:53)
--- NOTE | 2020-12-31 14:06 | PCM.PN ---
- General Info Date of Service: 12/31/20 Subjective Update: Mr. Blanco continues to experience shortness of breath with minimal activity and has required high flow oxygen to maintain adequate oxygenation. He otherwise reports that he is fairly comfortable and denies significant pain. Vital signs have been stable and he has remained afebrile. Functional Status: Reports: Tolerating Diet, Urinating - Review of Systems General: Reports: Weakness, Fatigue. Denies: Fever, Chills Pulmonary: Reports: Shortness of Breath. Denies: Pleuritic Chest Pain, Cough, Sputum, Hemoptysis, Wheezing Cardiovascular: Reports: Dyspnea on Exertion. Denies: Chest Pain, Palpitations, Orthopnea, PND, Edema, Lightheadedness Gastrointestinal: Reports: No Symptoms Genitourinary: Reports: No Symptoms - Patient Data Vitals - Most Recent: Last Vital Signs Temp 98.0 F 12/31/20 10:38 Pulse 86 12/31/20 10:41 Resp 18 12/31/20 10:38 BP 114/69 12/31/20 10:38 Pulse Ox 95 12/31/20 13:00 Weight - Most Recent: 185 lb 3.2 oz I&O - Last 24 Hours: Intake & Output 12/30/20 12/31/20 12/31/20 22:59 06:59 14:59 Intake Total 360 100 560 Output Total 1550 800 500 Balance -1190 -700 60 Lab Results Last 24 Hours: Laboratory Results - last 24 hr 12/31/20 12/31/20 12/31/20 Range/Units 05:45 05:45 05:45 WBC 7.7 (4.5-11.0) K/uL RBC 3.66 L (4.30-5.90) M/uL Hgb 11.5 L (12.0-15.0) g/dL Hct 35.0 L (40.0-54.0) % MCV 96 (80-98) fL MCH 31 (27-31) pg MCHC 33 (32-36) % Plt Count 188 (150-400) K/uL Neut % (Auto) 70.1 H (36-66) % Lymph % (Auto) 21.5 L (24-44) % [place] % (Auto) 8.1 H (2-6) % Eos % (Auto) 0.0 L (2-4) % Baso % (Auto) 0.3 (0-1) % D-Dimer, Quantitative 50051.54 H (0.0-500.0) ng/mL Sodium 138 L (140-148) mmol/L Potassium 4.3 (3.6-5.2) mmol/L Chloride 101 (100-108) mmol/L Carbon Dioxide 30 (21-32) mmol/L Anion Gap 11.3 (5.0-14.0) mmol/L BUN 19 H (7-18) mg/dL Creatinine 0.8 (0.8-1.3) mg/dL Est Cr Clr Drug Dosing 86.39 mL/min Estimated GFR (MDRD) > 60 (>60) Glucose 107 H (74-106) mg/dL Calcium 8.4 L (8.5-10.1) mg/dL Total Bilirubin 0.4 (0.2-1.0) mg/dL AST 28 (15-37) U/L ALT 53 (12-78) U/L Alkaline Phosphatase 128 H (46-116) U/L C-Reactive Protein (0.0-0.3) mg/dL Total Protein 6.0 L (6.4-8.2) g/dL Albumin 2.1 L (3.4-5.0) g/dL Globulin 3.9 H (2.3-3.5) g/dL Albumin/Globulin Ratio 0.5 L (1.2-2.2) 12/31/20 Range/Units 05:45 WBC (4.5-11.0) K/uL RBC (4.30-5.90) M/uL Hgb (12.0-15.0) g/dL Hct (40.0-54.0) % MCV (80-98) fL MCH (27-31) pg MCHC (32-36) % Plt Count (150-400) K/uL Neut % (Auto) (36-66) % Lymph % (Auto) (24-44) % [place] % (Auto) (2-6) % Eos % (Auto) (2-4) % Baso % (Auto) (0-1) % D-Dimer, Quantitative (0.0-500.0) ng/mL Sodium (140-148) mmol/L Potassium (3.6-5.2) mmol/L Chloride (100-108) mmol/L Carbon Dioxide (21-32) mmol/L Anion Gap (5.0-14.0) mmol/L BUN (7-18) mg/dL Creatinine (0.8-1.3) mg/dL Est Cr Clr Drug Dosing mL/min Estimated GFR (MDRD) (>60) Glucose (74-106) mg/dL Calcium (8.5-10.1) mg/dL Total Bilirubin (0.2-1.0) mg/dL AST (15-37) U/L ALT (12-78) U/L Alkaline Phosphatase (46-116) U/L C-Reactive Protein 6.84 H (0.0-0.3) mg/dL Total Protein (6.4-8.2) g/dL Albumin (3.4-5.0) g/dL Globulin (2.3-3.5) g/dL Albumin/Globulin Ratio (1.2-2.2) Paul Results Last 24 Hours: Microbiology 12/27/20 09:12 Aerobic Blood Culture - Preliminary Blood - Arm, Left NO GROWTH AFTER 4 DAYS Anaerobic Blood Culture - Preliminary NO GROWTH AFTER 4 DAYS 12/27/20 09:21 Aerobic Blood Culture - Preliminary Blood - Arm, Right NO GROWTH AFTER 4 DAYS Anaerobic Blood Culture - Preliminary NO GROWTH AFTER 4 DAYS Med Orders - Current: Current Medications Acetaminophen (Acetaminophen 325 Mg Tab) 650 mg PO Q4H PRN PRN Reason: Pain (Mild 1-3)/fever Hydrocodone Bitart/Acetaminophen (Acetaminophen/Hydrocodone 325-5 Mg Tab) 1 tab PO Q4H PRN PRN Reason: Pain (moderate 4-6) Albuterol (Albuterol 0.083% 2.5 Mg/3 Ml Neb Soln) 2.5 mg NEB Q4H PRN PRN Reason: Shortness Of Breath/wheezing Albuterol/Ipratropium (Albuterol/Ipratropium 3.0-0.5 Mg/3 Ml Neb Soln) 3 ml NEB QIDRT [facility] Last Admin: 12/31/20 10:41 Dose: 3 ml Documented by: Apixaban (Apixaban 5 Mg Tab) 10 mg PO Q12H [facility] Last Admin: 12/31/20 08:36 Dose: 10 mg Documented by: Levofloxacin/Dextrose 750 mg/ (Premix) 150 mls @ 100 mls/hr IV Q24H [facility] Last Admin: 12/31/20 13:53 Dose: 100 mls/hr Documented by: Meropenem 1 gm/ Sodium (Chloride) 100 mls @ 200 mls/hr IV Q8H [facility] Last Admin: 12/31/20 10:44 Dose: 200 mls/hr Documented by: Methylprednisolone Sodium Succinate (Methylprednisolone Sodium Succinate 40 Mg/1 Ml Sdv) 40 mg IVPUSH DAILY [facility] Last Admin: 12/31/20 08:37 Dose: 40 mg Documented by: Ondansetron HCl (Ondansetron 4 Mg/2 Ml Sdv) 4 mg IV Q4H PRN PRN Reason: Nausea/Vomiting Polyethylene Glycol (Polyethylene Glycol 3350 Powder 17 Gm Packet) 17 gm PO DAILY PRN PRN Reason: Constipation Sodium Chloride (Sodium Chloride 0.9% 10 Ml Syringe) 10 ml FLUSH ASDIRECTED PRN PRN Reason: Keep Vein Open Discontinued Medications Enoxaparin Sodium (Enoxaparin 100 Mg/1 Ml Syringe) 100 mg SUBCUT DAILY [facility] Last Admin: 12/27/20 15:02 Dose: Not Given Documented by: Enoxaparin Sodium (Enoxaparin 100 Mg/1 Ml Syringe) 100 mg SUBCUT Q12H [facility] Last Admin: 12/29/20 02:46 Dose: 100 mg Documented by: Furosemide (Furosemide 20 Mg/2 Ml Vial) 20 mg IVPUSH NOW ONE Stop: 12/30/20 10:31 Last Admin: 12/30/20 11:30 Dose: 20 mg Documented by: Ceftriaxone Sodium 2 gm/ (Sodium Chloride) 50 mls @ 100 mls/hr IV ONETIME ONE Stop: 12/27/20 09:12 Last Admin: 12/27/20 09:25 Dose: 100 mls/hr Documented by: Sodium Chloride (Normal Saline) 90 mls @ 3 mls/sec IV ONETIME ONE Stop: 12/27/20 10:30 Last Admin: 12/27/20 10:45 Dose: 4 mls/sec Documented by: Sodium Chloride (Normal Saline) 1,000 mls @ 125 mls/hr IV ASDIRECTED [facility] Last Admin: 12/28/20 02:15 Dose: 125 mls/hr Documented by: Vancomycin HCl 1.8 gm/ Sodium (Chloride) 250 mls @ 166.667 mls/hr IV ONETIME ONE Stop: 12/27/20 17:59 Last Admin: 12/27/20 16:56 Dose: 166.667 mls/hr Documented by: Vancomycin HCl 1.4 gm/ Sodium (Chloride) 250 mls @ 166.667 mls/hr IV Q12H [facility] Last Admin: 12/29/20 03:40 Dose: 166.667 mls/hr Documented by: Iopamidol (Iopamidol 755 Mg/Ml 100 Ml Bottle) 85 ml IV . DIRECTED [facility] Last Admin: 12/27/20 10:45 Dose: 85 ml Documented by: Methylprednisolone Sodium Succinate (Methylprednisolone Sodium Succinate 125 Mg/2 Ml Sdv) 125 mg IVPUSH ONETIME ONE Stop: 12/27/20 08:44 Last Admin: 12/27/20 09:21 Dose: 125 mg Documented by: Sodium Chloride (Sodium Chloride 0.9% 10 Ml Syringe) 10 ml FLUSH ONETIME PRN PRN Reason: PER RADIOLOGY PROTOCOL Last Admin: 12/27/20 10:45 Dose: 10 ml Documented by: Vancomycin HCl (Vancomycin 1 Gm Sdv) 1 gm IV .PHARMACY TO DOSE [facility] Stop: 12/27/20 18:00 - Exam Quality Assessment: Supplemental Oxygen, DVT Prophylaxis General: Alert, Oriented, Cooperative, Moderate Distress Lungs: Clear to Auscultation, Normal Respiratory Effort, Decreased Breath Sounds. No: Rales, Rhonchi, Wheezing Cardiovascular: Regular Rate, Regular Rhythm, No Murmurs GI/Abdominal Exam: Soft, Non-Tender, No Organomegaly, No Distention Extremities: Non-Tender, No Pedal Edema - Patient Data Lab Results Last 24 hrs: Laboratory Results - last 24 hr 12/31/20 12/31/20 12/31/20 Range/Units 05:45 05:45 05:45 WBC 7.7 (4.5-11.0) K/uL RBC 3.66 L (4.30-5.90) M/uL Hgb 11.5 L (12.0-15.0) g/dL Hct 35.0 L (40.0-54.0) % MCV 96 (80-98) fL MCH 31 (27-31) pg MCHC 33 (32-36) % Plt Count 188 (150-400) K/uL Neut % (Auto) 70.1 H (36-66) % Lymph % (Auto) 21.5 L (24-44) % [place] % (Auto) 8.1 H (2-6) % Eos % (Auto) 0.0 L (2-4) % Baso % (Auto) 0.3 (0-1) % D-Dimer, Quantitative 18714.54 H (0.0-500.0) ng/mL Sodium 138 L (140-148) mmol/L Potassium 4.3 (3.6-5.2) mmol/L Chloride 101 (100-108) mmol/L Carbon Dioxide 30 (21-32) mmol/L Anion Gap 11.3 (5.0-14.0) mmol/L BUN 19 H (7-18) mg/dL Creatinine 0.8 (0.8-1.3) mg/dL Est Cr Clr Drug Dosing 86.39 mL/min Estimated GFR (MDRD) > 60 (>60) Glucose 107 H (74-106) mg/dL Calcium 8.4 L (8.5-10.1) mg/dL Total Bilirubin 0.4 (0.2-1.0) mg/dL AST 28 (15-37) U/L ALT 53 (12-78) U/L Alkaline Phosphatase 128 H (46-116) U/L C-Reactive Protein (0.0-0.3) mg/dL Total Protein 6.0 L (6.4-8.2) g/dL Albumin 2.1 L (3.4-5.0) g/dL Globulin 3.9 H (2.3-3.5) g/dL Albumin/Globulin Ratio 0.5 L (1.2-2.2) 12/31/20 Range/Units 05:45 WBC (4.5-11.0) K/uL RBC (4.30-5.90) M/uL Hgb (12.0-15.0) g/dL Hct (40.0-54.0) % MCV (80-98) fL MCH (27-31) pg MCHC (32-36) % Plt Count (150-400) K/uL Neut % (Auto) (36-66) % Lymph % (Auto) (24-44) % [place] % (Auto) (2-6) % Eos % (Auto) (2-4) % Baso % (Auto) (0-1) % D-Dimer, Quantitative (0.0-500.0) ng/mL Sodium (140-148) mmol/L Potassium (3.6-5.2) mmol/L Chloride (100-108) mmol/L Carbon Dioxide (21-32) mmol/L Anion Gap (5.0-14.0) mmol/L BUN (7-18) mg/dL Creatinine (0.8-1.3) mg/dL Est Cr Clr Drug Dosing mL/min Estimated GFR (MDRD) (>60) Glucose (74-106) mg/dL Calcium (8.5-10.1) mg/dL Total Bilirubin (0.2-1.0) mg/dL AST (15-37) U/L ALT (12-78) U/L Alkaline Phosphatase (46-116) U/L C-Reactive Protein 6.84 H (0.0-0.3) mg/dL Total Protein (6.4-8.2) g/dL Albumin (3.4-5.0) g/dL Globulin (2.3-3.5) g/dL Albumin/Globulin Ratio (1.2-2.2) Result Diagrams: 12/31/20 05:45 12/31/20 05:45 Paul Results Last 24 hrs: Microbiology 12/27/20 09:12 Aerobic Blood Culture - Preliminary Blood - Arm, Left NO GROWTH AFTER 4 DAYS Anaerobic Blood Culture - Preliminary NO GROWTH AFTER 4 DAYS 12/27/20 09:21 Aerobic Blood Culture - Preliminary Blood - Arm, Right NO GROWTH AFTER 4 DAYS Anaerobic Blood Culture - Preliminary NO GROWTH AFTER 4 DAYS Sepsis Event Note - Evaluation Sepsis Screening Result: No Definite Risk - Focused Exam Vital Signs: Vital Signs Temp Pulse Resp BP Pulse Ox Pulse Ox 12/31/20 13:00 95 12/31/20 10:41 86 12/31/20 10:38 98.0 F 89 18 114/69 94 L 12/31/20 08:00 92 L 12/31/20 07:17 94 L 12/31/20 07:00 97.7 F 95 20 113/61 92 L 12/31/20 03:12 97.1 F 70 22 H 125/83 92 L - Problem List Review Problem List Initiated/Reviewed/Updated: Yes - Plan Plan:: ASSESSMENT AND PLAN PNEUMONIA-suspect bacterial pneumonia complicating recent COVID-19 infection. Chest x-ray and CT scan show ongoing infiltrates related to recent COVID-[address] scan does document areas of increased consolidation, suspicious for new infection. Blood cultures have been negative -Broad-spectrum IV antibiotic therapy; meropenem, and levofloxacin, pending further culture results, plan for a total of 7 days of IV antibiotic therapy, today is day 5 PULMONARY EMBOLI-CT scan also shows evidence of subsegmental pulmonary emboli likely contributing to current hypoxia -Eliquis 10 mg p.o. twice daily x7 days, today is day 3 of 7 HYPOXIC RESPIRATORY FAILURE-likely multifactorial related to recent COVID-19 infection with residual inflammation, bacterial pneumonia, and pulmonary emboli. Increased shortness of breath and hypoxia over the last 24 hours -Follow-up chest x-ray -Troponin, BNP, ABGs -Echocardiogram when available on Saturday, January 02 -Supplemental oxygen as needed -Nebulizer therapy with albuterol and DuoNebs ADRENAL INSUFFICIENCY-recent therapy with Decadron for COVID-19 infection. He did receive a tapering dose of Decadron but is still likely experiencing some renal insufficiency especially under the distress of increased hypoxia. -Solu-Medrol 40 mg IV daily MAINTENANCE ISSUES -DVT prophylaxis; Lovenox as above -GI prophylaxis; not indicated -Broderick catheter; not indicated -Nutrition; regular diet -Nicotine dependence; not required CODE STATUS-DNR/DNI ADMISSION STATUS-patient will be admitted to inpatient status, expect at least a 2 night hospital stay for evaluation and management of problems as outlined above. At the time of this admission I do not reasonably expected evaluation and management of this problem will require more than a 96 hour hospital stay. DISPOSITION-anticipate discharge to home after the hospital stay. PRIMARY CARE PROVIDER-Dr. Mckenzie
[2021-01-01] MEDS: Meropenem 1 GM in Sodium Chloride 0.9% 100 ML IV SCH ×2 (02:31→09:18)
[2021-01-01] MEDS: Albuterol/Ipratropium 3.0-0.5 MG/3 ML Neb Soln NEB SCH ×4 (06:59→20:39)
[2021-01-01] MEDS: Apixaban 5 MG Tab PO SCH ×2 (09:13→20:39)
[2021-01-01] MEDS: methylPREDNISolone Sodium Succinate 40 MG/1 ML SDV IVPUSH SCH (09:18)
--- NOTE | 2021-01-01 10:44 | PCM.PN ---
- General Info Date of Service: 01/01/21 Subjective Update: Mr. Blanco has been stable over the last 24 hours. He continues to desaturate with activity but subjectively feels less shortness of breath. Appetite remains fairly good and he feels his energy level improving again. Continues to require high flow oxygen although levels have decreased since yesterday. Functional Status: Reports: Tolerating Diet, Urinating - Review of Systems General: Reports: Weakness, Fatigue. Denies: Fever, Chills Pulmonary: Reports: Shortness of Breath, Cough. Denies: Pleuritic Chest Pain, Sputum, Hemoptysis, Wheezing Cardiovascular: Reports: Dyspnea on Exertion. Denies: Chest Pain, Palpitations, Orthopnea, PND, Edema, Lightheadedness Gastrointestinal: Reports: No Symptoms Genitourinary: Reports: No Symptoms - Patient Data Vitals - Most Recent: Last Vital Signs Temp 95.1 F L 01/01/21 07:00 Pulse 100 01/01/21 10:34 Resp 18 01/01/21 07:00 BP 105/65 01/01/21 07:00 Pulse Ox 94 L 01/01/21 07:17 Weight - Most Recent: 186 lb 1.122 oz I&O - Last 24 Hours: Intake & Output 12/31/20 01/01/21 01/01/21 22:59 06:59 14:59 Intake Total 200 600 720 Output Total 750 550 Balance -550 50 720 Paul Results Last 24 Hours: Microbiology 12/27/20 09:21 Aerobic Blood Culture - Final Blood - Arm, Right NO GROWTH AFTER 5 DAYS Anaerobic Blood Culture - Final NO GROWTH AFTER 5 DAYS 12/27/20 09:12 Aerobic Blood Culture - Final Blood - Arm, Left NO GROWTH AFTER 5 DAYS Anaerobic Blood Culture - Final NO GROWTH AFTER 5 DAYS Med Orders - Current: Current Medications Acetaminophen (Acetaminophen 325 Mg Tab) 650 mg PO Q4H PRN PRN Reason: Pain (Mild 1-3)/fever Hydrocodone Bitart/Acetaminophen (Acetaminophen/Hydrocodone 325-5 Mg Tab) 1 tab PO Q4H PRN PRN Reason: Pain (moderate 4-6) Albuterol (Albuterol 0.083% 2.5 Mg/3 Ml Neb Soln) 2.5 mg NEB Q4H PRN PRN Reason: Shortness Of Breath/wheezing Albuterol/Ipratropium (Albuterol/Ipratropium 3.0-0.5 Mg/3 Ml Neb Soln) 3 ml NEB QIDRT [facility] Last Admin: 01/01/21 10:38 Dose: 3 ml Documented by: Apixaban (Apixaban 5 Mg Tab) 10 mg PO Q12H [facility] Last Admin: 01/01/21 09:13 Dose: 10 mg Documented by: Levofloxacin/Dextrose 750 mg/ (Premix) 150 mls @ 100 mls/hr IV Q24H [facility] Last Admin: 12/31/20 13:53 Dose: 100 mls/hr Documented by: Meropenem 1 gm/ Sodium (Chloride) 100 mls @ 200 mls/hr IV Q8H [facility] Last Admin: 01/01/21 09:18 Dose: 200 mls/hr Documented by: Methylprednisolone Sodium Succinate (Methylprednisolone Sodium Succinate 40 Mg/1 Ml Sdv) 40 mg IVPUSH DAILY [facility] Last Admin: 01/01/21 09:18 Dose: 40 mg Documented by: Ondansetron HCl (Ondansetron 4 Mg/2 Ml Sdv) 4 mg IV Q4H PRN PRN Reason: Nausea/Vomiting Polyethylene Glycol (Polyethylene Glycol 3350 Powder 17 Gm Packet) 17 gm PO D AILY PRN PRN Reason: Constipation Sodium Chloride (Sodium Chloride 0.9% 10 Ml Syringe) 10 ml FLUSH ASDIRECTED PRN PRN Reason: Keep Vein Open Discontinued Medications Enoxaparin Sodium (Enoxaparin 100 Mg/1 Ml Syringe) 100 mg SUBCUT DAILY [facility] Last Admin: 12/27/20 15:02 Dose: Not Given Documented by: Enoxaparin Sodium (Enoxaparin 100 Mg/1 Ml Syringe) 100 mg SUBCUT Q12H [facility] Last Admin: 12/29/20 02:46 Dose: 100 mg Documented by: Furosemide (Furosemide 20 Mg/2 Ml Vial) 20 mg IVPUSH NOW ONE Stop: 12/30/20 10:31 Last Admin: 12/30/20 11:30 Dose: 20 mg Documented by: Ceftriaxone Sodium 2 gm/ (Sodium Chloride) 50 mls @ 100 mls/hr IV ONETIME ONE Stop: 12/27/20 09:12 Last Admin: 12/27/20 09:25 Dose: 100 mls/hr Documented by: Sodium Chloride (Normal Saline) 90 mls @ 3 mls/sec IV ONETIME ONE Stop: 12/27/20 10:30 Last Admin: 12/27/20 10:45 Dose: 4 mls/sec Documented by: Sodium Chloride (Normal Saline) 1,000 mls @ 125 mls/hr IV ASDIRECTED [facility] Last Admin: 12/28/20 02:15 Dose: 125 mls/hr Documented by: Vancomycin HCl 1.8 gm/ Sodium (Chloride) 250 mls @ 166.667 mls/hr IV ONETIME ONE Stop: 12/27/20 17:59 Last Admin: 12/27/20 16:56 Dose: 166.667 mls/hr Documented by: Vancomycin HCl 1.4 gm/ Sodium (Chloride) 250 mls @ 166.667 mls/hr IV Q12H [facility] Last Admin: 12/29/20 03:40 Dose: 166.667 mls/hr Documented by: Iopamidol (Iopamidol 755 Mg/Ml 100 Ml Bottle) 85 ml IV . DIRECTED [facility] Last Admin: 12/27/20 10:45 Dose: 85 ml Documented by: Methylprednisolone Sodium Succinate (Methylprednisolone Sodium Succinate 125 Mg/2 Ml Sdv) 125 mg IVPUSH ONETIME ONE Stop: 12/27/20 08:44 Last Admin: 12/27/20 09:21 Dose: 125 mg Documented by: Sodium Chloride (Sodium Chloride 0.9% 10 Ml Syringe) 10 ml FLUSH ONETIME PRN PRN Reason: PER RADIOLOGY PROTOCOL Last Admin: 12/27/20 10:45 Dose: 10 ml Documented by: Vancomycin HCl (Vancomycin 1 Gm Sdv) 1 gm IV .PHARMACY TO DOSE [facility] Stop: 12/27/20 18:00 - Exam Quality Assessment: Supplemental Oxygen, DVT Prophylaxis General: Alert, Oriented, Cooperative, Moderate Distress Lungs: Clear to Auscultation, Normal Respiratory Effort, Decreased Breath Sounds. No: Rales, Rhonchi, Wheezing Cardiovascular: Regular Rate, Regular Rhythm, No Murmurs GI/Abdominal Exam: Soft, Non-Tender, No Organomegaly, No Distention Extremities: Non-Tender, No Pedal Edema - Patient Data Result Diagrams: 12/31/20 05:45 12/31/20 05:45 Paul Results Last 24 hrs: Microbiology 12/27/20 09:21 Aerobic Blood Culture - Final Blood - Arm, Right NO GROWTH AFTER 5 DAYS Anaerobic Blood Culture - Final NO GROWTH AFTER 5 DAYS 12/27/20 09:12 Aerobic Blood Culture - Final Blood - Arm, Left NO GROWTH AFTER 5 DAYS Anaerobic Blood Culture - Final NO GROWTH AFTER 5 DAYS Sepsis Event Note - Evaluation Sepsis Screening Result: No Definite Risk - Focused Exam Vital Signs: Vital Signs Temp Temp Pulse Resp BP Pulse Ox 01/01/21 10:34 100 01/01/21 07:17 94 L 01/01/21 07:00 95.1 F L 81 18 105/65 91 L 01/01/21 03:26 96.7 F L 75 18 140/83 97 01/01/21 01:07 98 - Problem List Review Problem List Initiated/Reviewed/Updated: Yes - My Orders Last 24 Hours: My Active Orders 01/01/21 10:39 Furosemide [Lasix] 20 mg IVPUSH NOW ONE 01/02/21 05:00 CBC WITH AUTO DIFF [HEME] Timed COMPREHENSIVE METABOLIC PN,CMP [CHEM] Timed 01/02/21 05:11 CRP [C-REACTIVE PROTEIN] [CHEM] AM - Plan Plan:: ASSESSMENT AND PLAN PNEUMONIA-suspect bacterial pneumonia complicating recent COVID-19 infection. Chest x-ray and CT scan show ongoing infiltrates related to recent COVID-[address] scan does document areas of increased consolidation, suspicious for new infection. Blood cultures have been negative -IV antibiotic therapy; levofloxacin, pending further culture results, plan for a total of 7 days of IV antibiotic therapy, today is day 6 PULMONARY EMBOLI-CT scan also shows evidence of subsegmental pulmonary emboli likely contributing to current hypoxia -Eliquis 10 mg p.o. twice daily x7 days, today is day 4 of 7 HYPOXIC RESPIRATORY FAILURE-likely multifactorial related to recent COVID-19 infection with residual inflammation, bacterial pneumonia, and pulmonary emboli. Modest improvement in oxygenation and shortness of breath over the past 24 hours -Echocardiogram when available on Saturday, January 02 -Supplemental oxygen as needed -Nebulizer therapy with albuterol and DuoNebs ADRENAL INSUFFICIENCY-recent therapy with Decadron for COVID-19 infection. He did receive a tapering dose of Decadron but is still likely experiencing some renal insufficiency especially under the distress of increased hypoxia. -Solu-Medrol 40 mg IV daily MAINTENANCE ISSUES -DVT prophylaxis; Lovenox as above -GI prophylaxis; not indicated -Broderick catheter; not indicated -Nutrition; regular diet -Nicotine dependence; not required CODE STATUS-DNR/DNI ADMISSION STATUS-patient will be admitted to inpatient status, expect at least a 2 night hospital stay for evaluation and management of problems as outlined above. At the time of this admission I do not reasonably expected evaluation and management of this problem will require more than a 96 hour hospital stay. DISPOSITION-anticipate discharge to home after the hospital stay. PRIMARY CARE PROVIDER-Dr. Mckenzie
[2021-01-01] MEDS ORDERED: Furosemide 20 MG/2 ML VIAL IVPUSH ONE (10:45)
[2021-01-01] MEDS: Levofloxacin/Dextrose 5%-Water 750 MG in Premix Bag 1 BAG IV SCH (14:12)
[2021-01-02] MEDS: Albuterol/Ipratropium 3.0-0.5 MG/3 ML Neb Soln NEB SCH ×4 (07:30→20:36)
[2021-01-02] MEDS: methylPREDNISolone Sodium Succinate 40 MG/1 ML SDV IVPUSH SCH (09:22)
[2021-01-02] MEDS: Apixaban 5 MG Tab PO SCH ×2 (09:22→20:35)
--- NOTE | 2021-01-02 11:33 | PCM.PN ---
- General Info Date of Service: 01/02/21 Subjective Update: No acute events overnight. Patient feels a little weak. He gets short of breath with activity but is comfortable at rest. No nausea or abdominal pain. Appetite is good. Still requiring supplemental oxygen replacement via heated/high flow nasal cannula. Oxygenation is stable to improving. CRP is down to below 2 today. Functional Status: Reports: Pain Controlled, Tolerating Diet - Review of Systems General: Reports: Weakness Pulmonary: Reports: Shortness of Breath - Patient Data Vitals - Most Recent: Last Vital Signs Temp 36.1 C 01/02/21 08:26 Pulse 80 01/02/21 10:49 Resp 16 01/02/21 08:26 BP 117/76 01/02/21 08:26 Pulse Ox 89 L 01/02/21 08:26 Weight - Most Recent: 83.7 kg I&O - Last 24 Hours: Intake & Output 01/01/21 01/02/21 01/02/21 22:59 06:59 14:59 Intake Total 480 Output Total 800 350 Balance -320 -350 Lab Results Last 24 Hours: Laboratory Results - last 24 hr 01/02/21 01/02/21 01/02/21 Range/Units 05:04 05:04 05:04 WBC 10.3 (4.5-11.0) K/uL RBC 3.92 L (4.30-5.90) M/uL Hgb 12.3 (12.0-15.0) g/dL Hct 37.4 L (40.0-54.0) % MCV 95 (80-98) fL MCH 31 (27-31) pg MCHC 33 (32-36) % Plt Count 233 (150-400) K/uL Add Manual Diff Yes Neutrophils % (Manual) 65 (36-66) % Lymphocytes % (Manual) 29 (24-44) % Monocytes % (Manual) 6 (2-6) % Sodium 137 L (140-148) mmol/L Potassium 4.5 (3.6-5.2) mmol/L Chloride 101 (100-108) mmol/L Carbon Dioxide 33 H (21-32) mmol/L Anion Gap 7.5 (5.0-14.0) mmol/L BUN 28 H (7-18) mg/dL Creatinine 0.8 (0.8-1.3) mg/dL Est Cr Clr Drug Dosing 86.39 mL/min Estimated GFR (MDRD) > 60 (>60) Glucose 105 (74-106) mg/dL Calcium 8.7 (8.5-10.1) mg/dL Total Bilirubin 0.3 (0.2-1.0) mg/dL AST 27 (15-37) U/L ALT 66 (12-78) U/L Alkaline Phosphatase 137 H (46-116) U/L C-Reactive Protein 1.95 H (0.0-0.3) mg/dL Total Protein 6.1 L (6.4-8.2) g/dL Albumin 2.3 L (3.4-5.0) g/dL Globulin 3.8 H (2.3-3.5) g/dL Albumin/Globulin Ratio 0.6 L (1.2-2.2) Paul Results Last 24 Hours: Microbiology 12/27/20 09:21 Aerobic Blood Culture - Final Blood - Arm, Right NO GROWTH AFTER 5 DAYS Anaerobic Blood Culture - Final NO GROWTH AFTER 5 DAYS 12/27/20 09:12 Aerobic Blood Culture - Final Blood - Arm, Left NO GROWTH AFTER 5 DAYS Anaerobic Blood Culture - Final NO GROWTH AFTER 5 DAYS Med Orders - Current: Current Medications Acetaminophen (Acetaminophen 325 Mg Tab) 650 mg PO Q4H PRN PRN Reason: Pain (Mild 1-3)/fever Hydrocodone Bitart/Acetaminophen (Acetaminophen/Hydrocodone 325-5 Mg Tab) 1 tab PO Q4H PRN PRN Reason: Pain (moderate 4-6) Albuterol (Albuterol 0.083% 2.5 Mg/3 Ml Neb Soln) 2.5 mg NEB Q4H PRN PRN Reason: Shortness Of Breath/wheezing Albuterol/Ipratropium (Albuterol/Ipratropium 3.0-0.5 Mg/3 Ml Neb Soln) 3 ml NEB QIDRT [facility] Last Admin: 01/02/21 10:47 Dose: 3 ml Documented by: Apixaban (Apixaban 5 Mg Tab) 10 mg PO Q12H [facility] Last Admin: 01/02/21 09:22 Dose: 10 mg Documented by: Levofloxacin/Dextrose 750 mg/ (Premix) 150 mls @ 100 mls/hr IV Q24H [facility] [place] Last Admin: 01/01/21 14:12 Dose: 100 mls/hr Documented by: Methylprednisolone Sodium Succinate (Methylprednisolone Sodium Succinate 40 Mg/1 Ml Sdv) 40 mg IVPUSH DAILY [facility] Last Admin: 01/02/21 09:22 Dose: 40 mg Documented by: Ondansetron HCl (Ondansetron 4 Mg/2 Ml Sdv) 4 mg IV Q4H PRN PRN Reason: Nausea/Vomiting Polyethylene Glycol (Polyethylene Glycol 3350 Powder 17 Gm Packet) 17 gm PO DAILY PRN PRN Reason: Constipation Sodium Chloride (Sodium Chloride 0.9% 10 Ml Syringe) 10 ml FLUSH ASDIRECTED PRN PRN Reason: Keep Vein Open Discontinued Medications Enoxaparin Sodium (Enoxaparin 100 Mg/1 Ml Syringe) 100 mg SUBCUT DAILY [facility] Last Admin: 12/27/20 15:02 Dose: Not Given Documented by: Enoxaparin Sodium (Enoxaparin 100 Mg/1 Ml Syringe) 100 mg SUBCUT Q12H [facility] Last Admin: 12/29/20 02:46 Dose: 100 mg Documented by: Furosemide (Furosemide 20 Mg/2 Ml Vial) 20 mg IVPUSH NOW ONE Stop: 12/30/20 10:31 Last Admin: 12/30/20 11:30 Dose: 20 mg Documented by: Furosemide (Furosemide 20 Mg/2 Ml Vial) 20 mg IVPUSH NOW ONE Stop: 01/01/21 10:46 Last Admin: 01/01/21 11:10 Dose: 20 mg Documented by: Ceftriaxone Sodium 2 gm/ (Sodium Chloride) 50 mls @ 100 mls/hr IV ONETIME ONE Stop: 12/27/20 09:12 Last Admin: 12/27/20 09:25 Dose: 100 mls/hr Documented by: Sodium Chloride (Normal Saline) 90 mls @ 3 mls/sec IV ONETIME ONE Stop: 12/27/20 10:30 Last Admin: 12/27/20 10:45 Dose: 4 mls/sec Documented by: Sodium Chloride (Normal Saline) 1,000 mls @ 125 mls/hr IV ASDIRECTED [facility] Last Admin: 12/28/20 02:15 Dose: 125 mls/hr Documented by: Vancomycin HCl 1.8 gm/ Sodium (Chloride) 250 mls @ 166.667 mls/hr IV ONETIME ONE Stop: 12/27/20 17:59 Last Admin: 12/27/20 16:56 Dose: 166.667 mls/hr Documented by: Vancomycin HCl 1.4 gm/ Sodium (Chloride) 250 mls @ 166.667 mls/hr IV Q12H [facility] [place] Last Admin: 12/29/20 03:40 Dose: 166.667 mls/hr Documented by: Meropenem 1 gm/ Sodium (Chloride) 100 mls @ 200 mls/hr IV Q8H [facility] Last Admin: 01/01/21 09:18 Dose: 200 mls/hr Documented by: Iopamidol (Iopamidol 755 Mg/Ml 100 Ml Bottle) 85 ml IV . DIRECTED [facility] Last Admin: 12/27/20 10:45 Dose: 85 ml Documented by: Methylprednisolone Sodium Succinate (Methylprednisolone Sodium Succinate 125 Mg/2 Ml Sdv) 125 mg IVPUSH ONETIME ONE Stop: 12/27/20 08:44 Last Admin: 12/27/20 09:21 Dose: 125 mg Documented by: Sodium Chloride (Sodium Chloride 0.9% 10 Ml Syringe) 10 ml FLUSH ONETIME PRN PRN Reason: PER RADIOLOGY PROTOCOL Last Admin: 12/27/20 10:45 Dose: 10 ml Documented by: Vancomycin HCl (Vancomycin 1 Gm Sdv) 1 gm IV .PHARMACY TO DOSE VEE Stop: 12/27/20 18:00 - Exam Quality Assessment: Supplemental Oxygen General: Alert, Oriented, Cooperative, No Acute Distress Lungs: Normal Respiratory Effort, Decreased Breath Sounds (mild both bases) Cardiovascular: Regular Rate, Regular Rhythm GI/Abdominal Exam: Soft, No Distention Extremities: No Pedal Edema. No: Increased Warmth Skin: Warm, Dry Psy/Mental Status: Alert, Normal Affect - Patient Data Lab Results Last 24 hrs: Laboratory Results - last 24 hr 01/02/21 01/02/21 01/02/21 Range/Units 05:04 05:04 05:04 WBC 10.3 (4.5-11.0) K/uL RBC 3.92 L (4.30-5.90) M/uL Hgb 12.3 (12.0-15.0) g/dL Hct 37.4 L (40.0-54.0) % MCV 95 (80-98) fL MCH 31 (27-31) pg MCHC 33 (32-36) % Plt Count 233 (150-400) K/uL Add Manual Diff Yes Neutrophils % (Manual) 65 (36-66) % Lymphocytes % (Manual) 29 (24-44) % Monocytes % (Manual) 6 (2-6) % Sodium 137 L (140-148) mmol/L Potassium 4.5 (3.6-5.2) mmol/L Chloride 101 (100-108) mmol/L Carbon Dioxide 33 H (21-32) mmol/L Anion Gap 7.5 (5.0-14.0) mmol/L BUN 28 H (7-18) mg/dL Creatinine 0.8 (0.8-1.3) mg/dL Est Cr Clr Drug Dosing 86.39 mL/min Estimated GFR (MDRD) > 60 (>60) Glucose 105 (74-106) mg/dL Calcium 8.7 (8.5-10.1) mg/dL Total Bilirubin 0.3 (0.2-1.0) mg/dL AST 27 (15-37) U/L ALT 66 (12-78) U/L Alkaline Phosphatase 137 H (46-116) U/L C-Reactive Protein 1.95 H (0.0-0.3) mg/dL Total Protein 6.1 L (6.4-8.2) g/dL Albumin 2.3 L (3.4-5.0) g/dL Globulin 3.8 H (2.3-3.5) g/dL Albumin/Globulin Ratio 0.6 L (1.2-2.2) Result Diagrams: 01/02/21 05:04 01/02/21 05:04 Paul Results Last 24 hrs: Microbiology 12/27/20 09:21 Aerobic Blood Culture - Final Blood - Arm, Right NO GROWTH AFTER 5 DAYS Anaerobic Blood Culture - Final NO GROWTH AFTER 5 DAYS 12/27/20 09:12 Aerobic Blood Culture - Final Blood - Arm, Left NO GROWTH AFTER 5 DAYS Anaerobic Blood Culture - Final NO GROWTH AFTER 5 DAYS Sepsis Event Note - Evaluation Sepsis Screening Result: No Definite Risk - Focused Exam Vital Signs: Vital Signs Temp Temp Pulse Resp BP Pulse Ox 01/02/21 10:49 80 01/02/21 08:26 36.1 C 80 16 117/76 89 L 01/02/21 07:31 90 01/02/21 07:23 89 L 01/02/21 02:07 35.9 C L 88 18 103/62 93 L 01/02/21 01:05 95 - Problem List Review Problem List Initiated/Reviewed/Updated: Yes - My Orders Last 24 Hours: My Active Orders 01/02/21 11:33 Discontinue Telemetry Monitoring [Cardiac Monitoring Discontinue] [RC] Click to Edit - Plan Plan:: ASSESSMENT AND PLAN PNEUMONIA-suspect bacterial pneumonia complicating recent COVID-19 infection. Chest x-ray and CT scan show ongoing infiltrates related to recent COVID-[address] scan did document areas of increased consolidation, suspicious for new infection. Blood cultures have been negative -IV antibiotic therapy; levofloxacin, pending further culture results, plan for a total of 7 days of IV antibiotic therapy, today is day 7 PULMONARY EMBOLI-discovered by CT scanning. -Eliquis 10 mg p.o. twice daily x7 days, today is day 5 of 7 then 5 mg twice daily HYPOXIC RESPIRATORY FAILURE-likely multifactorial related to recent COVID-19 infection with residual inflammation, bacterial pneumonia, and pulmonary emboli. Still requiring a fair amount of supplemental oxygen but hopefully we can start to wean him off of this. Echocardiogram is still pending. -Follow-up echocardiogram -Supplemental oxygen as needed -Nebulizer therapy with albuterol and DuoNebs ADRENAL INSUFFICIENCY-recent therapy with Decadron for COVID-19 infection. He did receive a tapering dose of Decadron but is still likely experiencing some renal insufficiency especially under the distress of increased hypoxia. -Start dexamethasone 2 mg daily tomorrow with taper over the next 2 weeks MAINTENANCE ISSUES -DVT prophylaxis; Lovenox as above -GI prophylaxis; not indicated -Broderick catheter; not indicated -Nutrition; regular diet DISPOSITION-anticipate discharge to home after the hospital stay. Davi Dockery MD
[2021-01-02] MEDS: Levofloxacin/Dextrose 5%-Water 750 MG in Premix Bag 1 BAG IV SCH (14:48)
[2021-01-03] MEDS: Albuterol/Ipratropium 3.0-0.5 MG/3 ML Neb Soln NEB SCH ×4 (06:58→21:10)
[2021-01-03] MEDS: Dexamethasone 2 MG Tab PO SCH ×2 (08:48)
[2021-01-03] MEDS: Apixaban 5 MG Tab PO SCH ×2 (08:48→21:10)
--- NOTE | 2021-01-03 10:45 | PCM.PN ---
- General Info Date of Service: 01/03/21 Subjective Update: No acute events overnight. Patient did have a fall this morning when he was trying to get from the chair back to the bed by himself. He lost his balance and ended up on his knees. He does not report any injuries. No pain in knees, hips or feet. He did not hit his head. He reports that he is weak and short of breath with activity but feels okay at rest. Tolerated transition to high flow nasal cannula well and is down to 10 L today. Appetite has been good. Functional Status: Reports: Pain Controlled, Tolerating Diet - Review of Systems General: Reports: Weakness Pulmonary: Reports: Shortness of Breath - Patient Data Vitals - Most Recent: Last Vital Signs Temp 35.5 C L 01/03/21 08:28 Pulse 97 01/03/21 09:30 Resp 16 01/03/21 09:30 BP 120/65 01/03/21 09:30 Pulse Ox 97 01/03/21 09:30 Weight - Most Recent: 83.7 kg I&O - Last 24 Hours: Intake & Output 01/02/21 01/03/21 01/03/21 22:59 06:59 14:59 Intake Total 480 Output Total 600 275 Balance -600 -275 480 Med Orders - Current: Current Medications Acetaminophen (Acetaminophen 325 Mg Tab) 650 mg PO Q4H PRN PRN Reason: Pain (Mild 1-3)/fever Hydrocodone Bitart/Acetaminophen (Acetaminophen/Hydrocodone 325-5 Mg Tab) 1 tab PO Q4H PRN PRN Reason: Pain (moderate 4-6) Albuterol (Albuterol 0.083% 2.5 Mg/3 Ml Neb Soln) 2.5 mg NEB Q4H PRN PRN Reason: Shortness Of Breath/wheezing Albuterol/Ipratropium (Albuterol/Ipratropium 3.0-0.5 Mg/3 Ml Neb Soln) 3 ml NEB QIDRT [facility] Last Admin: 01/03/21 10:44 Dose: 3 ml Documented by: Apixaban (Apixaban 5 Mg Tab) 10 mg PO Q12H [facility] Last Admin: 01/03/21 08:48 Dose: 10 mg Documented by: Dexamethasone (Dexamethasone 2 Mg Tab) 2 mg PO DAILY [facility] Stop: 01/09/21 09:01 Last Admin: 01/03/21 08:48 Dose: 2 mg Documented by: Dexamethasone (Dexamethasone 2 Mg Tab) 1 mg PO DAILY [facility] Last Admin: 01/03/21 08:48 Dose: 1 mg Documented by: Levofloxacin/Dextrose 750 mg/ (Premix) 150 mls @ 100 mls/hr IV Q24H [facility] Last Admin: 01/02/21 14:48 Dose: 100 mls/hr Documented by: Ondansetron HCl (Ondansetron 4 Mg/2 Ml Sdv) 4 mg IV Q4H PRN PRN Reason: Nausea/Vomiting Polyethylene Glycol (Polyethylene Glycol 3350 Powder 17 Gm Packet) 17 gm PO DAILY PRN PRN Reason: Constipation Sodium Chloride (Sodium Chloride 0.9% 10 Ml Syringe) 10 ml FLUSH ASDIRECTED PRN PRN Reason: Keep Vein Open Discontinued Medications Enoxaparin Sodium (Enoxaparin 100 Mg/1 Ml Syringe) 100 mg SUBCUT DAILY [facility] Last Admin: 12/27/20 15:02 Dose: Not Given Documented by: Enoxaparin Sodium (Enoxaparin 100 Mg/1 Ml Syringe) 100 mg SUBCUT Q12H [facility] Last Admin: 12/29/20 02:46 Dose: 100 mg Documented by: Furosemide (Furosemide 20 Mg/2 Ml Vial) 20 mg IVPUSH NOW ONE Stop: 12/30/20 10:31 Last Admin: 12/30/20 11:30 Dose: 20 mg Documented by: Furosemide (Furosemide 20 Mg/2 Ml Vial) 20 mg IVPUSH NOW ONE Stop: 01/01/21 10:46 Last Admin: 01/01/21 11:10 Dose: 20 mg Documented by: Ceftriaxone Sodium 2 gm/ (Sodium Chloride) 50 mls @ 100 mls/hr IV ONETIME ONE Stop: 12/27/20 09:12 Last Admin: 12/27/20 09:25 Dose: 100 mls/hr Documented by: Sodium Chloride (Normal Saline) 90 mls @ 3 mls/sec IV ONETIME ONE Stop: 12/27/20 10:30 Last Admin: 12/27/20 10:45 Dose: 4 mls/sec Documented by: Sodium Chloride (Normal Saline) 1,000 mls @ 125 mls/hr IV ASDIRECTED [facility] Last Admin: 12/28/20 02:15 Dose: 125 mls/hr Documented by: Vancomycin HCl 1.8 gm/ Sodium (Chloride) 250 mls @ 166.667 mls/hr IV ONETIME ONE Stop: 12/27/20 17:59 Last Admin: 12/27/20 16:56 Dose: 166.667 mls/hr Documented by: Vancomycin HCl 1.4 gm/ Sodium (Chloride) 250 mls @ 166.667 mls/hr IV Q12H [facility] Last Admin: 12/29/20 03:40 Dose: 166.667 mls/hr Documented by: Meropenem 1 gm/ Sodium (Chloride) 100 mls @ 200 mls/hr IV Q8H [facility] Last Admin: 01/01/21 09:18 Dose: 200 mls/hr Documented by: Iopamidol (Iopamidol 755 Mg/Ml 100 Ml Bottle) 85 ml IV . DIRECTED [facility] Last Admin: 12/27/20 10:45 Dose: 85 ml Documented by: Methylprednisolone Sodium Succinate (Methylprednisolone Sodium Succinate 125 Mg/2 Ml Sdv) 125 mg IVPUSH ONETIME ONE Stop: 12/27/20 08:44 Last Admin: 12/27/20 09:21 Dose: 125 mg Documented by: Methylprednisolone Sodium Succinate (Methylprednisolone Sodium Succinate 40 Mg/1 Ml Sdv) 40 mg IVPUSH DAILY [facility] Last Admin: 01/02/21 09:22 Dose: 40 mg Documented by: Sodium Chloride (Sodium Chloride 0.9% 10 Ml Syringe) 10 ml FLUSH ONETIME PRN PRN Reason: PER RADIOLOGY PROTOCOL Last Admin: 12/27/20 10:45 Dose: 10 ml Documented by: Vancomycin HCl (Vancomycin 1 Gm Sdv) 1 gm IV .PHARMACY TO DOSE VEE Stop: 12/27/20 18:00 - Exam Quality Assessment: Supplemental Oxygen General: Alert, Oriented, Cooperative, No Acute Distress Lungs: Normal Respiratory Effort. No: Wheezing GI/Abdominal Exam: Soft, No Distention Extremities: No Pedal Edema, Other (toes slightly cool ). No: Increased Warmth Peripheral Pulses: 1+: Dorsalis Pedis (L), Dorsalis Pedis (R) Psy/Mental Status: Alert, Normal Affect - Patient Data Result Diagrams: 01/02/21 05:04 01/02/21 05:04 Sepsis Event Note - Evaluation Sepsis Screening Result: No Definite Risk - Focused Exam Vital Signs: Vital Signs Temp Pulse Resp BP Pulse Ox 01/03/21 09:30 97 16 120/65 97 01/03/21 08:28 35.5 C L 95 20 140/74 93 L 01/03/21 07:30 36.1 C 99 20 119/73 90 L 01/03/21 07:11 95 01/03/21 07:10 89 L 01/03/21 06:59 76 01/03/21 02:28 35.3 C L 85 20 130/74 90 L 01/03/21 01:14 91 L - Problem List Review Problem List Initiated/Reviewed/Updated: Yes - My Orders Last 24 Hours: My Active Orders 01/03/21 09:00 dexAMETHasone 1 mg PO DAILY dexAMETHasone 2 mg PO DAILY 01/03/21 10:43 PT Evaluation and Treatment [CONS] Routine 01/04/21 05:11 CRP [C-REACTIVE PROTEIN] [CHEM] AM D-DIMER QUANTITATIVE [COAG] AM - Plan Plan:: ASSESSMENT AND PLAN BILATERAL PNEUMONIA-suspect bacterial pneumonia complicating recent COVID-19 infection. Slowly getting better. Today is the last day of antibiotics. -Continue antibiotics through today PULMONARY EMBOLI-discovered by CT scanning. -Eliquis 10 mg p.o. twice daily x7 days, today is day 6 of 7 then 5 mg twice daily HYPOXIC RESPIRATORY FAILURE-likely multifactorial related to recent COVID-19 infection with residual inflammation, bacterial pneumonia, and pulmonary emboli. Still requiring a fair amount of supplemental oxygen but we have started the weaning process. Echocardiogram did not show any significant abnormalities. -Supplemental oxygen as needed -Scheduled and as needed nebulizers ADRENAL INSUFFICIENCY-recent therapy with Decadron for COVID-19 infection. He did receive a tapering dose of Decadron but is still likely experiencing some renal insufficiency especially under the distress of increased hypoxia. -dexamethasone 2 mg daily with taper over the next 2 weeks MAINTENANCE ISSUES -DVT prophylaxis; Lovenox as above -GI prophylaxis; not indicated -Broderick catheter; not indicated -Nutrition; regular diet DISPOSITION-anticipate discharge to home after the hospital stay. Davi Dockery MD
[2021-01-03] MEDS: Levofloxacin/Dextrose 5%-Water 750 MG in Premix Bag 1 BAG IV SCH (14:31)
[2021-01-04] MEDS: Albuterol/Ipratropium 3.0-0.5 MG/3 ML Neb Soln NEB SCH ×4 (07:21→20:44)
[2021-01-04] MEDS: Apixaban 5 MG Tab PO SCH ×2 (09:17→20:44)
[2021-01-04] MEDS: Dexamethasone 2 MG Tab PO SCH ×2 (09:18→09:19)
--- NOTE | 2021-01-04 10:11 | PCM.PN ---
- General Info Date of Service: 01/04/21 Subjective Update: No acute events overnight. Patient does not report any pain issues. He does not report shortness of breath. Appetite is okay. Strength is a little better. We have been able to wean him down to 8.5 L of supplemental oxygen via high flow nasal cannula. Functional Status: Reports: Pain Controlled, Tolerating Diet - Review of Systems General: Reports: Weakness Pulmonary: Denies: Shortness of Breath - Patient Data Vitals - Most Recent: Last Vital Signs Temp 36.6 C 01/04/21 07:33 Pulse 103 H 01/04/21 07:33 Resp 18 01/04/21 07:33 BP 132/63 01/04/21 07:33 Pulse Ox 96 01/04/21 08:22 Weight - Most Recent: 85.185 kg I&O - Last 24 Hours: Intake & Output 01/03/21 01/04/21 01/04/21 22:59 06:59 14:59 Intake Total 400 Output Total 400 900 Balance -400 -900 400 Lab Results Last 24 Hours: Laboratory Results - last 24 hr 01/04/21 01/04/21 Range/Units 04:59 04:59 D-Dimer, Quantitative 6256.54 H (0.0-500.0) ng/mL C-Reactive Protein 0.40 H (0.0-0.3) mg/dL Med Orders - Current: Current Medications Acetaminophen (Acetaminophen 325 Mg Tab) 650 mg PO Q4H PRN PRN Reason: Pain (Mild 1-3)/fever Hydrocodone Bitart/Acetaminophen (Acetaminophen/Hydrocodone 325-5 Mg Tab) 1 tab PO Q4H PRN PRN Reason: Pain (moderate 4-6) Albuterol (Albuterol 0.083% 2.5 Mg/3 Ml Neb Soln) 2.5 mg NEB Q4H PRN PRN Reason: Shortness Of Breath/wheezing Albuterol/Ipratropium (Albuterol/Ipratropium 3.0-0.5 Mg/3 Ml Neb Soln) 3 ml NEB QIDRT [facility] Last Admin: 01/04/21 07:21 Dose: 3 ml Documented by: Apixaban (Apixaban 5 Mg Tab) 10 mg PO Q12H [facility] Last Admin: 01/04/21 09:17 Dose: 10 mg Documented by: Dexamethasone (Dexamethasone 2 Mg Tab) 2 mg PO DAILY [facility] Stop: 01/09/21 09:01 Last Admin: 01/04/21 09:19 Dose: 2 mg Documented by: Dexamethasone (Dexamethasone 2 Mg Tab) 1 mg PO DAILY [facility] Last Admin: 01/04/21 09:18 Dose: 1 mg Documented by: Levofloxacin/Dextrose 750 mg/ (Premix) 150 mls @ 100 mls/hr IV Q24H [facility] Last Admin: 01/03/21 14:31 Dose: 100 mls/hr Documented by: Ondansetron HCl (Ondansetron 4 Mg/2 Ml Sdv) 4 mg IV Q4H PRN PRN Reason: Nausea/Vomiting Polyethylene Glycol (Polyethylene Glycol 3350 Powder 17 Gm Packet) 17 gm PO DAILY PRN PRN Reason: Constipation Sodium Chloride (Sodium Chloride 0.9% 10 Ml Syringe) 10 ml FLUSH ASDIRECTED PRN PRN Reason: Keep Vein Open Discontinued Medications Enoxaparin Sodium (Enoxaparin 100 Mg/1 Ml Syringe) 100 mg SUBCUT DAILY [facility] Last Admin: 12/27/20 15:02 Dose: Not Given Documented by: Enoxaparin Sodium (Enoxaparin 100 Mg/1 Ml Syringe) 100 mg SUBCUT Q12H [facility] Last Admin: 12/29/20 02:46 Dose: 100 mg Documented by: Furosemide (Furosemide 20 Mg/2 Ml Vial) 20 mg IVPUSH NOW ONE Stop: 12/30/20 10:31 Last Admin: 12/30/20 11:30 Dose: 20 mg Documented by: Furosemide (Furosemide 20 Mg/2 Ml Vial) 20 mg IVPUSH NOW ONE Stop: 01/01/21 10:46 Last Admin: 01/01/21 11:10 Dose: 20 mg Documented by: Ceftriaxone Sodium 2 gm/ (Sodium Chloride) 50 mls @ 100 mls/hr IV ONETIME ONE Stop: 12/27/20 09:12 Last Admin: 12/27/20 09:25 Dose: 100 mls/hr Documented by: Sodium Chloride (Normal Saline) 90 mls @ 3 mls/sec IV ONETIME ONE Stop: 12/27/20 10:30 Last Admin: 12/27/20 10:45 Dose: 4 mls/sec Documented by: Sodium Chloride (Normal Saline) 1,000 mls @ 125 mls/hr IV ASDIRECTED [facility] Last Admin: 12/28/20 02:15 Dose: 125 mls/hr Documented by: Vancomycin HCl 1.8 gm/ Sodium (Chloride) 250 mls @ 166.667 mls/hr IV ONETIME ONE Stop: 12/27/20 17:59 Last Admin: 12/27/20 16:56 Dose: 166.667 mls/hr Documented by: Vancomycin HCl 1.4 gm/ Sodium (Chloride) 250 mls @ 166.667 mls/hr IV Q12H [facility] Last Admin: 12/29/20 03:40 Dose: 166.667 mls/hr Documented by: Meropenem 1 gm/ Sodium (Chloride) 100 mls @ 200 mls/hr IV Q8H [facility] Last Admin: 01/01/21 09:18 Dose: 200 mls/hr Documented by: Iopamidol (Iopamidol 755 Mg/Ml 100 Ml Bottle) 85 ml IV . DIRECTED [facility] Last Admin: 12/27/20 10:45 Dose: 85 ml Documented by: Methylprednisolone Sodium Succinate (Methylprednisolone Sodium Succinate 125 Mg/2 Ml Sdv) 125 mg IVPUSH ONETIME ONE Stop: 12/27/20 08:44 Last Admin: 12/27/20 09:21 Dose: 125 mg Documented by: Methylprednisolone Sodium Succinate (Methylprednisolone Sodium Succinate 40 Mg/1 Ml Sdv) 40 mg IVPUSH DAILY [facility] Last Admin: 01/02/21 09:22 Dose: 40 mg Documented by: Sodium Chloride (Sodium Chloride 0.9% 10 Ml Syringe) 10 ml FLUSH ONETIME PRN PRN Reason: PER RADIOLOGY PROTOCOL Last Admin: 12/27/20 10:45 Dose: 10 ml Documented by: Vancomycin HCl (Vancomycin 1 Gm Sdv) 1 gm IV .PHARMACY TO DOSE [facility] Stop: 12/27/20 18:00 - Exam Quality Assessment: Supplemental Oxygen General: Alert, Oriented, Cooperative, No Acute Distress Lungs: Normal Respiratory Effort, Crackles (few both lower lungs ) Cardiovascular: Regular Rate, Regular Rhythm GI/Abdominal Exam: Soft, No Distention Psy/Mental Status: Alert, Normal Affect - Patient Data Lab Results Last 24 hrs: Laboratory Results - last 24 hr 01/04/21 01/04/21 Range/Units 04:59 04:59 D-Dimer, Quantitative 6256.54 H (0.0-500.0) ng/mL C-Reactive Protein 0.40 H (0.0-0.3) mg/dL Result Diagrams: 01/02/21 05:04 01/02/21 05:04 Sepsis Event Note - Evaluation Sepsis Screening Result: No Definite Risk - Focused Exam Vital Signs: Vital Signs Temp Temp Pulse Resp BP Pulse Ox Pulse Ox 01/04/21 08:22 96 01/04/21 07:39 92 L 01/04/21 07:33 36.6 C 103 H 18 132/63 90 L 01/04/21 07:21 95 01/04/21 02:50 35.9 C L 87 16 142/85 H 94 L 01/04/21 01:10 91 L 01/03/21 23:00 36.4 C 82 16 113/71 95 - Problem List Review Problem List Initiated/Reviewed/Updated: Yes - My Orders Last 24 Hours: My Active Orders 01/03/21 10:43 PT Evaluation and Treatment [CONS] Routine 01/04/21 09:21 OT Evaluation and Treatment [CONS] Routine 01/04/21 10:09 Peripheral IV Discontinue [OM.PC] Routine 01/05/21 09:00 Apixaban [Eliquis] 5 mg PO BID 01/10/21 09:00 dexAMETHasone 1 mg PO DAILY - Plan Plan:: ASSESSMENT AND PLAN BILATERAL PNEUMONIA-suspect bacterial pneumonia complicating recent COVID-19 infection. Slowly getting better. He has completed a course of IV antibiotics. -Discontinue levofloxacin PULMONARY EMBOLI-discovered by CT scanning. -Apixaban 10 mg p.o. twice daily x7 days, today is day 7 of 7 then 5 mg twice daily starting tomorrow HYPOXIC RESPIRATORY FAILURE-likely multifactorial related to recent COVID-19 infection with residual inflammation, bacterial pneumonia, and pulmonary emboli. Echo normal. Slowly improving and we are weaning his oxygen as able. -Supplemental oxygen as needed -Scheduled and as needed nebulizers ADRENAL INSUFFICIENCY-recent therapy with Decadron for COVID-19 infection. He did receive a tapering dose of Decadron but is still likely experiencing some renal insufficiency especially under the distress of increased hypoxia. -dexamethasone 2 mg daily with taper over the next 2 weeks MAINTENANCE ISSUES -DVT prophylaxis; apixaban -GI prophylaxis; not indicated -Nutrition; regular diet DISPOSITION-anticipate discharge to home with home care after the hospital stay. Davi Dockery MD
[2021-01-05] MEDS: Albuterol/Ipratropium 3.0-0.5 MG/3 ML Neb Soln NEB SCH ×4 (07:06→21:17)
[2021-01-05] MEDS: Dexamethasone 2 MG Tab PO SCH (08:09)
[2021-01-05] MEDS: Apixaban 5 MG Tab PO SCH ×2 (08:09→21:12)
--- NOTE | 2021-01-05 11:00 | PCM.PN ---
- General Info Date of Service: 01/05/21 Subjective Update: No acute events overnight. Patient feels slightly better again today. We have been able to wean down his supplemental oxygen slightly. Still has significant desaturations with any activity. He thinks his strength is improving and is doing better with physical therapy. Appetite improving. Still in good spirits. Functional Status: Reports: Pain Controlled, Tolerating Diet - Review of Systems General: Reports: Weakness Pulmonary: Reports: Shortness of Breath - Patient Data Vitals - Most Recent: Last Vital Signs Temp 36.3 C 01/05/21 07:17 Pulse 90 01/05/21 10:33 Resp 20 01/05/21 07:17 BP 102/54 L 01/05/21 07:17 Pulse Ox 96 01/05/21 08:00 Weight - Most Recent: 85.185 kg I&O - Last 24 Hours: Intake & Output 01/04/21 01/05/21 01/05/21 22:59 06:59 14:59 Intake Total 880 600 Output Total 450 250 400 Balance 430 -250 200 Med Orders - Current: Current Medications Acetaminophen (Acetaminophen 325 Mg Tab) 650 mg PO Q4H PRN PRN Reason: Pain (Mild 1-3)/fever Hydrocodone Bitart/Acetaminophen (Acetaminophen/Hydrocodone 325-5 Mg Tab) 1 tab PO Q4H PRN PRN Reason: Pain (moderate 4-6) Albuterol (Albuterol 0.083% 2.5 Mg/3 Ml Neb Soln) 2.5 mg NEB Q4H PRN PRN Reason: Shortness Of Breath/wheezing Last Admin: 01/04/21 17:29 Dose: 2.5 mg Documented by: Albuterol/Ipratropium (Albuterol/Ipratropium 3.0-0.5 Mg/3 Ml Neb Soln) 3 ml NEB QIDRT [facility] Last Admin: 01/05/21 10:32 Dose: 3 ml Documented by: Apixaban (Apixaban 5 Mg Tab) 5 mg PO BID [facility] Last Admin: 01/05/21 08:09 Dose: 5 mg Documented by: Dexamethasone (Dexamethasone 2 Mg Tab) 2 mg PO DAILY [facility] Stop: 01/09/21 09:01 Last Admin: 01/05/21 08:09 Dose: 2 mg Documented by: Dexamethasone (Dexamethasone 2 Mg Tab) 1 mg PO DAILY [facility] Ondansetron HCl (Ondansetron 4 Mg/2 Ml Sdv) 4 mg IV Q4H PRN PRN Reason: Nausea/Vomiting Polyethylene Glycol (Polyethylene Glycol 3350 Powder 17 Gm Packet) 17 gm PO DAILY PRN PRN Reason: Constipation Sodium Chloride (Sodium Chloride 0.9% 10 Ml Syringe) 10 ml FLUSH ASDIRECTED PRN PRN Reason: Keep Vein Open Discontinued Medications Apixaban (Apixaban 5 Mg Tab) 10 mg PO Q12H [facility] Stop: 01/04/21 23:59 Last Admin: 01/04/21 20:44 Dose: 10 mg Documented by: Dexamethasone (Dexamethasone 2 Mg Tab) 1 mg PO DAILY [facility] Last Admin: 01/04/21 09:18 Dose: 1 mg Documented by: Enoxaparin Sodium (Enoxaparin 100 Mg/1 Ml Syringe) 100 mg SUBCUT DAILY [facility] Last Admin: 12/27/20 15:02 Dose: Not Given Documented by: Enoxaparin Sodium (Enoxaparin 100 Mg/1 Ml Syringe) 100 mg SUBCUT Q12H [facility] Last Admin: 12/29/20 02:46 Dose: 100 mg Documented by: Furosemide (Furosemide 20 Mg/2 Ml Vial) 20 mg IVPUSH NOW ONE Stop: 12/30/20 10:31 Last Admin: 12/30/20 11:30 Dose: 20 mg Documented by: Furosemide (Furosemide 20 Mg/2 Ml Vial) 20 mg IVPUSH NOW ONE Stop: 01/01/21 10:46 Last Admin: 01/01/21 11:10 Dose: 20 mg Documented by: Ceftriaxone Sodium 2 gm/ (Sodium Chloride) 50 mls @ 100 mls/hr IV ONETIME ONE Stop: 12/27/20 09:12 Last Admin: 12/27/20 09:25 Dose: 100 mls/hr Documented by: Sodium Chloride (Normal Saline) 90 mls @ 3 mls/sec IV ONETIME ONE Stop: 12/27/20 10:30 Last Admin: 12/27/20 10:45 Dose: 4 mls/sec Documented by: Sodium Chloride (Normal Saline) 1,000 mls @ 125 mls/hr IV ASDIRECTED [facility] Last Admin: 12/28/20 02:15 Dose: 125 mls/hr Documented by: Levofloxacin/Dextrose 750 mg/ (Premix) 150 mls @ 100 mls/hr IV Q24H [facility] Last Admin: 01/03/21 14:31 Dose: 100 mls/hr Documented by: Vancomycin HCl 1.8 gm/ Sodium (Chloride) 250 mls @ 166.667 mls/hr IV ONETIME ONE Stop: 12/27/20 17:59 Last Admin: 12/27/20 16:56 Dose: 166.667 mls/hr Documented by: Vancomycin HCl 1.4 gm/ Sodium (Chloride) 250 mls @ 166.667 mls/hr IV Q12H [facility] Last Admin: 12/29/20 03:40 Dose: 166.667 mls/hr Documented by: Meropenem 1 gm/ Sodium (Chloride) 100 mls @ 200 mls/hr IV Q8H [facility] Last Admin: 01/01/21 09:18 Dose: 200 mls/hr Documented by: Iopamidol (Iopamidol 755 Mg/Ml 100 Ml Bottle) 85 ml IV . DIRECTED [facility] Last Admin: 12/27/20 10:45 Dose: 85 ml Documented by: Methylprednisolone Sodium Succinate (Methylprednisolone Sodium Succinate 125 Mg/2 Ml Sdv) 125 mg IVPUSH ONETIME ONE Stop: 12/27/20 08:44 Last Admin: 12/27/20 09:21 Dose: 125 mg Documented by: Methylprednisolone Sodium Succinate (Methylprednisolone Sodium Succinate 40 Mg/1 Ml Sdv) 40 mg IVPUSH DAILY [facility] Last Admin: 01/02/21 09:22 Dose: 40 mg Documented by: Sodium Chloride (Sodium Chloride 0.9% 10 Ml Syringe) 10 ml FLUSH ONETIME PRN PRN Reason: PER RADIOLOGY PROTOCOL Last Admin: 12/27/20 10:45 Dose: 10 ml Documented by: Vancomycin HCl (Vancomycin 1 Gm Sdv) 1 gm IV .PHARMACY TO DOSE [facility] Stop: 12/27/20 18:00 - Exam Quality Assessment: Supplemental Oxygen General: Alert, Oriented, Cooperative, No Acute Distress Lungs: Normal Respiratory Effort Cardiovascular: Regular Rate, Regular Rhythm GI/Abdominal Exam: Soft, No Distention Extremities: No Pedal Edema Psy/Mental Status: Alert, Normal Affect - Patient Data Result Diagrams: 01/02/21 05:04 01/02/21 05:04 Sepsis Event Note - Evaluation Sepsis Screening Result: No Definite Risk - Focused Exam Vital Signs: Vital Signs Temp Temp Pulse Resp BP Pulse Ox Pulse Ox 01/05/21 10:33 90 01/05/21 08:00 96 01/05/21 07:44 87 L 01/05/21 07:42 84 L 01/05/21 07:25 73 L 01/05/21 07:17 36.3 C 102 H 20 102/54 L 90 L 01/05/21 07:06 84 01/05/21 02:34 36.6 C 82 18 118/69 96 01/05/21 00:39 97 Pulse Ox 01/05/21 10:33 01/05/21 08:00 01/05/21 07:44 01/05/21 07:42 01/05/21 07:25 01/05/21 07:17 01/05/21 07:06 91 L 01/05/21 02:34 01/05/21 00:39 - Problem List Review Problem List Initiated/Reviewed/Updated: Yes - My Orders Last 24 Hours: My Active Orders 01/04/21 10:09 Peripheral IV Discontinue [OM.PC] Routine 01/05/21 09:00 Apixaban [Eliquis] 5 mg PO BID 01/10/21 09:00 dexAMETHasone 1 mg PO DAILY - Plan Plan:: ASSESSMENT AND PLAN BILATERAL PNEUMONIA-suspect bacterial pneumonia complicating recent COVID-19 infection. Very slowly getting better and we are weaning his oxygen as able. 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 Provoked in the setting of Covid infection. -Apixaban 5 mg twice daily for 3 months HYPOXIC RESPIRATORY FAILURE-likely multifactorial related to recent COVID-19 infection with residual inflammation, bacterial pneumonia, and pulmonary emboli. Echo normal. Slowly improving and we are weaning his oxygen as able. -Supplemental oxygen as needed -Scheduled and as needed nebulizers ADRENAL INSUFFICIENCY-recent therapy with Decadron for COVID-19 infection. He did receive a tapering dose of Decadron but is still likely experiencing some renal insufficiency especially under the distress of increased hypoxia. -dexamethasone 2 mg daily with taper over the next 2 weeks MAINTENANCE ISSUES -DVT prophylaxis; apixaban -GI prophylaxis; not indicated -Nutrition; regular diet DISPOSITION-anticipate discharge to home with home care after the hospital stay. Davi Dockery MD
[2021-01-06] MEDS: Albuterol/Ipratropium 3.0-0.5 MG/3 ML Neb Soln NEB SCH ×4 (07:09→21:39)
[2021-01-06] MEDS: Apixaban 5 MG Tab PO SCH ×2 (09:57→21:39)
[2021-01-06] MEDS: Dexamethasone 2 MG Tab PO SCH (09:57)
--- NOTE | 2021-01-06 10:43 | PCM.PN ---
- General Info Date of Service: 01/06/21 Subjective Update: There were no acute events overnight. We have been able to wean down his supplemental oxygen slightly. He does well at rest but desaturates with activity. He is recovering faster and not dipping quite as far. He reports that he feels well. He does feel short of breath with exertion but not at rest. No abdominal pain. Appetite has been good. Functional Status: Reports: Pain Controlled - Review of Systems General: Reports: Weakness Pulmonary: Reports: Shortness of Breath - Patient Data Vitals - Most Recent: Last Vital Signs Temp 36.7 C 01/06/21 10:22 Pulse 91 01/06/21 10:22 Resp 18 01/06/21 10:22 BP 102/60 01/06/21 10:22 Pulse Ox 94 L 01/06/21 10:22 Weight - Most Recent: 85.185 kg I&O - Last 24 Hours: Intake & Output 01/05/21 01/06/21 01/06/21 22:59 06:59 14:59 Intake Total 1140 350 Output Total 800 225 Balance 340 125 Med Orders - Current: Current Medications Acetaminophen (Acetaminophen 325 Mg Tab) 650 mg PO Q4H PRN PRN Reason: Pain (Mild 1-3)/fever Hydrocodone Bitart/Acetaminophen (Acetaminophen/Hydrocodone 325-5 Mg Tab) 1 tab PO Q4H PRN PRN Reason: Pain (moderate 4-6) Albuterol (Albuterol 0.083% 2.5 Mg/3 Ml Neb Soln) 2.5 mg NEB Q4H PRN PRN Reason: Shortness Of Breath/wheezing Last Admin: 01/04/21 17:29 Dose: 2.5 mg Documented by: Albuterol/Ipratropium (Albuterol/Ipratropium 3.0-0.5 Mg/3 Ml Neb Soln) 3 ml NEB QIDRT [facility] Last Admin: 01/06/21 07:09 Dose: 3 ml Documented by: Apixaban (Apixaban 5 Mg Tab) 5 mg PO BID [facility] Last Admin: 01/06/21 09:57 Dose: 5 mg Documented by: Dexamethasone (Dexamethasone 2 Mg Tab) 2 mg PO DAILY [facility] Stop: 01/09/21 09:01 Last Admin: 01/06/21 09:57 Dose: 2 mg Documented by: Dexamethasone (Dexamethasone 2 Mg Tab) 1 mg PO DAILY [facility] Ondansetron HCl (Ondansetron 4 Mg/2 Ml Sdv) 4 mg IV Q4H PRN PRN Reason: Nausea/Vomiting Polyethylene Glycol (Polyethylene Glycol 3350 Powder 17 Gm Packet) 17 gm PO DAILY PRN PRN Reason: Constipation Sodium Chloride (Sodium Chloride 0.9% 10 Ml Syringe) 10 ml FLUSH ASDIRECTED PRN PRN Reason: Keep Vein Open Discontinued Medications Apixaban (Apixaban 5 Mg Tab) 10 mg PO Q12H [facility] Stop: 01/04/21 23:59 Last Admin: 01/04/21 20:44 Dose: 10 mg Documented by: Dexamethasone (Dexamethasone 2 Mg Tab) 1 mg PO DAILY [facility] Last Admin: 01/04/21 09:18 Dose: 1 mg Documented by: Enoxaparin Sodium (Enoxaparin 100 Mg/1 Ml Syringe) 100 mg SUBCUT DAILY [facility] Last Admin: 12/27/20 15:02 Dose: Not Given Documented by: Enoxaparin Sodium (Enoxaparin 100 Mg/1 Ml Syringe) 100 mg SUBCUT Q12H [facility] Last Admin: 12/29/20 02:46 Dose: 100 mg Documented by: Furosemide (Furosemide 20 Mg/2 Ml Vial) 20 mg IVPUSH NOW ONE Stop: 12/30/20 10:31 Last Admin: 12/30/20 11:30 Dose: 20 mg Documented by: Furosemide (Furosemide 20 Mg/2 Ml Vial) 20 mg IVPUSH NOW ONE Stop: 01/01/21 10:46 Last Admin: 01/01/21 11:10 Dose: 20 mg Documented by: Ceftriaxone Sodium 2 gm/ (Sodium Chloride) 50 mls @ 100 mls/hr IV ONETIME ONE Stop: 12/27/20 09:12 Last Admin: 12/27/20 09:25 Dose: 100 mls/hr Documented by: Sodium Chloride (Normal Saline) 90 mls @ 3 mls/sec IV ONETIME ONE Stop: 12/27/20 10:30 Last Admin: 12/27/20 10:45 Dose: 4 mls/sec Documented by: Sodium Chloride (Normal Saline) 1,000 mls @ 125 mls/hr IV ASDIRECTED [facility] Last Admin: 12/28/20 02:15 Dose: 125 mls/hr Documented by: Levofloxacin/Dextrose 750 mg/ (Premix) 150 mls @ 100 mls/hr IV Q24H [facility] Last Admin: 01/03/21 14:31 Dose: 100 mls/hr Documented by: Vancomycin HCl 1.8 gm/ Sodium (Chloride) 250 mls @ 166.667 mls/hr IV ONETIME ONE Stop: 12/27/20 17:59 Last Admin: 12/27/20 16:56 Dose: 166.667 mls/hr Documented by: Vancomycin HCl 1.4 gm/ Sodium (Chloride) 250 mls @ 166.667 mls/hr IV Q12H [facility] Last Admin: 12/29/20 03:40 Dose: 166.667 mls/hr Documented by: Meropenem 1 gm/ Sodium (Chloride) 100 mls @ 200 mls/hr IV Q8H [facility] Last Admin: 01/01/21 09:18 Dose: 200 mls/hr Documented by: Iopamidol (Iopamidol 755 Mg/Ml 100 Ml Bottle) 85 ml IV . DIRECTED [facility] Last Admin: 12/27/20 10:45 Dose: 85 ml Documented by: Methylprednisolone Sodium Succinate (Methylprednisolone Sodium Succinate 125 Mg/2 Ml Sdv) 125 mg IVPUSH ONETIME ONE Stop: 12/27/20 08:44 Last Admin: 12/27/20 09:21 Dose: 125 mg Documented by: Methylprednisolone Sodium Succinate (Methylprednisolone Sodium Succinate 40 Mg/1 Ml Sdv) 40 mg IVPUSH DAILY [facility] Last Admin: 01/02/21 09:22 Dose: 40 mg Documented by: Sodium Chloride (Sodium Chloride 0.9% 10 Ml Syringe) 10 ml FLUSH ONETIME PRN PRN Reason: PER RADIOLOGY PROTOCOL Last Admin: 12/27/20 10:45 Dose: 10 ml Documented by: Vancomycin HCl (Vancomycin 1 Gm Sdv) 1 gm IV .PHARMACY TO DOSE [facility] Stop: 12/27/20 18:00 - Exam Quality Assessment: Supplemental Oxygen General: Alert, Oriented, Cooperative, No Acute Distress Lungs: Normal Respiratory Effort GI/Abdominal Exam: Soft, No Distention Extremities: No Pedal Edema Psy/Mental Status: Alert, Normal Affect - Patient Data Result Diagrams: 01/02/21 05:04 01/02/21 05:04 Sepsis Event Note - Evaluation Sepsis Screening Result: No Definite Risk - Focused Exam Vital Signs: Vital Signs Temp Temp Pulse Resp BP Pulse Ox 01/06/21 10:22 36.7 C 91 18 102/60 94 L 01/06/21 08:35 16 88 L 01/06/21 08:00 16 83 L 01/06/21 07:08 98 01/06/21 07:00 36.2 C 94 20 117/65 89 L 01/06/21 03:28 36.1 C 79 21 H 115/64 95 01/06/21 01:45 98 01/05/21 23:00 35.2 C L 79 18 102/55 L 79 L - Problem List Review Problem List Initiated/Reviewed/Updated: Yes - My Orders Last 24 Hours: My Active Orders 01/07/21 05:00 BASIC METABOLIC PANEL,BMP [CHEM] Timed CRP [C-REACTIVE PROTEIN] [CHEM] Timed D-DIMER QUANTITATIVE [COAG] Timed 01/10/21 09:00 dexAMETHasone 1 mg PO DAILY - Plan Plan:: ASSESSMENT AND PLAN BILATERAL PNEUMONIA-suspect bacterial pneumonia complicating recent COVID-19 infection. Very slowly getting better and we are weaning his oxygen as able. -He is on a steroid taper with recent Covid infection. 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 Provoked in the setting of Covid infection. -Apixaban 5 mg twice daily for 3 months HYPOXIC RESPIRATORY FAILURE-likely multifactorial related to recent COVID-19 infection with residual inflammation, bacterial pneumonia, and pulmonary emboli. Echo normal. Slowly improving and we are weaning his oxygen as able. -Supplemental oxygen as needed -Scheduled and as needed nebulizers ADRENAL INSUFFICIENCY-recent therapy with Decadron for COVID-19 infection. -dexamethasone 2 mg daily with taper over the next 2 weeks MAINTENANCE ISSUES -DVT prophylaxis; apixaban -GI prophylaxis; not indicated -Nutrition; regular diet DISPOSITION-anticipate discharge to home with home care after the hospital stay. He continues to require higher levels of supplemental oxygen and can be supported at home. Davi Dockery MD
[2021-01-07] MEDS: Albuterol/Ipratropium 3.0-0.5 MG/3 ML Neb Soln NEB SCH ×4 (06:59→21:47)
[2021-01-07] MEDS: Apixaban 5 MG Tab PO SCH ×2 (08:17→21:48)
[2021-01-07] MEDS: Dexamethasone 2 MG Tab PO SCH (08:17)
--- NOTE | 2021-01-07 10:48 | PCM.PN ---
- General Info Date of Service: 01/07/21 Subjective Update: No acute events overnight. Respiratory status has been stable. He is on 6 L of oxygen this morning. He does get short of breath with activity and desaturates quickly though he is recovering more quickly than he had been in the past. He feels well at rest. Appetite has been good. Strength slowly improving. CRP level has normalized and D-dimer is trending down. Functional Status: Reports: Pain Controlled, Tolerating Diet - Review of Systems General: Reports: Weakness Pulmonary: Reports: Shortness of Breath, Cough - Patient Data Vitals - Most Recent: Last Vital Signs Temp 36.3 C 01/07/21 07:00 Pulse 91 01/07/21 10:38 Resp 18 01/07/21 07:00 BP 117/63 01/07/21 07:00 Pulse Ox 96 01/07/21 07:03 Weight - Most Recent: 85.185 kg I&O - Last 24 Hours: Intake & Output 01/06/21 01/07/21 01/07/21 22:59 06:59 14:59 Intake Total 500 540 700 Output Total 650 750 Balance -150 -210 700 Lab Results Last 24 Hours: Laboratory Results - last 24 hr 01/07/21 01/07/21 Range/Units 04:10 04:10 D-Dimer, Quantitative 3559.32 H (0.0-500.0) ng/mL Sodium 138 L (140-148) mmol/L Potassium 4.3 (3.6-5.2) mmol/L Chloride 103 (100-108) mmol/L Carbon Dioxide 31 (21-32) mmol/L Anion Gap 8.3 (5.0-14.0) mmol/L BUN 25 H (7-18) mg/dL Creatinine 0.8 (0.8-1.3) mg/dL Est Cr Clr Drug Dosing 86.18 mL/min Estimated GFR (MDRD) > 60 (>60) Glucose 94 (74-106) mg/dL Calcium 8.2 L (8.5-10.1) mg/dL C-Reactive Protein 0.16 (0.0-0.3) mg/dL Med Orders - Current: Current Medications Acetaminophen (Acetaminophen 325 Mg Tab) 650 mg PO Q4H PRN PRN Reason: Pain (Mild 1-3)/fever Hydrocodone Bitart/Acetaminophen (Acetaminophen/Hydrocodone 325-5 Mg Tab) 1 tab PO Q4H PRN PRN Reason: Pain (moderate 4-6) Albuterol (Albuterol 0.083% 2.5 Mg/3 Ml Neb Soln) 2.5 mg NEB Q4H PRN PRN Reason: Shortness Of Breath/wheezing Last Admin: 01/04/21 17:29 Dose: 2.5 mg Documented by: Albuterol/Ipratropium (Albuterol/Ipratropium 3.0-0.5 Mg/3 Ml Neb Soln) 3 ml NEB QIDRT [facility] Last Admin: 01/07/21 10:38 Dose: 3 ml Documented by: Apixaban (Apixaban 5 Mg Tab) 5 mg PO BID [facility] Last Admin: 01/07/21 08:17 Dose: 5 mg Documented by: Dexamethasone (Dexamethasone 2 Mg Tab) 2 mg PO DAILY [facility] Stop: 01/09/21 09:01 Last Admin: 01/07/21 08:17 Dose: 2 mg Documented by: Dexamethasone (Dexamethasone 2 Mg Tab) 1 mg PO DAILY [facility] Ondansetron HCl (Ondansetron 4 Mg/2 Ml Sdv) 4 mg IV Q4H PRN PRN Reason: Nausea/Vomiting Polyethylene Glycol (Polyethylene Glycol 3350 Powder 17 Gm Packet) 17 gm PO DAILY PRN PRN Reason: Constipation Sodium Chloride (Sodium Chloride 0.9% 10 Ml Syringe) 10 ml FLUSH ASDIRECTED PRN PRN Reason: Keep Vein Open Discontinued Medications Apixaban (Apixaban 5 Mg Tab) 10 mg PO Q12H [facility] Stop: 01/04/21 23:59 Last Admin: 01/04/21 20:44 Dose: 10 mg Documented by: Dexamethasone (Dexamethasone 2 Mg Tab) 1 mg PO DAILY [facility] Last Admin: 01/04/21 09:18 Dose: 1 mg Documented by: Enoxaparin Sodium (Enoxaparin 100 Mg/1 Ml Syringe) 100 mg SUBCUT DAILY [facility] Last Admin: 12/27/20 15:02 Dose: Not Given Documented by: Enoxaparin Sodium (Enoxaparin 100 Mg/1 Ml Syringe) 100 mg SUBCUT Q12H [facility] Last Admin: 12/29/20 02:46 Dose: 100 mg Documented by: Furosemide (Furosemide 20 Mg/2 Ml Vial) 20 mg IVPUSH NOW ONE Stop: 12/30/20 10:31 Last Admin: 12/30/20 11:30 Dose: 20 mg Documented by: Furosemide (Furosemide 20 Mg/2 Ml Vial) 20 mg IVPUSH NOW ONE Stop: 01/01/21 10:46 Last Admin: 01/01/21 11:10 Dose: 20 mg Documented by: Ceftriaxone Sodium 2 gm/ (Sodium Chloride) 50 mls @ 100 mls/hr IV ONETIME ONE Stop: 12/27/20 09:12 Last Admin: 12/27/20 09:25 Dose: 100 mls/hr Documented by: Sodium Chloride (Normal Saline) 90 mls @ 3 mls/sec IV ONETIME ONE Stop: 12/27/20 10:30 Last Admin: 12/27/20 10:45 Dose: 4 mls/sec Documented by: Sodium Chloride (Normal Saline) 1,000 mls @ 125 mls/hr IV ASDIRECTED [facility] Last Admin: 12/28/20 02:15 Dose: 125 mls/hr Documented by: Levofloxacin/Dextrose 750 mg/ (Premix) 150 mls @ 100 mls/hr IV Q24H [facility] Last Admin: 01/03/21 14:31 Dose: 100 mls/hr Documented by: Vancomycin HCl 1.8 gm/ Sodium (Chloride) 250 mls @ 166.667 mls/hr IV ONETIME ONE Stop: 12/27/20 17:59 Last Admin: 12/27/20 16:56 Dose: 166.667 mls/hr Documented by: Vancomycin HCl 1.4 gm/ Sodium (Chloride) 250 mls @ 166.667 mls/hr IV Q12H [facility] Last Admin: 12/29/20 03:40 Dose: 166.667 mls/hr Documented by: Meropenem 1 gm/ Sodium (Chloride) 100 mls @ 200 mls/hr IV Q8H [facility] Last Admin: 01/01/21 09:18 Dose: 200 mls/hr Documented by: Iopamidol (Iopamidol 755 Mg/Ml 100 Ml Bottle) 85 ml IV . DIRECTED [facility] Last Admin: 12/27/20 10:45 Dose: 85 ml Documented by: Methylprednisolone Sodium Succinate (Methylprednisolone Sodium Succinate 125 Mg/2 Ml Sdv) 125 mg IVPUSH ONETIME ONE Stop: 12/27/20 08:44 Last Admin: 12/27/20 09:21 Dose: 125 mg Documented by: Methylprednisolone Sodium Succinate (Methylprednisolone Sodium Succinate 40 Mg/1 Ml Sdv) 40 mg IVPUSH DAILY [facility] Last Admin: 01/02/21 09:22 Dose: 40 mg Documented by: Sodium Chloride (Sodium Chloride 0.9% 10 Ml Syringe) 10 ml FLUSH ONETIME PRN PRN Reason: PER RADIOLOGY PROTOCOL Last Admin: 12/27/20 10:45 Dose: 10 ml Documented by: Vancomycin HCl (Vancomycin 1 Gm Sdv) 1 gm IV .PHARMACY TO DOSE [facility] Stop: 12/27/20 18:00 - Exam Quality Assessment: Supplemental Oxygen General: Alert, Oriented, Cooperative, No Acute Distress Lungs: Normal Respiratory Effort GI/Abdominal Exam: Soft, No Distention Extremities: No Pedal Edema Skin: Warm, Dry Psy/Mental Status: Alert, Normal Affect - Patient Data Lab Results Last 24 hrs: Laboratory Results - last 24 hr 01/07/21 01/07/21 Range/Units 04:10 04:10 D-Dimer, Quantitative 3559.32 H (0.0-500.0) ng/mL Sodium 138 L (140-148) mmol/L Potassium 4.3 (3.6-5.2) mmol/L Chloride 103 (100-108) mmol/L Carbon Dioxide 31 (21-32) mmol/L Anion Gap 8.3 (5.0-14.0) mmol/L BUN 25 H (7-18) mg/dL Creatinine 0.8 (0.8-1.3) mg/dL Est Cr Clr Drug Dosing 86.18 mL/min Estimated GFR (MDRD) > 60 (>60) Glucose 94 (74-106) mg/dL Calcium 8.2 L (8.5-10.1) mg/dL C-Reactive Protein 0.16 (0.0-0.3) mg/dL Result Diagrams: 01/02/21 05:04 01/07/21 04:10 Sepsis Event Note - Evaluation Sepsis Screening Result: No Definite Risk - Focused Exam Vital Signs: Vital Signs Temp Pulse Resp BP Pulse Ox 01/07/21 10:38 91 01/07/21 07:03 96 01/07/21 07:00 36.3 C 105 H 18 117/63 92 L 01/07/21 03:00 36.4 C 83 18 120/64 91 L 01/07/21 02:22 98 - Problem List Review Problem List Initiated/Reviewed/Updated: Yes - My Orders Last 24 Hours: My Active Orders 01/10/21 09:00 dexAMETHasone 1 mg PO DAILY - Plan Plan:: ASSESSMENT AND PLAN BILATERAL PNEUMONIA-suspect bacterial pneumonia complicating recent COVID-19 infection. Very slowly getting better and we are weaning his oxygen as able. -He is on a steroid taper with recent Covid infection. 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 Provoked in the setting of Covid infection. -Apixaban 5 mg twice daily for 3 months HYPOXIC RESPIRATORY FAILURE-likely multifactorial related to recent COVID-19 infection with residual inflammation, bacterial pneumonia, and pulmonary emboli. Echo normal. Slowly improving. -Supplemental oxygen as needed -Scheduled and as needed nebulizers ADRENAL INSUFFICIENCY-recent therapy with Decadron for COVID-19 infection. -dexamethasone 2 mg daily with taper over the next 2 weeks MAINTENANCE ISSUES -DVT prophylaxis; apixaban -GI prophylaxis; not indicated -Nutrition; regular diet DISPOSITION-anticipate discharge to home with home care after the hospital stay. He continues to require higher levels of supplemental oxygen and can be supported at home. Davi Dockery MD
[2021-01-08] MEDS: Albuterol/Ipratropium 3.0-0.5 MG/3 ML Neb Soln NEB SCH ×4 (07:09→21:45)
[2021-01-08] MEDS: Apixaban 5 MG Tab PO SCH ×2 (09:40→21:45)
[2021-01-08] MEDS: Dexamethasone 2 MG Tab PO SCH (09:40)
--- NOTE | 2021-01-08 13:59 | PCM.PN ---
- General Info Date of Service: 01/08/21 Subjective Update: No acute events overnight. Respiratory status has been stable. He is down to 5 L of oxygen at this time. He thinks his dyspnea with exertion is less each day. Trips to the bathroom are easier each time. Intermittent cough but this is minimal. Appetite good. Bowels moving. No fevers. Functional Status: Reports: Pain Controlled, Tolerating Diet - Review of Systems Pulmonary: Reports: Shortness of Breath - Patient Data Vitals - Most Recent: Last Vital Signs Temp 35.8 C L 01/08/21 11:00 Pulse 92 01/08/21 11:00 Resp 16 01/08/21 11:00 BP 122/68 01/08/21 11:00 Pulse Ox 90 L 01/08/21 13:46 Weight - Most Recent: 85.185 kg I&O - Last 24 Hours: Intake & Output 01/07/21 01/08/21 01/08/21 22:59 06:59 14:59 Intake Total 900 700 Output Total 400 550 650 Balance 500 -550 50 Med Orders - Current: Current Medications Acetaminophen (Acetaminophen 325 Mg Tab) 650 mg PO Q4H PRN PRN Reason: Pain (Mild 1-3)/fever Hydrocodone Bitart/Acetaminophen (Acetaminophen/Hydrocodone 325-5 Mg Tab) 1 tab PO Q4H PRN PRN Reason: Pain (moderate 4-6) Albuterol (Albuterol 0.083% 2.5 Mg/3 Ml Neb Soln) 2.5 mg NEB Q4H PRN PRN Reason: Shortness Of Breath/wheezing Last Admin: 01/04/21 17:29 Dose: 2.5 mg Documented by: Albuterol/Ipratropium (Albuterol/Ipratropium 3.0-0.5 Mg/3 Ml Neb Soln) 3 ml NEB QIDRT [facility] Last Admin: 01/08/21 10:47 Dose: 3 ml Documented by: Apixaban (Apixaban 5 Mg Tab) 5 mg PO BID [facility] Last Admin: 01/08/21 09:40 Dose: 5 mg Documented by: Dexamethasone (Dexamethasone 2 Mg Tab) 2 mg PO DAILY [facility] Stop: 01/09/21 09:01 Last Admin: 01/08/21 09:40 Dose: 2 mg Documented by: Dexamethasone (Dexamethasone 2 Mg Tab) 1 mg PO DAILY [facility] Ondansetron HCl (Ondansetron 4 Mg/2 Ml Sdv) 4 mg IV Q4H PRN PRN Reason: Nausea/Vomiting Polyethylene Glycol (Polyethylene Glycol 3350 Powder 17 Gm Packet) 17 gm PO DAILY PRN PRN Reason: Constipation Sodium Chloride (Sodium Chloride 0.9% 10 Ml Syringe) 10 ml FLUSH ASDIRECTED PRN PRN Reason: Keep Vein Open Discontinued Medications Apixaban (Apixaban 5 Mg Tab) 10 mg PO Q12H [facility] Stop: 01/04/21 23:59 Last Admin: 01/04/21 20:44 Dose: 10 mg Documented by: Dexamethasone (Dexamethasone 2 Mg Tab) 1 mg PO DAILY [facility] Last Admin: 01/04/21 09:18 Dose: 1 mg Documented by: Enoxaparin Sodium (Enoxaparin 100 Mg/1 Ml Syringe) 100 mg SUBCUT DAILY [facility] Last Admin: 12/27/20 15:02 Dose: Not Given Documented by: Enoxaparin Sodium (Enoxaparin 100 Mg/1 Ml Syringe) 100 mg SUBCUT Q12H [facility] Last Admin: 12/29/20 02:46 Dose: 100 mg Documented by: Furosemide (Furosemide 20 Mg/2 Ml Vial) 20 mg IVPUSH NOW ONE Stop: 12/30/20 10:31 Last Admin: 12/30/20 11:30 Dose: 20 mg Documented by: Furosemide (Furosemide 20 Mg/2 Ml Vial) 20 mg IVPUSH NOW ONE Stop: 01/01/21 10:46 Last Admin: 01/01/21 11:10 Dose: 20 mg Documented by: Ceftriaxone Sodium 2 gm/ (Sodium Chloride) 50 mls @ 100 mls/hr IV ONETIME ONE Stop: 12/27/20 09:12 Last Admin: 12/27/20 09:25 Dose: 100 mls/hr Documented by: Sodium Chloride (Normal Saline) 90 mls @ 3 mls/sec IV ONETIME ONE Stop: 12/27/20 10:30 Last Admin: 12/27/20 10:45 Dose: 4 mls/sec Documented by: Sodium Chloride (Normal Saline) 1,000 mls @ 125 mls/hr IV ASDIRECTED [facility] Last Admin: 12/28/20 02:15 Dose: 125 mls/hr Documented by: Levofloxacin/Dextrose 750 mg/ (Premix) 150 mls @ 100 mls/hr IV Q24H [facility] Last Admin: 01/03/21 14:31 Dose: 100 mls/hr Documented by: Vancomycin HCl 1.8 gm/ Sodium (Chloride) 250 mls @ 166.667 mls/hr IV ONETIME ONE Stop: 12/27/20 17:59 Last Admin: 12/27/20 16:56 Dose: 166.667 mls/hr Documented by: Vancomycin HCl 1.4 gm/ Sodium (Chloride) 250 mls @ 166.667 mls/hr IV Q12H [facility] Last Admin: 12/29/20 03:40 Dose: 166.667 mls/hr Documented by: Meropenem 1 gm/ Sodium (Chloride) 100 mls @ 200 mls/hr IV Q8H [facility] Last Admin: 01/01/21 09:18 Dose: 200 mls/hr Documented by: Iopamidol (Iopamidol 755 Mg/Ml 100 Ml Bottle) 85 ml IV . DIRECTED [facility] Last Admin: 12/27/20 10:45 Dose: 85 ml Documented by: Methylprednisolone Sodium Succinate (Methylprednisolone Sodium Succinate 125 Mg/2 Ml Sdv) 125 mg IVPUSH ONETIME ONE Stop: 12/27/20 08:44 Last Admin: 12/27/20 09:21 Dose: 125 mg Documented by: Methylprednisolone Sodium Succinate (Methylprednisolone Sodium Succinate 40 Mg/1 Ml Sdv) 40 mg IVPUSH DAILY [facility] Last Admin: 01/02/21 09:22 Dose: 40 mg Documented by: Sodium Chloride (Sodium Chloride 0.9% 10 Ml Syringe) 10 ml FLUSH ONETIME PRN PRN Reason: PER RADIOLOGY PROTOCOL Last Admin: 12/27/20 10:45 Dose: 10 ml Documented by: Vancomycin HCl (Vancomycin 1 Gm Sdv) 1 gm IV .PHARMACY TO DOSE [facility] Stop: 12/27/20 18:00 - Exam Quality Assessment: Supplemental Oxygen General: Alert, Oriented, Cooperative, No Acute Distress Lungs: Normal Respiratory Effort Cardiovascular: Regular Rate, Regular Rhythm Extremities: No Pedal Edema Psy/Mental Status: Alert, Normal Affect - Patient Data Result Diagrams: 01/02/21 05:04 01/07/21 04:10 Sepsis Event Note - Evaluation Sepsis Screening Result: No Definite Risk - Focused Exam Vital Signs: Vital Signs Temp Pulse Resp BP Pulse Ox 01/08/21 13:46 90 L 01/08/21 11:00 35.8 C L 92 16 122/68 91 L 01/08/21 07:43 36.2 C 96 16 127/65 90 L 01/08/21 04:00 36.1 C 86 18 95 - Problem List Review Problem List Initiated/Reviewed/Updated: Yes - My Orders Last 24 Hours: My Active Orders 01/10/21 09:00 dexAMETHasone 1 mg PO DAILY - Plan Plan:: ASSESSMENT AND PLAN BILATERAL PNEUMONIA-suspect bacterial pneumonia complicating recent COVID-19 infection. Very slowly getting better and we are weaning his oxygen as able. -He is on a steroid taper with recent Covid infection. 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 Provoked in the setting of Covid infection. -Apixaban 5 mg twice daily for 3 months HYPOXIC RESPIRATORY FAILURE-likely multifactorial related to recent COVID-19 infection with residual inflammation, bacterial pneumonia, and pulmonary emboli. Echo normal. Slowly improving. -Supplemental oxygen as needed -Scheduled and as needed nebulizers ADRENAL INSUFFICIENCY-recent therapy with Decadron for COVID-19 infection. -dexamethasone 2 mg daily with taper over the next 2 weeks MAINTENANCE ISSUES -DVT prophylaxis; apixaban -GI prophylaxis; not indicated -Nutrition; regular diet DISPOSITION-anticipate discharge to home with home care after the hospital stay. He continues to require higher levels of supplemental oxygen than can be supported at home. Davi Dockery MD
[2021-01-09] MEDS: Albuterol/Ipratropium 3.0-0.5 MG/3 ML Neb Soln NEB SCH ×4 (07:28→20:33)
[2021-01-09] MEDS: Dexamethasone 2 MG Tab PO SCH (09:25)
[2021-01-09] MEDS: Apixaban 5 MG Tab PO SCH ×2 (09:25→20:33)
--- NOTE | 2021-01-09 16:34 | PCM.PN ---
- General Info Date of Service: 01/09/21 Subjective Update: Mr. Blanco has been stable since yesterday. Continues to require approximately 6 L of oxygen via nasal cannula and does desaturate with activity. Overall ener gy level and appetite have improved and are almost back to baseline. Functional Status: Reports: Tolerating Diet, Ambulating, Urinating - Review of Systems General: Reports: Weakness, Fatigue. Denies: Fever, Chills Pulmonary: Reports: Shortness of Breath. Denies: Pleuritic Chest Pain, Cough, Sputum, Hemoptysis, Wheezing Cardiovascular: Reports: Dyspnea on Exertion. Denies: Chest Pain, Palpitations, Orthopnea, PND, Edema, Lightheadedness Gastrointestinal: Reports: No Symptoms Genitourinary: Reports: No Symptoms - Patient Data Vitals - Most Recent: Last Vital Signs Temp 97.0 F 01/09/21 14:17 Pulse 96 01/09/21 14:31 Resp 18 01/09/21 14:17 BP 119/64 01/09/21 14:17 Pulse Ox 94 L 01/09/21 14:33 Weight - Most Recent: 187 lb 12.8 oz I&O - Last 24 Hours: Intake & Output 01/09/21 01/09/21 01/09/21 06:59 14:59 22:59 Intake Total 850 1140 Output Total 650 950 Balance 200 190 Med Orders - Current: Current Medications Acetaminophen (Acetaminophen 325 Mg Tab) 650 mg PO Q4H PRN PRN Reason: Pain (Mild 1-3)/fever Hydrocodone Bitart/Acetaminophen (Acetaminophen/Hydrocodone 325-5 Mg Tab) 1 tab PO Q4H PRN PRN Reason: Pain (moderate 4-6) Albuterol (Albuterol 0.083% 2.5 Mg/3 Ml Neb Soln) 2.5 mg NEB Q4H PRN PRN Reason: Shortness Of Breath/wheezing Last Admin: 01/04/21 17:29 Dose: 2.5 mg Documented by: Albuterol/Ipratropium (Albuterol/Ipratropium 3.0-0.5 Mg/3 Ml Neb Soln) 3 ml NEB QIDRT [facility] Last Admin: 01/09/21 14:30 Dose: 3 ml Documented by: Apixaban (Apixaban 5 Mg Tab) 5 mg PO BID [facility] Last Admin: 01/09/21 09:25 Dose: 5 mg Documented by: Dexamethasone (Dexamethasone 2 Mg Tab) 1 mg PO DAILY [facility] Ondansetron HCl (Ondansetron 4 Mg/2 Ml Sdv) 4 mg IV Q4H PRN PRN Reason: Nausea/Vomiting Polyethylene Glycol (Polyethylene Glycol 3350 Powder 17 Gm Packet) 17 gm PO DAILY PRN PRN Reason: Constipation Sodium Chloride (Sodium Chloride 0.9% 10 Ml Syringe) 10 ml FLUSH ASDIRECTED PRN PRN Reason: Keep Vein Open Discontinued Medications Apixaban (Apixaban 5 Mg Tab) 10 mg PO Q12H [facility] Stop: 01/04/21 23:59 Last Admin: 01/04/21 20:44 Dose: 10 mg Documented by: Dexamethasone (Dexamethasone 2 Mg Tab) 2 mg PO DAILY [facility] Stop: 01/09/21 09:01 Last Admin: 01/09/21 09:25 Dose: 2 mg Documented by: Dexamethasone (Dexamethasone 2 Mg Tab) 1 mg PO DAILY [facility] Last Admin: 01/04/21 09:18 Dose: 1 mg Documented by: Enoxaparin Sodium (Enoxaparin 100 Mg/1 Ml Syringe) 100 mg SUBCUT DAILY [facility] Last Admin: 12/27/20 15:02 Dose: Not Given Documented by: Enoxaparin Sodium (Enoxaparin 100 Mg/1 Ml Syringe) 100 mg SUBCUT Q12H [facility] Last Admin: 12/29/20 02:46 Dose: 100 mg Documented by: Furosemide (Furosemide 20 Mg/2 Ml Vial) 20 mg IVPUSH NOW ONE Stop: 12/30/20 10:31 Last Admin: 12/30/20 11:30 Dose: 20 mg Documented by: Furosemide (Furosemide 20 Mg/2 Ml Vial) 20 mg IVPUSH NOW ONE Stop: 01/01/21 10:46 Last Admin: 01/01/21 11:10 Dose: 20 mg Documented by: Ceftriaxone Sodium 2 gm/ (Sodium Chloride) 50 mls @ 100 mls/hr IV ONETIME ONE Stop: 12/27/20 09:12 Last Admin: 12/27/20 09:25 Dose: 100 mls/hr Documented by: Sodium Chloride (Normal Saline) 90 mls @ 3 mls/sec IV ONETIME ONE Stop: 12/27/20 10:30 Last Admin: 12/27/20 10:45 Dose: 4 mls/sec Documented by: Sodium Chloride (Normal Saline) 1,000 mls @ 125 mls/hr IV ASDIRECTED [facility] Last Admin: 12/28/20 02:15 Dose: 125 mls/hr Documented by: Levofloxacin/Dextrose 750 mg/ (Premix) 150 mls @ 100 mls/hr IV Q24H [facility] Last Admin: 01/03/21 14:31 Dose: 100 mls/hr Documented by: Vancomycin HCl 1.8 gm/ Sodium (Chloride) 250 mls @ 166.667 mls/hr IV ONETIME ONE Stop: 12/27/20 17:59 Last Admin: 12/27/20 16:56 Dose: 166.667 mls/hr Documented by: Vancomycin HCl 1.4 gm/ Sodium (Chloride) 250 mls @ 166.667 mls/hr IV Q12H [facility] Last Admin: 12/29/20 03:40 Dose: 166.667 mls/hr Documented by: Meropenem 1 gm/ Sodium (Chloride) 100 mls @ 200 mls/hr IV Q8H [facility] Last Admin: 01/01/21 09:18 Dose: 200 mls/hr Documented by: Iopamidol (Iopamidol 755 Mg/Ml 100 Ml Bottle) 85 ml IV . DIRECTED [facility] Last Admin: 12/27/20 10:45 Dose: 85 ml Documented by: Methylprednisolone Sodium Succinate (Methylprednisolone Sodium Succinate 125 Mg/2 Ml Sdv) 125 mg IVPUSH ONETIME ONE Stop: 12/27/20 08:44 Last Admin: 12/27/20 09:21 Dose: 125 mg Documented by: Methylprednisolone Sodium Succinate (Methylprednisolone Sodium Succinate 40 Mg/1 Ml Sdv) 40 mg IVPUSH DAILY [facility] Last Admin: 01/02/21 09:22 Dose: 40 mg Documented by: Sodium Chloride (Sodium Chloride 0.9% 10 Ml Syringe) 10 ml FLUSH ONETIME PRN PRN Reason: PER RADIOLOGY PROTOCOL Last Admin: 12/27/20 10:45 Dose: 10 ml Documented by: Vancomycin HCl (Vancomycin 1 Gm Sdv) 1 gm IV .PHARMACY TO DOSE [facility] Stop: 12/27/20 18:00 - Exam Quality Assessment: Supplemental Oxygen, DVT Prophylaxis General: Alert, Oriented, Cooperative, Mild Distress Lungs: Clear to Auscultation, Normal Respiratory Effort, Decreased Breath Sounds. No: Crackles, Rales, Rhonchi, Wheezing Cardiovascular: Regular Rate, Regular Rhythm, No Murmurs GI/Abdominal Exam: Soft, Non-Tender, No Organomegaly, No Distention Extremities: Non-Tender, No Pedal Edema - Patient Data Result Diagrams: 01/02/21 05:04 01/07/21 04:10 Sepsis Event Note - Evaluation Sepsis Screening Result: No Definite Risk - Focused Exam Vital Signs: Vital Signs Temp Temp Pulse Resp BP Pulse Ox 01/09/21 14:33 94 L 01/09/21 14:31 96 01/09/21 14:17 97.0 F 94 18 119/64 94 L 01/09/21 11:06 98 01/09/21 10:42 98.1 F 98 18 130/70 93 L 01/09/21 07:38 88 01/09/21 07:00 96.6 F L 101 H 18 118/56 L 92 L 01/09/21 06:50 98 - Problem List Review Problem List Initiated/Reviewed/Updated: Yes - Plan Plan:: ASSESSMENT AND PLAN BILATERAL PNEUMONIA-suspect bacterial pneumonia complicating recent COVID-19 infection. Very slowly getting better and we are weaning his oxygen as able. -He is on a steroid taper with recent Covid infection. 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 Provoked in the setting of Covid infection. -Apixaban 5 mg twice daily for 3 months HYPOXIC RESPIRATORY FAILURE-likely multifactorial related to recent COVID-19 infection with residual inflammation, bacterial pneumonia, and pulmonary emboli. Echo normal. Slowly improving. -Supplemental oxygen as needed -Scheduled and as needed nebulizers ADRENAL INSUFFICIENCY-recent therapy with Decadron for COVID-19 infection. -dexamethasone 2 mg daily with taper over the next 2 weeks MAINTENANCE ISSUES -DVT prophylaxis; apixaban -GI prophylaxis; not indicated -Nutrition; regular diet DISPOSITION-anticipate discharge to home with home care after the hospital stay. He continues to require higher levels of supplemental oxygen than can be supported at home.
[2021-01-10] MEDS: Albuterol/Ipratropium 3.0-0.5 MG/3 ML Neb Soln NEB SCH ×4 (07:26→20:57)
[2021-01-10] MEDS: Dexamethasone 2 MG Tab PO SCH (08:47)
[2021-01-10] MEDS: Apixaban 5 MG Tab PO SCH ×2 (08:47→20:57)
--- NOTE | 2021-01-10 12:30 | PCM.PN ---
- General Info Date of Service: 01/10/21 Subjective Update: Mr. Blanco has continued to show slow improvement as far as overall strength and respiratory status. He is requiring 5 L/min via nasal cannula to maintain adequate oxygenation at rest. He does continue to show desaturation with activity. Functional Status: Reports: Tolerating Diet, Ambulating, Urinating - Review of Systems General: Reports: Weakness, Fatigue. Denies: Fever, Chills Pulmonary: Reports: Shortness of Breath. Denies: Pleuritic Chest Pain, Cough, Sputum, Hemoptysis, Wheezing Cardiovascular: Reports: Dyspnea on Exertion. Denies: Chest Pain, Palpitations, Orthopnea, PND, Edema, Lightheadedness Gastrointestinal: Reports: No Symptoms Genitourinary: Reports: No Symptoms - Patient Data Vitals - Most Recent: Last Vital Signs Temp 97.3 F 01/10/21 10:37 Pulse 81 01/10/21 10:37 Resp 18 01/10/21 10:37 BP 112/61 01/10/21 10:37 Pulse Ox 96 01/10/21 10:37 Weight - Most Recent: 187 lb 12.8 oz I&O - Last 24 Hours: Intake & Output 01/09/21 01/10/21 01/10/21 22:59 06:59 14:59 Intake Total 500 840 Output Total 275 1150 Balance -275 -650 840 Med Orders - Current: Current Medications Acetaminophen (Acetaminophen 325 Mg Tab) 650 mg PO Q4H PRN PRN Reason: Pain (Mild 1-3)/fever Hydrocodone Bitart/Acetaminophen (Acetaminophen/Hydrocodone 325-5 Mg Tab) 1 tab PO Q4H PRN PRN Reason: Pain (moderate 4-6) Albuterol (Albuterol 0.083% 2.5 Mg/3 Ml Neb Soln) 2.5 mg NEB Q4H PRN PRN Reason: Shortness Of Breath/wheezing Last Admin: 01/04/21 17:29 Dose: 2.5 mg Documented by: Albuterol/Ipratropium (Albuterol/Ipratropium 3.0-0.5 Mg/3 Ml Neb Soln) 3 ml NEB QIDRT [facility] Last Admin: 01/10/21 10:44 Dose: 3 ml Documented by: Apixaban (Apixaban 5 Mg Tab) 5 mg PO BID [facility] Last Admin: 01/10/21 08:47 Dose: 5 mg Documented by: Dexamethasone (Dexamethasone 2 Mg Tab) 1 mg PO DAILY [facility] Last Admin: 01/10/21 08:47 Dose: 1 mg Documented by: Ondansetron HCl (Ondansetron 4 Mg/2 Ml Sdv) 4 mg IV Q4H PRN PRN Reason: Nausea/Vomiting Polyethylene Glycol (Polyethylene Glycol 3350 Powder 17 Gm Packet) 17 gm PO DAILY PRN PRN Reason: Constipation Sodium Chloride (Sodium Chloride 0.9% 10 Ml Syringe) 10 ml FLUSH ASDIRECTED PRN PRN Reason: Keep Vein Open Discontinued Medications Apixaban (Apixaban 5 Mg Tab) 10 mg PO Q12H [facility] Stop: 01/04/21 23:59 Last Admin: 01/04/21 20:44 Dose: 10 mg Documented by: Dexamethasone (Dexamethasone 2 Mg Tab) 2 mg PO DAILY [facility] Stop: 01/09/21 09:01 Last Admin: 01/09/21 09:25 Dose: 2 mg Documented by: Dexamethasone (Dexamethasone 2 Mg Tab) 1 mg PO DAILY [facility] Last Admin: 01/04/21 09:18 Dose: 1 mg Documented by: Enoxaparin Sodium (Enoxaparin 100 Mg/1 Ml Syringe) 100 mg SUBCUT DAILY [facility] Last Admin: 12/27/20 15:02 Dose: Not Given Documented by: Enoxaparin Sodium (Enoxaparin 100 Mg/1 Ml Syringe) 100 mg SUBCUT Q12H [facility] Last Admin: 12/29/20 02:46 Dose: 100 mg Documented by: Furosemide (Furosemide 20 Mg/2 Ml Vial) 20 mg IVPUSH NOW ONE Stop: 12/30/20 10:31 Last Admin: 12/30/20 11:30 Dose: 20 mg Documented by: Furosemide (Furosemide 20 Mg/2 Ml Vial) 20 mg IVPUSH NOW ONE Stop: 01/01/21 10:46 Last Admin: 01/01/21 11:10 Dose: 20 mg Documented by: Ceftriaxone Sodium 2 gm/ (Sodium Chloride) 50 mls @ 100 mls/hr IV ONETIME ONE Stop: 12/27/20 09:12 Last Admin: 12/27/20 09:25 Dose: 100 mls/hr Documented by: Sodium Chloride (Normal Saline) 90 mls @ 3 mls/sec IV ONETIME ONE Stop: 12/27/20 10:30 Last Admin: 12/27/20 10:45 Dose: 4 mls/sec Documented by: Sodium Chloride (Normal Saline) 1,000 mls @ 125 mls/hr IV ASDIRECTED [facility] Last Admin: 12/28/20 02:15 Dose: 125 mls/hr Documented by: Levofloxacin/Dextrose 750 mg/ (Premix) 150 mls @ 100 mls/hr IV Q24H [facility] Last Admin: 01/03/21 14:31 Dose: 100 mls/hr Documented by: Vancomycin HCl 1.8 gm/ Sodium (Chloride) 250 mls @ 166.667 mls/hr IV ONETIME ONE Stop: 12/27/20 17:59 Last Admin: 12/27/20 16:56 Dose: 166.667 mls/hr Documented by: Vancomycin HCl 1.4 gm/ Sodium (Chloride) 250 mls @ 166.667 mls/hr IV Q12H [facility] Last Admin: 12/29/20 03:40 Dose: 166.667 mls/hr Documented by: Meropenem 1 gm/ Sodium (Chloride) 100 mls @ 200 mls/hr IV Q8H [facility] Last Admin: 01/01/21 09:18 Dose: 200 mls/hr Documented by: Iopamidol (Iopamidol 755 Mg/Ml 100 Ml Bottle) 85 ml IV . DIRECTED [facility] Last Admin: 12/27/20 10:45 Dose: 85 ml Documented by: Methylprednisolone Sodium Succinate (Methylprednisolone Sodium Succinate 125 Mg/2 Ml Sdv) 125 mg IVPUSH ONETIME ONE Stop: 12/27/20 08:44 Last Admin: 12/27/20 09:21 Dose: 125 mg Documented by: Methylprednisolone Sodium Succinate (Methylprednisolone Sodium Succinate 40 Mg/1 Ml Sdv) 40 mg IVPUSH DAILY [facility] Last Admin: 01/02/21 09:22 Dose: 40 mg Documented by: Sodium Chloride (Sodium Chloride 0.9% 10 Ml Syringe) 10 ml FLUSH ONETIME PRN PRN Reason: PER RADIOLOGY PROTOCOL Last Admin: 12/27/20 10:45 Dose: 10 ml Documented by: Vancomycin HCl (Vancomycin 1 Gm Sdv) 1 gm IV .PHARMACY TO DOSE [facility] Stop: 12/27/20 18:00 - Exam Quality Assessment: Supplemental Oxygen, DVT Prophylaxis General: Alert, Oriented, Cooperative, Mild Distress Lungs: Clear to Auscultation, Normal Respiratory Effort, Decreased Breath Sounds. No: Rales, Rhonchi, Wheezing Cardiovascular: Regular Rate, Regular Rhythm, No Murmurs GI/Abdominal Exam: Soft, Non-Tender, No Organomegaly, No Distention Extremities: Non-Tender, No Pedal Edema - Patient Data Result Diagrams: 01/02/21 05:04 01/07/21 04:10 Sepsis Event Note - Evaluation Sepsis Screening Result: No Definite Risk - Focused Exam Vital Signs: Vital Signs Temp Pulse Resp BP Pulse Ox Pulse Ox 01/10/21 10:37 97.3 F 81 18 112/61 96 01/10/21 08:06 90 L 01/10/21 08:00 91 L 01/10/21 07:08 97.1 F 72 16 121/75 91 L 01/10/21 02:15 96.7 F L 78 18 115/64 91 L 01/10/21 01:00 95 - Problem List Review Problem List Initiated/Reviewed/Updated: Yes - My Orders Last 24 Hours: My Active Orders 01/11/21 05:00 BASIC METABOLIC PANEL,BMP [CHEM] Timed 01/11/21 05:11 CRP [C-REACTIVE PROTEIN] [CHEM] AM D Dimer [D-DIMER QUANTITATIVE] [COAG] AM - Plan Plan:: ASSESSMENT AND PLAN BILATERAL PNEUMONIA-suspect bacterial pneumonia complicating recent COVID-19 infection. Very slowly getting better and we are weaning his oxygen as able. -He is on a steroid taper with recent Covid infection. 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 Provoked in the setting of Covid infection. -Apixaban 5 mg twice daily for 3 months HYPOXIC RESPIRATORY FAILURE-likely multifactorial related to recent COVID-19 infection with residual inflammation, bacterial pneumonia, and pulmonary emboli. Echo normal. Slowly improving. -Supplemental oxygen as needed -Scheduled and as needed nebulizers ADRENAL INSUFFICIENCY-recent therapy with Decadron for COVID-19 infection. -dexamethasone 2 mg daily with taper over the next 2 weeks MAINTENANCE ISSUES -DVT prophylaxis; apixaban -GI prophylaxis; not indicated -Nutrition; regular diet DISPOSITION-anticipate discharge to home with home care after the hospital stay. He continues to require higher levels of supplemental oxygen than can be supported at home.
[2021-01-11] MEDS: Albuterol/Ipratropium 3.0-0.5 MG/3 ML Neb Soln NEB SCH ×4 (07:04→20:33)
[2021-01-11] MEDS: Dexamethasone 2 MG Tab PO SCH (09:10)
[2021-01-11] MEDS: Apixaban 5 MG Tab PO SCH ×2 (09:10→20:47)
--- NOTE | 2021-01-11 13:23 | PCM.PN ---
- General Info Date of Service: 01/11/21 Subjective Update: Mr. Blanco has been stable since yesterday. He is experienced further improvement in his respiratory status. Requiring less supplemental oxygen at rest and with activity. Overall strength improving and his appetite remains good. Functional Status: Reports: Tolerating Diet, Ambulating, Urinating - Review of Systems General: Reports: Weakness, Fatigue. Denies: Fever, Chills Pulmonary: Reports: Shortness of Breath. Denies: Pleuritic Chest Pain, Cough, Sputum, Hemoptysis, Wheezing Cardiovascular: Reports: Dyspnea on Exertion. Denies: Chest Pain, Palpitations, Orthopnea, PND, Edema, Lightheadedness Gastrointestinal: Reports: No Symptoms Genitourinary: Reports: No Symptoms - Patient Data Vitals - Most Recent: Last Vital Signs Temp 97.5 F 01/11/21 11:44 Pulse 76 01/11/21 11:44 Resp 16 01/11/21 11:44 BP 109/55 L 01/11/21 11:44 Pulse Ox 94 L 01/11/21 13:14 Weight - Most Recent: 187 lb 12.8 oz I&O - Last 24 Hours: Intake & Output 01/10/21 01/11/21 01/11/21 22:59 06:59 14:59 Intake Total 480 960 Output Total 925 300 Balance 480 -925 660 Lab Results Last 24 Hours: Laboratory Results - last 24 hr 01/11/21 01/11/21 01/11/21 Range/Units 06:02 06:02 06:02 D-Dimer, Quantitative 2502.93 H (0.0-500.0) ng/mL Sodium 139 L (140-148) mmol/L Potassium 4.2 (3.6-5.2) mmol/L Chloride 104 (100-108) mmol/L Carbon Dioxide 30 (21-32) mmol/L Anion Gap 9.2 (5.0-14.0) mmol/L BUN 22 H (7-18) mg/dL Creatinine 0.7 L (0.8-1.3) mg/dL Est Cr Clr Drug Dosing 98.49 mL/min Estimated GFR (MDRD) > 60 (>60) Glucose 80 (74-106) mg/dL Calcium 8.2 L (8.5-10.1) mg/dL C-Reactive Protein 0.11 (0.0-0.3) mg/dL Med Orders - Current: Current Medications Acetaminophen (Acetaminophen 325 Mg Tab) 650 mg PO Q4H PRN PRN Reason: Pain (Mild 1-3)/fever Hydrocodone Bitart/Acetaminophen (Acetaminophen/Hydrocodone 325-5 Mg Tab) 1 tab PO Q4H PRN PRN Reason: Pain (moderate 4-6) Albuterol (Albuterol 0.083% 2.5 Mg/3 Ml Neb Soln) 2.5 mg NEB Q4H PRN PRN Reason: Shortness Of Breath/wheezing Last Admin: 01/04/21 17:29 Dose: 2.5 mg Documented by: Albuterol/Ipratropium (Albuterol/Ipratropium 3.0-0.5 Mg/3 Ml Neb Soln) 3 ml NEB QIDRT [facility] Last Admin: 01/11/21 10:46 Dose: 3 ml Documented by: Apixaban (Apixaban 5 Mg Tab) 5 mg PO BID [facility] Last Admin: 01/11/21 09:10 Dose: 5 mg Documented by: Dexamethasone (Dexamethasone 2 Mg Tab) 1 mg PO DAILY [facility] Last Admin: 01/11/21 09:10 Dose: 1 mg Documented by: Ondansetron HCl (Ondansetron 4 Mg/2 Ml Sdv) 4 mg IV Q4H PRN PRN Reason: Nausea/Vomiting Polyethylene Glycol (Polyethylene Glycol 3350 Powder 17 Gm Packet) 17 gm PO DAILY PRN PRN Reason: Constipation Sodium Chloride (Sodium Chloride 0.9% 10 Ml Syringe) 10 ml FLUSH ASDIRECTED PRN PRN Reason: Keep Vein Open Discontinued Medications Apixaban (Apixaban 5 Mg Tab) 10 mg PO Q12H [facility] Stop: 01/04/21 23:59 Last Admin: 01/04/21 20:44 Dose: 10 mg Documented by: Dexamethasone (Dexamethasone 2 Mg Tab) 2 mg PO DAILY [facility] Stop: 01/09/21 09:01 Last Admin: 01/09/21 09:25 Dose: 2 mg Documented by: Dexamethasone (Dexamethasone 2 Mg Tab) 1 mg PO DAILY [facility] Last Admin: 01/04/21 09:18 Dose: 1 mg Documented by: Enoxaparin Sodium (Enoxaparin 100 Mg/1 Ml Syringe) 100 mg SUBCUT DAILY [facility] Last Admin: 12/27/20 15:02 Dose: Not Given Documented by: Enoxaparin Sodium (Enoxaparin 100 Mg/1 Ml Syringe) 100 mg SUBCUT Q12H [facility] Last Admin: 12/29/20 02:46 Dose: 100 mg Documented by: Furosemide (Furosemide 20 Mg/2 Ml Vial) 20 mg IVPUSH NOW ONE Stop: 12/30/20 10:31 Last Admin: 12/30/20 11:30 Dose: 20 mg Documented by: Furosemide (Furosemide 20 Mg/2 Ml Vial) 20 mg IVPUSH NOW ONE Stop: 01/01/21 10:46 Last Admin: 01/01/21 11:10 Dose: 20 mg Documented by: Ceftriaxone Sodium 2 gm/ (Sodium Chloride) 50 mls @ 100 mls/hr IV ONETIME ONE Stop: 12/27/20 09:12 Last Admin: 12/27/20 09:25 Dose: 100 mls/hr Documented by: Sodium Chloride (Normal Saline) 90 mls @ 3 mls/sec IV ONETIME ONE Stop: 12/27/20 10:30 Last Admin: 12/27/20 10:45 Dose: 4 mls/sec Documented by: Sodium Chloride (Normal Saline) 1,000 mls @ 125 mls/hr IV ASDIRECTED [facility] Last Admin: 12/28/20 02:15 Dose: 125 mls/hr Documented by: Levofloxacin/Dextrose 750 mg/ (Premix) 150 mls @ 100 mls/hr IV Q24H [facility] Last Admin: 01/03/21 14:31 Dose: 100 mls/hr Documented by: Vancomycin HCl 1.8 gm/ Sodium (Chloride) 250 mls @ 166.667 mls/hr IV ONETIME ONE Stop: 12/27/20 17:59 Last Admin: 12/27/20 16:56 Dose: 166.667 mls/hr Documented by: Vancomycin HCl 1.4 gm/ Sodium (Chloride) 250 mls @ 166.667 mls/hr IV Q12H [facility] Last Admin: 12/29/20 03:40 Dose: 166.667 mls/hr Documented by: Meropenem 1 gm/ Sodium (Chloride) 100 mls @ 200 mls/hr IV Q8H [facility] Last Admin: 01/01/21 09:18 Dose: 200 mls/hr Documented by: Iopamidol (Iopamidol 755 Mg/Ml 100 Ml Bottle) 85 ml IV . DIRECTED [facility] Last Admin: 12/27/20 10:45 Dose: 85 ml Documented by: Methylprednisolone Sodium Succinate (Methylprednisolone Sodium Succinate 125 Mg/2 Ml Sdv) 125 mg IVPUSH ONETIME ONE Stop: 12/27/20 08:44 Last Admin: 12/27/20 09:21 Dose: 125 mg Documented by: Methylprednisolone Sodium Succinate (Methylprednisolone Sodium Succinate 40 Mg/1 Ml Sdv) 40 mg IVPUSH DAILY [facility] Last Admin: 01/02/21 09:22 Dose: 40 mg Documented by: Sodium Chloride (Sodium Chloride 0.9% 10 Ml Syringe) 10 ml FLUSH ONETIME PRN PRN Reason: PER RADIOLOGY PROTOCOL Last Admin: 12/27/20 10:45 Dose: 10 ml Documented by: Vancomycin HCl (Vancomycin 1 Gm Sdv) 1 gm IV .PHARMACY TO DOSE [facility] Stop: 12/27/20 18:00 - Exam Quality Assessment: Supplemental Oxygen, DVT Prophylaxis General: Alert, Oriented, Cooperative, Mild Distress Lungs: Clear to Auscultation, Normal Respiratory Effort Cardiovascular: Regular Rate, Regular Rhythm, No Murmurs GI/Abdominal Exam: Soft, Non-Tender, No Organomegaly, No Distention Extremities: Non-Tender, No Pedal Edema - Patient Data Lab Results Last 24 hrs: Laboratory Results - last 24 hr 01/11/21 01/11/21 01/11/21 Range/Units 06:02 06:02 06:02 D-Dimer, Quantitative 2502.93 H (0.0-500.0) ng/mL Sodium 139 L (140-148) mmol/L Potassium 4.2 (3.6-5.2) mmol/L Chloride 104 (100-108) mmol/L Carbon Dioxide 30 (21-32) mmol/L Anion Gap 9.2 (5.0-14.0) mmol/L BUN 22 H (7-18) mg/dL Creatinine 0.7 L (0.8-1.3) mg/dL Est Cr Clr Drug Dosing 98.49 mL/min Estimated GFR (MDRD) > 60 (>60) Glucose 80 (74-106) mg/dL Calcium 8.2 L (8.5-10.1) mg/dL C-Reactive Protein 0.11 (0.0-0.3) mg/dL Result Diagrams: 01/02/21 05:04 01/11/21 06:02 Sepsis Event Note - Evaluation Sepsis Screening Result: No Definite Risk - Focused Exam Vital Signs: Vital Signs Temp Temp Pulse Resp BP Pulse Ox Pulse Ox 01/11/21 13:14 94 L 01/11/21 11:44 97.5 F 76 16 109/55 L 95 01/11/21 10:46 90 01/11/21 08:00 94 L 01/11/21 07:11 97.4 F 87 18 117/62 88 L 01/11/21 07:01 92 L 01/11/21 03:00 96.6 F L 83 18 106/72 92 L - Problem List Review Problem List Initiated/Reviewed/Updated: Yes - Plan Plan:: ASSESSMENT AND PLAN BILATERAL PNEUMONIA-resolved -He is on a steroid taper with recent Covid infection. 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 Provoked in the setting of Covid infection. -Apixaban 5 mg twice daily for 3 months HYPOXIC RESPIRATORY FAILURE-likely multifactorial related to recent COVID-19 infection with residual inflammation, bacterial pneumonia, and pulmonary emboli. Echo normal. Slowly improving. -Supplemental oxygen as needed -Scheduled and as needed nebulizers ADRENAL INSUFFICIENCY-recent therapy with Decadron for COVID-19 infection. -dexamethasone 1 mg daily with taper over the next 2 weeks MAINTENANCE ISSUES -DVT prophylaxis; apixaban -GI prophylaxis; not indicated -Nutrition; regular diet DISPOSITION-anticipate discharge to home with home care after the hospital stay. He continues to require higher levels of supplemental oxygen than can be supported at home.
[2021-01-12] MEDS: Albuterol/Ipratropium 3.0-0.5 MG/3 ML Neb Soln NEB SCH ×2 (07:17→10:51)
[2021-01-12] MEDS: Apixaban 5 MG Tab PO SCH (08:42)
[2021-01-12] MEDS: Dexamethasone 2 MG Tab PO SCH (08:43)
[2021-01-12 11:12] VITALS: BP 127/68; PULSE 96
--- NOTE | 2021-01-12 12:31 | PCM.DCSUM1 ---
Discharge Summary - Hospital Course Brief History: Mr. Blanco is a 70-year-old gentleman who was admitted through the emergency room with worsening hypoxia secondary to bilateral bacterial pneumonia, pulmonary emboli, and recent COVID-19 infection. - Discharge Data Discharge Date: 01/12/21 Discharge Disposition: Home, W Home Health Agency 06 Condition: Fair - Referral to Home Health Date of Face to Face Encounter: 01/12/21 Reason for Homebound Status: Hypoxia, weakness Primary Care Physician: PCP None Skilled Need: Nursing, home health aide, PT/OT - Discharge Diagnosis/Problem(s) (1) Pneumonia SNOMED Code(s): 182579666 ICD Code: J18.9 - PNEUMONIA, UNSPECIFIED ORGANISM Status: Acute Current Visit: Yes (2) Pulmonary emboli SNOMED Code(s): 07881889 ICD Code: I26.99 - OTHER PULMONARY EMBOLISM WITHOUT ACUTE COR PULMONALE Status: Acute Current Visit: Yes (3) Acute respiratory failure with hypoxia SNOMED Code(s): 14293479, 119729533 ICD Code: J96.01 - ACUTE RESPIRATORY FAILURE WITH HYPOXIA Status: Acute Current Visit: Yes (4) COVID-19 SNOMED Code(s): 278926795 ICD Code: U07.1 - COVID-19 Status: Acute Priority: High Current Visit: No - Patient Summary/Data Consults: Consultations 01/03/21 10:43 PT Evaluation and Treatment [CONS] Routine Please Evaluate and Treat. PT Reason for Consult: Strengthening This query below is only for informational purposes and is not editable. Admission Diagnosis/Problem: Pneumonia 01/04/21 09:21 OT Evaluation and Treatment [CONS] Routine Please Evaluate and Treat. OT Reason for Consult: Strengthening This query below is only for informational purposes and is not editable. Admission Diagnosis/Problem: Pneumonia Hospital Course: Mr. Blanco is a 70-year-old gentleman who was admitted through the emergency department with increased shortness of breath and hypoxia. He was recently hospitalized at this facility for several weeks with COVID-19 infection including bilateral pneumonia, ARDS, and hypoxic respiratory failure. While here he was treated for DVT prophylaxis with enoxaparin twice daily. He received supplemental oxygen as needed. Also treated with a full course of remdesivir and Decadron. He improved to the point where he was on 4 to 5 L of oxygen via nasal cannula and was discharged home. While at home he would get short of breath and desaturate with activity. Over the past 2 to 3 days he has become progressively more weak and short of breath. Today he was found to be hypoxic with oxygen saturations in the 70s. He was brought into the emergency department for further evaluation. He has been placed on BiPAP, this has resulted with improved oxygenation. Respiratory rate remains moderately elevated. CT scan of the chest with contrast does show evidence of subsegmental pulmonary emboli as well as increased consolidation in some of his infiltrates. On admission blood cultures were obtained as he was felt to have probable bacterial pneumonia. He was started on broad-spectrum IV antibiotic therapy. Cultures remain negative throughout hospitalization and he did complete a 7-day course of antibiotic therapy. He was started on Lovenox therapeutic dosing for management of his pulmonary emboli and after 2 days was transitioned to oral Eliquis. He received 7 days of Eliquis 10 mg twice daily and this was then decreased to 5 mg twice daily. He will remain on the Eliquis for a period of 3 months. Initially he was treated with BiPAP and then converted to high flow humidified oxygen. During the first week his oxygen requirements did increase and he desaturated with very minimal activity. Over the course of his hospitalization his respiratory status gradually improved to the point where he was requiring 2-1/2 L of oxygen at rest. He would desaturate with activity but did better if oxygen was increased to 5 L/min when active. He was felt to have probable adrenal insufficiency related to prolonged course of dexamethasone during his previous hospitalization. He was initially treated with IV Solu- Medrol and then converted to a tapering dose of dexamethasone. He will receive further taper after discharge with 1 mg daily for 4 days and then 1/2 mg daily for 8 days. Overall energy level and appetite improved significantly during hospitalization. He was seen daily by physical therapy. Activity will be as tolerated and he will resume his usual diet. He will be discharged home on home oxygen as noted above. Follow-up appointment will be scheduled with his primary care provider within 1 week. - Patient Instructions Diet: Usual Diet as Tolerated Activity: As Tolerated - Discharge Plan *PRESCRIPTION DRUG MONITORING PROGRAM REVIEWED*: Not Applicable *COPY OF PRESCRIPTION DRUG MONITORING REPORT IN PATIENT SANTI: Not Applicable Prescriptions/Med Rec: dexAMETHasone [Dexamethasone] 1 mg PO DAILY #8 tab Apixaban [Eliquis] 5 mg PO BID #60 tablet Home Medications: Home Meds Acetaminophen/HYDROcodone [HYDROcodone-Acetaminophen 5-325 MG *] 1 tab PO ASDIRECTED 11/30/20 [History] Apixaban [Eliquis] 5 mg PO BID #60 tablet 01/12/21 [Rx] dexAMETHasone [Dexamethasone] 1 mg PO DAILY #8 tab 01/12/21 [Rx] Patient Handouts: Hypoxemia Referrals: Mayito Mckenzie MD [Physician] - 01/17/21 1:40 pm (Please arrive 15 minutes early to register for your appointment.) - Discharge Summary/Plan Comment DC Time >30 min.: No Total # of Minutes for Discharge Time: 15 - Patient Data Vitals - Most Recent: Last Vital Signs Temp 97.5 F 01/12/21 11:11 Pulse 96 01/12/21 11:11 Resp 16 01/12/21 11:11 BP 127/68 01/12/21 11:11 Pulse Ox 93 L 01/12/21 11:11 Weight - Most Recent: 187 lb 12.8 oz I&O - Last 24 hours: Intake & Output 01/11/21 01/12/21 01/12/21 22:59 06:59 14:59 Intake Total 720 240 780 Output Total 975 650 Balance -255 -410 780 Med Orders - Current: Current Medications Acetaminophen (Acetaminophen 325 Mg Tab) 650 mg PO Q4H PRN PRN Reason: Pain (Mild 1-3)/fever Hydrocodone Bitart/Acetaminophen (Acetaminophen/Hydrocodone 325-5 Mg Tab) 1 tab PO Q4H PRN PRN Reason: Pain (moderate 4-6) Albuterol (Albuterol 0.083% 2.5 Mg/3 Ml Neb Soln) 2.5 mg NEB Q4H PRN PRN Reason: Shortness Of Breath/wheezing Last Admin: 01/04/21 17:29 Dose: 2.5 mg Documented by: Albuterol/Ipratropium (Albuterol/Ipratropium 3.0-0.5 Mg/3 Ml Neb Soln) 3 ml NEB QIDRT [facility] Last Admin: 01/12/21 10:51 Dose: 3 ml Documented by: Apixaban (Apixaban 5 Mg Tab) 5 mg PO BID [facility] Last Admin: 01/12/21 08:42 Dose: 5 mg Documented by: Dexamethasone (Dexamethasone 2 Mg Tab) 1 mg PO DAILY [facility] Last Admin: 01/12/21 08:43 Dose: 1 mg Documented by: Ondansetron HCl (Ondansetron 4 Mg/2 Ml Sdv) 4 mg IV Q4H PRN PRN Reason: Nausea/Vomiting Polyethylene Glycol (Polyethylene Glycol 3350 Powder 17 Gm Packet) 17 gm PO DAILY PRN PRN Reason: Constipation Sodium Chloride (Sodium Chloride 0.9% 10 Ml Syringe) 10 ml FLUSH ASDIRECTED PRN PRN Reason: Keep Vein Open Discontinued Medications Apixaban (Apixaban 5 Mg Tab) 10 mg PO Q12H [facility] Stop: 01/04/21 23:59 Last Admin: 01/04/21 20:44 Dose: 10 mg Documented by: Dexamethasone (Dexamethasone 2 Mg Tab) 2 mg PO DAILY [facility] Stop: 01/09/21 09:01 Last Admin: 01/09/21 09:25 Dose: 2 mg Documented by: Dexamethasone (Dexamethasone 2 Mg Tab) 1 mg PO DAILY [facility] Last Admin: 01/04/21 09:18 Dose: 1 mg Documented by: Enoxaparin Sodium (Enoxaparin 100 Mg/1 Ml Syringe) 100 mg SUBCUT DAILY [facility] Last Admin: 12/27/20 15:02 Dose: Not Given Documented by: Enoxaparin Sodium (Enoxaparin 100 Mg/1 Ml Syringe) 100 mg SUBCUT Q12H [facility] Last Admin: 12/29/20 02:46 Dose: 100 mg Documented by: Furosemide (Furosemide 20 Mg/2 Ml Vial) 20 mg IVPUSH NOW ONE Stop: 12/30/20 10:31 Last Admin: 12/30/20 11:30 Dose: 20 mg Documented by: Furosemide (Furosemide 20 Mg/2 Ml Vial) 20 mg IVPUSH NOW ONE Stop: 01/01/21 10:46 Last Admin: 01/01/21 11:10 Dose: 20 mg Documented by: Ceftriaxone Sodium 2 gm/ (Sodium Chloride) 50 mls @ 100 mls/hr IV ONETIME ONE Stop: 12/27/20 09:12 Last Admin: 12/27/20 09:25 Dose: 100 mls/hr Documented by: Sodium Chloride (Normal Saline) 90 mls @ 3 mls/sec IV ONETIME ONE Stop: 12/27/20 10:30 Last Admin: 12/27/20 10:45 Dose: 4 mls/sec Documented by: Sodium Chloride (Normal Saline) 1,000 mls @ 125 mls/hr IV ASDIRECTED [facility] Last Admin: 12/28/20 02:15 Dose: 125 mls/hr Documented by: Levofloxacin/Dextrose 750 mg/ (Premix) 150 mls @ 100 mls/hr IV Q24H [facility] Last Admin: 01/03/21 14:31 Dose: 100 mls/hr Documented by: Vancomycin HCl 1.8 gm/ Sodium (Chloride) 250 mls @ 166.667 mls/hr IV ONETIME ONE Stop: 12/27/20 17:59 Last Admin: 12/27/20 16:56 Dose: 166.667 mls/hr Documented by: Vancomycin HCl 1.4 gm/ Sodium (Chloride) 250 mls @ 166.667 mls/hr IV Q12H [facility] Last Admin: 12/29/20 03:40 Dose: 166.667 mls/hr Documented by: Meropenem 1 gm/ Sodium (Chloride) 100 mls @ 200 mls/hr IV Q8H [facility] Last Admin: 01/01/21 09:18 Dose: 200 mls/hr Documented by: Iopamidol (Iopamidol 755 Mg/Ml 100 Ml Bottle) 85 ml IV . DIRECTED [facility] Last Admin: 12/27/20 10:45 Dose: 85 ml Documented by: Methylprednisolone Sodium Succinate (Methylprednisolone Sodium Succinate 125 Mg/2 Ml Sdv) 125 mg IVPUSH ONETIME ONE Stop: 12/27/20 08:44 Last Admin: 12/27/20 09:21 Dose: 125 mg Documented by: Methylprednisolone Sodium Succinate (Methylprednisolone Sodium Succinate 40 Mg/1 Ml Sdv) 40 mg IVPUSH DAILY [facility] Last Admin: 01/02/21 09:22 Dose: 40 mg Documented by: Sodium Chloride (Sodium Chloride 0.9% 10 Ml Syringe) 10 ml FLUSH ONETIME PRN PRN Reason: PER RADIOLOGY PROTOCOL Last Admin: 12/27/20 10:45 Dose: 10 ml Documented by: Vancomycin HCl (Vancomycin 1 Gm Sdv) 1 gm IV .PHARMACY TO DOSE [facility] Stop: 12/27/20 18:00 - Exam Quality Assessment: Reports: DVT Prophylaxis General: Reports: Alert, Oriented, Cooperative, Mild Distress Lungs: Reports: Clear to Auscultation, Normal Respiratory Effort, Decreased Breath Sounds Cardiovascular: Reports: Regular Rate, Regular Rhythm, No Murmurs GI/Abdominal Exam: Soft, Non-Tender, No Organomegaly, No Distention Extremities: Non-Tender, No Pedal Edema *Q Meaningful Use (DIS) - VTE *Q VTE Pharmacological Contraindications *Q: High INR Value
== END 2021-01-12 12:31 | disposition home health service (06) | DRG 175 ==
LOC: JP.ED 08:21 → JP.MS 13:29
PROVIDERS: ADMIT Hospitalist; ATTEND Hospitalist
PROC: XW033N5 Introduction of Meropenem-vaborbactam Anti-infective into Peripheral Vein, Percutaneous Approach, New Technology Group 5 (ICD-10-PCS; principal; 2020-12-27)
PROC: 5A09357 Assistance with Respiratory Ventilation, Less than 24 Consecutive Hours, Continuous Positive Airway Pressure (ICD-10-PCS; 2020-12-27)
PROC: 5A0955A Assistance with Respiratory Ventilation, Greater than 96 Consecutive Hours, High Flow/Velocity Cannula (ICD-10-PCS; 2020-12-29)
DX: U07.1 COVID-19 (principal); J12.82 Pneumonia due to coronavirus disease 2019; I26.93 Single subsegmental thrombotic pulmonary embolism without acute cor pulmonale; J96.01 Acute respiratory failure with hypoxia; J15.9 Unspecified bacterial pneumonia; E27.40 Unspecified adrenocortical insufficiency; H54.7 Unspecified visual loss; Z66 Do not resuscitate; Z86.73 Personal history of transient ischemic attack (TIA), and cerebral infarction without residual deficits; Z87.891 Personal history of nicotine dependence; B94.8 Sequelae of other specified infectious and parasitic diseases
CPT/HCPCS: 36415; 71045 ×2; 71275 ×2; 80053; 84145; 84484; 85025; 85379; 86140; 87040 ×2; 96365; 96375; 99285; J0696; J2930; Q9967; 36600; 80048; 80202; 82565; 82803; 83735; 83880; 93306; 94640; 94660; 94762; 97110-GO; 97110-GP; 97140-GP; 97162-GP; 97165-GO; 97530-GP; 97535-GO; 97535-GP; A9270-GY; J1650; J1940; J1956; J2185; J2920; J3370; J7030; J7050; J7620-GY; J8540

== ENCOUNTER 2023-07-15 08:53 | Inpatient (IN) | payer MEDICARE ==
[2023-07-15 09:36] LABS: HEMOGLOBIN 13.3 g/dL (12.9-16.9); MEAN CORPUSCULAR HEMOGLOBIN 31.9 pg (31.6-35.5); MEAN CORPUSCULAR HGB CONC 34.1 g/dL (31.6-35.5); MEAN CORPUSCULAR VOLUME 93.5 fL (81.4-99.0); PLATELET COUNT,PLT 214 K/uL (130-375); RED BLOOD CELL COUNT 4.17 M/uL (4.14-5.76); WHITE BLOOD CELL COUNT,WBC 24.6 K/uL (3.2-11.0)
[2023-07-15 09:45] LABS: INR 1.1; PTT,PARTIAL THROMBOPLSTIN TIME 28.1 sec (21.8-27.3)
[2023-07-15 10:00] LABS: A/G RATIO 0.9 (1.2-2.2); ALANINE AMINOTRANSFERASE,ALT 35 U/L (12-78); ALBUMIN 3.8 g/dL (3.4-5.0); ALKALINE PHOSPHATASE 76 U/L (46-116); ASPARTATE AMNIOTRANSFERASE,AST 31 U/L (15-37); BILIRUBIN TOTAL 0.7 mg/dL (0.2-1.0); BLOOD UREA NITROGEN,BUN 23 mg/dL (7-18); CALCIUM 9.5 mg/dL (8.5-10.1); CARBON DIOXIDE,CO2 26 mmol/L (21-32); CHLORIDE,CL 100 mmol/L (100-108); CREATININE 1.5 mg/dL (0.8-1.3); EST CRCL DRUG DOSING (CG) 43.94 mL/min; ESTIMATED GFR 48 mL/min (>60); GLUCOSE RANDOM 142 mg/dL (74-106); MAGNESIUM 1.8 mg/dL (1.8-2.4); PHOSPHORUS 2.9 mg/dL (2.5-4.9); POTASSIUM,K 4.4 mmol/L (3.6-5.2); PROTEIN TOTAL,TP 7.9 g/dL (6.4-8.2); SODIUM,NA 137 mmol/L (140-148); TROPONIN I HIGH SENSITIVITY 19.4 pg/mL (<=60.3)
[2023-07-15 10:04] LABS: ANION GAP 15.4 mmol/L (5.0-14.0)
[2023-07-15] MEDS: Sodium Chloride 0.9% 1,000 ML IV SCH ×5 (10:04→21:51)
[2023-07-15] MEDS: Ketorolac 30 MG/ML SDV IVPUSH ONE (10:04)
[2023-07-15 10:16] LABS: CORONAVIRUS COVID-19 NAA NEGATIVE (NEGATIVE); INFLUENZA A NAA NEGATIVE (NEGATIVE); INFLUENZA B NAA NEGATIVE (NEGATIVE); RESPIRATORY SYNCYTIAL VIR NAA NEGATIVE (NEGATIVE)
[2023-07-15 10:26] LABS: BAND ABSOLUTE MAN 3.94 K/uL; BAND PERCENT MAN 16 % (5-11); LYMPHOCYTES ABSOLUTE MAN 1.23 K/uL (0.8-3.3); LYMPHOCYTES PERCENT MAN 5 % (24-44); METAMYELOCYTE ABSOLUTE MAN 0.25 K/uL; METAMYELOCYTE PERCENT MAN 1 %; MONOCYTES ABSOLUTE MAN 1.23 K/uL (0.20-0.90); MONOCYTES PERCENT MAN 5 % (2-6); NEUTROPHILS ABSOLUTE MAN 17.96 K/uL (1.0-7.6); SEG NEUTROPHILS PERCENT MAN 73 % (36-66)
[2023-07-15] MEDS: Cefepime 2 GM in Sodium Chloride 0.9% 50 ML IV ONE (12:00)
[2023-07-15] MEDS: Acetaminophen 325 MG Tab PO ONE (13:14)
[2023-07-15 15:03] LABS: APPEARANCE,URINE SLIGHTLY CLOUDY (CLEAR); BILIRUBIN,URINE NEGATIVE (NEGATIVE); COLOR,URINE YELLOW (YELLOW); GLUCOSE,URINE NEGATIVE (NEGATIVE); KETONES,URINE NEGATIVE (NEGATIVE); LEUKOCYTE ESTERASE,URINE NEGATIVE (NEGATIVE); NITRITE,URINE NEGATIVE (NEGATIVE); OCCULT BLOOD,URINE NEGATIVE (NEGATIVE); PROTEIN,URINE 100 mg/dL (NEGATIVE); UROBILINOGEN,URINE 0.2 EU/dL (0.2-1.0)
[2023-07-15 15:16] LABS: AMORPHOUS SEDIMENT,URINE NOT SEEN; BACTERIA,URINE FEW; EPITHELIAL CELLS,URINE FEW; MUCUS,URINE NOT SEEN; RBC,URINE 0-5 (0-5)
[2023-07-15] MEDS ORDERED: Sennosides/Docusate Sodium 50-8.6 MG Tab PO PRN (15:51)
[2023-07-15] MEDS ORDERED: Ondansetron 4 MG/2 ML SDV IV PRN (15:51)
[2023-07-15] MEDS ORDERED: Benzonatate 100 MG Cap PO PRN (15:51)
[2023-07-15] MEDS ORDERED: Albuterol 0.083% 2.5 MG/3 ML Neb Soln NEB PRN (15:51)
[2023-07-15] MEDS ORDERED: guaiFENesin/Dextromethorphan 100-10 MG/5 ML Soln 10 ML Cup PO PRN (15:51)
[2023-07-15] MEDS ORDERED: Magnesium Hydroxide 400 MG/5 ML Susp 30 ML Cup PO PRN (15:51)
[2023-07-15] MEDS ORDERED: Acetaminophen/HYDROcodone 325-5 MG Tab PO PRN (15:51)
[2023-07-15] MEDS ORDERED: Ondansetron 4 MG Tab.DIS PO PRN (15:51)
[2023-07-15] MEDS ORDERED: HYDROmorphone 0.5 MG/0.5 ML Syringe IVPUSH PRN (16:09)
[2023-07-15] MEDS: Acetaminophen 325 MG Tab PO PRN (16:56)
[2023-07-15] MEDS: Ketorolac 30 MG/ML SDV IM ONE (18:21)
[2023-07-15] MEDS: Hydrocortisone Sodium Succinate 100 MG/2 ML SDV IVPUSH SCH (19:34)
[2023-07-15] MEDS: Rosuvastatin 10 MG Tab PO SCH (20:09)
[2023-07-15] MEDS: Lactobacillus Rhamnosus GG (Probiotic) Cap PO SCH (20:10)
[2023-07-15] MEDS: Apixaban 5 MG Tab PO SCH (20:10)
[2023-07-15] MEDS: Melatonin 3 MG Tab PO SCH (20:10)
[2023-07-15] MEDS: cefTRIAXone 2 GM in Sodium Chloride 0.9% 50 ML IV SCH (20:28)
[2023-07-15] MEDS: Doxycycline 100 MG in Sodium Chloride 0.9% 100 ML IV SCH (21:18)
[2023-07-16 04:49] LABS: HEMATOCRIT 34.3 % (38.4-49.7); HEMOGLOBIN 11.6 g/dL (12.9-16.9); MEAN CORPUSCULAR HEMOGLOBIN 31.9 pg (31.6-35.5); MEAN CORPUSCULAR HGB CONC 33.8 g/dL (31.6-35.5); MEAN CORPUSCULAR VOLUME 94.2 fL (81.4-99.0); RED BLOOD CELL COUNT 3.64 M/uL (4.14-5.76); WHITE BLOOD CELL COUNT,WBC 25.3 K/uL (3.2-11.0)
[2023-07-16 05:12] LABS: CALCIUM 8.5 mg/dL (8.5-10.1); CREATININE 1.1 mg/dL (0.8-1.3); EST CRCL DRUG DOSING (CG) 58.97 mL/min; MAGNESIUM 1.9 mg/dL (1.8-2.4); POTASSIUM,K 4.7 mmol/L (3.6-5.2)
[2023-07-16 05:38] LABS: ANION GAP 12.7 mmol/L (5.0-14.0)
[2023-07-16] MEDS: Aspirin 81 MG Tab.Chew PO SCH (08:13)
[2023-07-16] MEDS: Clopidogrel 75 MG Tab PO SCH (08:13)
[2023-07-16] MEDS: Metoprolol Succinate 25 MG Tab.ER PO SCH (08:13)
[2023-07-16] MEDS: Ezetimibe 10 MG Tab PO SCH (08:15)
[2023-07-17 05:38] LABS: HEMATOCRIT 32.7 % (38.4-49.7); MEAN CORPUSCULAR HEMOGLOBIN 31.2 pg (31.6-35.5); MEAN CORPUSCULAR HGB CONC 33.6 g/dL (31.6-35.5); MEAN CORPUSCULAR VOLUME 92.6 fL (81.4-99.0); RED BLOOD CELL COUNT 3.53 M/uL (4.14-5.76); WHITE BLOOD CELL COUNT,WBC 14.9 K/uL (3.2-11.0)
[2023-07-17 05:52] LABS: CALCIUM 8.5 mg/dL (8.5-10.1); EST CRCL DRUG DOSING (CG) 65.25 mL/min; POTASSIUM,K 3.8 mmol/L (3.6-5.2)
[2023-07-17 06:02] LABS: ANION GAP 11.8 mmol/L (5.0-14.0)
[2023-07-17 11:07] VITALS: BP 127/71; PULSE 85
== END 2023-07-17 12:10 | disposition home or self-care (01) | DRG 871 ==
LOC: JP.ED 08:53 → JP.ICU 14:15
PROVIDERS: ADMIT Internal Medicine; ATTEND Internal Medicine
DX: A41.9 Sepsis, unspecified organism (principal); J18.9 Pneumonia, unspecified organism; J96.01 Acute respiratory failure with hypoxia; I95.9 Hypotension, unspecified; R65.20 Severe sepsis without septic shock; J32.9 Chronic sinusitis, unspecified; I25.10 Atherosclerotic heart disease of native coronary artery without angina pectoris; I95.89 Other hypotension; G47.33 Obstructive sleep apnea (adult) (pediatric); Z79.01 Long term (current) use of anticoagulants; Z79.82 Long term (current) use of aspirin; Z79.02 Long term (current) use of antithrombotics/antiplatelets; Z95.5 Presence of coronary angioplasty implant and graft; Z86.73 Personal history of transient ischemic attack (TIA), and cerebral infarction without residual deficits; Z99.81 Dependence on supplemental oxygen; Z79.899 Other long term (current) drug therapy
CPT/HCPCS: 0241U; 36415; 70450; 71046; 80048; 80053; 81001; 83605; 83735; 83880; 84100; 84145; 84484; 85025; 85027; 85610; 85730; 87040; 96361; 96365; 96368; 96375; 99285; 93010; 99223; 99232; 99238; A9270-GY; J0692; J0696; J1720; J1885; J3370; J3490; J7030; J7050